=== PATIENT | female | born 1995 | race Caucasian/White ===

== ENCOUNTER 2016-08-21 20:32 | Emergency (ER) | payer MEDICAID ==
[~2016-08-21] VITALS: Ht 165.1 cm; Wt 68.0 kg
[~2016-08-21 20:32] MED LIST: ALBUTEROL-200 PUFFS/ IH; AMOXICILLIN 50500 MG PO; AMOXIL250 MG PO; ANTIBIOTIC; BENADRYL 25MG C25 MG PO; BIAXIN 250MG T250 MG PO; CIPRO 500MG TA500 MG PO; CLINDAMYCIN HC150 MG PO; DEPO PROVER150 MG/ML IM; HYDROCODONE1 TABLET PO; IBUPROFEN800 MG PO; KEFLEX 500MG.500 MG PO; LORTAB 5/500 501 TAB PO; MEDROXYPROG150 MG/M1 IM; MOTRIN400 MG PO; NAPROSYN 500MG500 MG PO; PEN-VK500 MG PO; PREDNISONE 20MG20 MG PO; PREDNISONE5 MG PO; PROVENTIL0.09 MG/A1 IH; RANITIDINE HCL150 MG PO; TESSALON PERLE100 MG PO; VIBRAMYCIN HYC100 MG PO; VOLTAREN75 MG PO; ZANTAC 150150 MG PO; ZOFRAN4 MG PO
[2016-08-21 20:54] LABS: UTC STREP SCREEN NOT DETECTED (NOTDETECTED)
[2016-08-21] MEDS ORDERED: FLONASE 50 MCG16 GM (21:04)
[2016-08-21] MEDS ORDERED: AMOXICILLIN 50500 MG PO (21:04)
--- NOTE | 2016-08-21 21:05 | Urgent Treatment Center Report ---
History of Present Issue Date/Time Seen by Provider 08/21/162054 Visit Reason Pt arrived:Walked Presenting Problem:PT STATES SHE BEGAN TO FEEL BAD MONDAY. STATES FEVER, SORE THROAT, CHILLS, DORITA EAR ACHE, BODY ACHES, CONGESTION, AND N/V. Location if Accident: Onset of symptoms date/time:/ or onset unknown for:MEDICAL HX UNKNOWN Have you (or family members/close friends) recently traveled outside the [place]? N If Yes, where/when: Have you had exposure to infectious disease within the past month? TB? Other? Specify: Patient state that she has been having pain in her left ear, fever, chills, body aches, congestion and nausea and vomiting. States that she has been sick now for 3-4 days and thought she would feel better by now so she got afraid she may have the flu and she came in to be seen ALLERGIES Coded Allergies: Sulfa (Sulfonamide Antibiotics) (Mild, 06/21/15) azithromycin (Mild, 06/21/15) History Medical History General CAD? No Angina: No CT: No Hypertension? No Hyperlipidemia? No CHF? No DVT? No PE? No COPD? No Asthma? Yes Anemia? No GERD? No Gastric ulcers? No GI Bleed? No Hernia? No Thyroid Problems? No Hypothyroidism? No CVA? No Seizures? Yes Diabetes? No Insulin Dependent: No Insulin Pump: No Home FSBS? No Renal Insuffiency? No UTI? Yes Stones? No BPH? No GB Disease: Yes Nephritic Syndrome? No Asplenia? No Hepatitis? No Sickle Cell Disease? No Arthritis? No Migraines? Yes Cataracts? No Glaucoma? No MRSA? No HIV? No TB? No Anxiety? No Depression? No Cancer? No More? 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 Respiratory cough Gastrointestinal nausea, vomiting Physical Exam Vital Signs Vital Signs Date Time Temp Pulse Resp B/P Pulse O2 O2 Flow FiO2 Ox Delivery Rate 08/22 2039 99.8 85 18 128/77 97 General Appearance Patient appears ill, laying on exam table Ear, Nose, Throat sinus pain/drainage, tonsillar swelling, Throat red, irritated , left ear red, TM buldging Respiratory Status Yes: trachea midline, chest symmetrical, non tender chest. No: respiratory distress. 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 No Results/Orders Laboratory Tests 08/21/162042: Influenza Type A Ag NOT DETECTED, Influenza Type B Ag NOT DETECTED, Group A Strep Screen NOT DETECTED Orders Procedure Date/time Status UTC STREP SCREEN 08/21 2042 Complete UTC FLU A,B 08/21 2042 Complete Departure Departure Time of Disposition 2058 Disposition DC Home or Self Care(routine) Clinical Impression Primary Impression: Otitis media Qualifiers: Otitis media type: unspecified Laterality: left Chronicity: unspecified Qualified Code: H66.92 - Otitis media, unspecified, left ear Condition STABLE Referrals Shayy KABA,Guille De La Cruz (Family) Patient Instructions DI for Otitis Media (Middle Ear Infection)-Child, Ear Infections (Middle Ear) (Alternative Therapy), Sore Throat Additional Instructions better *humidifier or vaporizer *Flonase 2 sprays each nostril daily but may take 2-3 days to notice improvement with it * Warm salt water gargles for throat irritation *Warm fluids *Sore throat lozenges Increase fluids, water, Gatorade, powerade Follow up with family doctor if no improvement in symptoms for 3-4 days Report immedicately to the ER if any respiratory difficulty or emergent situation. Discharge Counseling Counseled pt/family regarding diagnosis, test results, home care, follow up needs Prescriptions Current Visit Scripts Amoxicillin Trihydrate (Amoxicillin 500MG) 500 MG PO TID #30 CAP Fluticasone Propionate (Flonase 50 Mcg Nasal [place]) 2 SPRAY NA DAILY #1 BOT at 2104
[2016-08-21 21:06] VITALS: BP 128/77
== END 2016-08-21 21:06 | disposition home or self-care (01) ==
LOC: UTC 20:32
PROVIDERS: Nurse Practitioner
DX: H66.92 Otitis media, unspecified, left ear (principal)

== ENCOUNTER 2016-12-02 17:19 | Emergency (ER) | payer MEDICAID ==
[~2016-12-02] VITALS: Ht 165.1 cm; Wt 63.5 kg
[~2016-12-02 17:19] MED LIST changes: +FLONASE 50 MCG16 GM
--- OUTSIDE RECORDS SUMMARY | 2016-12-02 17:50 | External Medical Summary Rpt ---
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 Name Role Phone NELSON RAMONE, NELSON Unavailable Unavailable RAMONE [employer] Unavailable Unavailable INC, [employer] Unavailable Unavailable INC, [employer] HUNTER CANO CHA, ALLRAN Unavailable Unavailable JR FRANCISCO CANCHOLA JR, Unavailable Unavailable FRANCISCO HARRISON JR [employer], Unavailable Unavailable [employer] ARNOLD CORIE, ARNOLD Unavailable Unavailable CORIE ARNOLD CORIE, ARNOLD Unavailable Unavailable CORIE RODERICK SALAZAR, Unavailable Unavailable RODERICK SALAZAR BEINEKE Unavailable Unavailable LAILA BEZOLD III MEDARDO, Unavailable Unavailable BEZOLD III MEDARDO PRADEEP PASTORA, Unavailable Unavailable PRADEEP PASTORA IQBAL ALL, IQBAL ALL Unavailable Unavailable [facility] Unavailable Unavailable [facility] Oscar MARTI JR, V, Unavailable Unavailable Oscar MARTI JR, CHANDEL Unavailable Unavailable ARMANDO PERES Unavailable Unavailable ARMANDO PALUMBO Unavailable Unavailable ISABEL SANDHU, Unavailable Unavailable ISABEL [facility], Un[facility]available [facility], Unavailable [facility]available [facility] Unavailable Unavailable [place], [facility] & Unavailable Unavailable ASTHMA P, [facility] & Unavailable Unavailable AST[facility] P, [facility] JULIET AGUS, Unavailable Unavailable JULIET AGUS JULIET AGUS, Unavailable Unavailable JULIET AGUS EMERSON CHUNGLAS, Unavailable Unavailable JULIET, RUBY GRIFFIN MICHELLE, GRIFFIN MICHELLE Unavailable Unavailable FARZAM FAR, FARZAM Unavailable Unavailable FAR ENDY RUIZ P, Unavailable Unavailable ENDY RUIZ P FRYMAN EUG, FRYMAN Unavailable Unavailable EUG LILI RODOLFO, LILI Unavailable Unavailable ORDOLFO LILI RODOLFO, LILI Unavailable Unavailable RODOLFO SARA LUCAS, Unavailable Unavailable SARA LUCAS [facility] Unavailable Unavailable HOSPITA, [facility] Unavailable Unavailable [place], [facility] Unavailable Unavailable INC, [facility] Unavailable Unavailable HOSPITAL P, [facility] BUTLER PRIYANK, BUTLER PRIYANK Unavailable Unavailable BUTLER PRIYANK, BUTLER PRIYANK Unavailable Unavailable [facility], Unavailable Unavailable [facility] MERCADO HEN, MERCADO HEN Unavailable Unavailable NEAL-JACOB KATLIN, Unavailable Unavailable NEAL-JACOB KATLIN NEAL-JACOB KATLIN, Unavailable Unavailable NEAL-JACOB KATLIN SAIDA ELIZABETH, SAIDA Unavailable Unavailable ELIZABETH [facility] Unavailable Unavailable [facility]ING [facility], [facility], OFE M[facility] Unavailable Unavailable MENDEL COLEMAN, Unavailable Unavailable MENDEL COLEMAN [facility] Un[facility] Un[facility] WALL SUDHA, WALL Unavailable Unavailable SUDHA WALL SUDHA, WALL Unavailable Unavailable SUDHA MARI JR DWI, MARI Unavailable Unavailable JR DWI MARI JR DWI, MARI Unavailable Unavailable JR DWI COLIN FAYETTE URBAN Unavailable Unavailable COGOVT, COLIN FAYETTE URBAN COGOVT Danisha Lucas MD, Unavailable Unavailable Danisha Lucas MD [facility], Unavailable Unavailable [facility] TYRELL [facility], Unavailable Unavailable [facility] Unavailable Unavailable SERVICES, [facility] DENEEN RIBEIRO, DENEEN Unavailable Unavailable KIRSTIN CALDWELL, Unavailable Unavailable KIRSTIN COBOS, NELLY MOCTEZUMA Unavailable Unavailable NELLY MOCTEZUMA, NELLY JOSE ELIAS Unavailable Unavailable COLON, GENE A, Unavailable Unavailable COLON GENE A DODD JOSE ELIAS, DODD Unavailable Unavailable JOSE ELIAS [facility], Unavailable [facility]available [facility] Unavailable Unavailable LAB, [facility] DEREK BROWN, Unavailable Unavailable DEREK BROWN PETTEY JAM, PETTEY Unavailable Unavailable JAM [facility] ENGINEER, RECHTIN Unavailable Unavailable DATA CENTER ENGINEER [facility] ENGINEER, RECHTIN Unavailable Unavailable DATA CENTER ENGINEER [id number], Unavailable Unavailable [id number] Unavailable Unavailable [id number] # [id number], [facility] [id number] # [id number] [facility] Unavailable Unavailable AMBULANCE[facility] Unavailable [facility]available AMBULANCE, [facility], Unavailable Unavailable [facility] ANCELMO LA, ANCELMO LA Unavailable Unavailable SADEK MOH, SADEK MOH Unavailable Unavailable BECERRA AGUS, Unavailable Unavailable [facility] AG[facility] KATLIN, Unavailable Unavailable SCHULST[facility] KATLIN [facility] KATLIN, Unavailable Unavailable [facility] KATLIN [facility], PETER, Unavailable Unavailable [facility], PETER PATINO MUR, Unavailable Unavailable PATINO MUR SCIFRES ANG, SCIFRES Unavailable Unavailable ANG SCIFRES ANG, SCIFRES Unavailable Unavailable ANG SCIFRES JESÚS M, Unavailable Unavailable SCIFRES, JESÚS M SMALL LESVIA, SMALL LESVIA Unavailable Unavailable SOKAN BAB, SOKAN BAB Unavailable Unavailable SOTINGEANU LAILA, Unavailable Unavailable SOTINGEANU LAILA [facility] Unavailable Unavailable [facility], [facility] Unavailable Unavailable EMERGENCY PHYS, [facility] STONE, STONE Unavailable Unavailable [facility] Unavailable Unavailable SURGERY C, [facility] Unavailable Unavailable HOSPITALS, [facility], Unavailable [facility]available [facility] Unavailable Unavailable [facility], [facility] WEHRMAN III JOSE ELIAS, Unavailable Unavailable WEHRMAN III JOSE ELIAS WEHRMAN III JOSE ELIAS, Unavailable Unavailable WEHRMAN III JOSE ELIAS WEHRDANIELA IIIDAMIR, Unavailable Unavailable WEHRDANIELA IIIDAMIR, JAKY THAKUR Unavailable Unavailable Damir Duncan Unavailable Unavailable III Damir KABA III CONNOR MOMIN, Unavailable Unavailable CONNOR BAEZ [facility] Unavailable Unavailable OF [place], [facility] [place] Purpose Continuity of Care Document - 09-03-2007 through 2016 Problems Code Diagnosis DOS Provider Status [id number] OTITIS 08-21-2016 [facility] UNSPECIFIED INC LEFT EAR Z3040 ENCOUNTER 08-16-2016 [facility] SURVEILLANC GROUP E CONTRACEPTI VES UNS 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 THY RIGHT UPPER LIMB [id number] INJURY 12-22-2015 [facility] HAND LEVEL RT ARM INIT I01719 PAIN IN 11-18-2015 [facility] [id number] INJURY 11-18-2015 [facility] RADIAL PHYSICIANS NERVE GROUP FOREARM LEVEL RT ARM INIT H5213 MYOPIA 10-30-2015 SCICHASIDY JACOBS BILATERAL Z4802 ENCOUNTER 08-06-2015 [facility] FOR REMOVAL PHYSICIANS OF SUTURES GROUP T148 OTHER 07-27-2015 [facility] INJURY OF PHYSICIANS UNSPECIFIED GROUP BODY REGION M542 CERVICALGIA 07-26-2015 [facility] R51 HEADACHE 07-26-2015 [facility] [id number] LAC W/O FB 07-26-2015 [facility] EYELID & MEDICAL PERIOCULAR IMAGING ASS AREA INIT ENC [id number] LACERATION 07-26-2015 [facility] W/O FB PHYSICIANS, OTHER PART PLLC HEAD INITIAL ENC [id number] CONCUSSION 07-26-2015 [facility] W/LOC 30 PHYSICIANS, MIN/LESS PLLC INITIAL ENCOUNTER [id number] UNSPECIFIED 07-26-2015 [facility] INJURY OF MEDICAL HEAD IMAGING ASS INITIAL ENCOUNTER L470JRA UNSPECIFIED 07-26-2015 [facility] INJURY OF MEDICAL NECK IMAGING ASS INITIAL ENCOUNTER J180 BRONCHOPNEU 06-21-2015 [facility]ICAL UNSPECIFIED IMAGING ASS ORGANISM J209 ACUTE 06-21-2015 [facility] BRONCHITIS [facility] UNSPECIFIED INC J40 BRONCHITIS 06-21-2015 [facility] NOT PHYSICIANS, SPECIFIED PLLC ACUTE OR CHRONIC J98148 UNSPECIFIED 06-21-2015 [facility] ASTHMA [facility] UNCOMPLICAT INC ED R05 COUGH 06-21-2015 [facility] Z3042 ENCOUNTER 05-14-2015 [facility] SURVEILLANC PHYSICIANS E GROUP INJECTABLE CONTRACEPTI VE M7989 OTHER 03-11-2015 [facility] SPECIFIED PHYSICIANS SOFT TISSUE GROUP DISORDERS N926 IRREGULAR 03-11-2015 [facility] MENSTRUATIO PHYSICIANS N GROUP UNSPECIFIED R1110 VOMITING 03-11-2015 [facility] UNSPECIFIED PHYSICIANS GROUP G44739 MIGRAINE 03-03-2015 [facility] W/O AURA PHYSICIANS, NOT INTRACT PLLC W/O STAT MIGRAIN 21014 UNSPECIFIED 11-20-2014 [facility] CON[facility] PHYS TIS V142 PERSONAL 11-20-2014 [place] [facility] ALL[facility] TO HOSPITAL SULFONAMIDE S V143 PERSONAL 11-20-2014 [place] [facility] OTH [facility]OSPITAL ANTI-INFECT JANE AGT 62473 SPRAIN AND 09-22-2014 [facility] OF TECHNOLOGIE UNSPECIFIED S INC SITE OF FOOT 7820 DISTURBANCE 09-21-2014 [facility] OF SKIN MEDICAL SENSATION IMAGING ASS 9170 ABRASION/FR 09-21-2014 [facility] ICTION [facility] FOOT&TOE INC W/O MENTION INF V065 NEED 09-21-2014 [facility] PROPHYLACTI [facility] C INC VACCINATION W/TETANUS-D [facility] 3671 MYOPIA 07-25-2014 SCIFRES ANG V2549 SURVEILLANC 07-22-2014 [facility] E OT PREV PHYSICIANS PRSC GROUP CONTRACEPT METHOD V692 PROBLEMS 07-22-2014 [facility] RELATED TO [facility] HIGH-RISK INC SEXUAL BEHAVIOR V7231 ROUTINE 07-22-2014 [facility] GYNECOLOGIC PHYSICIANS AL GROUP EXAMINATION 55832 DIARRHEA 07-15-2014 [facility] PHYSIC[facility]ANS GROUP 24881 ABDOMINAL 07-15-2014 [facility] PAIN, PHYSICIANS EPIGASTRIC GROUP 39855 ASTHMA, 07-11-2014 [facility] UNSPECIFIED [facility] P UNSPECIFIED STATUS 25995 ACUTE 07-11-2014 [facility] GASTRITIS [facility] P MENTION OF HEMORRHAGE 65870 ABDOMINAL 07-11-2014 [facility] PAIN, MEDICAL UNSPECIFIED IMAGING ASS SITE 98052 ACUTE 07-06-2014 [facility] SEROUS PHYSICIANS OTITIS GROUP MEDIA 4619 ACUTE 07-06-2014 [facility] SINUSITIS, PHYSICIANS UNSPECIFIED GROUP 4660 ACUTE 01-28-2014 MARIE FONTENOT BRONCHITIS 5589 OTH&UNSPEC 01-28-2014 MARIE FONTENOT NONINFECTIO US GASTROENTER ITIS&COLITI S 38642 OTHER 01-12-2014 [facility] CONVULSIONS [facility] INC 98995 OBESITY, 12-17-2013 ARNODALYS CORIE UNSPECIFIED 91656 BLEPHARITIS 12-17-2013 BUTLER PRIYANK , UNSPECIFIED 8020 NASAL 08-30-2013 MARIE FONTENOT BONES, CLOSED FRACTURE 920 CONTUSION 08-30-2013 [facility] OF [facility]ACE [facility] SCALP AND INC NECK EXCEPT EYE 98653 INJURY OF 08-30-2013 JULIET FACE AND AGUS NECK OTHER AND UNSPECIFIED 30123 PAIN IN 06-12-2013 JULIET JOINT, AGUS LOWER LEG 9596 INJURY 06-12-2013 [facility] OTHER AND [facility] UNSPECIFIED INC HIP AND THIGH E0032 ACT INVLV 06-12-2013 JULIET SNOW SKI AGUS BOARD SLED TOBOGGAN & TUBING 82007 GENERALIZED 05-30-2013 J[facility] PAIN AGUS 7840 HEADACHE 05-30-2013 LILI RODOLFO 13029 HEAD 05-30-2013 JULIET INJURY, AGUS UNSPECIFIED 9599 INJURY 05-30-2013 JULIET OTHER AND AGUS UNSPECIFIED UNSPECIFIED SITE E849.0 E849.0 05-30-2013 Julius ACCIDENT IN [facility] E884.4 E884.4 FALL 05-30-2013 Julius FROM [facility] E8889 UNSPECIFIED 05-30-2013 JULIET FALL AGUS E9293 LATE 05-30-2013 LILI RODOLFO EFFECTS OF ACCIDENTAL FALL 4659 ACUTE URIS 04-19-2013 ARNOLD CORIE OF UNSPECIFIED SITE 6929 CONTACT 04-19-2013 ARNODALYS CORIE DERMATITIS& OTHER ECZEMA DUE UNSPEC CAUSE 1330 SCABIES 04-15-2013 ARNODALYS CORIE 7948 NONSPECIFIC 04-01-2013 [facility] ABNORMAL [facility] RESULTS INC LIVR FUNCTION STUDY 564.3 564.3 03-31-2013 Julius VOMITING [facility] POST-GI Hospital SURGERY 5643 VOMITING 03-31-2013 [facility]LLOWING [facility] GASTROINTES INC TINAL SURGERY 48934 NAUSEA WITH 03-31-2013 LILI RODOLFO VOMITING V4589 OTHER 03-31-2013 LILI RODOLFO POSTSURGICA L STATUS OTHER 82635 CHRONIC 03-29-2013 TYRELL CHOLECYSTIT CHUY IS 5758 OTHER 03-29-2013 NELLY MOCTEZUMA SPECIFIED DISORDER OF GALLBLADDER 576.8 576.8 DIS 03-11-2013 Julius OF BILIARY [facility] TRACT [facility] 5768 OTHER 03-11-2013 WEHRMAN III SPECIFIED JOSE ELIAS DISORDERS OF BILIARY TRACT 786.50 786.50 03-11-2013 Julius CHEST PAIN [facility] 27209 CHEST PAIN 03-11-2013 WEHRMAN III UNSPECIFIED JOSE ELIAS 789.07 789.07 03-11-2013 [place] ABDOMINAL [facility] PAIN, Hospital GENERALIZED 43953 ABDOMINAL 03-11-2013 MARI CANO PAIN, DWI GENERALIZED V14.8 V14.8 03-11-2013 Julius HX-DRUG [facility] ALLERGY [facility] V148 PERSONAL 03-11-2013 J[facility]IUS HISTORY [facility] ALLERGY OTH INC SPEC MEDICINAL AGTS V58.69 V58.69 OTH 03-11-2013 Julius MED,LT,[facility] ENT [facility] V5869 LONG-TERM 03-11-2013 MARI CANO (CURRENT) DWI USE OF OTHER MEDICATIONS 7295 PAIN IN 01-29-2013 JULIET SOFT AGUS TISSUES OF LIMB 8260 CLOSED 01-29-2013 [facility] FRACTURE OF [facility] ONE OR INC MORE PHALANGES OF FOOT 5225 PERIAPICAL 09-19-2012 [facility] ABSCESS [facility] WITHOUT INC SINUS 5259 UNSPECIFIED 09-19-2012 LILI RODOLFO DISORDER TEETH&SUPPO RTING STRUCTURES 90862 PAIN IN 08-21-2012 MARIE FONTENOT JOINT, SITE UNSPECIFIED 57883 ABDOMINAL 04-19-2012 [facility] PAIN RIGHT KATLIN UPPER QUADRANT 5780 HEMATEMESIS 04-12-2012 [facility] KATLIN 32293 ESOPHAGEAL 04-04-2012 [facility] 91081 VARIANTS 03-08-2012 MARIE FONTENOT MIGRAINE NEC INTRACT MIGRAINE W/O SM V720 EXAMINATION 02-03-2012 SCIFRES ANG OF EYES AND VISION 5693 HEMORRHAGE 01-16-2012 ARNODALYS CORIE OF RECTUM AND ANUS 5789 UNSPECIFIED 01-05-2012 [facility] ENGINEER HEMORRHAGE OF GASTROINTES TINAL TRACT 462 ACUTE 12-22-2011 MARIE FONTENOT PHARYNGITIS 80969 UNSPECIFIED 09-13-2011 MARIE FONTENOT INFECTIVE OTITIS EXTERNA 28564 CHRONIC 07-25-2011 [place] TONSILLITIS 4779 ALLERGIC 07-25-2011 [place] RHINITIS CAUSE UNSPECIFIED 7231 CERVICALGIA 07-14-2011 [facility] 98557 SPASM OF 07-14-2011 JULIET MUSCLE AGUS 7856 ENLARGEMENT 07-14-2011 [facility] OF LYMPH EMERGENCY NODES SERVICES 02146 UNS 07-05-2011 MARIE FONTENOT GASTRITIS&G ASTRODUODIT IS W/O MENTION HEMORR 4871 INFLUENZA 06-20-2011 MARIE FONTENOT WITH OTHER RESPIRATORY MANIFESTATI ONS 19032 UNSPECIFIED 06-15-2011 ÁNGEL-ZIA CHONG KATLIN CONSTIPATIO N 4770 ALLERGIC 05-26-2011 [facility] RHINITIS ALLERGY & DUE TO ASTHMA P POLLEN 4778 ALLERGIC 05-26-2011 [facility] RHINITIS ALLERGY & DUE TO ASTHMA P OTHER ALLERGEN 47641 EXTRINSIC 05-26-2011 [facility] ASTHMA, ALLERGY & UNSPECIFIED ASTHMA P 7083 DERMATOGRAP 05-26-2011 [facility] HIC ALLERGY & URTICARIA ASTHMA P V727 DIAGNOSTIC 05-26-2011 [facility] SKIN AND ALLERGY & SENSITIZATI ASTHMA P ON TESTS 1110 PITYRIASIS 05-11-2011 MARIE FONTENOT VERSICOLOR 09105 OTHER 04-19-2011 [facility] ASS 5999 UNSPECIFIED 03-08-2011 MARIE CORIE DISORDER OF URETHRA&URI NARY TRACT 6264 IRREGULAR 02-10-2011 [facility] [place] 6268 OTH D/O 02-10-2011 [facility] MENSTRUATIO HEALTH N&OTH ABN CLINIC OF BLEED FE [place] GNT TRACT 03546 PEPTC ULCR 12-23-2010 MARIE FONTENOT UNS ACUT/CHRN W/O HEMOR PERF/OBST 5990 URINARY 10-13-2010 [facility] TRACT [facility] INFECTION SERVICES SITE NOT SPECIFIED 7242 LUMBAGO 09-29-2010 MARIE FONTENOT 9953 ALLERGY 09-29-2010 MARIE FONTENOT UNSPECIFIED NOT ELSEWHERE CLASSIFIED 6259 UNSPEC 08-31-2010 [facility] CLINIC OF W/FEMALE [place] GENITAL ORGANS 56639 ABDOMINAL 08-31-2010 [facility] PAIN, LEFT HEALTH LOWER CLINIC OF QUADRANT [place] 6202 OTHER AND 08-30-2010 MARIE CORIE UNSPECIFIED OVARIAN CYST 5210 DENTAL 06-18-2010 THE IMPLANT CARIES & ORAL SURGERY C 5759 UNSPECIFIED 03-29-2010 MARIE FONTENOT DISORDER OF GALLBLADDER 50295 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 DYSFUNCTION [facility] 7245 UNSPECIFIED 01-13-2010 [facility] BACKACHE [facility] 09556 OTHER 01-13-2010 [place] [facility] INJURY OF SERV OTHER SITES FOUNDATIO OF TRUNK 63424 UNSPEC 01-12-2010 CYNODALYS CORIE EPILEPSY WITHOUT MENTION INTRACT EPILEPSY 7241 PAIN IN 01-09-2010 [facility] 20707 OTHER 01-09-2010 [facility] OF AMBULANCE CONSCIOUSNE SS 7802 SYNCOPE AND 01-09-2010 [facility] 8479 SPRAIN AND 01-09-2010 [facility] STRAIN OF HOSPITAL UNSPECIFIED SITE OF BACK 8488 OTHER 01-09-2010 [facility] SPECIFIED EMERGENCY SITES OF SERVICES SPRAINS AND STRAINS E0009 UNSPECIFIED 01-09-2010 [facility] CAUSE STATUS E0029 OTHER 01-09-2010 [facility] INVOLVING WATER AND WATERCRAFT E8498 OTHER 01-09-2010 [facility] SPECIFIED [facility] PLACE OF OCCURRENCE E9288 OTHER 01-09-2010 [facility] 3829 UNSPECIFIED 10-16-2009 MARIE OTITIS RODERICK W MEDIA 94459 ASTHMA 10-16-2009 LUCAS SALAZARIFIED RODERICK Gould WITH STATUS ASTHMATICUS 07882 ACUTE 09-24-2009 ARNOLD, LARYNGITIS, RODERICK W WITHOUT MENTION OF OBSTRUCTIO 30102 INSOMNIA 08-25-2009 ARNOLD, UNSPECIFIED RODERICK W V2509 OT GENERAL 08-04-2009 [facility] CNSL&ADVICE CLINIC OF CONTRACEPT VIC MANAGEMENT [facility] 00266 CONTUSION 07-07-2009 [facility] E8[address] PLACE OF 07-07-[address] [facility] [address] IMAGING RECREATION ASSOCIATES AND SPORT E8859 FALL FROM 07-07-2009 [facility] OTHER MEDICAL SLIPPING IMAGING TRIPPING OR ASSOCIATES STUMBLING 8450 SPRAIN&STRA 07-06-2009 TYRELL IN OF EMERGENCY UNSPECIFIED SERVICES SITE OF ASSOCIATES KNEE&LEG 97603 NAUSEA 06-12-2009 [facility] ALONE [facility] F[facility] 69115 VOMITING 06-12-2009 [facility] ALONE [facility] 5224 ACUTE 05-19-2009 CYNOLD, APICAL RODERICK W PERIODONTIT IS OF PULPAL ORIGIN 7842 SWELLING 03-22-2009 TYRELL MASS OR EMERGENCY LUMP IN SERVICES HEAD AND ASSOCIATES NECK 41490 DUODENITIS 03-05-2009 [facility], WITHOUT PETER MENTION OF HEMORRHAGE V2502 GENERAL 02-03-2009 [facility] CNSL [facility] IN[facility] VIC CONTRACEPT [facility] MEASURES 2662 OTHER 01-27-2009 DHS/CO B-COMPLEX HEALTH DEFICIENCIE [facility] ACCT 61447 PAIN IN 10-09-2008 ARNOLD, JOINT RODERICK W PELVIC REGION AND THIGH 2892 NONSPECIFIC 08-19-2008 [facility] MESENTERIC HEALTH CLINIC OF LYMPHADENIT VIC IS [facility] 99988 ABDOMINAL 08-14-2008 [facility], PAIN RIGHT PETER LOWER QUADRANT 0088 INTESTINAL 07-23-2008 MARTI INFECTION JR, J V DUE TO OTHER ORGANISM NEC 6262 EXCESSIVE 07-16-2008 [facility] OR [facility] OF MENSTRUATIO VIC N [facility] 7246 DISORDERS 07-09-2008 [facility] 7862 COUGH 05-28-2008 [facility] 6253 DYSMENORRHE 04-10-2008 [facility] A [facility] CLIN[facility] OF VIC [facility] K29.70 GASTRITIS, UNSPECIFIED , WITHOUT BLEEDING Allergies, Adverse Reactions, Alerts Type Drug Allergy Adverse Reaction to Substance Substance Reaction Severity SULFA (sulfonamide) ITCHING Unknown Azithromycin HIVES/ITCHING Unknown Medications Na ND Rx Da Fi Fi Am Da Di Ph RX Ph St me C No te ll ll ou ys ag ar # ys at rm s nt no ma ic us Or Da si cy ia de te s n re d AM 57 04 05 30 10 00 CL Ac OX 23 -1 -1 .0 00 IN ti IC 70 7- 9- 00 00 IC ve IL 03 20 20 42 LI 10 17 17 81 PH N 5 96 AR 50 MA 0 CY MG CA PS UL E FL 50 04 05 16 30 00 CL Ac UT 38 -1 -1 .0 00 IN ti IC 30 7- 9- 00 00 IC ve 70 20 20 42 ON 01 17 17 81 PH E 6 97 AR VT MA OP CY 50 MC G SP RA Y ME 59 04 05 1. [address] 76 -1 -1 00 00 IN ti OX 24 1- 2- 0 00 IC ve YP 53 20 20 41 RO 80 17 17 83 PH GE [address] MA ER CY ON E 15 0 MG /M L HY 43 03 04 60 30 00 CL Ac OS 19 -1 -1 .0 00 IN ti CY 90 5- 4- 00 00 IC ve AM 01 20 20 42 IN 40 17 17 52 PH E 1 13 AR ER MA CY 0. 37 5 MG TA B ME 59 01 02 1. [address] 76 -0 -1 00 00 IN ti OX 24 6- 0- 0 00 IC ve YP 53 20 20 41 RO 80 17 17 83 PH GE [address] MA ER CY ON E 15 0 MG /M L AC 51 11 0 No ET 07 -2 AM 90 4- Lo IN 16 20 ng OP 19 13 er HE 9H N Ac W/ ti CO ve DE IN E #3 TA K SO 00 11 0 No DI 40 -2 UM 97 4- Lo 98 20 ng CH 30 13 er LO 9 RI Ac DE ti ve 0. 9% SO ALICIA TI ON ON 00 11 0 No DA 64 -2 NS 16 4- Lo ET 08 20 ng RO 02 13 er N 5 HC Ac L ti 4 ve MG /2 ML AL AC 51 11 0 No ET 07 -2 AM 90 4- Lo IN 16 20 ng OP 19 13 er HE 9H N Ac W/ ti CO ve DE IN E #3 TA K KE 00 11 0 No TO 40 -2 RO 93 4- Lo LA 79 20 ng C 50 13 er 30 1 Ac MG ti /M ve L AL ON 00 11 0 No DA 64 -0 NS 16 4- Lo ET 08 20 ng RO 02 13 er N 5 HC Ac L ti 4 ve MG /2 ML AL FA 51 11 0 No MO 07 -0 TI 90 4- Lo DI 96 20 ng NE 62 13 er 0 20 Ac ti MG ve TA BL ET LI 00 05 0 No DO 05 -1 CA 48 5- Lo IN 50 20 ng E 01 13 er 2% 6 Ac ti SC ve OU S 15 ML UD C KE 00 05 0 No TO 40 -1 RO 93 5- Lo LA 79 20 ng C 60 13 er 60 1 Ac MG ti /2 ve ML AL AC 51 05 0 No ET 07 -1 AM 90 5- Lo IN 16 20 ng OP 19 13 er HE 9H N Ac W/ ti CO ve DE IN E #3 TA K CE 00 10 10 1 20 10 RI 90 AR Ac FD 78 -1 -1 .0 TE 38 NO ti IN 12 8- 8- 00 82 LD ve IR 17 20 20 AI 66 11 11 D RI 30 0 PH CH 0 AR AR MG MA D CY W CA PS 03 UL 93 E 8 # 03 93 ME 59 07 10 3 1. 90 CL [address] 76 -1 -1 00 IN 23 AR ti OX 24 9- 0- 0 IC 59 KE ve YP 53 20 20 RO 70 11 11 PH DE GE [address] MA K ER CY J ON E LL 15 C 0 MG /M L ES 00 10 10 2 30 30 RI 90 CL Ac TR 55 -0 -0 .0 TE 21 AR ti AD 50 6- 6- 00 32 KE ve IO 88 20 20 AI L 70 11 11 D DE 2 2 PH RE MG AR K MA J TA CY BL ET 03 93 8 # 03 93 ME 00 10 10 1 21 6 RI 90 AR Ac TH 60 -0 -0 .0 TE 21 NO ti YL 34 6- 6- 00 45 LD ve VT 59 20 20 AI ED 31 11 11 D RI NI 5 PH CH SO AR AR LO MA D NE CY W 4 03 MG 93 8 DO # SE 03 PK 93 BU 00 10 10 1 40 10 RI 90 AR Ac TA 14 -0 -0 .0 TE 21 NO ti LB 31 6- 6- 00 46 LD ve -A 78 20 20 AI CE 70 11 11 D RI TA 1 PH CH OH AR AR N- MA D CA CY W FF 03 50 93 -3 8 25 # -4 03 0 93 CE 16 05 09 7 30 30 RI 88 AR Ac TI 57 -1 -1 .0 TE 34 NO ti RI 10 6- 3- 00 80 LD ve ZI 40 20 20 AI NE 21 11 11 D RI 0 PH CH HC AR AR L MA D 10 CY W MG 03 93 TA 8 BL # ET 03 93 AM 00 09 09 1 30 10 RI 89 AR Ac OX 78 -0 -0 .0 TE 78 NO ti IC 12 6- 6- 00 51 LD ve IL 61 20 20 AI LI 30 11 11 D RI N 5 PH CH 50 AR AR 0 MA D MG CY W CA 03 PS 93 UL 8 E # 03 93 LO 00 09 09 11 30 30 RI 89 AR Ac RA 78 -0 -0 .0 TE 78 NO ti TA 15 6- 6- 00 52 LD ve DI 07 20 20 AI NE 70 11 11 D RI 1 PH CH 10 AR AR MA D MG CY W TA 03 BL 93 ET 8 # 03 93 59 09 09 11 8. 16 RI 89 AR Ac 31 -0 -0 50 TE 78 NO ti 00 6- 6- 0 53 LD ve 57 20 20 AI 92 11 11 D RI 0 PH CH AR AR MA D CY W 03 93 8 # 03 93 VT 37 09 09 11 28 28 RI 89 AR Ac IL 00 -0 -0 .0 TE 78 NO ti OS 00 6- 6- 00 55 LD ve EC 45 20 20 AI 50 11 11 D RI OT 3 PH CH C AR AR 20 MA D .6 CY W MG 03 93 TA 8 BL # ET 03 93 VT 00 08 08 1 18 6 RI 89 AR Ac OM 60 -2 -2 0. TE 66 NO ti ET 31 6- 6- 00 25 LD ve CASTORENA 58 20 20 0 AI ZI 65 11 11 D RI NE 4 PH CH -D AR AR M MA D SY CY W RU P 03 93 8 # 03 93 VT 00 08 08 1 40 10 RI 89 AR Ac OM 60 -1 -1 .0 TE 55 NO ti ET 35 8- 8- 00 99 LD ve CASTORENA 43 20 20 AI ZI 82 11 11 D RI NE 1 PH CH AR AR 25 MA D CY W MG 03 TA 93 BL 8 ET # 03 93 TR 45 08 08 1 80 10 RI 89 AR Ac IA 80 -1 -1 .0 TE 56 NO ti MC 20 8- 8- 00 00 LD ve IN 06 20 20 AI OL 43 11 11 D RI ON 6 PH CH E AR AR 0. MA D 1% CY W CR 03 EA 93 M 8 # 03 93 PE 00 08 08 1 59 1 RI 89 AR Ac RM 47 -1 -1 .0 TE 56 NO ti ET 25 8- 8- 00 01 LD ve HR 24 20 20 AI IN 26 11 11 D RI 7 PH CH 1% AR AR MA D LO CY W TI ON 03 93 8 # 03 93 CE 16 05 08 7 30 30 RI 88 AR Ac TI 57 -1 -1 .0 TE 34 NO ti RI 10 6- 5- 00 80 LD ve ZI 40 20 20 AI NE 21 11 11 D RI 0 PH CH HC AR AR L MA D 10 CY W MG 03 93 TA 8 BL # ET 03 93 ME 00 08 08 1 21 6 RI 89 AR Ac TH 60 -1 -1 .0 TE 45 NO ti YL 34 1- 1- 00 55 LD ve VT 59 20 20 AI ED 31 11 11 D RI NI 5 PH CH SO AR AR LO MA D NE CY W 4 03 MG 93 8 DO # SE 03 PK 93 ME 59 07 07 3 1. 90 CL [address] 76 -1 -1 00 IN 23 AR ti OX 24 9- 9- 0 IC 59 KE ve YP 53 20 20 RO 70 11 11 PH DE GE [address] MA K ER CY J ON E LL 15 C 0 MG /M L CE 16 05 07 7 30 30 RI 88 AR Ac TI 57 -1 -1 .0 TE 34 NO ti RI 10 6- 2- 00 80 LD ve ZI 40 20 20 AI NE 21 11 11 D RI 0 PH CH HC AR AR L MA D 10 CY W MG 03 93 TA 8 BL # ET 03 93 CE 00 06 06 1 20 10 RI 88 AR Ac FD 78 -0 -0 .0 TE 55 NO ti IN 12 1- 1- 00 06 LD ve IR 17 20 20 AI 66 11 11 D RI 30 0 PH CH 0 AR AR MG MA D CY W CA PS 03 UL 93 E 8 # 03 93 CY 00 06 06 1 40 13 RI 88 AR Ac CL 37 -0 -0 .0 TE 55 NO ti OB 80 1- 1- 00 07 LD ve EN 77 20 20 AI ZA 10 11 11 D RI VT 1 PH CH IN AR AR E MA D 5 CY W MG 03 TA 93 BL 8 ET # 03 93 ME 00 05 05 1 60 15 RI 88 AR Ac TH 60 -2 -2 .0 TE 47 NO ti OC 34 5- 5- 00 21 LD ve AR 48 20 20 AI BA 62 11 11 D RI MO 1 PH CH L AR AR 75 MA D 0 CY W MG 03 TA 93 BL 8 ET # 03 93 DO 00 05 05 1 20 10 RI 88 AR Ac XY 14 -2 -2 .0 TE 47 NO ti CY 33 5- 5- 00 18 LD ve CL 14 20 20 AI IN 20 11 11 D RI E 5 PH CH HY AR AR CL MA D AT CY W E 10 03 0 93 MG 8 # CA 03 P 93 TR 45 05 05 1 80 20 RI 88 AR Ac IA 80 -2 -2 .0 TE 47 NO ti MC 20 5- 5- 00 19 LD ve IN 06 20 20 AI OL 43 11 11 D RI ON 6 PH CH E AR AR 0. MA D 1% CY W CR 03 EA 93 M 8 # 03 93 ME 00 05 05 1 21 6 RI 88 AR Ac TH 78 -2 -2 .0 TE 47 NO ti YL 15 5- 5- 00 20 LD ve VT 02 20 20 AI ED 20 11 11 D RI NI 1 PH CH SO AR AR LO MA D NE CY W 4 03 MG 93 8 TA # BL 03 ET 93 VT 00 05 05 1 30 7 RI 88 AR Ac OM 60 -1 -1 .0 TE 39 NO ti ET 35 9- 9- 00 41 LD ve CASTORENA 43 20 20 AI ZI 82 11 11 D RI NE 1 PH CH AR AR 25 MA D CY W MG 03 TA 93 BL 8 ET # 03 93 CE 16 05 05 7 30 30 RI 88 AR Ac TI 57 -1 -1 .0 TE 34 NO ti RI 10 6- 6- 00 80 LD ve ZI 40 20 20 AI NE 21 11 11 D RI 0 PH CH HC AR AR L MA D 10 CY W MG 03 93 TA 8 BL # ET 03 93 PO 00 04 04 1 52 30 RI 88 CL Ac LY 57 -2 -2 7. TE 08 AR ti ET 40 6- 6- 00 96 KE ve HY 41 20 20 0 AI LE 20 11 11 D DE NE 5 PH RE AR K GL MA J YC CY OL 03 33 93 50 8 # PO 03 WD 93 ME 59 01 04 1 1. 90 CL [address] 76 -1 -1 00 IN 07 AR ti OX 24 4- 9- 0 IC 00 KE ve YP 53 20 20 RO 70 11 11 PH DE GE [address] MA K ER CY J ON E LL 15 C 0 MG /M L VT 00 04 04 1 18 6 RI 87 AR Ac OM 60 -1 -1 0. TE 90 NO ti ET 31 2- 2- 00 19 LD ve CASTORENA 58 20 20 0 AI ZI 65 11 11 D RI NE 4 PH CH -D AR AR M MA D SY CY W RU P 03 93 8 # 03 93 LI 00 04 04 1 10 5 RI 87 AR Ac DO 60 -1 -1 0. TE 90 NO ti CA 31 2- 2- 00 20 LD ve IN 39 20 20 0 AI E 36 11 11 D RI 2% 4 PH CH AR AR MA D SC CY W OU S 03 SO 93 LN 8 # 03 93 CE 00 03 04 10 30 30 RI 87 AR Ac TI 78 -1 -1 .0 TE 44 NO ti RI 11 0- 1- 00 98 LD ve ZI 68 20 20 AI NE 40 11 11 D RI 1 PH CH HC AR AR L MA D 10 CY W MG 03 93 TA 8 BL # ET 03 93 CE 65 04 04 1 20 10 RI 87 AR Ac FU 86 -0 -0 .0 TE 75 NO ti RO 20 1- 1- 00 55 LD ve XI 03 20 20 AI ME 42 11 11 D RI 0 PH CH AX AR AR ET MA D IL CY W 25 03 0 93 MG 8 # TA 03 B 93 CE 65 03 03 1 20 10 RI 87 AR Ac FU 86 -1 -1 .0 TE 54 NO ti RO 20 7- 7- 00 95 LD ve XI 03 20 20 AI ME 42 11 11 D RI 0 PH CH AX AR AR ET MA D IL CY W 25 03 0 93 MG 8 # TA 03 B 93 AN 43 03 03 1 15 10 RI 87 AR Ac TI 19 -1 -1 .0 TE 44 NO ti PY 90 0- 0- 00 57 LD ve RI 01 20 20 AI NE 61 11 11 D RI -B 5 PH CH EN AR AR ZO MA D CA CY W IN E 03 EA [address] # OP 03 93 TA 00 03 03 10 5 RI 87 AR Ac OH 00 -1 -1 .0 TE 44 NO ti FL 40 0- 0- 00 58 LD ve U 80 20 20 AI 75 08 11 11 D RI 5 PH CH MG AR AR MA D CA CY W PS UL 03 E 93 8 # 03 93 VT 00 03 03 1 30 7 RI 87 AR Ac OM 60 -1 -1 .0 TE 44 NO ti ET 35 0- 0- 00 59 LD ve CASTORENA 43 20 20 AI ZI 82 11 11 D RI NE 1 PH CH AR AR 25 MA D CY W MG 03 TA 93 BL 8 ET # 03 93 LO 00 03 03 1 14 2 RI 87 AR Ac PE 09 -1 -1 .0 TE 44 NO ti RA 30 0- 0- 00 61 LD ve OH 31 20 20 AI DE 10 11 11 D RI 2 1 PH CH AR AR MG MA D CY W CA PS 03 UL 93 E 8 # 03 93 CE 00 03 03 10 30 30 RI 87 AR Ac TI 78 -1 -1 .0 TE 44 NO ti RI 11 0- 0- 00 98 LD ve ZI 68 20 20 AI NE 40 11 11 D RI 1 PH CH HC AR AR L MA D 10 CY W MG 03 93 TA 8 BL # ET 03 93 PE 00 02 02 1 59 1 RI 87 AR Ac RM 47 -2 -2 .0 TE 24 NO ti ET 25 6- 6- 00 94 LD ve HR 24 20 20 AI IN 26 11 11 D RI 7 PH CH 1% AR AR MA D LO CY W TI ON 03 93 8 # 03 93 OX 00 02 02 30 4 RI 87 PE Ac YC 60 -1 -1 .0 TE 03 TE ti OD 34 1- 1- 00 03 RS ve ON 99 20 20 AI ON E- 82 11 11 D , AC 1 PH II ET AR I AM MA GI IN CY LM OP AN HE 03 P N 93 5- 8 32 # 5 03 93 IB 53 02 02 30 8 RI 87 PE Ac UP 74 -1 -1 .0 TE 03 TE ti RO 60 1- 1- 00 04 RS ve FE 46 20 20 AI ON N 50 11 11 D , 60 5 PH II 0 AR I MG MA GI CY LM TA AN BL 03 P ET 93 8 # 03 93 AM 00 02 02 12 4 RI 87 PE Ac OX 78 -1 -1 .0 TE 03 TE ti IC 12 1- 1- 00 05 RS ve IL 61 20 20 AI ON LI 30 11 11 D , N 5 PH II 50 AR I 0 MA GI MG CY LM AN CA 03 P PS 93 UL 8 E # 03 93 CE 16 04 02 11 30 30 RI 83 AR Ac TI 71 -2 -1 .0 TE 06 NO ti RI 40 0- 0- 00 46 LD ve ZI 27 20 20 AI NE 10 10 11 D RI 2 PH CH HC AR AR L MA D 10 CY W MG 03 93 TA 8 BL # ET 03 93 ME 59 01 01 1 1. 90 CL [address] 76 -1 -1 00 IN 07 AR ti OX 24 4- 4- 0 IC 00 KE ve YP 53 20 20 RO 70 11 11 PH DE GE [address] MA K ER CY J ON E LL 15 C 0 MG /M L 00 12 12 50 30 RI 86 AR Ac 06 -0 -0 .0 TE 14 NO ti 60 7- 7- 00 18 LD ve 49 20 20 AI 45 10 10 D RI 5 PH CH AR AR MA D CY W 03 93 8 # 03 93 DO 00 12 12 1 20 10 RI 86 AR Ac XY 14 -0 -0 .0 TE 14 NO ti CY 33 7- 7- 00 11 LD ve CL 14 20 20 AI IN 20 10 10 D RI E 5 PH CH HY AR AR CL MA D AT CY W E 10 03 0 93 MG 8 # CA 03 P 93 60 12 12 1 24 6 RI 86 AR Ac 25 -0 -0 0. TE 14 NO ti 80 7- 7- 00 12 LD ve 23 20 20 0 AI 91 10 10 D RI 6 PH CH AR AR MA D CY W 03 93 8 # 03 93 59 12 12 8. 16 RI 86 AR Ac 31 -0 -0 50 TE 14 NO ti 00 7- 7- 0 16 LD ve 57 20 20 AI 92 10 10 D RI 0 PH CH AR AR MA D CY W 03 93 8 # 03 93 PA 00 11 12 1 5. 7 RI 86 HI Ac TA 06 -1 -0 00 TE 14 NE ti NO 50 2- 7- 0 43 S ve L 27 20 20 AI BR 0. 10 10 10 D ET 1% 5 PH T AR A EY MA E CY DR OP 03 S 93 8 # 03 93 AM 00 06 11 1 30 10 RI 83 AR Ac OX 78 -1 -3 .0 TE 76 NO ti IC 12 1- 0- 00 60 LD ve IL 61 20 20 AI LI 30 10 10 D RI N 5 PH CH 50 AR AR 0 MA D MG CY W CA 03 PS 93 UL 8 E # 03 93 ON 63 10 10 1 12 30 RI 85 AR Ac DA 30 -2 -2 .0 TE 56 NO ti NS 40 7- 7- 00 24 LD ve ET 45 20 20 AI RO 83 10 10 D RI N 0 PH CH HC AR AR L MA D 4 CY W MG 03 TA 93 BL 8 ET # 03 93 LO 00 10 10 1 8. 1 RI 85 AR Ac PE 09 -2 -2 00 TE 68 NO ti RA 30 7- 7- 0 20 LD ve OH 31 20 20 AI DE 10 10 10 D RI 2 1 PH CH AR AR MG MA D CY W CA PS 03 UL 93 E 8 # 03 93 ME 59 07 10 3 1. 90 CL [address] 76 -0 -1 00 IN 93 AR ti OX 24 7- 5- 0 IC 47 KE ve YP 53 20 20 RO 70 10 10 PH DE GE [address] MA K ER CY J ON E LL 15 C 0 MG /M L VT 00 09 09 5 15 5 RI 84 LI Ac OM 60 -0 -1 .0 TE 92 GH ti ET 35 9- 0- 00 37 TN ve CASTORENA 43 20 20 AI ER ZI 82 10 10 D NE 1 PH DO AR NI 25 MA TA CY D MG 03 TA 93 BL 8 ET # 03 93 IN 00 09 09 3 30 10 RI 84 LI Ac DO 37 -1 -1 .0 TE 92 GH ti ME 80 0- 0- 00 38 TN ve TH 14 20 20 AI ER AC 30 10 10 D IN 1 PH DO AR NI 25 MA TA CY D MG 03 CA 93 PS 8 UL # E 03 93 TO 00 09 09 11 12 31 RI 84 LI Ac PI 09 -0 -1 4. TE 92 GH ti RA 30 9- 0- 00 42 TN ve MA 15 20 20 0 AI ER TE 50 10 10 D 6 PH DO 25 AR NI MA TA MG CY D TA 03 BL 93 ET 8 # 03 93 LO 00 09 09 11 30 30 RI 84 AR Ac RA 78 -0 -0 .0 TE 85 NO ti TA 15 3- 3- 00 22 LD ve DI 07 20 20 AI NE 70 10 10 D RI 1 PH CH 10 AR AR MA D MG CY W TA 03 BL 93 ET 8 # 03 93 VT 00 09 09 1 30 7 RI 84 AR Ac OM 60 -0 -0 .0 TE 85 NO ti ET 35 3- 3- 00 23 LD ve CASTORENA 43 20 20 AI ZI 82 10 10 D RI NE 1 PH CH AR AR 25 MA D CY W MG 03 TA 93 BL 8 ET # 03 93 TR 45 09 09 1 80 30 RI 84 AR Ac IA 80 -0 -0 .0 TE 85 NO ti MC 20 3- 3- 00 24 LD ve IN 06 20 20 AI OL 43 10 10 D RI ON 6 PH CH E AR AR 0. MA D 1% CY W CR 03 EA 93 M 8 # 03 93 00 08 08 1 60 15 RI 84 AR Ac 59 -3 -3 .0 TE 77 NO ti 13 0- 0- 00 45 LD ve 96 20 20 AI 80 10 10 D RI 1 PH CH AR AR MA D CY W 03 93 8 # 03 93 ER 00 08 08 11 23 20 RI 84 AR Ac YT 78 -3 -3 .3 TE 77 NO ti HR 17 0- 0- 00 46 LD ve OM 05 20 20 AI YC 44 10 10 D RI IN 9 PH CH -B AR AR EN MA D ZO CY W YL 03 GE 93 L 8 # 03 93 ME 59 07 07 3 1. 90 CL [address] 76 -0 -0 00 IN 93 AR ti OX 24 7- 7- 0 IC 47 KE ve YP 53 20 20 RO 70 10 10 PH DE GE [address] MA K ER CY J ON E LL 15 C 0 MG /M L AM 65 06 06 1 30 10 RI 83 AR Ac OX 86 -1 -1 .0 TE 76 NO ti IC 20 1- 1- 00 60 LD ve IL 01 20 20 AI LI 70 10 10 D RI N 5 PH CH 50 AR AR 0 MA D MG CY W CA 03 PS 93 UL 8 E # 03 93 ME 00 06 06 1 21 6 RI 83 AR Ac TH 60 -1 -1 .0 TE 76 NO ti YL 34 1- 1- 00 61 LD ve VT 59 20 20 AI ED 31 10 10 D RI NI 5 PH CH SO AR AR LO MA D NE CY W 4 03 MG 93 8 DO # SE 03 PK 93 59 06 06 11 8. 30 RI 83 AR Ac 31 -1 -1 50 TE 76 NO ti 00 1- 1- 0 62 LD ve 57 20 20 AI 92 10 10 D RI 0 PH CH AR AR MA D CY W 03 93 8 # 03 93 AM 00 05 05 1 15 10 RI 83 AR Ac OX 09 -2 -2 0. TE 47 NO ti IC 34 0- 0- 00 04 LD ve IL 15 20 20 0 AI LI 58 10 10 D RI N 0 PH CH 25 AR AR 0 MA D MG CY W /5 03 ML 93 8 CORRALES # SP 03 93 VT 60 11 05 1 18 6 RI 83 AR Ac OM 43 -0 -2 0. TE 48 NO ti ET 20 5- 0- 00 29 LD ve CASTORENA 60 20 20 0 AI ZI 40 09 10 D RI NE 4 PH CH -D AR AR M MA D SY CY W RU P 03 93 8 # 03 93 ME 00 04 04 1 21 6 RI 83 AR Ac TH 60 -3 -3 .0 TE 20 NO ti YL 34 0- 0- 00 94 LD ve VT 59 20 20 AI ED 31 10 10 D RI NI 5 PH CH SO AR AR LO MA D NE CY W 4 03 MG 93 8 DO # SE 03 PK 93 DO 00 04 04 1 20 10 RI 83 AR Ac XY 14 -3 -3 .0 TE 20 NO ti CY 33 0- 0- 00 95 LD ve CL 14 20 20 AI IN 20 10 10 D RI E 5 PH CH HY AR AR CL MA D AT CY W E 10 03 0 93 MG 8 # CA 03 P 93 CE 65 04 04 1 20 10 RI 83 AR Ac FU 86 -2 -2 .0 TE 06 NO ti RO 20 0- 0- 00 45 LD ve XI 03 20 20 AI ME 42 10 10 D RI 0 PH CH AX AR AR ET MA D IL CY W 25 03 0 93 MG 8 # TA 03 B 93 CE 16 04 04 11 30 30 RI 83 AR Ac TI 71 -2 -2 .0 TE 06 NO ti RI 40 0- 0- 00 46 LD ve ZI 27 20 20 AI NE 10 10 10 D RI 2 PH CH HC AR AR L MA D 10 CY W MG 03 93 TA 8 BL # ET 03 93 TR 50 04 04 2 30 30 RI 83 AR Ac AZ 11 -2 -2 .0 TE 06 NO ti OD 10 0- 0- 00 48 LD ve ON 43 20 20 AI E 30 10 10 D RI 50 1 PH CH AR AR MG MA D CY W TA BL 03 ET 93 8 # 03 93 AN 24 04 04 1 10 10 RI 83 AR Ac TI 20 -2 -2 .0 TE 06 NO ti PY 80 0- 0- 00 68 LD ve RI 56 20 20 AI NE 16 10 10 D RI -B 2 PH CH EN AR AR ZO MA D CA CY W IN E 03 EA [address] # OP 03 93 ME 59 12 03 3 1. 90 CL [address] 76 -2 -3 00 IN 77 AR ti OX 24 9- 0- 0 IC 23 KE ve YP 53 20 20 RO 70 09 10 PH DE GE [address] MA K ER CY J ON E LL 15 C 0 MG /M L DI 00 03 03 1 40 20 RI 82 AR Ac CL 78 -0 -0 .0 TE 39 NO ti OF 11 4- 4- 00 45 LD ve EN 78 20 20 AI AC 90 10 10 D RI 1 PH CH SO AR AR D MA D EC CY W 75 03 93 MG 8 # TA 03 B 93 AM 00 01 02 01 15 10 RI 81 AR Ac OX 09 -1 -1 0. TE 68 NO ti IC 34 2- 1- 00 85 LD ve IL 15 20 20 0 AI LI 58 10 10 D RI N 0 PH CH 25 AR AR 0 M D MG #3 W /5 93 8 ML CORRALES SP 66 02 02 00 12 12 RI 81 AR Ac 99 -0 -1 0. TE 98 NO ti 20 2- 1- 00 61 LD ve 22 20 20 0 AI 00 10 10 D RI 4 PH CH AR AR M D #3 W 93 8 AN 24 02 02 00 10 10 RI 81 AR Ac TI 20 -0 -1 .0 TE 98 NO ti PY 80 2- 1- 00 55 LD ve RI 56 20 20 AI NE 16 10 10 D RI -B 2 PH CH EN AR AR ZO M D CA #3 W IN 93 [address] OP LO 00 01 01 00 30 30 RI 81 AR Ac RA 78 -2 -2 .0 TE 81 NO ti TA 15 1- 8- 00 90 LD ve DI 07 20 20 AI NE 70 10 10 D RI 1 PH CH 10 AR AR M D MG #3 W 93 TA 8 BL ET AM 00 01 01 00 15 10 RI 81 AR Ac OX 09 -1 -2 0. TE 68 NO ti IC 34 2- 8- 00 85 LD ve IL 15 20 20 0 AI LI 58 10 10 D RI N 0 PH CH 25 AR AR 0 M D MG #3 W /5 93 8 ML CORRALES SP LI 00 01 01 00 10 10 RI 81 AR Ac DO 60 -1 -2 0. TE 68 NO ti CA 31 2- 8- 00 86 LD ve IN 39 20 20 0 AI E 36 10 10 D RI 2% 4 PH CH AR AR M D SC #3 W OU [address] ME 59 12 01 00 1. 90 CL [address] 76 -2 -1 00 IN 77 AR ti OX 24 9- 4- 0 IC 23 KE ve YP 53 20 20 RO 70 09 10 PH DE GE [address] MA K ER CY J ON E 15 0 MG /M L CE 00 11 12 00 20 10 RI 80 AR Ac PH 09 -1 -0 0. TE 91 NO ti AL 34 7- 3- 00 36 LD ve EX 17 20 20 0 AI IN 77 09 09 D RI 3 PH CH 25 AR AR 0 M D MG #3 W /5 93 8 ML CORRALES SP VT 60 11 12 00 18 3 RI 80 AR Ac OM 43 -1 -0 0. TE 91 NO ti ET 20 7- 3- 00 38 LD ve CASTORENA 60 20 20 0 AI ZI 80 09 09 D RI NE 4 PH CH AR AR 6. M D 25 #3 W 93 MG 8 /5 ML SY RP 00 11 12 00 14 3 RI 80 WE Ac 40 -1 -0 .0 TE 87 HR ti 60 5- 3- 00 33 MA ve 35 20 20 AI N 70 09 09 D II 5 PH I AR WI M LL #3 IA 93 M 8 E PE 00 11 12 00 40 10 RI 80 WE Ac NI 09 -1 -0 .0 TE 87 HR ti CI 31 5- 3- 00 34 MA ve LL 17 20 20 AI N IN 40 09 09 D II 1 PH I VK AR WI M LL 50 #3 IA 0 93 M MG 8 E TA BL ET CE 00 11 11 00 20 10 RI 80 AR Ac FD 78 -0 -1 .0 TE 68 NO ti IN 12 2- 9- 00 31 LD ve IR 17 20 20 AI 66 09 09 D RI 30 0 PH CH 0 AR AR MG M D #3 W CA 93 PS 8 UL E DO 00 11 11 00 20 10 RI 80 AR Ac XY 14 -0 -1 .0 TE 73 NO ti CY 33 5- 9- 00 98 LD ve CL 14 20 20 AI IN 20 09 09 D RI E 5 PH CH HY AR AR CL M D AT #3 W E 93 10 8 0 MG CA P FL 00 11 11 00 16 30 RI 80 AR Ac UT 05 -0 -1 .0 TE 68 NO ti IC 43 2- 9- 00 33 LD ve 27 20 20 AI ON 09 09 09 D RI E 9 PH CH VT AR AR OP M D #3 W 50 93 8 MC G SP RA Y VT 60 11 11 00 18 6 RI 80 AR Ac OM 43 -0 -1 0. TE 73 NO ti ET 20 5- 9- 00 99 LD ve CASTORENA 60 20 20 0 AI ZI 40 09 09 D RI NE 4 PH CH -D AR AR M M D SY #3 W RU 93 P 8 60 11 11 00 24 8 RI 80 AR Ac 25 -0 -1 0. TE 68 NO ti 80 2- 9- 00 34 LD ve 23 20 20 0 AI 91 09 09 D RI 6 PH CH AR AR M D #3 W 93 8 VT 00 11 11 00 6. 16 RI 80 AR Ac OV 08 -0 -1 70 TE 68 NO ti EN 51 2- 9- 0 32 LD ve TI 13 20 20 AI L 20 09 09 D RI HF 1 PH CH A AR AR 90 M D #3 W MC 93 G 8 IN CASTORENA LE R DI 00 10 10 00 10 25 RI 80 AR Ac CY 37 -0 -2 0. TE 31 NO ti CL 81 7- 2- 00 39 LD ve OM 61 20 20 0 AI IN 00 09 09 D RI E 1 PH CH 10 AR AR M D MG #3 W 93 CA 8 PS UL E ME 59 09 10 00 1. 90 CL [address] 76 -2 -0 00 IN 16 AR ti OX 24 9- 8- 0 IC 70 KE ve YP 53 20 20 RO 70 09 09 PH DE GE [address] MA K ER CY J ON E 15 0 MG /M L VT 00 09 09 00 30 7 RI 80 AR Ac OM 78 -1 -2 .0 TE 03 NO ti ET 11 7- 4- 00 04 LD ve CASTORENA 83 20 20 AI ZI 00 09 09 D RI NE 1 PH CH AR AR 25 M D #3 W MG 93 8 TA BL ET LO 00 09 09 00 40 5 RI 80 AR Ac PE 09 -1 -2 .0 TE 03 NO ti RA 30 7- 4- 00 05 LD ve OH 31 20 20 AI DE 10 09 09 D RI 2 1 PH CH AR AR MG M D #3 W CA 93 PS 8 UL E AC 00 09 09 00 20 3 RI 79 No Ac ET 09 -0 -1 .0 TE 83 t ti AM 30 2- 0- 00 10 Av ve IN 15 20 20 AI ai OP 01 09 09 D la HE 0 PH bl N- AR e CO M D #3 #3 93 8 TA BL ET AM 65 09 09 00 21 7 RI 79 No Ac OX 86 -0 -1 .0 TE 83 t ti IC 20 2- 0- 00 11 Av ve IL 01 20 20 AI ai LI 70 09 09 D la N 5 PH bl 50 AR e 0 M MG #3 93 CA 8 PS UL E 00 09 09 00 20 3 RI 79 No Ac 40 -0 -1 .0 TE 83 t ti 60 3- 0- 00 67 Av ve 35 20 20 AI ai 80 09 09 D la 1 PH bl AR e M #3 93 8 CE 00 05 09 01 20 10 RI 78 AR Ac FD 78 -1 -1 .0 TE 48 NO ti IN 12 9- 0- 00 58 LD ve IR 17 20 20 AI 66 09 09 D RI 30 0 PH CH 0 AR AR MG M D #3 W CA 93 PS 8 UL E ME 00 06 06 00 40 10 RI 78 AR Ac TH 60 -0 -1 .0 TE 70 NO ti OC 34 4- 8- 00 21 LD ve AR 48 20 20 AI BA 62 09 09 D RI MO 1 PH CH L AR AR 75 M D 0 #3 W MG 93 8 TA BL ET 10 06 06 00 30 30 RI 78 AR Ac 91 -0 -1 .0 TE 70 NO ti 40 4- 8- 00 20 LD ve 95 20 20 AI 00 09 09 D RI 1 PH CH AR AR M D #3 W 93 8 64 05 06 00 15 10 RI 78 AR Ac 37 -1 -0 .0 TE 48 NO ti 60 9- 4- 00 60 LD ve 43 20 20 AI 81 09 09 D RI 5 PH CH AR AR M D #3 W 93 8 PE 00 05 06 00 40 10 RI 78 AR Ac NI 09 -2 -0 .0 TE 60 NO ti CI 31 8- 4- 00 18 LD ve LL 17 20 20 AI IN 20 09 09 D RI 1 PH CH VK AR AR M D 25 #3 W 0 93 MG 8 TA BL ET IB 53 05 06 00 20 6 RI 78 AR Ac UP 74 -2 -0 .0 TE 60 NO ti RO 60 8- 4- 00 17 LD ve FE 46 20 20 AI N 40 09 09 D RI 40 5 PH CH 0 AR AR MG M D #3 W TA 93 BL 8 ET VT 00 05 06 01 30 7 RI 78 AR Ac OM 78 -1 -0 .0 TE 48 NO ti ET 11 9- 4- 00 55 LD ve CASTORENA 83 20 20 AI ZI 00 09 09 D RI NE 1 PH CH AR AR 25 M D #3 W MG 93 8 TA BL ET LO 00 05 06 00 30 30 RI 78 AR Ac RA 78 -1 -0 .0 TE 48 NO ti TA 15 9- 4- 00 59 LD ve DI 07 20 20 AI NE 70 09 09 D RI 1 PH CH 10 AR AR M D MG #3 W 93 TA 8 BL ET CE 00 05 06 00 20 10 RI 78 AR Ac FD 09 -1 -0 .0 TE 48 NO ti IN 33 9- 4- 00 58 LD ve IR 16 20 20 AI 00 09 09 D RI 30 6 PH CH 0 AR AR MG M D #3 W CA 93 PS 8 UL E AZ 59 05 05 00 6. 5 RI 78 AR Ac IT 76 -0 -2 00 TE 27 NO ti HR 23 5- 1- 0 56 LD ve OM 06 20 20 AI YC 00 09 09 D RI IN 1 PH CH AR AR 25 M D 0 #3 W MG 93 8 TA BL ET 60 05 05 00 18 6 RI 78 AR Ac 25 -0 -2 0. TE 27 NO ti 80 5- 1- 00 57 LD ve 23 20 20 0 AI 91 09 09 D RI 6 PH CH AR AR M D #3 W 93 8 VT 00 04 05 00 30 7 RI 78 AR Ac OM 78 -3 -0 .0 TE 21 NO ti ET 11 0- 7- 00 10 LD ve CASTORENA 83 20 20 AI ZI 00 09 09 D RI NE 1 PH CH AR AR 25 M D #3 W MG 93 8 TA BL ET AM 65 04 05 00 [address] Ac OX 86 -2 -0 .0 TE 09 EP ti IC 20 2- 7- 00 38 HE ve IL 01 20 20 AI NS LI 70 09 09 D N 5 PH KE 50 AR 0 M N MG #3 C 93 CA 8 PS UL E AC 00 04 05 00 [address] Ac ET 09 -2 -0 .0 TE 09 EP ti AM 30 2- 7- 00 37 HE ve IN 15 20 20 AI NS OP 01 09 09 D HE 0 PH KE N- AR CO M N D #3 C #3 93 8 TA BL ET VT 00 04 05 00 6. 30 RI 78 AR Ac OV 08 -3 -0 70 TE 21 NO ti EN 51 0- 7- 0 11 LD ve TI 13 20 20 AI L 20 09 09 D RI HF 1 PH CH A AR AR 90 M D #3 W MC 93 G 8 IN CASTORENA LE R IB 53 04 04 00 20 5 RI 77 FL Ac UP 74 -0 -0 .0 TE 81 AN ti RO 60 1- 9- 00 42 AG ve FE 46 20 20 AI AN N 40 09 09 D 40 5 PH JA 0 AR ME MG M S #3 P TA 93 BL 8 ET CL 63 04 04 00 28 7 RI 77 FL Ac IN 30 -0 -0 .0 TE 81 AN ti DA 40 1- 9- 00 40 AG ve MY 69 20 20 AI AN CI 20 09 09 D N 1 PH JA HC AR ME L M S 15 #3 P 0 93 MG 8 CA PS UL E 60 02 02 00 12 6 RI 77 NI Ac 25 -0 -2 0. TE 00 CH ti 80 9- 6- 00 85 OL ve 23 20 20 0 AI S 91 09 09 D ARAVIND 6 PH E AR A M #3 93 8 AM 00 01 01 00 28 7 RI 76 GA Ac OX 09 -2 -3 .0 TE 78 IN ti IC 33 1- 0- 00 52 EY ve IL 10 20 20 AI LI 70 09 09 D OH N 5 PH CH 25 AR AE 0 M L MG #3 S 93 CA 8 PS UL E SF 60 01 01 00 56 30 RI 76 DU Ac 25 -1 -3 .0 TE 69 RB ti 1. 80 5- 0- 00 49 IN ve 1% 15 20 20 AI 10 09 09 D DO GE 1 PH UG L AR LA M S #3 D 93 8 49 12 12 00 20 5 RI 76 CL Ac 88 -0 -1 .0 TE 11 AR ti 40 4- 8- 00 82 KE ve 77 20 20 AI 70 08 08 D DE 1 PH RE AR K M J #3 93 8 00 10 11 00 28 28 RI 75 CL Ac 06 -2 -0 .0 TE 57 AR ti 21 8- 7- 00 78 KE ve 25 20 20 AI 11 08 08 D DE 5 PH RE AR K M J #3 93 8 CE 00 10 11 00 20 8 RI 75 NI Ac PH 09 -2 -0 0. TE 57 CH ti AL 34 8- 7- 00 74 OL ve EX 17 20 20 0 AI S IN 77 08 08 D ARAVIND 4 PH E 25 AR A 0 M MG #3 /5 93 8 ML CORRALES SP 60 10 11 00 12 6 RI 75 NI Ac 25 -2 -0 0. TE 57 CH ti 80 8- 7- 00 75 OL ve 23 20 20 0 AI S 91 08 08 D ARAVIND 6 PH E AR A M #3 93 8 00 09 09 00 60 10 RI 74 CL Ac 90 -0 -2 .0 TE 89 AR ti 41 9- 6- 00 72 KE ve 74 20 20 AI 84 08 08 D DE 0 PH RE AR K M J #3 93 8 CORRALES 61 08 09 00 15 10 RI 74 NI Ac LF 31 -2 -1 .0 TE 71 CH ti AC 40 7- 1- 00 96 OL ve ET 70 20 20 AI S AM 10 08 08 D ARAVIND ID 1 PH E E AR A 10 M % #3 EY [address] OP S OV 51 08 09 00 59 5 RI 74 NI Ac ID 67 -2 -1 .0 TE 70 CH ti E 25 6- 1- 00 21 OL ve 0. 27 20 20 AI S 5% 60 08 08 D ARAVIND 4 PH E LO AR A TI M ON #3 93 8 CL 60 09 09 00 14 7 RI 74 GA Ac AR 50 -0 -1 .0 TE 80 IN ti IT 52 1- 1- 00 59 EY ve HR 61 20 20 AI OM 60 08 08 D OH YC 6 PH CH IN AR AE M L 25 #3 S 0 93 MG 8 TA BL ET OV 51 07 08 00 59 1 RI 74 NI Ac ID 67 -3 -1 .0 TE 34 CH ti E 25 0- 4- 00 08 OL ve 0. 27 20 20 AI S 5% 60 08 08 D ARAVIND 4 PH E LO AR A TI M ON #3 93 8 OV 51 07 08 00 59 1 RI 74 NI Ac ID 67 -2 -0 .0 TE 21 CH ti E 25 1- 1- 00 94 OL ve 0. 27 20 20 AI S 5% 60 08 08 D ARAVIND 4 PH E LO AR A TI M ON #3 93 8 LI 60 07 07 00 60 3 RI 74 NI Ac ND 43 -0 -1 .0 TE 06 CH ti AN 20 9- 7- 00 93 OL ve E 83 20 20 AI S 1% 46 08 08 D ARAVIND 0 PH E SH AR A AM M PO #3 O 93 8 Immunization Name Date Rout CVX Reac Dose Comm Prov Is Faci e tion ent ider Refu lity Give sed n TDAP 05-1 115 MARIFER No MARIFER 7-20 JUANITO JUANITO VACC 15 MEM MEM INE 7 HOSP HOSP YRS/ INC INC > IM Vital Signs 05-30-2013 22:37 Name Value Interpretat Reference Comment ion Range Body 99.7 [degF] Temperature BP 70 mm[Hg] Diastolic BP Systolic 124 mm[Hg] Heart 71 /min Rate/Pulse O2% 98 % Respiratory 18 /min Rate 05-30-2013 21:19 Name Value Interpretat Reference Comment ion Range BP 88 mm[Hg] Diastolic BP Systolic 132 mm[Hg] Heart 76 /min Rate/Pulse O2% 99 % Respiratory 20 /min Rate 03-31-2013 22:23 Name Value Interpretat Reference Comment ion Range Body 98.1 [degF] Temperature BP 72 mm[Hg] Diastolic BP Systolic 128 mm[Hg] Heart 76 /min Rate/Pulse O2% 97 % Respiratory 20 /min Rate 03-31-2013 20:44 Name Value Interpretat Reference Comment ion Range Body 98.5 [degF] Temperature BP 79 mm[Hg] Diastolic BP Systolic 127 mm[Hg] Heart 60 /min Rate/Pulse O2% 100 % Respiratory 20 /min Rate 03-11-2013 16:15 Name Value Interpretat Reference Comment ion Range Body 97.6 [degF] Temperature BP 75 mm[Hg] Diastolic BP Systolic 128 mm[Hg] Heart 87 /min Rate/Pulse O2% 100 % Respiratory 18 /min Rate 03-11-2013 14:27 Name Value Interpretat Reference Comment ion Range BP 71 mm[Hg] Diastolic BP Systolic 158 mm[Hg] Heart 86 /min Rate/Pulse O2% 98 % Respiratory 18 /min Rate Results Labs Lab Lab Date Result Refere Interp Status Commen Order Detail nces retati t Range on B-HCG Ur Ql (05-30-2013 21:11) B-HCG NEGATIV NEG complet Ur Ql 014 E ed 21:11 URINALYSIS/COMPLETE (03-31-2013 21:15) URINE 24-2 YELLOW YELLOW complet COLOR 013 ed 21:15 URINE 24-2 CLOUDY CLEAR complet APPEARA 013 ed NCE 21:15 URINE 24-2 NEGATIV NEG complet GLUCOSE 013 E ed - 21:15 DIPSTIC K URINE 24-2 NEGATIV NEG complet BILIRUB 013 E ed IN - 21:15 DIPSTIC K URINE -24-2 NEGATIV NEG complet KETONE 013 E mg/dL ed 21:15 URINE 24-2 1.025 1.005-1 complet SPECIFI 013 UNK .030 ed C 21:15 GRAVITY URINE 24-2 NEGATIV NEG complet BLOOD 013 E ed 21:15 URINE 24-2 6.0 UNK 5.0-8.5 complet PH 013 ed 21:15 URINE 24-2 NEGATIV NEG complet PROTEIN 013 E mg/dL ed - 21:15 DIPSTIC K URINE 24-2 0.2 NEG complet UROBILI 013 E.U./dL ed NOGEN - 21:15 DIPSTIC K URINE 24-2 NEGATIV NEG complet NITRATE 013 E ed - 21:15 DIPSTIC K URINE 24-2 NEGATIV NEG complet LEUK 013 E ed ESTERAS 21:15 E URINE 24-2 TNTC 0-5 complet SQUAMOU 013 #/hpf ed S CELLS 21:15 URINE 24-2 3+ NONE complet AMORPH 013 ed SEDIMEN 21:15 T COMPREHENSIVE METABOLIC PANEL (03-31-2013 20:30) Glucose 24-2 80 74-106 complet 013 mg/dL ed Bld-mCn 20:30 c BUN 24-2 10 7-18 complet Bld-mCn 013 mg/dL ed c 20:30 Creat 24-2 0.9 0.6-1.0 complet SerPl-m 013 mg/dL ed Cnc 20:30 Creat 24-2 102 50-200 complet Cl 013 ML/MIN ed predict 20:30 ed SerPl C-G-vRa te Sodium 24-2 141 136-145 complet SerPl-s 013 mmoL/L ed Cnc 20:30 Potassi 24-2 3.7 3.5-5.1 complet um 013 mmoL/L ed SerPl-s 20:30 Cnc Chlorid 24-2 106 98-107 complet e 013 mmoL/L ed SerPl-s 20:30 Cnc CO2 24-2 27 21.0-32 complet SerPl-s 013 mmoL/L .0 ed Cnc 20:30 Calcium -24-2 8.6 8.5-10. complet 013 mg/dL 1 ed SerPl-m 20:30 Cnc Prot -24-2 6.6 6.4-8.2 complet SerPl-m 013 gm/dL ed Cnc 20:30 Albumin -24-2 3.5 3.4-5.0 complet 013 gm/dL ed SerPl-m 20:30 Cnc Globuli 11-24-2 3.1 1.3-3.2 complet n 013 gm/dL ed Ser-mCn 20:30 c Albumin 11-24-2 1.1 UNK 1.1-1.8 complet /Glob 013 ed SerPl-m 20:30 Rto Bilirub 11-24-2 1.0 0.2-1.0 complet 013 mg/dL ed SerPl-m 20:30 Cnc AST 11-24-2 667 U/L 15-37 High complet SerPl-c 013 alert ed Cnc 20:30 ALT 11-24-2 412 U/L 30-65 High complet SerPl-c 013 alert ed Cnc 20:30 ALP 11-24-2 149 U/L 50-136 complet SerPl-c 013 ed Cnc 20:30 CBC with AUTO DIFF (03-31-2013 20:30) WBC # 11-24-2 5.1 4.5-13. complet Bld 013 K/MM3 0 ed Auto 20:30 RBC # 11-24-2 4.33 4.2-5.4 complet Bld 013 M/mm3 ed Auto 20:30 Hgb 11-24-2 12.7 12.2-16 complet Bld-mCn 013 g/dL .2 ed c 20:30 Hct Fr 11-24-2 38.5 % 37.0-47 complet Bld 013 .0 ed 20:30 MCV RBC 11-24-2 88.8 fl 82.2-97 complet 013 .8 ed 20:30 MCH RBC 11-24-2 29.2 pg 27-31.2 complet Qn 013 ed Auto 20:30 MEAN 11-24-2 32.9 31.8-35 complet CORPUSC 013 g/dl .4 ed ULAR 20:30 HGB CONC RDW RBC 11-24-2 14.1 % 11.5-17 complet Auto 013 .5 ed 20:30 Platele 11-24-2 180 142-424 complet t Bld 013 K/mm3 ed Ql 20:30 Manual MEAN 11-24-2 7.9 fl 7.4-10. complet PLATELE 013 4 ed T 20:30 VOLUME Granulo 11-24-2 61.1 % 37.0-80 complet cytes 013 .0 ed Fr Bld 20:30 Auto LYMPH % 11-24-2 29.3 % 10-50.0 complet 013 ed 20:30 Monocyt 11-24-2 6.0 % 1.7-9.3 complet es Fr 013 ed Bld 20:30 Auto Eosinop 11-24-2 3.4 % 0.1-12. complet hil Fr 013 0 ed Bld 20:30 Auto Basophi 11-24-2 0.2 % 0.1-2.0 complet ls Fr 013 ed Bld 20:30 Auto Granulo 11-24-2 3.1 1.8-7.8 complet cytes # 013 K/mm3 ed Bld 20:30 Auto Lymphoc 11-24-2 1.5 0.7-4.5 complet ytes Fr 013 K/mm3 ed Bld 20:30 Auto Monocyt 11-24-2 0.3 0.1-1.0 complet es # 013 K/mm3 ed Bld 20:30 Auto Eosinop 11-24-2 0.2 0.0-0.4 complet hil # 013 K/mm3 ed Bld 20:30 Auto Basophi 11-24-2 0.0 0-0.2 complet ls # 013 K/MM3 ed Bld 20:30 Auto Amylase SerPl-cCnc (03-31-2013 20:20) Amylase 24-2 72 U/L 25-115 complet 013 ed SerPl-c 20:20 Cnc LIPASE (03-31-2013 20:20) LIPASE 24-2 469 U/L 73-393 complet 013 ed 20:20 B-HCG Ur Ql (03-11-2013 14:40) B-HCG 03-11-2 NEGATIV NEG complet Ur Ql 013 E ed 14:40 URINALYSIS/COMPLETE (03-11-2013 14:40) URINE 03-11-2 YELLOW YELLOW complet COLOR 013 ed 14:40 URINE 03-11-2 CLEAR CLEAR complet APPEARA 013 ed NCE 14:40 URINE 03-11-2 NEGATIV NEG complet GLUCOSE 013 E ed - 14:40 DIPSTIC K URINE 03-11-2 NEGATIV NEG complet BILIRUB 013 E ed IN - 14:40 DIPSTIC K URINE 03-11-2 NEGATIV NEG complet KETONE 013 E mg/dL ed 14:40 URINE 11-04-2 Less 1.005-1 complet SPECIFI 013 than or .030 ed C 14:40 equal GRAVITY to 1.005 URINE NEGATIV NEG complet BLOOD 013 E ed 14:40 URINE 6.0 UNK 5.0-8.5 complet PH 013 ed 14:40 URINE NEGATIV NEG complet PROTEIN 013 E mg/dL ed - 14:40 DIPSTIC K URINE 0.2 NEG complet UROBILI 013 E.U./dL ed NOGEN - 14:40 DIPSTIC K URINE NEGATIV NEG complet NITRATE 013 E ed - 14:40 DIPSTIC K URINE NEGATIV NEG complet LEUK 013 E ed ESTERAS 14:40 E URINE OCC 0 complet RBC 013 rbc/hpf ed 14:40 URINE OCC O complet WBC 013 wbc/hpf ed 14:40 URINE 20-50 0-5 complet SQUAMOU 013 #/hpf ed S CELLS 14:40 URINE 1+ O complet BACTERI 013 ed A 14:40 COMPREHENSIVE METABOLIC PANEL (03-11-2013 13:45) Glucose 89 74-106 complet 013 mg/dL ed Bld-mCn 13:45 c BUN 6 mg/dL 7-18 complet Bld-mCn 013 ed c 13:45 Creat 1.0 0.6-1.0 complet SerPl-m 013 mg/dL ed Cnc 13:45 ESTIMAT 88 50-200 complet ED 013 ML/MIN ed CREATIN 13:45 INE CLEARAN CE Sodium 141 136-145 complet SerPl-s 013 mmoL/L ed Cnc 13:45 Potassi 3.5 3.5-5.1 complet um 013 mmoL/L ed SerPl-s 13:45 Cnc Chlorid 105 98-107 complet e 013 mmoL/L ed SerPl-s 13:45 Cnc CO2 24 21.0-32 complet SerPl-s 013 mmoL/L .0 ed Cnc 13:45 Calcium 9.1 8.5-10. complet 013 mg/dL 1 ed SerPl-m 13:45 Cnc Prot 11-04-2 7.7 6.4-8.2 complet SerPl-m 013 gm/dL ed Cnc 13:45 Albumin 11-04-2 4.3 3.4-5.0 complet 013 gm/dL ed SerPl-m 13:45 Cnc Globuli -04-2 3.4 1.3-3.2 complet n 013 gm/dL ed Ser-mCn 13:45 c Albumin -04-2 1.3 UNK 1.1-1.8 complet /Glob 013 ed SerPl-m 13:45 Rto Bilirub 04-2 0.5 0.2-1.0 complet 013 mg/dL ed SerPl-m 13:45 Cnc AST 11-04-2 22 U/L 15-37 complet SerPl-c 013 ed Cnc 13:45 ALT -04-2 32 U/L 30-65 complet SerPl-c 013 ed Cnc 13:45 ALP 11-04-2 102 U/L 50-136 complet SerPl-c 013 ed Cnc 13:45 LIPASE (03-11-2013 13:45) LIPASE 11-04-2 72 U/L 73-393 complet 013 ed 13:45 CBC with AUTO DIFF (03-11-2013 13:45) WBC # 11-04-2 6.7 4.5-13. complet Bld 013 K/mm3 0 ed Auto 13:45 RBC # 11-04-2 4.58 4.2-5.4 complet Bld 013 M/mm3 ed Auto 13:45 Hgb 11-04-2 12.8 12.2-16 complet Bld-mCn 013 g/dL .2 ed c 13:45 Hct Fr 03-11-2 40.1 % 37.0-47 complet Bld 013 .0 ed 13:45 MCV RBC 11-04-2 87.6 fL 82.2-97 complet 013 .8 ed 13:45 MCH RBC 11-04-2 27.9 pg 27-31.2 complet Qn 013 ed Auto 13:45 MEAN 11-04-2 31.9 31.8-35 complet CORPUSC 013 g/dl .4 ed ULAR 13:45 HGB CONC RDW RBC -04-2 13.9 % 11.5-17 complet Auto 013 .5 ed 13:45 Platele 11-04-2 227 142-424 complet t Bld 013 K/mm3 ed Ql 13:45 Manual Granulo 11-04-2 72.4 % 37.0-80 complet cytes 013 .0 ed Fr Bld 13:45 Auto LYMPH % 11-04-2 23.8 % 10-50.0 complet 013 ed 13:45 Monocyt 11-04-2 3.8 % 1.7-9.3 complet es Fr 013 ed Bld 13:45 Auto Eosinop 11-04-2 0.0 % 0.1-12. complet hil Fr 013 0 ed Bld 13:45 Auto Basophi 11-04-2 0.0 % 0.1-2.0 complet ls Fr 013 ed Bld 13:45 Auto Granulo 11-04-2 4.9 1.8-7.8 complet cytes # 013 K/mm3 ed Bld 13:45 Auto Lymphoc 11-04-2 1.6 0.7-4.5 complet ytes Fr 013 K/mm3 ed Bld 13:45 Auto Monocyt 11-04-2 0.3 0.1-1.0 complet es # 013 K/mm3 ed Bld 13:45 Auto Eosinop 11-04-2 0.0 0.0-0.4 complet hil # 013 K/mm3 ed Bld 13:45 Auto Basophi 11-04-2 0.0 0-0.2 complet ls # 013 K/mm3 ed Bld 13:45 Auto Procedures Procedure DOS Code Location Performer Comment IAADIADOO 66331 [facility] INFLUENZA INC INC IAADIADOO 75348 [facility] STREPTOCO INC INC CCUS GROUP A URINE 75219 [facility] ROBERTS 7 PHYSICIAN TEST S GROUP VISUAL COLOR CMPRSN METHS IAADIADOO 41047 [facility] STONE 7 PHYSICIAN INFLUENZA S GROUP URINE 64231 [facility] ROBERTS 7 PHYSICIAN TEST S GROUP VISUAL COLOR CMPRSN METHS THERAPEUT 93768 [facility] IC 7 PHYSICIAN PROPHYLAC S GROUP TIC/DX INJECTION SUBQ/IM THERAPEUT 25920 [facility] ROBERT[facility] IC 6 PHYSICIAN YOSI PROPHYLAC S GROUP TIC/DX INJECTION SUBQ/IM RINGERS J7120 [facility] LACTATE 6 [facility] INFUSION E E UP TO [facility] 1000 CC INJECTION J2370 [facility] 6 [facility]ALTHCAR HEALTHCAR PHENYLEPH E E RINE HCL [facility] UP TO 1 ML ANES 21814 [place] HEN NERVE 6 MEDICAL MUSCLE SERV TDN FOUNDATIO FASCIA&BU N RSA FOREARM WRIST URINE 45364 [facility] 6 HEALTHCAR HEALTHCAR TEST E E VISUAL [facility] COLOR CMPRSN METHS INJECTION J2704 [facility] PROPOFOL 6 HEALTHCAR HEALTHCAR 10 MG E E [facility] INJECTION J3010 [facility] FENTANYL 6 [facility]ALTHCAR HEALTHCAR CITRATE E E 0.1 MG [facility] INFUSION J7030 [facility] NORMAL 6 [facility]ALTHCAR HEALTHCAR SALINE E E SOLUTION [facility] 1000 CC NERVE 10176 [facility] REPAIR 6 HEALTHCAR HEALTHCAR W/CONDUIT E E EACH [facility] NERVE LEVEL III 66759 [facility] SURG 6 Y OF JOSE ELIAS PATHOLOGY [facility] GROSS&[place] [address] [facility] SURG 6 HEALTHCAR HEALTHCAR PATHOLOGY E E [facility] GROSS&RODOLFO ROSCOPIC EXAM INJECTION J0690 [facility] 6 HEALTHCAR HEALTHCAR CEFAZOLIN E E SODIUM [facility] 500 MG RADEX 46319 [facility] ALL HAND 6 MEDICAL MINIMUM 3 IMAGING VIEWS ASS THERAPEUT 50766 [facility] ARMANDO IC 6 PHYSICIAN YOSI PROPHYLAC S GROUP TIC/DX INJECTION SUBQ/IM OPHTH 86957 SCIFRES SCIFRES MEDICAL 6 ANG ANG XM&EVAL COMPRHNSV ESTAB PT 1/> FITTING 91555 SCIFRES SCIFRES SPECTACLE 6 ANG ANG S XCPT APHAKIA MONOFOCAL FRAMES V2020 SCIFRES SCIFRES PURCHASES 6 ANG ANG 1 VISN V2103 SCIFRES SCIFRES PLANO 6 ANG ANG TO+/-4.00 D SPHER 0.12-2.00 D CYL EA SCRATCH V2760 SCIFRES SCIFRES RESISTANT 6 ANG ANG COATING PER LENS LENS V2784 SCIFRES SCIFRES POLYCARBO 6 ANG ANG FREDRICK OR EQUAL ANY INDEX PER LENS URINE 89100 [facility] ROBERTS 6 PHYSICIAN YOSI TEST S [place] [address] [facility] HEAD/BRAI 6 MEDICAL N W/[place] [address] [facility] CERVICAL 6 MEDICAL SPINE W/[place] [address] [facility] MAXILLOFA 6 MEDICAL CIAL W/O IMAGING CONTRAST ASS MATERIAL SIMPLE 80697 [facility] REPAIR 6 PHYSICIAN RODOLFO F/E/E/N/L S, PLLC /M 2.5CM/< URNLS DIP 78974 [facility] STICK/TAB INC INC LET REAGENT AUTO MICROSCOP Y IAADI 92736 JUL[facility]US MADRID INFLUENZA 6 [facility] B VIRUS INC INC RADIOLOGI 98831 [facility] C EXAM 6 [facility] CHEST 2 INC INC VIEWS FRONTAL&L ATERAL IAADI 72071 [facility] INFFLUENZ 6 [facility] A A VIRUS INC INC PRESSURIZ 38591 [facility]AD[facility] ED/NONPRE 6 [facility] SSURIZED INC INC INHALATIO N TREATMENT URINE 41359 [facility] TEST INC INC VISUAL COLOR CMPRSN METHS UNCLASSIF J3490 [facility] MADRID IED DRUGS 6 [facility] INC INC URINE 17527 [facility] LILI 5 PHYSICIAN RODOLFO TEST S GROUP VISUAL COLOR CMPRSN METHS THERAPEUT 92742 [facility] IC 5 [facility] PROPHYLAC INC INC TIC/DX INJECTION SUBQ/IM CRTCHS E0114 [facility] ADVANCED UNDARM 5 TECHNOLOG TECHNOLOG OTH THAN IES INC IES INC WOOD PAIR PAD TIP&HNDGR IP RADEX 89389 [facility] FOOT 5 MEDICAL LAILA COMPLETE IMAGING MINIMUM 3 ASS VIEWS IM ADM 29364 JUL[facility]ADRID PRQ ID 5 [facility] SUBQ/IM INC INC NJXS 1 VACCINE TDAP 44384 J[facility] MADRID VACCINE 7 5 [facility] YRS/> IM INC INC OPHTH 41698 SCIFRES SCIFRES MEDICAL 5 ANG ANG XM&EVAL COMPRHNSV ESTAB PT 1/> LENS V2784 SCIFRES SCIFRES POLYCARBO 5 ANG ANG FREDRICK OR EQUAL ANY INDEX PER LENS SCRATCH V2760 SCIFRES SCIFRES RESISTANT 5 ANG ANG COATING PER LENS SPHERE V2100 SCIFRES SCIFRES SINGLE 5 ANG ANG VISION PLANO +/- 4.00 PER LENS IADNA 46946 [facility] CHLAMYDIA 5 [facility] INC INC TRACHOMAT IS AMPLIFIED PROBE TQ IADNA 55952 [facility] MAD[facility]ID NEISSERIA 5 [facility] INC INC GONORRHOE AE AMPLIFIED PROBE TQ THERAPEUT 55917 [facility] IC 5 PHYSICIAN YOSI PROPHYLAC S GROUP TIC/DX INJECTION SUBQ/[place] [address] JULIUS MADRID LIPASE 5 [place] [address] JULIUS MADRID ABDOMEN & 5 [facility] PELVIS INC INC W/[place] [address] J[facility] AMYLASE 5 [facility] INC INC COMPREHEN 21116 [facility] SIVE 5 [facility] [place] [address] JULIUS MADRID INFUSION 5 [facility] THER INC INC PROPH ADDL SEQUENTIA L TO 1 HR URINE 36369 [facility] TEST INC [place] [address] JULI[facility] MAD[facility]ID INFUSION 5 [facility] THERAPY/P INC INC ROPHYLAXI S /DX 1ST TO 1 HR THERAPEUT 55495 [facility] IC 5 [facility] INJECTION INC INC IV PUSH EACH NEW DRUG URNLS DIP 60901 [facility] STICK/TAB INC INC LET REAGENT AUTO MICROSCOP Y BLOOD 36416 [facility]AD[facility] COUNT 5 [facility] COMPLETE INC INC AUTO&AUTO DIFRNTL WBC THERAPEUT 12015 [facility] ARMANDO IC 4 PHYSICIAN YOSI PROPHYLAC S GROUP TIC/DX INJECTION SUBQ/IM THERAPEUT 33023 [facility] IC 4 [facility] PROPHYLAC INC INC TIC/DX INJECTION SUBQ/IM URINE 60250 [facility] TEST INC INC VISUAL COLOR CMPRSN METHS IAADI 14351 J[facility] MADRID INFLUENZA 4 [facility] B VIRUS INC INC IAADI 74109 J[facility] INFFLUENZ 4 [facility] A A VIRUS INC INC RADEX 26901 J[facility]AD[facility]ID NASAL 4 [facility] BONES INC INC COMPLETE MINIMUM 3 VIEWS RADIOLOGI 50274 J[facility] C 4 [facility] EXAMINATI INC INC ON KNEE 3 VIEWS 3D 54707 [facility] RENDERING 4 [facility] INC INC W/INTERP& POSTPROC DIFF WORK STATION URINE 33332 [facility] TEST INC [place] [address] JULIUS MADRID CERVICAL 4 [facility] SPINE W/[place] [address] JULIUS MADRID HEAD/BRAI 4 [facility] N W/O INC INC CONTRAST MATERIAL 3D 32432 JULIUS MADRID RENDERING 4 [facility] W/INTERP INC INC & POSTPROCE SS SUPERVISI ON OPHTH 80200 SCIFRES SCIFRES MEDICAL 4 ANG ANG XM&EVAL COMPRHNSV ESTAB PT 1/> DETERMINA 89537 SCIFRES SCIFRES TION 4 ANG ANG REFRACTIV E STATE HEPATIC 81311 J[facility] MADRID FUNCTION 3 [facility] PANEL INC INC URNLS DIP 93949 [facility] 3 [facility] STICK/TAB INC INC LET REAGENT AUTO MICROSCOP Y THERAPEUT 14343 J[facility] IC 3 [facility] INJECTION [place] [address] JULIUS BARROSOON INFUSION 3 [facility] THERAPY/P INC INC ROPHYLAXI S /DX 1ST TO 1 HR BLOOD 76222 [facility]AD[facility]ID COUNT 3 [facility] COMPLETE INC INC AUTO&[place] [address] JULIUS MADRID AMYLASE 3 [facility] INC INC COMPREHEN 25428 [facility]AD[facility]ID SIVE 3 [facility] [place] [address] JULIUS MADRID LIPASE 3 [facility] INC INC RADEX ABD 44901 [facility] COMPL 3 [facility] AQT ABD INC INC W/S/E/D VIEWS 1 VIEW CH ANES 70146 VILLEGAS JOSE ELIAS VILLEGAS JOSE ELIAS INTRAPERI 3 TONEAL UPPER ABDOMEN W/LAPS NOS LAPAROSCO 82666 [facility]AD[facility] PY SURG 3 [facility] CHOLECYST INC INC ECTOMY INJECTION J2405 [facility]US JULIUS 3 [facility] ONDANSETR INC INC ON HCL PER 1 MG LEVEL III 67246 TYRELL TYRELL SURG 3 CHU[facility] CHUY PATHOLOGY GROSS&RODOLFO ROSCOPIC EXAM URNLS DIP 52214 J[facility] BARROSOON 3 [facility] STICK/TAB INC INC LET REAGENT AUTO MICROSCOP Y RADIOLOGI 48866 [facility]ID C EXAM 3 [facility] CHEST 2 INC INC VIEWS FRONTAL&L ATERAL ECG 23632 MARI GUERRA JR ROUTINE 3 DWI DWI ECG W/LEAST 12 LDS I&R ONLY BLOOD 45354 [facility]ADRID COUNT 3 [facility] COMPLETE INC INC AUTO&[place] [address] JUL[facility]US MADRID TROPONIN 3 [facility] QUANTITAT INC INC JANE COMPREHEN 43684 J[facility]ID SIVE 3 [facility] METABOLIC INC INC PANEL CREATINE 06906 JULIUS MADRID KINASE MB 3 [facility] [place] [address] JULIUS MADRID LIPASE 3 [facility] INC INC CREATINE 66313 JULIUS MADRID KINASE 3 [facility] TOTAL INC INC THER 14912 J[facility] MADRID PROPH/DX 3 [facility] NJX IV INC INC PUSH SINGLE/1S T SBST/DRUG ECG 56209 JULIUS MADRID ROUTINE 3 [facility] ECG INC INC W/LEAST 12 LDS TRCG ONLY W/O [place] [address] JULIUS MADRID ABDOMINAL 3 [facility] REAL INC INC TIME W/IMAGE LIMITED URINE 49908 [facility] 3 [facility] TEST INC INC VISUAL COLOR CMPRSN METHS RADEX 67224 JULIUS BARROSOON FOOT 3 [facility] COMPLETE INC INC MINIMUM 3 VIEWS INJECTION J0696 MARIE SALAZAR 3 CORIE CORIE CEFTRIAXO NE SODIUM PER 250 MG THERAPEUT 91328 [facility]AD[facility]ID IC 3 [facility] PROPHYLAC INC INC TIC/DX INJECTION SUBQ/IM INJECTION J0696 MARIE SALAZAR 3 CORIE CORIE CEFTRIAXO NE SODIUM PER 250 MG INJECTION J2805 [facility]US JULIUS 2 [facility] SINCALIDE INC INC 5 MICROGRAM S TECHNETIU A9537 JULIUS MADRID M TC-99M 2 [facility] MEBROFENI INC INC N DX UP TO 15 MCI HEPATOBIL 08588 [place] [facility] SYST 2 MEDICAL AGUS IMAG INC IMAGING [place] [address] [place] [facility] ABDOMINAL 2 MEDICAL AGUS REAL IMAGING TIME [place] W/[place] [address] JULIUS MADRID INFUSION 2 [facility] THERAPY INC INC PROPHYLAX IS/DX EA HOUR ESOPHAGOG 30320 J[facility] MAD[facility]ID ASTRODUOD 2 [facility] ENOSCOPY [place] [address] JULIUS MADRID INFUSION 2 [facility] THERAPY/P INC INC ROPHYLAXI S /DX 1ST TO 1 HR ECHO 10600 TYRELL THAKUR TRANSTHOR 2 EMERGENCY C R-T 2D SERVICES W/WO M-MODE REC F-UP/LMTD URNLS DIP 06689 [facility] 2 [facility] STICK/TAB INC INC LET REAGENT AUTO MICROSCOP Y US CHEST 71661 TYRELL THAKUR REAL TIME 2 EMERGENCY W/IMAGE SERVICES DOCUMENTA TION URINE 18859 [facility] 2 [facility] TEST INC [place] [address] TYRELL THAKUR ABDOMINAL 2 EMERGENCY REAL SERVICES TIME W/IMAGE LIMITED INJECTION J0696 MARIE SALAZAR 2 CORIE CORIE CEFTRIAXO NE SODIUM PER 250 MG SPHERE V2100 SCIFRES SCIFRES SINGLE 2 ANG ANG VISION PLANO +/- 4.00 PER LENS VISION V2799 SCIFRES SCIFRES ITEM OR 2 ANG ANG SERVICE MISCELLAN EOUS BLOOD 23459 [facility] COUNT 2 N N COMPLETE [facility] AUTO&AUTO HOSPITA HOSPITA DIFRNTL WBC PROTHROMB 69759 [facility] IN TIME 2 N N [facility] HOSPITA HOSPITA BLOOD 77744 [facility] OCCULT 2 N N PEROXIDAS [facility] E ACTV HOSPITA HOSPITA QUAL FECES 1-3 SPEC THROMBOPL 26264 [facility] ASTIN 2 N N TIME [facility] PARTIAL HOSPITA HOSPITA PLASMA/WH OLE BLOOD URNLS DIP 40076 [facility] 2 N N STICK/TAB [facility] LET HOSPITA HOSPITA REAGENT AUTO MICROSCOP Y URINE 81662 [facility] 2 N N TEST [facility] VISUAL HOSPITA HOSPITA COLOR CMPRSN METHS COMPREHEN 65130 [facility] SIVE 2 N N METABOLIC [facility] [place] [address] [facility] LIPASE 2 N N [facility] HOSPITA HOSPITA THER 36001 [facility] PROPH/DX 2 N N NJX IV [facility] PUSH HOSPITA HOSPITA SINGLE/1S T SBST/[place] [address] [facility] INFUSION 2 N N HYDRATION [facility] EACH HOSPITA HOSPITA ADDITIONA L HOUR COLLECTIO 88005 [facility] N VENOUS 2 N N BLOOD [facility] VENIPUNCT HOSPITA HOSPITA URE OPHTH 35210 SCIFRES SCIFRES MEDICAL 2 ANG ANG XM&EVAL COMPRHNSV ESTAB PT 1/> DETERMINA 53186 SCIFRES SCIFRES TION 2 ANG ANG REFRACTIV E STATE CT SOFT 70822 JULIET JULIET TISSUE 2 AGUS AGUS NECK W/[place] [address] JUL[facility]US MADRID STREPTOCO 2 [facility] CCUS INC INC GROUP A IAADI 52742 J[facility] MADRID INFFLUENZ 2 [facility] A A VIRUS INC INC IAADI 88113 J[facility] MADRID INFLUENZA 2 [facility] B VIRUS INC INC URINE 78384 J[facility]ID 2 [facility] TEST INC INC VISUAL COLOR CMPRSN METHS 3D 10514 JULIUS MADRID RENDERING 2 [facility] INC INC W/INTERP& POSTPROC DIFF WORK STATION BRNCDILAT 04918 [facility] RSPSE 2 ALLERGY ALLERGY SPMTRY & ASTHMA & ASTHMA PRE&POST- P P BRNCDILAT ADMN PERCUTANE 07788 [facility] OUS TESTS 2 ALLERGY ALLERGY & ASTHMA & ASTHMA W/ALLERGE P P CHYNA EXTRACTS DEMO&/SENG 77397 [facility] L OF PT 2 ALLERGY ALLERGY UTILIZ & ASTHMA & ASTHMA AERSL P P GEN/NEB/I NHLR/IP INTRACUTA 15384 [facility] NEOUS 2 ALLERGY ALLERGY TESTS & ASTHMA & ASTHMA W/ALLERGE P P CHYNA EXTRACTS GROUND A0425 [facility] MILEAGE 1 FAYETTE FAYETTE PER URBAN URBAN STATUTE COGOVT COGOVT MILE SEDIMENTA 70078 [facility] UNIVERS TION RATE 1 Y Y RBC [facility] AUTOMATED RADIOLOGI [address]87 [facility] EX[facility] Y Y CHEST 2 [facility] VIEWS FRONTAL&L ATERAL ECG 68351 ADRIÁN SAMPSON ROUTINE 1 III MEDARDO III MEDARDO ECG W/LEAST 12 LDS I&R ONLY GONADOTRO 20542 [facility] PIN 1 Y Y CHORIONIC [facility] [place] [address] [facility] TROPONIN 1 Y Y QUANTITAT [facility] JANE GONADOTRO 44069 [facility] PIN 1 Y Y CHORIONIC [facility] QUALITATI VE BLOOD 86530 [facility] COUNT 1 Y Y COMPLETE [facility] [place] [address] [facility] LIPASE 1 Y Y HOSPITAL HOSPITAL ECG 49287 [facility] ROUTINE 1 Y Y ECG [facility] W/LEAST 12 LDS TRCG ONLY W/O I&R COMPREHEN 88647 [facility] SIVE 1 Y Y METABOLIC [facility] PANEL COLLECTIO 73889 [facility] N VENOUS 1 Y Y BLOOD [facility] VENIPUNCT URE C-REACTIV 30797 [facility] E PROTEIN [place] [address] [facility] ABDOMINAL 1 Y Y REAL HOSPITAL HOSPITAL TIME W/IMAGE LIMITED AMB A0427 COLIN COLIN SERVICE 1 RADHA GARCIA ALS [facility] U[facility]AN EMERGENCY COGOVT COGOVT TRANSPORT LEVEL 1 3D 97499 [facility] MADRID RENDERING 1 [facility] INC INC W/INTERP& POSTPROC DIFF WORK STATION INJECTION J2405 [facility] 1 [facility] ONDANSETR INC INC [place] [address] [place] [address] JULIUS MADRID ABDOMEN & 1 [facility] PELVIS INC INC W/[place] [address] [facility] MAD[facility]ID LIPASE 1 [facility] INC INC COMPREHEN 61357 [facility] SIVE 1 [facility] [place] [address] JULIUS MADRID AMYLASE 1 [facility] URINE 91239 [facility] TEST [facility] INC VISUAL COLOR CMPRSN METHS BLOOD 87303 [facility] COUNT 1 [facility] COMPLETE INC INC AUTO&AUTO DIFRNTL WBC URNLS DIP 20678 [facility]US [facility] STICK/TAB INC INC LET REAGENT AUTO MICROSCOP Y DETERMINA [address] [facility] TION 1 REFRACTIV E STATE OPHTH [address] [address] [facility] MEDICAL 1 XM&EVAL COMPRHNSV ESTAB PT 1/> INJECTION J0696 MARIE SALAZAR 1 COREI CORIE CEFTRIAXO NE SODIUM PER 250 MG INJECTION J0696 MARIE SALAZAR 1 CORIE CORIE CEFTRIAXO NE SODIUM PER 250 MG THERAPEUT 35623 [facility] IC [facility] TIC/DX SHERRY INJECTION SUBQ/[place] [address] [facility] MADR[facility] TRACT UPR 1 [facility] W/SM INT INC [place] [address] [place] [facility] UPR W/WO 1 MEDICAL AGUS GLUCOSE IMAGING W/SM ASS INTEST FOLLW-THR U THERAPEUT 89108 [facility] IC 1 [facility] CLINIC OF TIC/DX SHERRY SHERRY INJECTION SUBQ/[place] [address] [facility] MADR[facility] LIPASE 1 [place] [address] [facility] AMYLASE 1 [facility] INC INC COMPREHEN 59289 J[facility] SIVE 1 [facility] METABOLIC INC INC PANEL URINE 03701 [facility] 1 [facility] TEST INC INC VISUAL COLOR CMPRSN METHS URNLS DIP 25333 [facility] DENEEN 1 [facility] EGMA STICK/TAB INC LET REAGENT AUTO MICROSCOP Y CULTURE 23966 [facility] BACTERIAL 1 [facility] INC [place] [address] [facility] INFUSION 1 [facility] THERAPY/P INC INC ROPHYLAXI S /DX 1ST TO 1 HR BLOOD 50608 [facility] COUNT 1 [facility] COMPLETE INC INC AUTO&AUTO DIFRNTL WBC ANTIBODY 74472 COMBINED COMBINED CHLAMYDIA 1 PHYSICIAN PHYSICIAN S LA S LA CUL BACT 13767 COMBINED COMBINED XCPT 1 PHYSICIAN PHYSICIAN URINE S LA S LA BLOOD/STO OL AEROBIC ISOL INJECTION J0696 MARIE SALAZAR 1 CORIE CORIE CEFTRIAXO NE SODIUM PER 250 MG THERAPEUT 66604 [facility] IC 1 [facility] TIC/DX SHERRY INJECTION SUBQ/IM DEEP D9220 [facility], SEDATION/ 1 IMPLANT & III LAKESHIA GENERAL ORAL ANESTHESI SURGERY C A-1ST 30 MINUTES RADEX 52228 [facility]ULI[facility] MADRID UPPER GI 0 [facility] W/WO INC INC GLUCAGON/ DELAY IMAGES W/[place] [address] [facility] ABDOMINAL 0 MEDICAL AGUS REAL IMAGING TIME ASS W/IMAGE LIMITED FITTING 61080 [facility] SPECTACLE 0 VISION S XCPT APHAKIA MONOFOCAL OPHTH 96663 [facility] MEDICAL 0 VISION XM&EVAL COMPRHNSV ESTAB PT 1/> FRAMES V2020 [facility] PURCHASES 0 VISION SPHERE V2100 [facility] SINGLE 0 VISION VISION PLANO +/- 4.00 PER LENS THERAPEUT 17518 [facility] IC 0 [facility] TIC/DX SHERRY INJECTION SUBQ/IM ELECTROEN 96055 [place] ANECLMO LA CEPHALOGR 0 MEDICAL AM W/REC SERV AWAKE&ASL FOUNDATIO EEP OBSERVATI 10766 [place] NEVAREZQUENTIN ON/INPATI 0 MEDICAL [facility] F[facility] CARE 55 MINUTES MRI BRAIN 34421 [place] OFE MCGREGOR BRAIN 0 MEDICAL STEM W/O SERV W/[place] [address] LEONELA PATINO HEAD/BRAI 0 Y OF MUR N W/O [facility] MATERIAL ECG 28973 [place] BECERRA ROUTINE 0 MEDICAL AGUS ECG SERV W/LEAST FOUNDATIO 12 LDS I&R ONLY RADEX 79714 [place] PRADEEP SPINE 0 MEDICAL [facility] SERV 2 VIEWS FOUNDATIO RADEX 64419 Ning by [employer] SPINE 0 E [facility] 2 VIEWS AMB A0422 Ning by [employer] Ning by [employer] OXYGEN&O2 0 E CO E CO SUPPLIES AMBULANCE AMBULANCE LIFE SUSTAININ G SITUATION FIBRIN 86076 Ning by [employer] Ning by [employer] DGRADJ 0 E E PRODUCTS HOSPITAL HOSPITAL D-DIMER QUAL/SEMI REINA BLOOD 97240 Ning by [employer] Ning by [employer] COUNT 0 E E COMPLETE [facility]OSPITAL HOSPITAL AUTO&AUTO DIFRNTL WBC GONADOTRO 28504 Ning by [employer] PIN [facility] QUALITAT[facility] ECG 50848 TYRELL FRANCOALL ROUTINE 0 EMERGENCY EMERGENCY ECG SERVICES SERVICES W/LEAST 12 LDS I&R ONLY LACTATE 01010 Ning by [employer] Ning by [employer] DEHYDROGE 0 E E NASE [facility]DH [facility]OSPITAL URNLS DIP 64417 Ning by [employer] ROCKCAST[facility] 0 E E STICK/TAB HOSPITAL HOSPITAL LET REAGENT AUTO MICROSCOP Y GROUND A0425 Ning by [employer] MILEAGE 0 E CO E CO PER AMBULANCE AMBULANCE STATUTE MILE AMBULANCE A0429 Ning by [employer] SERVICE 0 E CO E CO [facility] AM[facility]ULANCE AMBULANCE EMERGENCY TRANSPORT CRITICAL 54869 [facility] 0 EMERGENCY ILL/INJUR SERVICES ED PATIENT INIT 30-74 MIN RADEX 38227 Ning by Glam MediaCASTL [place] SPINE 0 E E LUMBOSACR [facility] HOSPITAL AL 2/3 VIEWS BLS A0382 Ning by Gl[employer] [place] ROUTINE 0 E CO E CO DISPOSABL AMBULANCE AMBULANCE E SUPPLIES ECG 24886 Ning by Glam MediaCASTLotsa Helping Hands [facility]OCKCAST[place] ROUTINE 0 E E ECG HOSPITAL HOSPITAL W/LEAST 12 LDS TRCG ONLY W/O I&R COMPREHEN 34682 Ning by Glam [employer]CAST[employer] Ning by Glam MediaCASTL SIVE 0 E E [facility] PANEL CREATINE 16147 Ning by Glam MediaCASTL Ning by Glam Media[employer]L KINASE 0 E E [facility] THERAPEUT 06246 [facility] [place] [facility] J PROPHYLAC CLINIC OF TIC/DX INJECTION [place] SUBQ/IM PLLC RADIOLOGI 32826 JULIUS MADRID C 0 [facility] EXAMINATI INC INC ON KNEE 3 VIEWS COLLECTIO 03365 [facility] N VENOUS 0 Y Y BLOOD [facility] [place] [address] [facility] [place] [address] [facility] AMYLASE 0 Y Y [facility] HOSPITAL THERAPEUT 02839 [facility], IC 9 [facility] J PROPHYLAC CLINIC OF TIC/DX INJECTION [place] SUBQ/IM PLLC HEPATBL 01873 JULIUS MADRID DUX SYS 9 [facility] [place] [address] JULIUS MADRID ABDOMINAL 9 [facility] REAL INC INC TIME W/IMAGE LIMITED FITTING 88360 [facility], SPECTACLE 9 VISION JESÚS Dominguez S XCPT APHAKIA MONOFOCAL OPHTH 79549 [facility] MEDICAL 9 VISION JESÚS M XM&EVAL COMPRHNSV ESTAB PT 1/> SPHERE V2100 [facility] SINGLE 9 VISION JESÚS M VISION PLANO +/- 4.00 PER LENS FRAMES V2020 [facility] PURCHASES 9 VISION JESÚS M ESOPHAGOG 4516 JULIUS MADRID ASTRODUOD 9 [facility] [place] [address] JULIUS MADRID INFUSION 9 [facility] THERAPY/P INC INC ROPHYLAXI S /DX 1ST TO 1 [place] [address] PATHOLOGY PATHOLOGY SURG 9 & & PATHOLOGY CYTOLOGY CYTOLOGY LAB LAB GROSS&RODOLFO ROSCOPIC EXAM URINE 86339 JULIUS MADRID 9 [facility] TEST INC [place] [address] JULIUS MADRID INFUSION 9 [facility] THERAPY INC INC PROPHYLAX IS/DX EA HOUR EGD 88847 JULIUS MADRID TRANSORAL 9 [facility] BIOPSY INC INC SINGLE/MU LTIPLE URINE 98971 [facility], 9 [facility] J TEST CLINIC OF VISUAL COLOR VIC RAMIREZRSN [facility] METHS OBSERVATI 93241 CORY CORY ON CARE 9 , PETER , PETER DISCHARGE MANAGEMEN T 3D 17202 JULIUS MADRID RENDERING 9 [facility] INC INC W/INTERP& [place] [address] JULIUS MADRID ABDOMEN 9 [facility] W/O INC INC CONTRAST MATERIAL CT PELVIS 55414 JULIUS MADRID W/O 9 [facility] CONTRAST INC INC MATERIAL HOSPITAL G0378 JULIUS MADRID OBSERVATI 9 [facility] ON INC INC SERVICE PER HOUR BLOOD 31275 JULIUS MADRID COUNT 9 [facility] COMPLETE INC INC AUTO&AUTO DIFRNTL WBC BLOOD 25687 JULIUS MADRID COUNT 9 [facility] COMPLETE INC INC AUTO&AUTO DIFRNTL WBC SUSCEPTIB 40094 JULIUS MADRID LTY STDY 9 [facility] ANTIMICRB INC INC IAL MICRO/AGA R [facility] G0378 JULIUS MADRID OBSERVATI 9 [facility] ON INC INC SERVICE PER HOUR CT PELVIS 37044 REY CHUNG, W/O 9 MEDICAL RUBY CONTRAST IMAGING MATERIAL ASSOCIATE S CULTURE 20116 JULIUS MADRID BACTERIAL 9 [facility] INC INC QUANTTATI VE COLONY COUNT URINE CULTURE 47170 JULIUS MADRID BCT 9 [facility] ISOL&PRSM INC INC PTV ID ISOLATE EA URINE INITIAL 99275 CORY CORY OBSERVATI 9 , PETER , PETER ON CARE/DAY 50 [place] [address] JULIUS MADRID INFUSION 9 [facility] THERAPY/P INC INC ROPHYLAXI S /DX [address] [place] [address] REY CHUNG, ABDOMEN 9 MEDICAL RUBY W/O IMAGING CONTRAST ASSOCIATE MATERIAL S 3D 69712 JULIUS MADRID RENDERING 9 [facility] INC INC W/INTERP& [place] [address] JULIUS MADRID INFUSION 9 [facility] THER INC INC PROPH ADDL SEQUENTIA L TO 1 HR BASIC 44685 JULIUS MADRID METABOLIC 9 [facility] PANEL INC INC CALCIUM TOTAL URINE 78199 JULIUS MADRID 9 [facility] TEST INC INC VISUAL COLOR CMPRSN METHS URNLS DIP 54110 JULIUS MADRID 9 [facility] STICK/TAB INC INC LET REAGENT AUTO MICROSCOP Y BLOOD 63306 JULIUS MADRID COUNT 9 [facility] COMPLETE INC INC AUTO&AUTO DIFRNTL WBC RADEX HIP 44248 [place] CH[place]RI[place], 9 MEDICAL KIRSTIN P UNILATERA IMAGING L ASSOCIATE COMPLETE S MINIMUM 2 VIEWS RADEX 49308 [place] CH[place]RIKA, SACRUM & 9 MEDICAL KIRSTIN P COCCYX IMAGING MINIMUM 2 [place] [address] JULIUS MADRID STREPTOCO 9 [facility] CCUS INC INC GROUP A RADIOLOGI 70520 [place] Merna CHUNG EXAM 9 MEDICAL RUBY CHEST 2 IMAGING VIEWS ASSOCIATE FRONTAL&[place] [address] JULIUS MADRID STREPTOCO 8 [facility] CCUS INC INC GROUP A Encounters Encounter Start End Date Code Location Performer Type Date OFFICE 17647 J[facility] OUTPATIEN 7 7 [facility] T VISIT 5 INC MINUTES HOSPITAL JULIUS - 7 7 [facility] OUTPATIEN INC T OFFICE 62562 [facility] ROBERTS OUTPATIEN 7 7 PHYSICIAN T VISIT 5 S GROUP MINUTES OFFICE 19161 [facility] STONE OUTPATIEN 7 7 PHYSICIAN T VISIT S GROUP 25 MINUTES HOSPITAL [facility] - 6 6 [facility]ALTHCAR OUTPATIEN E T HOSPITALS OFFICE 96538 [facility] PETTEY OUTPATIEN 6 6 PHYSICIAN JAM T NEW 20 S GROUP MINUTES OFFICE 07225 [facility] LILI OUTPATIEN 6 6 PHYSICIAN RODOLFO T VISIT S GROUP 15 MINUTES OFFICE 60463 [facility] ROEBRTS OUTPATIEN 6 6 PHYSICIAN YOSI T VISIT 5 S GROUP MINUTES OFFICE 20863 [facility] WALL OUTPATIEN 6 6 PHYSICIAN SUDHA T VISIT 5 S GROUP MINUTES OFFICE 60825 [facility] WALL OUTPATIEN 6 6 PHYSICIAN SUDHA T NEW 20 S GROUP MINUTES EMERGENCY 10059 LORIN LUCAS DEPT 6 6 PHYSICIAN RODOLFO VISIT S, [facility] HIGH SEVERITY& THREAT FUNCJ EMERGENCY 99583 LORIN ELLIS [facility] 6 6 PHYSICIAN DEPARTMEN S, [facility] T VISIT HIGH/URGE NT SEVERITY EMERGENCY 06436 JULIUS 6 6 [facility] DEPARTMEN INC T VISIT LOW/MODER SEVERITY HOSPITAL [facility]US - 6 6 [facility] T OFFICE 51181 [facility] ROBERTS OUTPATIEN 6 6 PHYSICIAN YOSI T VISIT 5 S GROUP MINUTES OFFICE 80160 [facility] LILI OUTPATIEN 5 5 PHYSICIAN RODOLFO T NEW 30 S GROUP MINUTES HOSPITAL JULIUS - 5 5 [facility] OUTPATIEN [facility] T EMERGENCY 13953 LORIN NICKERSON 5 5 PHYSICIAN U LAILA DEPARTMEN S, [facility] T VISIT HIGH/URGE NT SEVERITY OFFICE 51919 [facility] ARMANDO OUTPATIEN 5 5 PHYSICIAN YOSI T VISIT 5 S GROUP MINUTES HOSPITAL MAHADON - 5 5 [facility] T EMERGENCY 78565 [facility] 5 5 [facility] T VISIT PHYS MODERATE SEVERITY EMERGENCY 39872 ИВАН 5 5 [facility] T VISIT HIGH/URGE NT SEVERITY EMERGENCY 17759 JULIUS 5 5 [facility] DEPARTMEN INC T VISIT LOW/MODER SEVERITY HOSPITAL JULIUS - 5 5 [facility] OUTPATIEN [facility] T EMERGENCY 74533 LORIN LUCAS 5 5 PHYSICIAN [facility] T VISIT HIGH/URGE NT SEVERITY HOSPITAL JULIUS - 5 5 [facility] OUTPATIEN INC T PERIODIC 56500 [facility] PREVENTIV 5 5 PHYSICIAN E MED EST S GROUP PATIENT 18-39 YRS OFFICE 61496 [facility] HUNTER CANO OUTPATIEN 5 5 PHYSICIAN YI T VISIT S GROUP 15 MINUTES HOSPITAL JULIUS - 5 5 [facility] OUTPATIEN INC T EMERGENCY 09033 JULIUS LUCAS 5 5 [facility] T VISIT P MODERATE SEVERITY EMERGENCY 38951 [facility]US 5 5 [facility] HIGH/URGE NT SEVERITY OFFICE 03551 [facility] FRYMDILIP OUTPATIEN 5 5 PHYSICIAN EUG T VISIT S GROUP 15 MINUTES OFFICE 53627 [facility] SAIDA OUTPATIEN 4 4 PHYSICIAN ELIZABETH T VISIT S GROUP 15 MINUTES OFFICE 37341 MARIE MARRERO 4 4 CORIE CORIE T VISIT 15 MINUTES OFFICE 94564 ARMANDO ROBERTS OUTPATIEN 4 4 YOSI YOSI T VISIT 5 MINUTES EMERGENCY 44527 DIANNE LUCAS 4 4 [facility] EMERGENCY T VISIT PHYS MODERATE SEVERITY EMERGENCY 71657 JULIUS 4 4 [facility] DEPARTMEN INC T VISIT LOW/MODER SEVERITY HOSPITAL JULIUS - 4 4 [facility] OUTPATIEN INC T OFFICE 36989 LUKE YOST OUTPATIEN 4 4 T VISIT 10 MINUTES OFFICE 65808 MARIE STONEPATIMAMIE 4 4 CORIE CORIE T VISIT 15 MINUTES OFFICE 29338 ARMANDO ROBERTS OUTPATIEN 4 4 YOSI YOSI T VISIT 5 MINUTES HOSPITAL JULIUS - 4 4 [facility] OUTPATIEN INC T OFFICE 48030 MARIE MARIE MARRERO 4 4 CORIE CORIE T VISIT 15 MINUTES OFFICE 39144 MARIE MARIE MARRERO 4 4 CORIE CORIE T VISIT 15 MINUTES OFFICE 42623 [facility] ARMANDO MARRERO 4 4 YOSI YOSI T VISIT 5 MINUTES OFFICE 10686 [place] MARIE MARRERO 4 4 CORIE CORIE T VISIT 15 MINUTES HOSPITAL JULIUS - 4 4 [facility] OUTPATIEN INC T OFFICE 60848 CYNODALYS MARIE MARRERO 4 4 CORIE CORIE T VISIT 15 MINUTES Emergency DEVAN Lucas MD (ER) 4 20:58 4 22:37 [facility] JULIUS - 4 4 [facility] OUTPATIEN INC T EMERGENCY 50753 LILI LUCAS DEPT 4 4 RODOLFO RODOLFO VISIT HIGH SEVERITY& THREAT FUNCJ EMERGENCY 05767 JULIUS 4 4 [facility] DEPARTMEN INC T VISIT LOW/MODER SEVERITY OFFICE 60837 MARIE MARRERO 3 3 CORIE CORIE T VISIT 15 MINUTES OFFICE 39424 ARMANDO MARRERO 3 3 YOSI YOSI T VISIT 5 MINUTES OFFICE 02291 MARIE MARRERO 3 3 CORIE CORIE T VISIT 15 MINUTES HOSPITAL JULIUS - 3 3 [facility] OUTPATIEN INC T Emergency DEVAN Lucas MD (ER) 3 20:21 3 22:23 [facility] JULIUS - 3 3 [facility] OUTPATIEN INC T EMERGENCY 41229 LILI LUCAS 3 3 [place] RODOLFO DEPARTMEN T VISIT HIGH/URGE NT SEVERITY EMERGENCY 40879 JULIUS 3 3 [facility] DEPARTMEN INC T VISIT MODERATE SEVERITY HOSPITAL JULIUS - 3 3 [facility] OUTPATIEN INC T Emergency DEVAN Duncan (ER) 3 13:44 3 16:24 [facility] JULIUS - 3 3 [facility] OUTPATIEN INC T EMERGENCY 24058 JULIUS 3 3 [facility] DEPARTMEN INC T VISIT HIGH/URGE NT SEVERITY EMERGENCY 64229 DAKOTA DUNCAN DEPT 3 3 [facility] VISIT HIGH SEVERITY& THREAT [facility] JULIUS - 3 3 [facility] OUTPATIEN INC T OFFICE 48074 MARIE MARRERO 3 3 CORIE CORIE T VISIT 15 MINUTES OFFICE 43580 ARMANDO MARRERO 3 3 YOSI YOSI T VISIT 5 MINUTES OFFICE 43082 MARIE MARRERO 3 3 CORIE CORIE T VISIT 15 MINUTES OFFICE 00428 ARMANDO MARRERO 3 3 YOSI YOSI T VISIT 5 MINUTES Emergency DEVAN Lucas MD (ER) 3 05:07 3 05:24 [facility] EMERGENCY 72271 LILI LUCAS 3 3 [facility] RODOLFO DEPARTMEN T VISIT HIGH/URGE NT SEVERITY HOSPITAL JULIUS - 3 3 [facility] OUTPATIEN INC T OFFICE 96320 MARIE MARRERO 3 3 CORIE CORIE T VISIT 15 MINUTES OFFICE 82279 ARMANDO MARRERO 3 3 YOSI YOSI T VISIT 5 MINUTES OFFICE 24616 MARIE MARRERO 3 3 CORIE CORIE T VISIT 15 MINUTES OFFICE 10163 ARMANDO MARRERO 2 2 YOSI YOSI T VISIT 5 MINUTES OFFICE 71478 CORY VALENCIASTWILBETRO OUTPATIEN 2 2 KATLIN KATLIN T VISIT 10 MINUTES HOSPITAL J[facility]IUS - 2 2 [facility] J[facility]US - 2 2 [facility] OFF[facility] 65530 ERIKSTWILBERTO VALENCIASTAD CONSULTAT 2 2 KATLIN KATLIN ION NEW/ESTAB PATIENT 40 MIN OFFICE 21465 MARIE MARRERO 2 2 CORIE CORIE T VISIT 15 MINUTES EMERGENCY 88851 TYRELL THAKUR DEPT 2 2 EMERGENCY VISIT SERVICES HIGH SEVERITY& THREAT FUN EMERGENCY 54957 JULIUS 2 2 [facility] T VISIT LOW/MODER SEVERITY HOSPITAL JULIUS - 2 2 [facility] OFFICE 15104 MARIE MARRERO 2 2 CORIE CORIE T VISIT 15 MINUTES OFFICE 16872 ARMANDO MARRERO 2 2 YOSI YOSI T VISIT 10 MINUTES OFFICE 73839 MARIE MARRERO 2 2 CORIE CORIE T VISIT 15 MINUTES EMERGENCY 77794 RECHTIN VENKATESH DEPT 2 2 [facility] ENGINE[facility] DATA C[facility] ENGINEER VISIT HIGH SEVERITY& THREAT [facility] - 2 2 N OUTPATIEN COMMUNITY T HOSPITA EMERGENCY 40396 [facility] H[facility]ITA HIGH/URGE NT SEVERITY OFFICE 64268 MARIE MARRERO 2 2 CORIE CORIE T VISIT 15 MINUTES OFFICE 11553 MARIE MARRERO 2 2 CORIE CORIE T VISIT 15 MINUTES OFFICE 31886 ARMANDO MARRERO 2 2 YOSI YOSI T VISIT 5 MINUTES OFFICE 68187 MARIE SALAZAR OUTRAMONEEN 2 2 CORIE CORIE T VISIT 15 MINUTES OFFICE 66515 ARMANDO ROBERTS OUTRAMONEEN 2 2 YOSI YOSI T VISIT 5 MINUTES OFFICE 41393 MAE WALL OUTPATIEN 2 2 SUDHA SUDHA T NEW 30 MINUTES HOSPITAL JULIUS - 2 2 [facility] OUTPATIEN INC T EMERGENCY 87945 JULIUS 2 2 [facility] DEPARTMEN INC T VISIT LOW/MODER SEVERITY EMERGENCY 19192 TYRELL ZAMAN [facility] DEPT 2 2 EMERGENCY VISIT SERVICES HIGH SEVERITY& THREAT [facility] OFFICE 69932 MARIE RAOEN 2 2 CORIE CORIE T VISIT 15 MINUTES OFFICE 15274 MARIE MARRERO 2 2 CORIE CORIE T VISIT 15 MINUTES OFFICE 58623 MARIE SALAZAR OUTRAMONEEN 2 2 CORIE CORIE T VISIT 15 MINUTES OFFICE 58336 ELPIDIO MAGALLANES OUTPATIEN 2 2 JACOB JACOB T VISIT KATLIN KATLIN 15 MINUTES OFFICE 12109 MARIE SALAZAR OUTPATIEN 2 2 CORIE CORIE T VISIT 15 MINUTES OFFICE 99236 [facility] COMMUNITY CONSULTAT 2 2 ALLERGY ALLERGY ION & ASTHMA & ASTHMA NEW/ESTAB P P PATIENT 60 MIN OFFICE 39323 MARIE SALAZAR OUTRAMONEEN 2 2 CORIE CORIE T VISIT 15 MINUTES OFFICE 41833 MARIE SALAZAR OUTRAMONEEN 2 2 CORIE CORIE T VISIT 15 MINUTES OFFICE 74852 MARIE SALAZAR OUTAIDEE 2 2 CORIE CORIE T VISIT 15 MINUTES OFFICE 87384 ARMANDO ROBERTS OUTPATIEN 2 2 YOSI YOSI T VISIT 5 MINUTES EMERGENCY 28727 UNIVERSIT DEPT 1 1 Y VISIT HOSPITAL HIGH SEVERITY& TH[facility]AT [facility] 11047 KIANA MARTINEZ 1 1 MEDICAL DEPARTMEN SERV T VISIT FOUNDATIO HIGH/URGE NT SEVERITY OFFICE 30467 MARIE MARRERO 1 1 CORIE CORIE T VISIT 15 MINUTES HOSPITAL JULIUS - 1 1 [facility] OUTPATIEN INC T EMERGENCY 97783 [facility] DEPT 1 1 RODOLFO RODOLFO VISIT HIGH SEVERITY& THREAT FUN EMERGENCY 49629 JULIUS 1 1 [facility] DEPARTMEN INC T VISIT HIGH/URGE NT SEVERITY OFFICE 02546 MARIE MARRERO 1 1 CORIE CORIE T VISIT 15 MINUTES OFFICE 56409 MARIE MARRERO 1 1 CORIE CORIE T VISIT 15 MINUTES OFFICE 93699 MARIE MARRERO 1 1 CORIE CORIE T VISIT 15 MINUTES OFFICE 68724 MARIE MARRERO 1 1 CORIE CORIE T VISIT 15 MINUTES OFFICE 42896 [facility] 1 1 HEALTH YOSI T VISIT 5 CLINIC OF MINUTES SHERRY OFFICE 10198 MARIE MARRERO 1 1 CORIE CORIE T VISIT 15 MINUTES OFFICE 11660 MARIE MARRERO 1 1 CORIE CORIE T VISIT 15 MINUTES OFFICE 68440 MARIE MARRERO 1 1 CORIE CORIE T VISIT 15 MINUTES HOSPITAL JULIUS - 1 1 [facility] OUTPATIEN INC T OFFICE 56817 MARIE MARRERO 1 1 CORIE CORIE T VISIT 15 MINUTES OFFICE 30317 MARIE MARRERO 1 1 CORIE CORIE T VISIT 15 MINUTES HOSPITAL JULIUS - 1 1 [facility] OUTPATIEN INC T EMERGENCY 07143 JULIUS 1 1 [facility] DEPARTMEN INC T VISIT MODERATE SEVERITY EMERGENCY 72879 TYRELL LILI 1 1 EMERGENCY [facility] DEPARTMEN SERVICES T VISIT HIGH/URGE NT SEVERITY OFFICE 74152 MARIE MARRERO 1 1 CORIE CORIE T VISIT 15 MINUTES OFFICE 96691 MRAIE MARRERO 1 1 CORIE CORIE T VISIT 15 MINUTES OFFICE 01859 MARIE STONEPATIEN 1 1 CORIE CORIE T VISIT 15 MINUTES OFFICE 41733 [facility] OUTPATIEN 1 1 HEALTH YOSI T VISIT CLINIC OF 25 SHERRY MINUTES OFFICE 47058 MARIE MARRERO 1 1 CORIE CORIE T VISIT 15 MINUTES OFFICE 86614 MARIE MARRERO 1 1 CORIE CORIE T VISIT 15 MINUTES OFFICE 52710 [facility] ARMANDO OUTPATIEN 1 1 HEALTH YOSI T VISIT 5 CLINIC OF MINUTES SHERRY OFFICE 25701 MARIE MARRERO 1 1 CORIE CORIE T VISIT 15 MINUTES OFFICE 07264 MARIE MARRERO 1 1 CORIE CORIE T VISIT 15 MINUTES OFFICE 86299 MARIE MARRERO 1 1 CORIE CORIE T VISIT 15 MINUTES OFFICE 11143 MARIE MARRERO 1 1 CORIE CORIE T VISIT 15 MINUTES OFFICE 92452 [facility]OWN 1 1 IMPLANT & III LAKESHIA T NEW 20 ORAL MINUTES SURGERY C OFFICE 85161 [facility] OUTPATIEN 1 1 HEALTH YOSI T VISIT 5 CLINIC OF MINUTES SHERRY OFFICE 86969 HUNTER HARRISON JR OUTPATIEN 0 0 YI YI T VISIT 25 MINUTES OFFICE 29324 MARIE SALAZAR OUTPATIEN 0 0 CORIE CORIE T VISIT 15 MINUTES OFFICE 23647 MARIE SALAZAR OUTPATIEN 0 0 CORIE CORIE T VISIT 15 MINUTES HOSPITAL JULIUS - 0 0 [facility]EN [facility] JULIUS - 0 0 [facility] OUTPATIEN [facility] T OFFICE 02645 MARIE SALAZAR OUTPATIEN 0 0 CORIE CORIE T VISIT 15 MINUTES OFFICE 81517 MARIE SALAZAR OUTPATIEN 0 0 CORIE CORIE T VISIT 15 MINUTES OFFICE 09731 [facility] OUTPATIEN 0 0 HEALTH YOSI T VISIT 5 CLINIC OF MINUTES SHERRY EMERGENCY 48598 KIANA LADDNELSON DEPT 0 0 MEDICAL RAMONE VISIT SERV HIGH FOUNDATIO SEVERITY& THREAT FUN OFFICE 89235 MARIE SALAZAR OUTPATIEN 0 0 CORIE CORIE T VISIT 15 MINUTES EMERGENCY 21489 [facility] LOW[facility]MODER [facility]ITY [facility] 83074 MARIE SALAZAR OUTPATIEN 0 0 CORIE CORIE T VISIT 15 MINUTES OFFICE 91088 MARIE SALAZAR OUTPATIEN 0 0 CORIE CORIE T VISIT 15 MINUTES OFFICE 35784 [facility], OUTPATIEN 0 0 HEALTH ISABEL J T VISIT 5 [facility] 31147 MARIE SALAZAR OUTPATIEN 0 0 RODERICK Gould T VISIT 15 MINUTES OFFICE 57870 MARIE SALAZAR OUTPATIMAMIE 0 0 RODERICK Gould T VISIT 15 MINUTES OFFICE 10198 MARIE SALAZAR OUTPATIEN 0 0 RODERICK W RODERICK W T VISIT 15 MINUTES OFFICE 01898 MARIE SALAZAR OUTPATIEN 0 0 RODERICK W RODERICK W T VISIT 15 MINUTES OFFICE 70154 MARIE SALAZAR OUTPATIEN 0 0 RODERICK W RODERICK W T VISIT 15 MINUTES OFFICE 85630 MARIE SALAZAR OUTPATIEN 0 0 RODERICK W RODERICK W T VISIT 15 MINUTES OFFICE 10076 [place] CAMILO 0 0 [place] [facility] T VISIT ORTHOPAED 15 [facility] MINUTES OFFICE 52937 MARIE SALAZAR OUTPATIEN 0 0 RODERICK W RODERICK W T VISIT 15 MINUTES OFFICE 74472 DAVID ABEZ, CONSULTAT 0 0 [place] CONNOR C ION ORTHOPAED NEW/ESTAB ICS PLC PATIENT 60 MIN OFFICE 49775 MARIE SALAZAR OUTPATIEN 0 0 RODERICK W RODERICK W T VISIT 15 MINUTES EMERGENCY 90126 JULIUS 0 0 [facility] DEPARTMEN INC T VISIT LOW/MODER SEVERITY HOSPITAL JULIUS - 0 0 [facility] 15731 TYRELL LUCAS, 0 0 EMERGENCY [facility] SERVICES T VISIT HIGH/URGE ASSOCIATE NT S SEVERITY OFFICE 17634 MARIE SALAZAR OUTPATIEN 0 0 RODERICK W RODERICK W T VISIT 15 MINUTES HOSPITAL UNIVERSIT - 0 0 Y [facility] T OFFICE 10605 KIANA COLEMAN, CONSULTAT 0 0 MEDICAL MENDEL Kunz ION SERV NEW/ESTAB FOUNDATIO PATIENT 40 MIN OFFICE 49492 ALLRAN ALLRAN CONSULTAT 0 0 JR RACHAEL, NIRMALA SINGH F NEW/ESTAB PATIENT 60 MIN OFFICE 53239 MARIE SALAZAR OUTPATIEN 0 0 RODERICK W RODERICK W T VISIT 15 MINUTES OFFICE 51976 MARIE SALAZAR OUTPATIEN 0 0 ROD[place]ICK Luis Fernando Gould T VISIT 15 MINUTES OFFICE 29422 ALYSSAS ELIDA ROBERTS 9 9 MADHURI Moore T VISIT 5 CLINIC OF MINUTES [facility]CARM[facility] OFFICE 07171 MARIE SALAZAR OUTPATIEN 9 9 RODERICK Gould T VISIT 15 MINUTES OFFICE 77051 MARIE SALAZAR OUTPATIEN 9 9 RODERICK Gould T VISIT 15 MINUTES HOSPITAL JULIUS - 9 9 [facility] OUTPATIEN INC T EMERGENCY 12714 JULIUS 9 9 [facility] DEPARTMEN INC T VISIT LOW/MODER SEVERITY EMERGENCY 57478 TYRELL DUNCAN 9 9 EMERGENCY III, [facility] SERVICES DAMIR T VISIT MODERATE ASSOCIATE SEVERITY S OFFICE 78502 CORY VALENCIASTWILBERTO OUTPATIEN 9 9 , PETER GREEN T VISIT 10 MINUTES HOSPITAL JULIUS - 9 9 [facility] OUTPATIEN INC T OFFICE 41481 MARIE SALAZAR OUTPATIEN 9 9 RODERICK Gould T VISIT 15 MINUTES OFFICE 42584 MARIE SALAZAR OUTPATIEN 9 9 RODERICK Gould T VISIT 15 MINUTES HOSPITAL JULIUS - 9 9 [facility] OUTPATIEN INC T OFFICE 89038 SCHULSTAD SCHULSTAD OUTPATIEN 9 9 , PETER GREEN T VISIT 10 MINUTES HOSPITAL JULIUS - 9 9 [facility] OUTPATIEN INC T OFFICE 79471 SCHULSTWILBERTO SCHULSTAD CONSULTAT 9 9 , PETER GREEN ION NEW/ESTAB PATIENT 60 MIN OFFICE 95609 MARIE SALAZAR OUTPATIEN 9 9 RODERICK Gould RODERICK W T VISIT 15 MINUTES OFFICE 61017 [facility], OUTPATIEN 9 9 HEALTH ISABEL J T VISIT CLINIC OF 15 MINUTES [facility] [facility] OFFICE 32029 [facility] JULIUS OUTPATIEN 9 9 [facility]ALTH [facility] 10 [facility] MINUTES BANK ACCT OFFICE 12301 MARIE SALAZAR OUTPATIEN 9 9 RODERICK VAUGHN W T VISIT 15 MINUTES OFFICE 82498 MARIE SALAZAR OUTPATIEN 9 9 RODERICK W RODERICK W T VISIT 15 MINUTES OFFICE 42808 MARIE SALAZAR OUTPATIMAMIE 9 9 RODERICK W RODERICK W T VISIT 15 MINUTES OFFICE 11108 MARIE SALAZAR OUTPATIEN 9 9 RODERICK W RODERICK W T VISIT 15 MINUTES OFFICE 29241 MARIE SALAZAR OUTPATIEN 9 9 RODERICK W RODERICK W T VISIT 15 MINUTES OFFICE 57431 MARIE SALAZAR OUTPATIEN 9 9 RODERICK W RODERICK W T VISIT 15 MINUTES OFFICE 80624 MARIE SALAZAR OUTPATIEN 9 9 RODERICK W RODERICK W T NEW 30 MINUTES OFFICE 04107 [facility], CONSULTAT 9 9 HEALTH ISABEL J [facility] CLIN[facility] OF NEW/ESTAB PATIENT [place] 40 MIN [facility] EMERGENCY 60162 JULIUS 9 9 [facility] DEPARTMEN INC T VISIT HIGH/URGE NT SEVERITY EMERGENCY 64305 TYRELL RUIZ, DEPT 9 9 EMERGENCY ENDY P VISIT SERVICES HIGH SEVERITY& ASSOCIATE THREAT S [facility] JULIUS - 9 9 [facility] T [facility]OSPITAL JULIUS - 9 9 [facility] OUTPATIEN INC T EMERGENCY 21495 TYRELL RUIZ 9 9 EMERGENCY ENDY P DEPARTMEN SERVICES T VISIT MODERATE ASSOCIATE SEVERITY S EMERGENCY 97451 JULIUS 9 9 [facility] DEPARTMEN INC T VISIT LIMITED/M INOR PROB OFFICE 99007 ISAIAH COLON OUTPATIEN 9 9 GENE A GENE A T VISIT 15 MINUTES OFFICE 23954 [facility] JR, J V JR, J V T VISIT 15 MINUTES OFFICE 40091 [facility] 9 9 HEALTH ISABEL J T VISIT CLINIC OF 15 MINUTES [facility] JULIUS - 9 9 [facility] 87027 ISAIAH COLON OUTPATIEN 9 9 GENE A GENE A T VISIT 15 MINUTES OFFICE 64598 ISAIAH COLON OUTPATIEN 9 9 GENE A GENE A T VISIT 15 MINUTES HOSPITAL JULIUS - 9 9 [facility] 53949 [facility] 9 [facility] VISIT MODERATE SEVERITY EMERGENCY 97613 ANGI LUCAS, 9 9 [email or web address] T VISIT ON HIGH/URGE NT SEVERITY OFFICE 71270 [facility] 8 8 [facility]ALTH [facility]ABEL J T VISIT CLINIC OF 25 MINUTES [facility] OFFICE 23840 ISAIAH COLON OUTPATIEN 8 8 GENE A GENE A T VISIT 15 MINUTES OFFICE 31838 ISAIAH COLON OUTPATIEN 8 8 GENE A GENE A T VISIT 15 MINUTES OFFICE 80015 [facility] 8 8 [facility] J T VISIT CLINIC OF 15 MINUTES [facility] EMERGENCY 18731 [facility] 8 [facility] T VISIT MODERATE [facility]VERITY HOSPITAL JULIUS - 8 8 [facility] OFFICE 91406 [facility] 8 8 [facility] VISIT CLINIC OF 15 MINUT[facility] OFFICE 88761 [facility] 8 8 [facility] NEW 30 CLINIC OF MINUTES [facility] OFFICE 84198 ISAIAH COLON OUTPATIEN 7 7 GENE Jorgensen T VISIT 15 MINUTES
--- OUTSIDE RECORDS SUMMARY | 2016-12-02 17:50 | External Medical Summary Rpt ---
Author Author , VAMSHI BONDS Address Unknown Phone [email or web address] Care Team Providers Care Decorating Supervisor Name Role Phone NELSON RAMONE, NELSON Unavailable [...] PASTORA IQBAL ALL, IQBAL ALL Unavailable Unavailable [facility] Unavailable Unavailable [facility] Oscar MARTI JR, V, Unavailable Unavailable Oscar [...] Unavailable EUG LILI RODOLFO, LILI Unavailable Unavailable RODOLFO LILI RODOLFO, LILI Unavailable Unavailable RODOLFO SARA LUCAS, Unavailable Unavailable SARA LUCAS [facility] Unavailable Unavailable HOSPITA, [facility] Unavailable Unavailable [place], [facility] Unavailable Unavailable INC, [facility] Unavailable Unavailable HOSPITAL P, [facility] BUTLER PRIYANK, BUTLER PRIYANK Unavailable Unavailable BUTLER PRIYANK, BUTLER PRIYANK Unavailable Unavailable [facility], Unavailable Unavailable [facility] MERCADO HEN, MERCADO HEN Unavailable Unavailable NEAL-JACOB KATLIN, Unavailable Unavailable NEAL-JACOB KATLIN NEAL-JACOB KATLIN, Unavailable Unavailable NEAL-JACOB KATLIN SAIDA ELIZABETH, SAIDA Unavailable Unavailable ELIZABETH [facility] Unavailable Unavailable IMAGING [facility], [facility] FOE MECHE, OFE MECHE Unavailable Unavailable MENDEL COLEMAN, [...] Lucas MD, Unavailable Unavailable Danisha Lucas MD [facility], Unavailable Unavailable [facility] T[facility], Unavailable Unavailable [facility] Unavailable Unavailable SERVICES, [facility] DENEEN RIBEIRO, DENEEN Unavailable Unavailable [...] PETTEY JAM, PETTEY Unavailable Unavailable JAM RECHTIN SAFETY GLASS INSTALLER, RECHTIN Unavailable Unavailable SAFETY GLASS INSTALLER RECHTIN SAFETY GLASS INSTALLER, RECHTIN Unavailable Unavailable SAFETY GLASS INSTALLER [id number], Unavailable Unavailable [id number] Unavailable Unavailable [id number] [address] [id number], [facility] [id number] [address] [id number] [facility] Unavailable Unavailable AMBULANCE, [facility] Unavailable Unavailable AMBULANCE, [facility], Unavailable Unavailable [facility] [...] Unavailable SOTINGEANU LAILA, Unavailable Unavailable SOTINGEANU LAILA [facility] Unavailable Unavailable [facility], [facility] Unavailable Unavailable EMERGENCY PHYS, [facility] STONE, STONE Unavailable Unavailable [facility] Unavailable Unavailable SURG[facility], [facility] Unavailable Unavailable HOSPITALS, [facility], Unavailable Unavailable [facility] Unavailable Un[place] [facility], [facility] WEHRMAN III JOSE ELIAS, Unavailable Unavailable WEHRMAN III JOSE ELIAS WEHRMAN III JOSE ELIAS, Unavailable Unavailable WEHRMAN III JOSE ELIAS WEHRDANIELA IIIDAMIR, Unavailable Unavailable WEHRDANIELA IIIDAMIR, JAKY THAKUR Unavailable Unavailable Damir Duncan Unavailable Unavailable III Damir KABA III CONNOR MOMIN, Unavailable Unavailable CONNOR BAEZ [facility] Unavailable Unavailable [facility] [place], [facility] [place] Purpose Continuity of Care Document - 09-03-2007 through 2016 Problems Code Diagnosis DOS Provider Status [id number] OTITIS 08-21-2016 [facility] UNSPECIFIED INC LEFT EAR Z3040 ENCOUNTER 08-16-2016 [facility] SURVEILLANC GROUP E CONTRACEPTI VES UNS 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 GROUP WITH DIARRHEA [id number] CONTACT W/ 07-20-2016 [facility] & EXPOSURE PHYSICIANS OTH VIRAL GROUP COMMUNICABL E DZ 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 G5691 UNSPECIFIED 12-22-2015 [facility] THY RIGHT UPPER LIMB E9219HD INJURY 12-22-2015 [facility] HAND LEVEL RT ARM INIT K08536 PAIN IN 11-18-2015 [place] [facility] J8531ZH INJURY 11-18-2015 [facility] RADIAL PHYSICIANS NERVE GROUP FOREARM LEVEL RT ARM INIT H5213 MYOPIA 10-30-2015 SCICHASIDY JACOBS BILATERAL Z4802 ENCOUNTER 08-06-2015 [facility] FOR REMOVAL PHYSICIANS OF SUTURES GROUP T148 OTHER 07-27-2015 [facility] INJURY OF PHYSICIANS UNSPECIFIED GROUP BODY REGION M542 CERVICALGIA 07-26-2015 [facility] R51 HEADACHE 07-26-2015 [facility] [id number] LAC W/O FB 07-26-2015 [facility] EYELID & MEDICAL PERIOCULAR IMAGING ASS AREA INIT ENC A6623US LACERATION 07-26-2015 [facility] W/O FB PHYSICIANS, OTHER PART PLLC HEAD INITIAL ENC [id number] CONCUSSION 07-26-2015 [facility] W/LOC 30 PHYSICIANS, MIN/LESS PLLC INITIAL ENCOUNTER J7823DB UNSPECIFIED 07-26-2015 [place] INJURY OF MEDICAL HEAD IMAGING ASS INITIAL ENCOUNTER A222ZKY UNSPECIFIED 07-26-2015 [place] INJURY OF MEDICAL NECK IMAGING ASS INITIAL ENCOUNTER J180 BRONCHOPNEU 06-21-2015 [place] [facility]IA [facility]ICAL UNSPECIFIED IMAGING ASS ORGANISM J209 ACUTE 06-21-2015 [facility] BRONCHITIS [facility] UNSPECIFIED INC J40 BRONCHITIS 06-21-2015 [facility] NOT PHYSICIANS, SPECIFIED PLLC ACUTE OR CHRONIC T69342 UNSPECIFIED 06-21-2015 [facility] ASTHMA [facility] UNCOMPLICAT INC ED R05 COUGH 06-21-2015 [place] [facility] Z3042 ENCOUNTER 05-14-2015 [facility] SURVEILLANC PHYSICIANS E GROUP INJECTABLE CONTRACEPTI VE M7989 OTHER 03-11-2015 [facility] SPECIFIED PHYSICIANS SOFT TISSUE GROUP DISORDERS N926 IRREGULAR 03-11-2015 [facility] MENSTRUATIO PHYSICIANS N GROUP UNSPECIFIED R1110 VOMITING 03-11-2015 [facility] UNSPECIFIED PHYSICIANS GROUP N27168 MIGRAINE 03-03-2015 [facility] W/O AURA PHYSICIANS, NOT INTRACT PLLC W/O STAT MIGRAIN 55533 UNSPECIFIED 11-20-2014 [facility] PHYS TIS V142 PERSONAL 11-20-2014 [facility] TO [facility]PITAL SULFONAMIDE S V143 PERSONAL 11-20-2014 [facility] ANTI-INFECT JANE AGT 59391 SPRAIN AND 09-22-2014 [facility] STRAIN OF TECHNOLOGIE UNSPECIFIED S INC SITE OF FOOT 7820 DISTURBANCE 09-21-2014 [place] OF SKIN MEDICAL SENSATION IMAGING ASS 9170 ABRASION/FR 09-21-2014 [facility] ICTION [facility]URN [facility] FOOT&TOE INC W/O MENTION INF V065 NEED 09-21-2014 [facility] PROPHYLACTI [facility] C INC VACCINATION W/TETANUS-D [facility] 3671 MYOPIA 07-25-2014 SCIFRES ANG V2549 SURVEILLANC 07-22-2014 [facility] E OT PREV PHYSICIANS PRSC GROUP CONTRACEPT METHOD V692 PROBLEMS 07-22-2014 [facility] RELATED TO [facility] HIGH-RISK INC SEXUAL BEHAVIOR V7231 ROUTINE 07-22-2014 [facility] GYNECOLOGIC PHYSICIANS AL GROUP EXAMINATION 39620 DIARRHEA 07-15-2014 [facility] 05730 ABDOMINAL 07-15-2014 [facility] PAIN, PHYSICIANS EPIGASTRIC GROUP 15530 ASTHMA, 07-11-2014 JUL[facility]US UNSPECIFIED [facility] P UNSPECIFIED STATUS 98403 ACUTE 07-11-2014 [facility] GASTRITIS [facility] P MENTION OF HEMORRHAGE 53343 ABDOMINAL 07-11-2014 [place] PAIN, MEDICAL UNSPECIFIED IMAGING ASS SITE 50450 ACUTE 07-06-2014 [facility] SEROUS PHYSICIANS OTITIS GROUP MEDIA 4619 ACUTE 07-06-2014 [facility] SINUSITIS, PHYSICIANS UNSPECIFIED GROUP 4660 ACUTE 01-28-2014 MARIE FONTENOT BRONCHITIS 5589 OTH&UNSPEC 01-28-2014 MARIE FONTENOT NONINFECTIO US GASTROENTER ITIS&COLITI S 56693 OTHER 01-12-2014 [facility] CONVULSIONS [facility] INC 11224 OBESITY, 12-17-2013 ARNODALYS CORIE UNSPECIFIED 49279 BLEPHARITIS 12-17-2013 BUTLER PRIYANK , UNSPECIFIED 8020 NASAL 08-30-2013 MARIE FONTENOT BONES, CLOSED FRACTURE 920 CONTUSION 08-30-2013 [facility] OF FACE [facility] SCALP AND INC NECK EXCEPT EYE 99388 INJURY OF 08-30-2013 JULIET FACE AND AGUS NECK OTHER AND UNSPECIFIED 10333 PAIN IN 06-12-2013 JULIET JOINT, AGUS LOWER LEG 9596 INJURY 06-12-2013 [facility] OTHER AND MEM HOS[facility] UNSPECIFIED INC HIP AND THIGH E0032 ACT INVLV 06-12-2013 JULIET SNOW SKI AGUS BOARD SLED TOBOGGAN & TUBING 03205 GENERALIZED 05-30-2013 J[facility] PAIN AGUS 7840 HEADACHE 05-30-2013 LILI RODOLFO 26751 HEAD 05-30-2013 JULIET INJURY, AGUS UNSPECIFIED 9599 INJURY 05-30-2013 JULIET OTHER AND AGUS UNSPECIFIED UNSPECIFIED SITE E849.0 E849.0 05-30-2013 Julius ACCIDENT IN [facility] E884.4 E884.4 FALL 05-30-2013 Julius FROM [facility] E8889 UNSPECIFIED 05-30-2013 JULIET FALL AGUS E9293 LATE 05-30-2013 LILI RODOLFO EFFECTS OF ACCIDENTAL FALL 4659 ACUTE URIS 04-19-2013 ARNOLD CORIE OF UNSPECIFIED SITE 6929 CONTACT 04-19-2013 ARNODALYS CORIE DERMATITIS& OTHER ECZEMA DUE UNSPEC CAUSE 1330 SCABIES 04-15-2013 ARNODALYS CORIE 7948 NONSPECIFIC 04-01-2013 [facility] ABNORMAL [facility] RESULTS INC LIVR FUNCTION STUDY 564.3 564.3 03-31-2013 Julius VOMITING [facility] POST-GI Hospital SURGERY 5643 VOMITING 03-31-2013 JULIUS FOLLOWING [facility] GASTROINTES INC TINAL SURGERY 03616 NAUSEA WITH 03-31-2013 LILI RODOLFO VOMITING V4589 OTHER 03-31-2013 LILI RODOLFO POSTSURGICA L STATUS OTHER 66224 CHRONIC 03-29-2013 TYRELL CHOLECYSTIT CHUY IS 5758 OTHER 03-29-2013 NELLY MOCTEZUMA SPECIFIED DISORDER OF GALLBLADDER 576.8 576.8 DIS 03-11-2013 Julius OF BILIARY [facility] TRACT [facility] 5768 OTHER 03-11-2013 WEHRMAN III SPECIFIED JOSE ELIAS DISORDERS OF BILIARY TRACT 786.50 786.50 03-11-2013 Julius CHEST PAIN [facility] 62400 CHEST PAIN 03-11-2013 WEHRMAN III UNSPECIFIED JOSE ELIAS 789.07 789.07 03-11-2013 [place] ABDOMINAL [facility] PAIN, Hospital GENERALIZED 91740 ABDOMINAL 03-11-2013 MARI CANO PAIN, DWI GENERALIZED V14.8 V14.8 03-11-2013 Julius HX-DRUG [facility] ALLERGY [facility] V148 PERSONAL 03-11-2013 JULIUS HISTORY [facility] ALLERGY OTH INC SPEC MEDICINAL AGTS V58.69 V58.69 OTH 03-11-2013 Julius MED,LT,[facility] ENT [facility] V5869 LONG-TERM 03-11-2013 MARI CANO (CURRENT) DWI USE OF OTHER MEDICATIONS 7295 PAIN IN 01-29-2013 JULIET SOFT AGUS TISSUES OF LIMB 8260 CLOSED 01-29-2013 [facility] FRACTURE OF [facility] ONE OR INC MORE PHALANGES OF FOOT 5225 PERIAPICAL 09-19-2012 [facility] ABSCESS [facility] WITHOUT INC SINUS 5259 UNSPECIFIED 09-19-2012 LILI RODOLFO DISORDER TEETH&SUPPO RTING STRUCTURES 81776 PAIN IN 08-21-2012 MARIE FONTENOT JOINT, SITE UNSPECIFIED 53249 ABDOMINAL 04-19-2012 [place] PAIN RIGHT KATLIN UPPER QUADRANT 5780 HEMATEMESIS 04-12-2012 [place] KATLIN 45711 ESOPHAGEAL 04-04-2012 [place] [facility] 15503 VARIANTS 03-08-2012 MARIE FONTENOT MIGRAINE NEC INTRACT MIGRAINE W/O SM V720 EXAMINATION 02-03-2012 SCIFRES ANG OF EYES AND VISION 5693 HEMORRHAGE 01-16-2012 ARNODALYS CORIE OF RECTUM AND ANUS 5789 UNSPECIFIED 01-05-2012 RECHTIN SAFETY GLASS INSTALLER HEMORRHAGE OF GASTROINTES TINAL TRACT 462 ACUTE 12-22-2011 MARIE FONTENOT PHARYNGITIS 74247 UNSPECIFIED 09-13-2011 MARIE FONTENOT INFECTIVE OTITIS EXTERNA 21375 CHRONIC 07-25-2011 [place] TONSILLITIS 4779 ALLERGIC 07-25-2011 [place] RHINITIS CAUSE UNSPECIFIED 7231 CERVICALGIA 07-14-2011 [facility] 50134 SPASM OF 07-14-2011 JULIET MUSCLE AGUS 7856 ENLARGEMENT 07-14-2011 [place] OF LYMPH EMERGENCY NODES SERVICES 91655 UNS 07-05-2011 MARIE FONTENOT GASTRITIS&G ASTRODUODIT IS W/O MENTION HEMORR 4871 INFLUENZA 06-20-2011 MARIE FONTENOT WITH OTHER RESPIRATORY MANIFESTATI ONS 77107 UNSPECIFIED 06-15-2011 ÁNGEL-ZIA HCONG KATLIN CONSTIPATIO N 4770 ALLERGIC 05-26-2011 [facility] RHINITIS ALLERGY & DUE TO ASTHMA P POLLEN 4778 ALLERGIC 05-26-2011 [facility] RHINITIS ALLERGY & DUE TO ASTHMA P OTHER ALLERGEN 85733 EXTRINSIC 05-26-2011 [facility] ASTHMA, ALLERGY & UNSPECIFIED ASTHMA P 7083 DERMATOGRAP 05-26-2011 [facility] HIC ALLERGY & URTICARIA ASTHMA P V727 DIAGNOSTIC 05-26-2011 [facility] SKIN AND ALLERGY & SENSITIZATI ASTHMA P ON TESTS 1110 PITYRIASIS 05-11-2011 MARIE FONTENOT VERSICOLOR 25329 OTHER 04-19-2011 [facility] MEDICAL IM[facility] ASS 5999 UNSPECIFIED 03-08-2011 MARIE CORIE DISORDER OF URETHRA&URI NARY TRACT 6264 IRREGULAR 02-10-2011 [facility] [place] 6268 OTH D/O 02-10-2011 [facility] MENSTRUATIO HEALTH N&OTH ABN CLINIC OF BLEED FE [place] GNT TRACT 84284 PEPTC ULCR 12-23-2010 MARIE FONTENOT UNS ACUT/CHRN W/O HEMOR PERF/OBST 5990 URINARY 10-13-2010 [place] [facility] INFECTION [facility] SITE NOT SPECIFIED 7242 LUMBAGO 09-29-2010 MARIE FONTENOT 9953 ALLERGY 09-29-2010 MARIE FONTENOT UNSPECIFIED NOT ELSEWHERE CLASSIFIED 6259 UNSPEC 08-31-2010 [facility] CL[facility] OF W/FEMALE [place] GENITAL ORGANS 61376 ABDOMINAL 08-31-2010 [facility] PAIN, LEFT HEALTH LOWER CLINIC OF QUADRANT [place] 6202 OTHER AND 08-30-2010 MARIE CORIE UNSPECIFIED OVARIAN CYST 5210 DENTAL 06-18-2010 THE IMPLANT CARIES & ORAL SURGERY C 5759 UNSPECIFIED 03-29-2010 MARIE FONTENOT DISORDER OF GALLBLADDER 77384 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 [facility] DYSFUNCTION FOUNDATIO 7245 UNSPECIFIED 01-13-2010 [place] [facility] BACKACHE SERV FOUNDAT[place] 43703 OTHER 01-13-2010 [place] [facility] INJURY OF SERV OTHER SITES FOUNDATIO OF TRUNK 44629 UNSPEC 01-12-2010 CYNODALYS CORIE EPILEPSY WITHOUT MENTION INTRACT EPILEPSY 7241 PAIN IN 01-09-2010 [facility] 43654 OTHER 01-09-2010 [facility] ALTERATION CO OF AMBULANCE CONSCIOUSNE SS 7802 SYNCOPE AND 01-09-2010 [place] [facility] 8479 SPRAIN AND 01-09-2010 [facility] STRAIN OF HOSPITAL UNSPECIFIED SITE OF BACK 8488 OTHER 01-09-2010 [place] SPECIFIED EMERGENCY SITES OF SERVICES SPRAINS AND STRAINS E0009 UNSPECIFIED 01-09-2010 [facility] EXTERNAL HOSPITAL CAUSE STATUS E0029 OTHER 01-09-2010 [facility] ACTIVITY HOSPITAL INVOLVING WATER AND WATERCRAFT E8498 OTHER 01-09-2010 [facility] SPECIFIED HOSPITAL PLACE OF OCCURRENCE E9288 OTHER 01-09-2010 [facility] ACCIDENT HOSPITAL 3829 UNSPECIFIED 10-16-2009 MARIE OTITIS RODERICK W MEDIA 13264 ASTHMA 10-16-2009 LUCAS SALAZARIFIED RODERICK Gould WITH STATUS ASTHMATICUS 09129 ACUTE 09-24-2009 ARNOLD, LARYNGITIS, RODERICK W WITHOUT MENTION OF OBSTRUCTIO 10271 INSOMNIA 08-25-2009 ARNOLD, UNSPECIFIED RODERICK W V2509 OT GENERAL 08-04-2009 [facility] CNSL&ADVICE CLINIC OF CONTRACEPT VIC MANAGEMENT [facility] 32716 CONTUSION 07-07-2009 [place] OF [facility] E[address] PLACE OF 07-07-[address] [place] [address] IMAGING RECREATION ASSOCIATES AND SPORT E8859 FALL FROM 07-07-2009 [place] OTHER MEDICAL SLIPPING IMAGING TRIPPING OR ASSOCIATES STUMBLING 8492 SPRAIN&STRA 07-06-2009 TYRELL IN OF EMERGENCY UNSPECIFIED SERVICES SITE OF ASSOCIATES KNEE&LEG 30671 NAUSEA 06-12-2009 [place] [facility] ALONE SERV FOUNDATIO 36737 VOMITING 06-12-2009 [place] [facility] ALONE [facility] FOUNDATIO 5224 ACUTE 05-19-2009 CYNOLD, APICAL RODERICK W PERIODONTIT IS OF PULPAL ORIGIN 7842 SWELLING 03-22-2009 TYRELL MASS OR EMERGENCY LUMP IN SERVICES HEAD AND ASSOCIATES NECK 94095 DUODENITIS 03-05-2009 [place], WITHOUT PETER MENTION OF HEMORRHAGE V2502 GENERAL 02-03-2009 [facility] CNS[facility] VIC CONTRACEPT [facility] MEASURES 2662 OTHER 01-27-2009 DHS/CO B-COMPLEX HEALTH DEFICIENCIE [facility] ACCT 89137 PAIN IN 10-09-2008 ARNOLD, JOINT RODERICK W PELVIC REGION AND THIGH 2892 NONSPECIFIC 08-19-2008 [facility] MESENTERIC HEALTH CLINIC OF LYMPHADENIT VIC IS [facility] 64140 ABDOMINAL 08-14-2008 [place], PAIN RIGHT PETER LOWER QUADRANT 0088 INTESTINAL 07-23-2008 MARTI INFECTION JR, J V DUE TO OTHER ORGANISM NEC 6262 EXCESSIVE 07-16-2008 [facility] OR FREQUENT [facility] CLINIC OF MENSTRUATIO VIC N [facility] 7246 DISORDERS 07-09-2008 [place] OF [facility] 7862 COUGH 05-28-2008 [facility] 6253 DYSMENORRHE 04-10-2008 [facility] A [facility] CLIN[facility] OF VIC [facility] K29.70 GASTRITIS, UNSPECIFIED , WITHOUT BLEEDING [...] 17 81 PH E 6 97 AR AL MA OP CY 50 MC G SP [...] 34 6- 6- 00 45 LD ve AL 59 20 20 AI ED 31 11 [...] 11 D RI TA 1 PH CH OK AR AR N- MA D CA CY [...] W 03 93 8 # 03 93 AL 37 09 09 11 28 28 RI 89 AR Ac IL 00 -0 -0 .0 TE 78 NO ti OS 00 6- 6- 00 55 LD ve EC 45 20 20 AI 50 11 11 D RI OT 3 PH CH C AR AR 20 MA D .6 CY W MG 03 93 TA 8 BL # ET 03 93 AL 00 08 08 1 18 6 RI 89 AR Ac OM 60 -2 -2 0. TE 66 NO ti ET 31 6- 6- 00 25 LD ve CASTORENA 58 20 20 0 AI ZI 65 11 11 D RI NE 4 PH CH -D AR AR M MA D SY CY W RU P 03 93 8 # 03 93 AL 00 08 08 1 40 10 RI [...] 34 1- 1- 00 55 LD ve AL 59 20 20 AI ED 31 11 [...] AI ZA 10 11 11 D RI AL 1 PH CH IN AR AR E [...] 15 5- 5- 00 20 LD ve AL 02 20 20 AI ED 20 11 11 D RI NI 1 PH CH SO AR AR LO MA D NE CY W 4 03 MG 93 8 TA # BL 03 ET 93 AL 00 05 05 1 30 7 RI [...] LL 15 C 0 MG /M L AL 00 04 04 1 18 6 RI [...] 03 10 5 RI 87 AR Ac OK 00 -1 -1 .0 TE 44 NO ti FL 40 0- 0- 00 58 LD ve U 80 20 20 AI 75 08 11 11 D RI 5 PH CH MG AR AR MA D CA CY W PS UL 03 E 93 8 # 03 93 AL 00 03 03 1 30 7 RI [...] 30 0- 0- 00 61 LD ve OK 31 20 20 AI DE 10 11 [...] 30 7- 7- 0 20 LD ve OK 31 20 20 AI DE 10 10 [...] LL 15 C 0 MG /M L AL 00 09 09 5 15 5 RI [...] BL 93 ET 8 # 03 93 AL 00 09 09 1 30 7 RI [...] 34 1- 1- 00 61 LD ve AL 59 20 20 AI ED 31 10 [...] 93 8 CORRALES # SP 03 93 AL 60 11 05 1 18 6 RI [...] 34 0- 0- 00 94 LD ve AL 59 20 20 AI ED 31 10 [...] W /5 93 8 ML CORRALES SP AL 60 11 12 00 18 3 RI [...] 09 D RI E 9 PH CH AL AR AR OP M D #3 W 50 93 8 MC G SP RA Y AL 60 11 11 00 18 6 RI [...] AR M D #3 W 93 8 AL 00 11 11 00 6. 16 RI [...] ON E 15 0 MG /M L AL 00 09 09 00 30 7 RI [...] 30 7- 4- 00 05 LD ve OK 31 20 20 AI DE 10 09 [...] #3 W TA 93 BL 8 ET AL 00 05 06 01 30 7 RI [...] AR M D #3 W 93 8 AL 00 04 05 00 30 7 RI [...] C #3 93 8 TA BL ET AL 00 04 05 00 6. 30 RI [...] 20 AI LI 70 09 09 D OK N 5 PH CH 25 AR AE [...] 20 AI OM 60 08 08 D OK YC 6 PH CH IN AR AE [...] Procedure DOS Code Location Performer Comment IAADIADOO 01776 JULIUS MADRID 7 [facility] INFLUENZA INC INC IAADIADOO 23046 JULIUS MADRID 7 [facility] STREPTOCO INC INC CCUS GROUP A URINE 92772 [facility] ROBERTS 7 PHYSICIAN TEST S GROUP VISUAL COLOR CMPRSN METHS IAADIADOO 22065 [facility] STONE 7 PHYSICIAN INFLUENZA S GROUP URINE 63094 [facility] ROBERTS 7 PHYSICIAN TEST S GROUP VISUAL COLOR CMPRSN METHS THERAPEUT 99650 [facility] ROBERTS IC 7 PHYSICIAN PROPHYLAC S GROUP TIC/DX INJECTION SUBQ/IM THERAPEUT 56491 [facility] ROBERTS IC 6 PHYSICIAN YOSI PROPHYLAC S GROUP TIC/DX INJECTION SUBQ/IM RINGERS J7120 [facility] LACTATE 6 [facility]ALTH[facility] INFUSION E E UP TO [facility] 1000 CC INJECTION J2370 [facility] 6 HEALTHCAR HEALTHCAR PHENYLEPH E E RINE HCL [facility] UP TO 1 ML ANES 00584 [place] [facility] HEN NERVE 6 MEDICAL MUSCLE SERV TDN FOUNDATIO FASCIA&BU N RSA FOREARM WRIST URINE 21137 [facility] 6 HEALTHCAR HEALTHCAR TEST E E VISUAL [facility] COLOR CMPRSN METHS INJECTION J2704 [facility] PROPOFOL 6 HEALTHCAR HEALTHCAR 10 MG E E [facility] INJECTION J3010 [facility] FENTANYL 6 HEALTHCAR HEALTHCAR CITRATE E E 0.1 MG [facility] INFUSION J7030 [facility] NORMAL 6 [facility] HEALTHCAR SALINE E E SOLUTION [facility] 1000 CC NERVE 16547 [facility] REPAIR 6 HEALTHCAR HEALTHCAR W/CONDUIT E E EACH [facility] NERVE LEVEL III 48867 [facility] SURG 6 Y OF JOSE ELIAS PATHOLOGY [place] [facility] GROSS&[place] [address] [facility] SURG 6 HEALTHCAR HEALTHCAR PATHOLOGY E E [facility] GROSS&RODOLFO ROSCOPIC EXAM INJECTION J0690 [facility] 6 HEALTHCAR HEALTHCAR CEFAZOLIN E E SODIUM [facility] 500 MG RADEX 29551 [place] IQBAL ALL HAND 6 MEDICAL MINIMUM 3 IMAGING VIEWS ASS THERAPEUT 68964 [facility] ARMANDO IC 6 PHYSICIAN YOSI PROPHYLAC S GROUP TIC/DX INJECTION SUBQ/IM OPHTH 36997 SCIFRES SCIFRES MEDICAL 6 ANG ANG XM&EVAL COMPRHNSV ESTAB PT 1/> FITTING 61660 SCIFRES SCIFRES SPECTACLE 6 ANG ANG S XCPT APHAKIA MONOFOCAL FRAMES V2020 SCIFRES SCIFRES PURCHASES 6 ANG ANG 1 VISN V2103 SCIFRES SCIFRES PLANO 6 ANG ANG TO+/-4.00 D SPHER 0.12-2.00 D CYL EA SCRATCH V2760 SCIFRES SCIFRES RESISTANT 6 ANG ANG COATING PER LENS LENS V2784 SCIFRES SCIFRES POLYCARBO 6 ANG ANG FREDRICK OR EQUAL ANY INDEX PER LENS URINE 29812 [facility] ROBERTS 6 PHYSICIAN YOSI TEST S GROUP [place] [address] [place] [facility] ALL HEAD/BRAI 6 MEDICAL N W/[place] [address] [place] [facility] ALL CERVICAL 6 MEDICAL SPINE W/[place] [address] [place] [facility] ALL MAXILLOFA 6 MEDICAL CIAL W/O IMAGING CONTRAST ASS MATERIAL SIMPLE 98016 LORIN LILI REPAIR 6 PHYSICIAN RODOLFO F/E/E/N/L S, PLLC /M 2.5CM/< URNLS DIP 39152 [facility] STICK/TAB INC INC LET REAGENT AUTO MICROSCOP Y IAADI 58784 JULIUS MADRID INFLUENZA 6 [facility] B VIRUS INC INC RADIOLOGI 87911 JULIUS MADRID C EXAM 6 [facility] CHEST 2 INC INC VIEWS FRONTAL&L ATERAL IAADI 88279 JULIUS MADRID INFFLUENZ 6 [facility] A A VIRUS INC INC PRESSURIZ 55145 JULIUS MADRID ED/NONPRE 6 [facility] SSURIZED INC INC INHALATIO N TREATMENT URINE 75319 J[facility] 6 [facility] TEST INC INC VISUAL COLOR CMPRSN METHS UNCLASSIF J3490 JULIUS MADRID IED DRUGS 6 [facility] INC INC URINE 54724 [facility] LILI 5 PHYSICIAN RODOLFO TEST S GROUP VISUAL COLOR CMPRSN METHS THERAPEUT 98987 JULIUS MADRID IC 5 [facility] PROPHYLAC INC INC TIC/DX INJECTION SUBQ/IM CRTCHS E0114 ADVANCED ADVANCED UNDARM 5 TECHNOLOG TECHNOLOG OTH THAN IES INC IES INC WOOD PAIR PAD TIP&HNDGR IP RADEX 52500 [place] BEINE[place] FOOT 5 MEDICAL LAILA COMPLETE IMAGING MINIMUM 3 ASS VIEWS IM ADM 08217 JULIUS MADRID PRQ ID 5 [facility] SUBQ/IM INC INC NJXS 1 VACCINE TDAP 09059 JULIUS MADRID VACCINE 7 5 [facility] YRS/> IM INC INC OPHTH 46277 SCIFRES SCIFRES MEDICAL 5 ANG ANG XM&EVAL COMPRHNSV ESTAB PT 1/> LENS V2784 SCIFRES SCIFRES POLYCARBO 5 ANG ANG FREDRICK OR EQUAL ANY INDEX PER LENS SCRATCH V2760 SCIFRES SCIFRES RESISTANT 5 ANG ANG COATING PER LENS SPHERE V2100 SCIFRES SCIFRES SINGLE 5 ANG ANG VISION PLANO +/- 4.00 PER LENS IADNA 82183 JULIUS MADRID CHLAMYDIA 5 [facility] INC INC TRACHOMAT IS AMPLIFIED PROBE TQ IADNA 45188 JULIUS MADRID NEISSERIA 5 [facility] INC GONORRHOE AE AMPLIFIED PROBE TQ THERAPEUT 82536 [facility] IC 5 PHYSICIAN YOSI PROPHYLAC S GROUP TIC/DX INJECTION SUBQ/[place] [address] JULIUS MADRID LIPASE 5 [place] [address] JULIUS MADRID ABDOMEN & 5 [facility] PELVIS INC INC [place] [address] JULIUS MAD[facility]ID AMYLASE 5 [facility] INC INC COMPREHEN 28915 J[facility] MAD[facility] SIVE 5 [facility] [place] [address] JULIUS MADRID INFUSION 5 [facility] THER INC INC PROPH ADDL SEQUENTIA L TO 1 HR URINE 97474 J[facility] MADRID 5 [facility] TEST INC [place] [address] JULIUS MADRID INFUSION 5 [facility] THERAPY/P INC INC ROPHYLAXI S /DX 1ST TO 1 HR THERAPEUT 69988 JUL[facility]AD[facility] IC 5 [facility] INJECTION INC INC IV PUSH EACH NEW DRUG URNLS DIP 54615 [facility] 5 [facility] STICK/TAB INC INC LET REAGENT AUTO MICROSCOP Y BLOOD 91162 JULIUS MADR[facility] COUNT 5 [facility] COMPLETE INC INC AUTO&AUTO DIFRNTL WBC THERAPEUT 90726 [facility] ARMANDO IC 4 PHYSICIAN YOSI PROPHYLAC S GROUP TIC/DX INJECTION SUBQ/IM THERAPEUT 59637 JUL[facility] MADRID IC 4 [facility] PROPHYLAC INC INC TIC/DX INJECTION SUBQ/IM URINE 07905 [facility] MAD[facility]ID 4 [facility] TEST INC INC VISUAL COLOR CMPRSN METHS IAADI 95981 JULIUS MADRID INFLUENZA 4 [facility] B VIRUS INC INC IAADI 63724 JULIUS MADRID INFFLUENZ 4 [facility] A A VIRUS INC INC RADEX 17370 JULIUS MADRID NASAL 4 [facility] BONES INC INC COMPLETE MINIMUM 3 VIEWS RADIOLOGI 12934 J[facility] C 4 [facility] EXAMINATI INC INC ON KNEE 3 VIEWS 3D 55326 JULIUS MADRID RENDERING 4 [facility] INC INC W/INTERP& POSTPROC DIFF WORK STATION URINE 02985 [facility]ID 4 [facility] TEST INC [place] [address] JULIUS MADRID CERVICAL 4 [facility] SPINE W/[place] [address] JULIUS MADRID HEAD/BRAI 4 [facility] N W/O INC INC CONTRAST MATERIAL 3D 59624 JULIUS MADRID RENDERING 4 [facility] W/INTERP INC INC & POSTPROCE SS SUPERVISI ON OPHTH 04442 SCIFRES SCIFRES MEDICAL 4 ANG ANG XM&EVAL COMPRHNSV ESTAB PT 1/> DETERMINA 72647 SCIFRES SCIFRES TION 4 ANG ANG REFRACTIV E STATE HEPATIC 63587 JULIUS MADRID FUNCTION 3 [facility] PANEL INC INC URNLS DIP 37858 JULIUS MADRID 3 [facility] STICK/TAB INC INC LET REAGENT AUTO MICROSCOP Y THERAPEUT 45520 JULIUS MADRID IC 3 [facility] INJECTION [place] [address] JULIUS BARROSOON INFUSION 3 [facility] THERAPY/P INC INC ROPHYLAXI S /DX 1ST TO 1 HR BLOOD 13164 JULIUS MADRID COUNT 3 [facility] COMPLETE INC INC AUTO&[place] [address] JULIUS MADRID AMYLASE 3 [facility] INC INC COMPREHEN 81061 JULIUS MADRID SIVE 3 [facility] [address] JULIUS MADRID LIPASE 3 [facility] INC INC RADEX ABD 99477 JULIUS MADRID COMPL 3 [facility] AQT ABD INC INC W/S/E/D VIEWS 1 VIEW CH ANES 65759 VILLEGAS JOSE ELIAS VILLEGAS JOSE ELIAS INTRAPERI 3 TONEAL UPPER ABDOMEN W/LAPS NOS LAPAROSCO 87374 JULIUS MADRID PY SURG 3 [facility] CHOLECYST INC INC ECTOMY INJECTION J2405 JULIUS JULIUS 3 [facility] ONDANSETR INC INC ON HCL PER 1 MG LEVEL III 23171 TYRELL TYRELL SURG 3 CHUY CHUY PATHOLOGY GROSS&RODOLFO ROSCOPIC EXAM URNLS DIP 93115 JULIUS BARROSOON 3 [facility] STICK/TAB INC INC LET REAGENT AUTO MICROSCOP Y RADIOLOGI 14669 JULIUS MADRID C EXAM 3 [facility] CHEST 2 INC INC VIEWS FRONTAL&L ATERAL ECG 99059 MRAI GUERRA JR ROUTINE 3 DWI DWI ECG W/LEAST 12 LDS I&R ONLY BLOOD 31136 JULIUS MADRID COUNT 3 [facility] COMPLETE INC INC AUTO&[place] [address] JULIUS MADRID TROPONIN 3 [facility] QUANTITAT INC INC JANE COMPREHEN 60671 JULIUS MADRID SIVE 3 [facility] METABOLIC INC INC PANEL CREATINE 32676 JULIUS MADRID KINASE MB 3 [facility] [place] [address] JULIUS MADRID LIPASE 3 [facility] INC INC CREATINE 48293 JULIUS MADRID KINASE 3 [facility] TOTAL INC INC THER 02779 JULIUS MADRID PROPH/DX 3 [facility] NJX IV INC INC PUSH SINGLE/1S T SBST/DRUG ECG 31473 JULIUS MADRID ROUTINE 3 [facility] ECG INC INC W/LEAST 12 LDS TRCG ONLY W/[place] [address] JULIUS MADRID ABDOMINAL 3 [facility] REAL INC INC TIME W/IMAGE LIMITED URINE 02981 JULIUS MADRID 3 [facility] TEST INC INC VISUAL COLOR CMPRSN METHS RADEX 78329 JULIUS BARROSOON FOOT 3 [facility] COMPLETE INC INC MINIMUM 3 VIEWS INJECTION J0696 MARIE SALAZAR 3 CORIE CORIE CEFTRIAXO NE SODIUM PER 250 MG THERAPEUT 73589 JULIUS MADRID IC 3 [facility] PROPHYLAC INC INC TIC/DX INJECTION SUBQ/IM INJECTION J0696 MARIE SALAZAR 3 CORIE CORIE CEFTRIAXO NE SODIUM PER 250 MG INJECTION J2805 JULIUS JULIUS 2 [facility] SINCALIDE INC INC 5 MICROGRAM S TECHNETIU A9537 JULIUS MADRID M TC-99M 2 [facility] MEBROFENI INC INC N DX UP TO 15 MCI HEPATOBIL 78821 [place] SYST 2 MEDICAL AGUS IMAG INC IMAGING GB ASS W/[place] [address] [place] ABDOMINAL 2 MEDICAL AGUS REAL IMAGING TIME ASS W/[place] [address] JULIUS MADRID INFUSION 2 [facility] THERAPY INC INC PROPHYLAX IS/DX EA HOUR ESOPHAGOG 58371 JULIUS MADRID ASTRODUOD 2 [facility] ENOSCOPY [place] [address] JULIUS MADRID INFUSION 2 [facility] THERAPY/P INC INC ROPHYLAXI S /DX 1ST TO 1 HR ECHO 21534 TYRELL THAKUR TRANSTHOR 2 EMERGENCY C R-T 2D SERVICES W/WO M-MODE REC F-UP/LMTD URNLS DIP 84897 JUL[facility]US [facility]ADRID 2 [facility] STICK/TAB INC INC LET REAGENT AUTO MICROSCOP Y US CHEST 17354 TYRELL THAKUR REAL TIME 2 EMERGENCY W/IMAGE SERVICES DOCUMENTA TION URINE 11561 JULIUS MADRID 2 [facility] TEST INC [place] [address] TYRELL THAKUR ABDOMINAL 2 EMERGENCY REAL SERVICES TIME W/IMAGE LIMITED INJECTION J0696 MARIE SALAZAR 2 CORIE CORIE CEFTRIAXO NE SODIUM PER 250 MG SPHERE V2100 SCIFRES SCIFRES SINGLE 2 ANG ANG VISION PLANO +/- 4.00 PER LENS VISION V2799 SCIFRES SCIFRES ITEM OR 2 ANG ANG SERVICE MISCELLAN EOUS BLOOD 81897 [facility] COUNT 2 N N COMPLETE [facility] AUTO&AUTO HOSPITA HOSPITA DIFRNTL WBC PROTHROMB 33330 [facility] IN TIME 2 N N [facility] HOSPITA HOSPITA BLOOD 00489 [facility] OCCULT 2 N N PEROXIDAS [facility] E ACTV HOSPITA HOSPITA QUAL FECES 1-3 SPEC THROMBOPL 89879 [facility] ASTIN 2 N N TIME [facility] PARTIAL HOSPITA HOSPITA PLASMA/WH OLE BLOOD URNLS DIP 53939 [facility] 2 N N STICK/TAB [facility] LET HOSPITA HOSPITA REAGENT AUTO MICROSCOP Y URINE 66068 [facility] 2 N N TEST [facility] VISUAL HOSPITA HOSPITA COLOR CMPRSN METHS COMPREHEN 18250 [facility] SIVE 2 N N METABOLIC [facility] [place] [address] [facility] LIPASE 2 N N [facility] HOSPITA HOSPITA THER 37301 [facility] PROPH/DX 2 N N NJX IV [facility] PUSH HOSPITA HOSPITA SINGLE/1S T SBST/[place] [address] [facility] INFUSION 2 N N HYDRATION [facility] EACH HOSPITA HOSPITA ADDITIONA L HOUR COLLECTIO 58295 [facility] N VENOUS 2 N N BLOOD [facility] VENIPUNCT HOSPITA HOSPITA URE OPHTH 37247 SCIFRES SCIFRES MEDICAL 2 ANG ANG XM&EVAL COMPRHNSV ESTAB PT 1/> DETERMINA 19228 SCIFRES SCIFRES TION 2 ANG ANG REFRACTIV E STATE CT SOFT 30301 JULIET JULIET TISSUE 2 AGUS AGUS NECK W/[place] [address] JULIUS MADRID STREPTOCO 2 [facility] CCUS INC INC GROUP A IAADI 17177 JULIUS MADRID INFFLUENZ 2 [facility] A A VIRUS INC INC IAADI 76910 JULIUS MADRID INFLUENZA 2 [facility] B VIRUS INC INC URINE 54613 JULIUS MADRID 2 [facility] TEST INC INC VISUAL COLOR CMPRSN METHS 3D 44014 JULIUS MADRID RENDERING 2 [facility] INC INC W/INTERP& POSTPROC DIFF WORK STATION BRNCDILAT 73792 [facility] RSPSE 2 ALLERGY ALLERGY SPMTRY & ASTHMA & ASTHMA PRE&POST- P P BRNCDILAT ADMN PERCUTANE 74607 [facility] OUS TESTS 2 ALLERGY ALLERGY & ASTHMA & ASTHMA W/ALLERGE P P CHYNA EXTRACTS DEMO&/SENG 24094 [facility] L OF PT 2 ALLERGY ALLERGY UTILIZ & ASTHMA & ASTHMA AERSL P P GEN/NEB/I NHLR/IP INTRACUTA 98866 [facility] NEOUS 2 ALLERGY ALLERGY TESTS & ASTHMA & ASTHMA W/ALLERGE P P CHYNA EXTRACTS GROUND A0425 [facility] MILEAGE 1 FAYETTE FAYETTE PER URBAN URBAN STATUTE COGOVT COGOVT MILE SEDIMENTA 86413 [facility] UNIVERS TION RATE 1 Y Y RBC [facility] AUTOMATED RADIOLOGI 46659 [facility] C EXAM 1 Y Y CHEST 2 [facility] VIEWS FRONTAL&L ATERAL ECG 63465 ADRIÁN SAMPSON ROUTINE 1 III MEDARDO III MEDARDO ECG W/LEAST 12 LDS I&R ONLY GONADOTRO 40632 [facility] PIN 1 Y Y CHORIONIC [facility] [place] [address] [facility] TROPONIN 1 Y Y QUANTITAT [facility] JANE GONADOTRO 50648 [facility] PIN 1 Y Y CHORIONIC [facility] QUALITATI VE BLOOD 33258 [facility] COUNT 1 Y Y COMPLETE [facility] [place] [address] [facility] LIPASE 1 Y Y HOSPITAL HOSPITAL ECG 74145 [facility] ROUTINE 1 Y Y ECG [facility] W/LEAST 12 LDS TRCG ONLY W/O I&R COMPREHEN 14024 [facility] SIVE 1 Y Y METABOLIC [facility] PANEL COLLECTIO 60811 [facility] N VENOUS 1 Y Y BLOOD [facility] VENIPUNCT URE C-REACTIV 95542 [facility] E PROTEIN [place] [address] [facility] ABDOMINAL 1 Y Y REAL HOSPITAL HOSPITAL TIME W/IMAGE LIMITED AMB A0427 [facility] SERVICE 1 RADHA GARCIA ALS URBAN URBAN EMERGENCY COGOVT COGOVT TRANSPORT LEVEL 1 3D 05190 JULIUS MADRID RENDERING 1 [facility] INC INC W/INTERP& POSTPROC DIFF WORK STATION INJECTION J2405 JULIUS MADRID 1 [facility] ONDANSETR INC INC ON HCL [place] [address] [place] [address] JULIUS MADRID ABDOMEN & 1 [facility] PELVIS INC INC W/[place] [address] JULIUS MADRID LIPASE 1 [facility] INC INC COMPREHEN 00398 JULIUS MADRID SIVE 1 [facility] [place] [address] JULIUS MADRID AMYLASE 1 [facility] INC INC URINE 56103 JULIUS MADRID 1 [facility] TEST INC INC VISUAL COLOR CMPRSN METHS BLOOD 51878 JULIUS MADRID COUNT 1 [facility] COMPLETE INC INC AUTO&AUTO DIFRNTL WBC URNLS DIP 56300 JULIUS JULIUS 1 [facility] STICK/TAB INC INC LET REAGENT AUTO MICROSCOP Y DETERMINA 18475 [facility] TION 1 REFRACTIV E STATE OPHTH 11262 [facility] MEDICAL 1 XM&EVAL COMPRHNSV ESTAB PT 1/> INJECTION J0696 MARIE SALAZAR 1 CORIE CORIE CEFTRIAXO NE SODIUM PER 250 MG INJECTION J0696 MARIE SALAZAR 1 CORIE CORIE CEFTRIAXO NE SODIUM PER 250 MG THERAPEUT 04417 [facility] IC 1 [facility] PROPHYLAC CLINIC OF TIC/DX SHERRY INJECTION SUBQ/[place] [address] JULIUS MADRID TRACT UPR 1 [facility] W/SM INT INC [place] [address] [place] J[place] UPR W/WO 1 MEDICAL AGUS GLUCOSE IMAGING W/SM ASS INTEST FOLLW-THR U THERAPEUT 93344 [facility] IC 1 HEALTH HEALTH PROPHYLAC CLINIC OF CLINIC OF TIC/DX SHERRY SHERRY INJECTION SUBQ/[place] [address] JULIUS MADRID LIPASE 1 [facility] [place] [address] JULIUS MADRID AMYLASE 1 [facility] INC INC COMPREHEN 11204 JULIUS MADRID SIVE 1 [facility] METABOLIC INC INC PANEL URINE 75172 JULIUS MADRID 1 [facility] TEST INC INC VISUAL COLOR CMPRSN METHS URNLS DIP 16835 JUL[facility]US DENEEN 1 [facility] GEMA STICK/TAB INC LET REAGENT AUTO MICROSCOP Y CULTURE 43297 JULIUS MADRID BACTERIAL 1 [facility] INC [place] [address] JULIUS MADRID INFUSION 1 [facility] THERAPY/P INC INC ROPHYLAXI S /DX 1ST TO 1 HR BLOOD 72503 JULIUS MADRID COUNT 1 [facility] COMPLETE INC INC AUTO&AUTO DIFRNTL WBC ANTIBODY 31444 COMBINED COMBINED CHLAMYDIA 1 PHYSICIAN PHYSICIAN S LA S LA CUL BACT 25459 COMBINED COMBINED XCPT 1 PHYSICIAN PHYSICIAN URINE S LA S LA BLOOD/STO OL AEROBIC ISOL INJECTION J0696 MARIE SALAZAR 1 CORIE CORIE CEFTRIAXO NE SODIUM PER 250 MG THERAPEUT 96097 [facility] IC 1 [facility] PROPHYLAC CLINIC OF TIC/DX SHERRY INJECTION SUBQ/IM DEEP D9220 [facility], SEDATION/ 1 IMPLANT & III LAKESHIA GENERAL ORAL ANESTHESI SURGERY C A-1ST 30 MINUTES RADEX 49106 JULIUS MADRID UPPER GI 0 [facility] W/WO INC INC GLUCAGON/ DELAY IMAGES W/[place] [address] [facility] ABDOMINAL 0 MEDICAL AGUS REAL IMAGING TIME ASS W/IMAGE LIMITED FITTING 41197 [facility] SPECTACLE 0 VISION S XCPT APHAKIA MONOFOCAL OPHTH 78903 [facility] MEDICAL 0 VISION XM&EVAL COMPRHNSV ESTAB PT 1/> FRAMES V2020 [facility] PURCHASES 0 VISION SPHERE V2100 [facility] SINGLE 0 VISION VISION PLANO +/- 4.00 PER LENS THERAPEUT 34060 [facility] IC 0 [facility] PROPHYLAC CLINIC OF TIC/DX SHERRY INJECTION SUBQ/IM ELECTROEN 66374 [facility] ANCELMO LA CEPHALOGR 0 MEDICAL AM W/REC SERV AWAKE&ASL FOUNDATIO EEP OBSERVATI 69249 [facility] NEVAREZQUENTIN ON/INPATI 0 MEDICAL [facility] ENT [facility] FOUNDATIO CARE 55 MINUTES MRI BRAIN 26674 [place] OFE MCGREGOR BRAIN 0 MEDICAL STEM W/O SERV W/[place] [address] LEONELA PATINO HEAD/BRAI 0 Y OF MUR N W/O [place] CONTRAST HOSPI MATERIAL ECG 40754 [place] B[place] ROUTINE 0 MEDICAL AGUS ECG SERV W/LEAST FOUNDATIO 12 LDS I&R ONLY RADEX 86931 [place] PRADEEP SPINE 0 MEDICAL [facility] THORACIC SERV 2 VIEWS FOUNDATIO RADEX 06545 [facility] USACASTTastemakerCASTL SPINE 0 E E [facility] HOSPITAL 2 VIEWS AMB A0422 [facility] OXYGEN&O2 0 E CO E CO SUPPLIES AMBULANCE AMBULANCE LIFE SUSTAININ G SITUATION FIBRIN 57763 [facility] DGRADJ 0 E E PRODUCTS HOSPITAL HOSPITAL D-DIMER QUAL/SEMI REINA BLOOD 74388 [facility] COUNT 0 E E COMPLETE HOSPITAL HOSPITAL AUTO&AUTO DIFRNTL WBC GONADOTRO 14632 [facility] USACASTTastemakerCASTL PIN 0 E [facility] QUALITATI VE ECG 56800 TYRELL FRANCOALL ROUTINE 0 EMERGENCY EMERGENCY ECG SERVICES SERVICES W/LEAST 12 LDS I&R ONLY LACTATE 85235 [facility] DEHYDROGE 0 E E NASE LDH [facility] URNLS DIP 94447 [facility] US[facility]AST[facility] ROCKCASTL 0 E E STICK/TAB HOSPITAL HOSPITAL LET REAGENT AUTO MICROSCOP Y GROUND A0425 [facility] MILEAGE 0 E CO E CO PER AMBULANCE AMBULANCE STATUTE MILE AMBULANCE A0429 [facility] USACASTangelcam ROCKCASTL SERVICE 0 E CO E CO [facility] AMBULANCE AMBULANCE EMERGENCY TRANSPORT CRITICAL 93084 [facility] 0 EMERGENCY ILL/INJUR SERVICES ED PATIENT INIT 30-74 MIN RADEX 72990 [facility] USACASTL ROCKCAST[facility] SPINE 0 E E LUMBOSACR [facility] AL 2/3 VIEWS BLS A0382 [facility] ROUTINE 0 E CO E CO DISPOSABL AMBULANCE AMBULANCE E SUPPLIES ECG 06533 [facility] USACASTangelcam ROCKCASTL ROUTINE 0 E E ECG HOSPITAL HOSPITAL W/LEAST 12 LDS TRCG ONLY W/O I&R COMPREHEN 74492 [facility] SIVE 0 E E [facility]ABOLIC [facility] HOSPITAL PANEL CREATINE 96136 [facility] KINASE 0 [facility] THERAPEUT 11741 [facility], IC 0 [facility] J PROPHYLAC CLINIC OF TIC/DX INJECTION [place] SUBQ/IM PLLC RADIOLOGI 79806 JULIUS MADRID C 0 [facility] EXAMINATI INC INC ON KNEE 3 VIEWS COLLECTIO 36032 [facility] N VENOUS 0 Y Y BLOOD [facility] [place] [address] [facility] LIPASE 0 [place] [address] [facility] AMYLASE 0 Y Y [facility] THERAPEUT 89144 [facility], IC 9 [facility] J PROPHYLAC CLINIC OF TIC/DX INJECTION [place] SUBQ/IM PLLC HEPATBL 97724 JULIUS MADRID DUX SYS 9 [facility] [place] [address] JULIUS MADRID ABDOMINAL 9 [facility] REAL INC INC TIME W/IMAGE LIMITED FITTING 95331 [facility], SPECTACLE 9 VISION JESÚS Dominguez S XCPT APHAKIA MONOFOCAL OPHTH 15082 [facility] MEDICAL 9 VISION JESÚS M XM&EVAL COMPRHNSV ESTAB PT 1/> SPHERE V2100 [facility] SINGLE 9 VISION JESÚS M VISION PLANO +/- 4.00 PER LENS FRAMES V2020 [facility] PURCHASES 9 VISION JESÚS M ESOPHAGOG 4516 JULIUS MADRID ASTRODUOD 9 [facility] [place]OSCOPY [place] [address] JULIUS MADRID INFUSION 9 [facility] THERAPY/P INC INC ROPHYLAXI S /DX 1ST TO 1 [place] [address] PATHOLOGY PATHOLOGY SURG 9 & & PATHOLOGY CYTOLOGY CYTOLOGY LAB LAB GROSS&RODOLFO ROSCOPIC EXAM URINE 41814 JUL[facility] MADRID 9 [facility] TEST INC [place] [address] JULIUS MADRID INFUSION 9 [facility] THERAPY INC INC PROPHYLAX IS/DX [place] H[place] EGD 94810 JULIUS MADRID TRANSORAL 9 [facility] BIOPSY INC INC SINGLE/MU LTIPLE URINE 78176 [facility], 9 [facility] J TEST CLINIC OF VISUAL COLOR VIC RAMIREZRSN [facility] METHS OBSERVATI 50911 CORY CORY ON CARE 9 , PETER , PETER DISCHARGE MANAGEMEN T 3D 50336 JULIUS MADRID RENDERING 9 [facility] INC INC W/INTERP& [place] [address] JULIUS MADRID ABDOMEN 9 [facility] W/O INC INC CONTRAST MATERIAL CT PELVIS 67018 JULIUS MADRID W/O 9 [facility] CONTRAST INC INC MATERIAL HOSPITAL G0378 JULIUS MADRID OBSERVATI 9 [facility] ON INC INC SERVICE PER HOUR BLOOD 81664 JULIUS MADRID COUNT 9 [facility] COMPLETE INC INC AUTO&AUTO DIFRNTL WBC BLOOD 77420 JULIUS MADRID COUNT 9 [facility] COMPLETE INC INC AUTO&AUTO DIFRNTL WBC SUSCEPTIB 09497 JULIUS MADRID LTY STDY 9 [facility] ANTIMICRB INC INC IAL MICRO/AGA R [facility] G0378 JULIUS MADRID OBSERVATI 9 [facility] ON INC INC SERVICE PER HOUR CT PELVIS 34409 REY CHUNG, W/O 9 MEDICAL RUBY CONTRAST IMAGING MATERIAL ASSOCIATE S CULTURE 38756 JULIUS MADRID BACTERIAL 9 [facility] INC INC QUANTTATI VE COLONY COUNT URINE CULTURE 13435 JULIUS MADRID BCT 9 [facility] ISOL&PRSM INC INC PTV ID ISOLATE EA URINE INITIAL 16101 CORY CORY OBSERVATI 9 , PETER , PETER ON CARE/DAY 50 [place] [address] JULIUS MADRID INFUSION 9 [facility] THERAPY/P INC INC ROPHYLAXI S /DX [address] [place] [address] [place] [address] REY CHUNG, ABDOMEN 9 MEDICAL RUBY W/O IMAGING CONTRAST ASSOCIATE MATERIAL S 3D 65633 JULIUS MADRID RENDERING 9 [facility] W/INTERP& [place] [address] JULIUS MADRID INFUSION 9 [facility] THER INC INC PROPH ADDL SEQUENTIA L TO 1 HR BASIC 50037 JULIUS MADRID METABOLIC 9 [facility] PANEL INC INC CALCIUM TOTAL URINE 55478 JUL[facility]US MADRID 9 [facility] TEST INC INC VISUAL COLOR CMPRSN METHS URNLS DIP 41735 JUL[facility]US MADRID 9 [facility] STICK/TAB INC INC LET REAGENT AUTO MICROSCOP Y BLOOD 42201 JULIUS MADRID COUNT 9 [facility] COMPLETE INC INC AUTO&AUTO DIFRNTL WBC RADEX HIP 28777 [place], 9 MEDICAL KIRSTIN P UNILATERA IMAGING L ASSOCIATE COMPLETE S MINIMUM 2 VIEWS RADEX 88185 [place], SACRUM & 9 MEDICAL KIRSTIN P COCCYX IMAGING MINIMUM 2 [place] [address] JULIUS MADRID STREPTOCO 9 [facility] CCUS INC INC GROUP A RADIOLOGI 84720 [place] CHUNG EXAM 9 MEDICAL RUBY CHEST 2 IMAGING VIEWS ASSOCIATE FRONTAL&[place] [address] JULIUS MADRID STREPTOCO 8 [facility] CCUS INC INC GROUP A Encounters Encounter Start End Date Code Location Performer Type Date OFFICE 96987 [facility]PATIEN 7 7 [facility] T VISIT 5 INC MINUTES [facility] - 7 7 [facility] OUTPATI[facility] INC T OFFICE 85007 [facility] OUTPATIEN 7 7 PHYSICIAN T VISIT 5 S GROUP MINUTES OFFICE 77235 [facility] STONE OUTPATIEN 7 7 PHYSICIAN T VISIT S GROUP 25 MINUTES [facility]OSP[facility] - 6 6 [facility]PITALS OFFICE 06315 [facility] PETTEY OUTPATIEN 6 6 PHYSICIAN JAM T NEW 20 S GROUP MINUTES OFFICE 43110 [facility] LILI OUTPATIEN 6 6 PHYSICIAN RODOLFO T VISIT S GROUP 15 MINUTES OFFICE 45973 [facility] OUTPATIEN 6 6 PHYSICIAN YOSI T VISIT 5 S GROUP MINUTES OFFICE 13424 [facility] WALL OUTPATIEN 6 6 PHYSICIAN USDHA T VISIT 5 S GROUP MINUTES OFFICE 84414 [facility] WALL OUTPATIEN 6 6 PHYSICIAN SUDHA T NEW 20 S GROUP MINUTES EMERGENCY 27466 LORIN LUCAS DEPT 6 6 PHYSICIAN RODOLFO VISIT S, [facility] HIGH SEVERITY& THREAT FUNCJ EMERGENCY 19948 LORIN ELLIS [facility] 6 6 PHYSICIAN DEPARTMEN S, [facility] T VISIT HIGH/URGE NT SEVERITY EMERGENCY 30511 J[facility]US 6 6 [facility] DEPARTMEN INC T VISIT LOW/MODER SEVERITY [facility]OSP[facility] - 6 6 [facility] T OFF[facility] 28445 [facility] OUTPATIEN 6 6 PHYSICIAN YOSI T VISIT 5 S GROUP MINUTES OFFICE 17245 [facility] LILI OUTPATIEN 5 5 PHYSICIAN RODOLFO T NEW 30 S GROUP MINUTES HOSPITAL JULIUS - 5 5 [facility] OUTPATIEN [facility] T EMERGENCY 85659 LORIN NICKERSON 5 5 PHYSICIAN U LAILA DEPARTMEN S, [facility] T VISIT HIGH/URGE NT SEVERITY OFFICE 42982 [facility] ARMANDO OUTPATIEN 5 5 PHYSICIAN YOSI T VISIT 5 S GROUP MINUTES HOSPITAL [facility] - 5 5 [facility] T EMERGENCY 62305 [facility] 5 5 [facility] EMERGENCY T VISIT PHYS MODERATE SEVERITY EMERGENCY 82056 ИВАН 5 5 [facility] T VISIT HIGH/URGE NT SEVERITY EMERGENCY 28223 JULIUS 5 5 [facility] DEPARTMEN INC T VISIT LOW/MODER SEVERITY [facility]OSPITAL J[facility]US - 5 5 [facility] OUTPATIEN [facility] T EMERGENCY 32214 LORIN LUCAS 5 5 PHYSICIAN [facility] T VISIT HIGH/URGE NT SEVERITY HOSPITAL JULIUS - 5 5 [facility] OUTPATIEN INC T PERIODIC 92843 [facility] PREVENTIV 5 5 PHYSICIAN E MED EST S GROUP PATIENT 18-39 YRS OFFICE 82674 [facility] HUNTER CANO OUTPATIEN 5 5 PHYSICIAN YI T VISIT S GROUP 15 MINUTES HOSPITAL JULIUS - 5 5 [facility] OUTPATIEN INC T EMERGENCY 13073 JULIUS LUCAS 5 5 [facility] T VISIT P MODERATE SEVERITY EMERGENCY 33778 [facility] 5 5 [facility] HIGH/URGE NT SEVERITY OFFICE 55036 [facility] FRYMDILIP OUTPATIEN 5 5 PHYSICIAN EUG T VISIT S GROUP 15 MINUTES OFFICE 42725 [facility] SAIDA OUTPATIEN 4 4 PHYSICIAN ELIZABETH T VISIT S GROUP 15 MINUTES OFFICE 62859 MARIE MARRERO 4 4 CORIE CORIE T VISIT 15 MINUTES OFFICE 90567 ARMANDO ROBERTS OUTPATIEN 4 4 YOSI YOSI T VISIT 5 MINUTES EMERGENCY 90289 DIANNE LUCAS 4 4 [facility] EMERGENC[facility] T VISIT PHYS MODERATE SEVERITY EMERGENCY 23414 JULIUS 4 4 [facility] DEPARTMEN INC T VISIT LOW/MODER SEVERITY HOSPITAL JULIUS - 4 4 [facility] OUTPATIEN INC T OFFICE 96768 LUKE YOST OUTPATIEN 4 4 T VISIT 10 MINUTES OFFICE 52881 MARIE STONEPATIMAMIE 4 4 CORIE CORIE T VISIT 15 MINUTES OFFICE 22306 ARMANDO ROBERTS OUTPATIEN 4 4 YOSI YOSI T VISIT 5 MINUTES HOSPITAL JULIUS - 4 4 [facility] OUTPATIEN INC T OFFICE 60317 MARIE MARIE MARRERO 4 4 CORIE CORIE T VISIT 15 MINUTES OFFICE 04094 MARIE MAREI MARRERO 4 4 CORIE CORIE T VISIT 15 MINUTES OFFICE 26432 ROBERTS ARMANDO MARRERO 4 4 YOSI YOSI T VISIT 5 MINUTES OFFICE 37561 CYNODALYS MARIE MARRERO 4 4 CORIE CORIE T VISIT 15 MINUTES HOSPITAL JULIUS - 4 4 [facility] OUTPATIEN INC T OFFICE 51781 CYNODALYS MARIE MARRERO 4 4 CORIE CORIE T VISIT 15 MINUTES Emergency DEVAN Lucas MD (ER) 4 20:58 4 22:37 [facility] JULIUS - 4 4 [facility] OUTPATIEN INC T EMERGENCY 88796 LILI LUCAS DEPT 4 4 RODOLFO RODOLFO VISIT HIGH SEVERITY& THREAT FUNCJ EMERGENCY 24204 JULIUS 4 4 [facility] DEPARTMEN INC T VISIT LOW/MODER SEVERITY OFFICE 83005 MARIE MARRERO 3 3 CORIE CORIE T VISIT 15 MINUTES OFFICE 30038 ARMANDO MARRERO 3 3 YOSI YOSI T VISIT 5 MINUTES OFFICE 57744 MARIE MARRERO 3 3 CORIE CORIE T VISIT 15 MINUTES HOSPITAL JULIUS - 3 3 [facility] OUTPATIEN INC T Emergency DEVAN Lucas MD (ER) 3 20:21 3 22:23 [facility] JULIUS - 3 3 [facility] OUTPATIEN INC T EMERGENCY 78049 LILI LUCAS 3 3 [place] RODOLFO DEPARTMEN T VISIT HIGH/URGE NT SEVERITY EMERGENCY 89932 JULIUS 3 3 [facility] DEPARTMEN INC T VISIT MODERATE SEVERITY HOSPITAL JULIUS - 3 3 [facility] OUTPATIEN INC T Emergency DEVAN Duncan (ER) 3 13:44 3 16:24 [facility] JULIUS - 3 3 [facility] OUTPATIEN INC T EMERGENCY 93547 JULIUS 3 3 [facility] DEPARTMEN INC T VISIT HIGH/URGE NT SEVERITY EMERGENCY 45517 DAKOTA DUNCAN DEPT 3 3 [facility] VISIT HIGH SEVERITY& THREAT [facility] JULIUS - 3 3 [facility] OUTPATIEN INC T OFFICE 23251 MARIE MARRERO 3 3 CORIE CORIE T VISIT 15 MINUTES OFFICE 68803 ARMANDO MARRERO 3 3 YOSI YOSI T VISIT 5 MINUTES OFFICE 35864 MARIE MARRERO 3 3 CORIE CORIE T VISIT 15 MINUTES OFFICE 90834 ARMANDO MARRERO 3 3 YOSI YOSI T VISIT 5 MINUTES Emergency DEVAN Lucas MD (ER) 3 05:07 3 05:24 [facility] EMERGENCY 86888 LILI LUCAS 3 3 [facility] DEPARTMEN T VISIT HIGH/URGE NT SEVERITY HOSPITAL JULIUS - 3 3 [facility] OUTPATIEN INC T OFFICE 93274 MARIE MARRERO 3 3 CORIE CORIE T VISIT 15 MINUTES OFFICE 23760 ARMANDO MARRERO 3 3 YOSI YOSI T VISIT 5 MINUTES OFFICE 39758 MARIE MARRERO 3 3 CORIE CORIE T VISIT 15 MINUTES OFFICE 20776 ARMANDO MARRERO 2 2 YOSI YOSI T VISIT 5 MINUTES OFFICE 33123 CORY VALENCIASTWILBERTO OUTPATIEN 2 2 KATLIN KATLIN T VISIT 10 MINUTES HOSPITAL JULIUS - 2 2 [facility] 2 2 [facility] 47660 ERIKSTWILBERTO VALENCIASTAD CONSULTAT 2 2 KATLIN KATLIN ION NEW/ESTAB PATIENT 40 MIN OFFICE 81784 MARIE MARRERO 2 2 CORIE CORIE T VISIT 15 MINUTES EMERGENCY 59757 TYRELL THAKUR DEPT 2 2 EMERGENCY VISIT SERVICES HIGH SEVERITY& THREAT FUN EMERGENCY 31683 JULIUS 2 2 [facility] T VISIT LOW/MODER SEVERITY HOSPITAL JULIUS - 2 2 [facility] OFF[facility] 27097 MARIE MARRERO 2 2 CORIE CORIE T VISIT 15 MINUTES OFFICE 98579 ARMANDO MARRERO 2 2 YOSI YOSI T VISIT 10 MINUTES OFFICE 22345 MARIE MARRERO 2 2 CORIE CORIE T VISIT 15 MINUTES EMERGENCY 80989 RECHTIN VENKATESH DEPT 2 2 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 VISIT HIGH SEVERITY& THREAT [facility] N OUTPATIEN COMMUNITY T HOSPITA EMERGENCY 55217 [facility] 2 [facility]ITA HIGH/URGE NT SEVERITY OFFICE 97601 MARIE MARRERO 2 2 CORIE CORIE T VISIT 15 MINUTES OFFICE 46804 MARIE MARRERO 2 2 CORIE CORIE T VISIT 15 MINUTES OFFICE 53308 ARMANDO MARRERO 2 2 YOSI YOSI T VISIT 5 MINUTES OFFICE 46848 MARIE SALAZAR OUTRAMONEEN 2 2 CORIE CORIE T VISIT 15 MINUTES OFFICE 24599 ARMANDO ROBERTS OUTRAMONEEN 2 2 YOSI YOSI T VISIT 5 MINUTES OFFICE 69444 MAE WALL OUTPATIEN 2 2 SUDHA SUDHA T NEW 30 MINUTES HOSPITAL JULIUS - 2 2 [facility] OUTPATIEN INC T EMERGENCY 28125 JULIUS 2 2 [facility] DEPARTMEN INC T VISIT LOW/MODER SEVERITY EMERGENCY 87192 TYRELL ZAMAN [facility] DEPT 2 2 EMERGENCY VISIT SERVICES HIGH SEVERITY& THREAT [facility] OFFICE 43001 MARIE RAOEN 2 2 CORIE CORIE T VISIT 15 MINUTES OFFICE 06155 MARIE MARRERO 2 2 CORIE CORIE T VISIT 15 MINUTES OFFICE 55402 MARIE SALAZAR OUTRAMONEEN 2 2 CORIE CORIE T VISIT 15 MINUTES OFFICE 79806 ELPIDIO MAGALLANES OUTPATIEN 2 2 JACOB JACOB T VISIT KATLIN KATLIN 15 MINUTES OFFICE 16557 MARIE SALAZAR OUTPATIEN 2 2 CORIE CORIE T VISIT 15 MINUTES OFFICE 79893 [facility] CONSULTAT 2 2 ALLERGY ALLERGY ION & ASTHMA & ASTHMA NEW/ESTAB P P PATIENT 60 MIN OFFICE 15676 MARIE SALAZAR OUTRAMONEEN 2 2 CORIE CORIE T VISIT 15 MINUTES OFFICE 15771 MARIE SALAZAR OUTRAMONEEN 2 2 CORIE CORIE T VISIT 15 MINUTES OFFICE 08218 MARIE SALAZAR OUTAIDEE 2 2 CORIE CORIE T VISIT 15 MINUTES OFFICE 60411 ARMANDO ROBERTS OUTPATIEN 2 2 YOSI YOSI T VISIT 5 MINUTES EMERGENCY 80892 UNIVERSIT DEPT 1 1 Y VISIT HOSPITAL [facility]IGH SEVER[facility]& [facility] 81162 KIANA MARTINEZ 1 1 MEDICAL DEPARTMEN SERV T VISIT FOUNDATIO HIGH/URGE NT SEVERITY OFFICE 39383 MARIE MARRERO 1 1 CORIE CORIE T VISIT 15 MINUTES HOSPITAL JULIUS - 1 1 [facility] OUTPATIEN INC T EMERGENCY 68242 [facility] DEPT 1 1 RODOLFO RODOLFO VISIT HIGH SEVERITY& THREAT FUN EMERGENCY 93367 JULIUS 1 1 [facility] DEPARTMEN INC T VISIT HIGH/URGE NT SEVERITY OFFICE 48716 MARIE MARRERO 1 1 CORIE CORIE T VISIT 15 MINUTES OFFICE 52320 MARIE MARRERO 1 1 CROIE CORIE T VISIT 15 MINUTES OFFICE 41235 MARIE MARRERO 1 1 CORIE CORIE T VISIT 15 MINUTES OFFICE 44787 MARIE MARRERO 1 1 CORIE CORIE T VISIT 15 MINUTES OFFICE 20998 [facility] 1 1 HEALTH YOSI T VISIT 5 CLINIC OF MINUTES SHERRY OFFICE 83716 MARIE MARRERO 1 1 CORIE CORIE T VISIT 15 MINUTES OFFICE 99777 MARIE MARRERO 1 1 CORIE CORIE T VISIT 15 MINUTES OFFICE 03938 MARIE MARRERO 1 1 CORIE CORIE T VISIT 15 MINUTES HOSPITAL JULIUS - 1 1 [facility] OUTPATIEN INC T OFFICE 09940 MARIE MARRERO 1 1 CORIE CORIE T VISIT 15 MINUTES OFFICE 56457 MARIE MARRERO 1 1 CORIE CORIE T VISIT 15 MINUTES HOSPITAL JULIUS - 1 1 [facility] OUTPATIEN INC T EMERGENCY 94009 JULIUS 1 1 [facility] DEPARTMEN INC T VISIT MODERATE SEVERITY EMERGENCY 96610 TYRELL LILI 1 1 [facility] DE[facility] SERVICES T VISIT HIGH/URGE NT SEVERITY OFFICE 50528 MARIE MARRERO 1 1 CORIE CORIE T VISIT 15 MINUTES OFFICE 97524 MARIE MARRERO 1 1 CORIE CORIE T VISIT 15 MINUTES OFFICE 69962 MARIE STONEPATIEN 1 1 CORIE CORIE T VISIT 15 MINUTES OFFICE 68173 [facility] OUTPAT[facility] 1 1 HEALTH YOSI T VISIT CLINIC OF 25 SHERRY MINUTES OFFICE 08226 MARIE MARRERO 1 1 CORIE CORIE T VISIT 15 MINUTES OFFICE 95806 MARIE MARRERO 1 1 CORIE CORIE T VISIT 15 MINUTES OFFICE 10935 [facility] ARMANDO OUTPATIEN 1 1 HEALTH YOSI T VISIT 5 CLINIC OF MINUTES SHERRY OFFICE 74501 MARIE MARRERO 1 1 CORIE CORIE T VISIT 15 MINUTES OFFICE 38380 MARIE MARRERO 1 1 CORIE CORIE T VISIT 15 MINUTES OFFICE 25014 MARIE MARRERO 1 1 CORIE CORIE T VISIT 15 MINUTES OFFICE 79699 MARIE MARRERO 1 1 CORIE CORIE T VISIT 15 MINUTES OFFICE 25834 THE ELIDA BROWN 1 1 IMPLANT & III LAKESHIA T NEW 20 ORAL MINUTES SURGERY C OFFICE 40834 [facility] OUTPAT[facility]EN 1 1 HEALTH YOSI T VISIT 5 CLINIC OF MINUTES SHERRY OFFICE 54599 HUNTER HARRISON JR OUTPATIEN 0 0 YI YI T VISIT 25 MINUTES OFFICE 16203 MARIE SALAZAR OUTPATIEN 0 0 CORIE CORIE T VISIT 15 MINUTES OFFICE 13018 MARIE SALAZAR OUTPATIEN 0 0 CORIE CORIE T VISIT 15 MINUTES HOSPITAL JULIUS - 0 0 [facility]PAT[facility]EN [facility] JULIUS - 0 0 [facility] OUTPATIEN [facility] T OFFICE 79707 MARIE SALAZAR OUTPATIEN 0 0 CORIE CORIE T VISIT 15 MINUTES OFFICE 23824 MARIE SALAZAR OUTPATIEN 0 0 CORIE CORIE T VISIT 15 MINUTES OFFICE 87826 [facility] OUTPAT[facility] 0 0 HEALTH YOSI T VISIT 5 CLINIC OF MINUTES SHERRY EMERGENCY 27264 KIANA LADDNELSON DEPT 0 0 MEDICAL RAMONE VISIT SERV HIGH FOUNDATIO SEVERITY& THREAT FUN OFFICE 29113 MARIE SALAZAR OUTPATIEN 0 0 CORIE CORIE T VISIT 15 MINUTES EMERGENCY 68697 JOLIETCAST AMERITOX 0 0 E [facility] T VISIT LOW/MODER SEVERITY HOSPITAL [facility] 50039 MARIE SALAZAR OUTPATIEN 0 0 CORIE CORIE T VISIT 15 MINUTES OFFICE 85091 MARIE SALAZAR OUTPATIEN 0 0 CORIE CORIE T VISIT 15 MINUTES OFFICE 36308 [facility], OUTPATIEN 0 0 HEALTH ISABEL J T VISIT 5 CLINIC OF [facility]ES [facility] 68032 MARIE SALAZAR OUTPATIEN 0 0 RODERICK Gould T VISIT 15 MINUTES OFFICE 87029 MARIE SALAZAR OUTPATIMAMIE 0 0 RODERICK Gould T VISIT 15 MINUTES OFFICE 47080 MARIE SALAZAR OUTPATIEN 0 0 RODERICK W RDOERICK W T VISIT 15 MINUTES OFFICE 28381 MARIE SALAZAR OUTPATIEN 0 0 RODERICK W RODERICK W T VISIT 15 MINUTES OFFICE 20761 MARIE SALAZAR OUTPATIEN 0 0 RODERICK W RODERICK W T VISIT 15 MINUTES OFFICE 87902 MARIE SALAZAR OUTPATIEN 0 0 RODERICK W RODERICK W T VISIT 15 MINUTES OFFICE 65237 [place] CAMILO 0 0 [place] [facility] T VISIT ORTHOPAED 15 [facility] MINUTES OFFICE 81369 MARIE SALAZAR OUTPATIEN 0 0 RODERICK W RODERICK W T VISIT 15 MINUTES OFFICE 13404 DAVID BAEZ, CONSULTAT 0 0 [place] CONNOR C ION ORTHOPAED NEW/ESTAB ICS PLC PATIENT 60 MIN OFFICE 91639 MARIE SALAZAR OUTPATIEN 0 0 RODERICK W RODERICK W T VISIT 15 MINUTES EMERGENCY 85604 JULIUS 0 0 [facility] DEPARTMEN INC T VISIT LOW/MODER SEVERITY HOSPITAL JULIUS - 0 0 [facility] EMER[facility] 09556 TYRELL LUCAS, 0 0 EMERGENCY [facility] SERVICES T VISIT HIGH/URGE ASSOCIATE NT S SEVERITY OFFICE 12597 MARIE SALAZAR OUTPATIEN 0 0 RODERICK W RODERICK W T VISIT 15 MINUTES HOSPITAL UNIVERSIT - 0 0 Y [facility] T OFFICE 69047 KIANA COLEMAN, CONSULTAT 0 0 MEDICAL MENDEL Kunz ION SERV NEW/ESTAB FOUNDATIO PATIENT 40 MIN OFFICE 28638 ALLRAN ALLRAN CONSULTAT 0 0 JR RACHAEL, NIRMALA SINGH F NEW/ESTAB PATIENT 60 MIN OFFICE 50628 MARIE SALAZAR OUTPATIEN 0 0 RODERICK W RODERICK W T VISIT 15 MINUTES OFFICE 35242 MARIE SALAZAR OUTPATIEN 0 0 RODERICK Luis Fernando Gould T VISIT 15 MINUTES OFFICE 35107 ALYSSAS ELIDA ROBERTS 9 9 MADHURI Moore T VISIT 5 CLINIC OF MINUTES [facility] OFFICE 73176 MARIE SALAZAR OUTPATIEN 9 9 RODERICK Gould T VISIT 15 MINUTES OFFICE 64879 MARIE SALAZAR OUTPATIEN 9 9 RODERICK Gould T VISIT 15 MINUTES HOSPITAL JULIUS - 9 9 [facility] OUTPATIEN INC T EMERGENCY 43127 JULIUS 9 9 [facility] DEPARTMEN INC T VISIT LOW/MODER SEVERITY EMERGENCY 55846 TYRELL DUNCAN 9 9 EMERGENCY III, [facility] DAMIR T VISIT MODERATE ASSOCIATE SEVERITY S OFFICE 28669 CORY VALENCIASTWILBERTO OUTPATIEN 9 9 , PETER GREEN T VISIT 10 MINUTES HOSPITAL JULIUS - 9 9 [facility] OUTPATIEN INC T OFFICE 30462 MARIE SALAZAR OUTPATIEN 9 9 RODERICK Gould T VISIT 15 MINUTES OFFICE 77947 MARIE SALAZAR OUTPATIEN 9 9 RODERICK Gould T VISIT 15 MINUTES HOSPITAL JULIUS - 9 9 [facility] OUTPATIEN INC T OFFICE 45595 SCHULSTAD SCHULSTAD OUTPATIEN 9 9 , PETER GREEN T VISIT 10 MINUTES HOSPITAL JULIUS - 9 9 [facility] OUTPATIEN INC T OFFICE 95748 SCHULSTWILBERTO SCHULSTAD CONSULTAT 9 9 , PETER GREEN ION NEW/ESTAB PATIENT 60 MIN OFFICE 33978 MARIE SALAZAR OUTPATIEN 9 9 RODERICK Gould RODERICK W T VISIT 15 MINUTES OFFICE 16854 [facility], OUTPATIEN 9 9 HEALTH ISABEL J T VISIT CLINIC OF 15 MINUTES [facility] OFFICE 03069 [facility] JULIUS OUTPATIEN 9 9 HEALTH CO [facility]ALTH T [facility] MINUTES BANK ACCT OFFICE 26153 MARIE SALAZAR OUTPATIEN 9 9 RODERICK VAUGHN W T VISIT 15 MINUTES OFFICE 00139 MARIE SALAZAR OUTPATIEN 9 9 RODERICK W RODERICK W T VISIT 15 MINUTES OFFICE 51209 MARIE SALAZAR OUTPATIMAMIE 9 9 RODERICK W RODERICK W T VISIT 15 MINUTES OFFICE 84790 MARIE SALAZAR OUTPATIEN 9 9 ROEDRICK W RODERICK W T VISIT 15 MINUTES OFFICE 56825 MARIE SALAZAR OUTPATIEN 9 9 RODERICK W RODERICK W T VISIT 15 MINUTES OFFICE 66701 MARIE SALAZAR OUTPATIEN 9 9 RODERICK W RODERICK W T VISIT 15 MINUTES OFFICE 95793 MARIE SALAZAR OUTPATIEN 9 9 RODERICK W RODERICK W T NEW 30 MINUTES OFFICE 33099 [facility], CONSULTAT 9 9 HEALTH ISABEL J [facility] CLINIC OF NEW/ESTAB PATIENT [place] 40 MIN [facility] 13350 JULIUS 9 9 [facility] DEPARTMEN INC T VISIT HIGH/URGE NT SEVERITY EMERGENCY 35088 TYRELL RUIZ, DEPT 9 9 EMERGENCY ENDY P VISIT SERVICES HIGH SEVERITY& ASSOCIATE THREAT S [facility] JULIUS - 9 9 [facility] OUTPATIEN INC T HOSPITAL JULIUS - 9 9 [facility] OUTPATIEN INC T EMERGENCY 61731 TYRELL RUIZ 9 9 EMERGENCY ENDY P DEPARTMEN SERVICES T VISIT MODERATE ASSOCIATE SEVERITY S EMERGENCY 47814 JULIUS 9 9 [facility] DEPARTMEN INC T VISIT LIMITED/M INOR PROB OFFICE 45911 ISAIAH COLON OUTPATIEN 9 9 GENE A GENE A T VISIT 15 MINUTES OFFICE 27161 [facility] JR, J V JR, J V T VISIT 15 MINUTES OFFICE 29293 [facility] 9 9 HEALTH ISABEL J T VISIT CLINIC OF 15 MINUTES [facility]ERGENC[facility] DEPARTMENT [facility]PITAL JULIUS - 9 9 [facility] OFF[facility] 87612 ISAIAH COLON OUTPATIEN 9 9 GENE A GENE A T VISIT 15 MINUTES OFFICE 66199 ISAIAH COLON OUTPATIEN 9 9 GENE A GENE A T VISIT 15 MINUTES HOSPITAL JULIUS - 9 9 [facility] T EMERGENCY 39169 [facility] 9 [facility] MODERATE SEVERITY EMERGENCY 73016 ANGI LUCAS, 9 9 [facility] T VISIT ON HIGH/URGE NT SEVERITY OFFICE 44723 [facility] 8 8 HEALTH ISABEL J T VISIT CLINIC OF 25 MINUTES [facility] EMERGENCY DEPARTMENT OFFICE 99145 ISAIAH COLON OUTPATIEN 8 8 GENE A GENE A T VISIT 15 MINUTES OFFICE 60870 ISAIAH COLON OUTPATIEN 8 8 GENE A GENE A T VISIT 15 MINUTES OFFICE 78120 [facility] 8 8 HEALTH ISABEL J T VISIT CLINIC OF 15 MINUTES [facility] EMERGENCY DEPARTMENT EMERGENCY 47055 [facility] T VISIT MODERATE SEVERITY HOSPITAL JULIUS - 8 8 [facility]PAT[facility]EN [facility] OFFICE 04250 [facility] 8 8 [facility] VISIT CLINIC OF 15 MINUTES [facility] EMERGENCY DEPARTMENT OFFICE 77846 [facility] 8 8 [facility] NEW 30 CLINIC OF MINUTES [facility] EMERGENCY DEPARTMENT OFFICE 54084 ISAIAH COLON OUTPATIEN 7 7 GENE Jorgensen T VISIT 15 MINUTES
--- NOTE | 2016-12-02 18:01 | [facility]gent [facility] Report ---
History of Present Issue Date/Time Seen by Provider 12/02/16 1752 Visit Reason Pt arrived:Walked Presenting Problem:PT STATES FALLING AT HER FRIEND'S HOUSE AND TWISTING HER LEFT ANKLE AT 1645 Location if Accident:Friend/Acquaintance Home Onset of symptoms date/time:12/02/16 or onset unknown for: Have you (or family members/close friends) recently traveled outside the [place]? N If Yes, where/when: Have you had exposure to infectious disease within the past month? TB? Other? Specify: Patient states that she was at her friends house walking down the hill when she slipped and twisted her left ankle States that she felt a pop then it became painful to bear weight on it States that she did not see any deformity states it then started swelling and she came in to be seen ALLERGIES Coded Allergies: Sulfa (Sulfonamide Antibiotics) (Mild, 06/21/15) azithromycin (Mild, 06/21/15) History Medical History General CAD? No Angina: No ID: No Hypertension? No Hyperlipidemia? No CHF? No DVT? No PE? No COPD? No Asthma? Yes Anemia? No GERD? No Gastric ulcers? No GI Bleed? No Hernia? No Thyroid Problems? No Hypothyroidism? No CVA? No Seizures? Yes Diabetes? No Insulin Dependent: No Insulin Pump: No Home FSBS? No Renal Insuffiency? No UTI? Yes Stones? No BPH? No GB Disease: Yes Nephritic Syndrome? No Asplenia? No Hepatitis? No Sickle Cell Disease? No Arthritis? No Migraines? Yes Cataracts? No Glaucoma? No MRSA? No HIV? No TB? No Anxiety? No Depression? No Cancer? No More? No Immunization HX DT/Tetanus 5-10 Years Ago Flu NEVER Pneumonia NEVER Surgical Hx Previous Surgery?Y ORAL SURGERY T&A [place] R HAND Family History Family HX Diabetes Yes CAD Yes Hypertension Yes Hyperlipidemia No Cancer Yes TB No Social History Smoking Hx Smoker: Never Smoker Tobacco: No Alcohol Alcohol: Yes Review of Systems All Other Systems Reviewed and Negative Comment pain and swelling in left ankle after slipping and falling when she was walking down the hill Physical Exam Vital Signs Vital Signs Date Time Temp Pulse Resp B/P Pulse O2 O2 Flow FiO2 Ox Delivery Rate 12/02 1731 98.8 77 20 114/65 98 General Appearance normal appearance, WD/WN, no apparent distress Respiratory Status Yes: trachea midline, chest symmetrical, non tender chest. No: respiratory distress. Cardiovascular normal exam, regular rate/rhythm, no peripheral edema, no gallop, no JVD Extremities swelling, Swelling, tenderness over left ankle after slipping on uneven ground and twisting the left ankle, no discoloration noted at this time Neurologic alert, provisioning analyst II-XII nml as tested, normal exam, no motor/sensory deficits, oriented x 3 Medical Decision Making LABS/Meds/Orders Pt receiving controlled substance in ED? No Results/Orders Current Medication Orders Sig/Morales Start time Last Medication Dose Route Stop Time Status Admin Ibuprofen 800 MG ONCE ONE 12/02 1829 DC 12/02 PO 12/02 Ibuprofen 0 .STK-MED ONE 12/02 1829 DC PO Orders Procedure Date/time Status [facility] ST[facility] JOINT/AREA 12/03 1851 Active XRAY/CT/US XRAY/CT/US XRAY ankle XR interpretation by reviewed by me, discussed w/radiologist Xray Results nondisplaced obligue fibular fracture Departure Departure Time of Disposition 1851 Disposition DC Home or Self Care(routine) Clinical Impression Primary Impression: Fracture, ankle Qualifiers: Encounter type: initial encounter Fracture type: closed Laterality: left Qualified Code: S82.892A - Other fracture of left lower leg, initial encounter for closed fracture Condition STABLE Referrals Shayy KABA,Guille De La Cruz (Family) GABINO KABA, DIAZ BANGURA: 1 Day-Call Office Patient Instructions Ankle Fracture, DI for Ankle Fracture, How To Perform RICE (Rest, Ice, Compress, Elevate) Additional Instructions *RICE, Rest the extremity, Ice 15-20 minutes 3-4 times daily, Compress- wear the galileo wrap as discussed as much as possible to help reduce swelling and pain, Elevate the extremity when at rest *Galileo wrap is for support and help control swelling, use it except in the shower. Be sure that is not to tight but not to loose either *Elevate when resting *Ibuprofen 800mg every 6-8 hours as needed for pain an inflammation. If need something more can take Tylenol in between doses of Ibuprofen to help Immediately follow up for new or worsening of symptoms, or no noticeable improvement over the next 3-5 days Discharge Counseling Counseled pt/family regarding diagnosis, test results, medications/RX, home care, follow up needs Prescriptions Current Visit Scripts Ibuprofen (Ibuprofen 800MG) 800 MG PO QIDP PRN pain #30 TAB at 4532
--- OUTSIDE RECORDS SUMMARY | 2016-12-02 18:01 | External Medical Summary Rpt ---
Author Author , VAMSHI BONDS Address Unknown Phone [email or web address] Care Team Providers Care Fitter Hand Name Role Phone NELSON RAMONE, NELSON Unavailable Unavailable RAMONE [employer] Unavailable Unavailable INC, [employer] Unavailable Unavailable INC, [employer] ALLRAN JR YI, ALLRAN Unavailable Unavailable JR YI ALLRAN JR, FRANCISCO F, Unavailable Unavailable ALLRAN JR, FRANCISCO F [employer], Unavailable Unavailable [employer] ARNOLD CORIE, ARNOLD Unavailable Unavailable CORIE ARNOLD CORIE, ARNOLD Unavailable Unavailable CORIE MARIE, RODERICK W, Unavailable Unavailable ARNRODERICK MORROW W BEZOLD III MEDARDO, Unavailable Unavailable BEZOLD III MEDARDO PRADEEP PASTORA, Unavailable Unavailable PRADEEP PASTORA IQBAL ALL, IQBAL ALL Unavailable Unavailable [facility] Unavailable Unavailable [facility] Oscar MARTI JR V, Unavailable Unavailable Oscar MARTI JR V RAD ERWIN Unavailable Unavailable ARMANDO PERES Unavailable Unavailable ARMANDO DELUCA, ROBERTS Unavailable Unavailable ISABEL SANDHU, Unavailable Unavailable ISABEL [facility]S [facility], Unavailable [facility]available [facility] Unavailable Unavailable [facility], [facility] & Unavailable Unavailable AST[facility] P, [facility] & Unavailable Unavailable [facility], [facility] ISAIAS THAKUR, Unavailable Unavailable ISAIASJENNIFER MILLSUTCHER AGUS, Unavailable Unavailable JULIET AGUS JULIET AGUS, Unavailable Unavailable JULIET AGUS RUBY CHUNG, Unavailable Unavailable JULIET, RUBY GRIFFIN MICHELLE, GRIFFIN MICHELLE Unavailable Unavailable FARZAM FAR, FARZAM Unavailable Unavailable FAR ENDY RUIZ, Unavailable Unavailable ENDY RUIZ FRYMAN EUG, FRYMAN Unavailable Unavailable EUG LILI RODOLFO, LILI Unavailable Unavailable RODOLFO LILI RODOLFO, LILI Unavailable Unavailable RDOOLFO SARA PEARSON, Unavailable Unavailable SARA PEARSON [facility] Unavailable Unavailable HOSPITA, [facility] Unavailable Unavailable [facility] Unavailable Unavailable CENTER, [facility] Unavailable Unavailable INC, [facility] Unavailable [facility]available HOSPITAL P, [facility] BUTLER PRIYANK, BUTLER PRIYANK Unavailable Unavailable BUTLER PRIYANK, BUTLER PRIYANK Unavailable Unavailable [facility], Unavailable Unavailable [facility] MERCADO HEN, MERCADO HEN Unavailable Unavailable NEAL-JACOB KATLIN, Unavailable Unavailable NEAL-JACOB KATLIN NEAL-JACOB KATLIN, Unavailable Unavailable NEAL-JACOB KATLIN SAIDA ELIZABETH, SAIDA Unavailable Unavailable ELIZABETH [facility] Unavailable Unavailable [facility], [facility], OFE M[facility]HE Unavailable Unavailable MENDEL COLEMAN, Unavailable Unavailable MENDEL COLEMAN [facility] Un[facility] WALL SUDHA, WALL Unavailable Unavailable SUDHA WALL SUDHA, WALL Unavailable Unavailable SUDHA MARI JR DWI, MARI Unavailable Unavailable JR DWI MARI JR DWI, MARI Unavailable Unavailable JR DWI COLIN FAYETTE URBAN Unavailable Unavailable COGOVT, COLIN FAYETTE URBAN COGOVT TYRELL CHUY, Unavailable Unavailable [facility], Unavailable Unavailable [facility] Unavailable Unavailable SERVICES, [facility] DENEEN GEMA, DENEEN Unavailable Unavailable KIRSTIN CALDWELL, Unavailable Unavailable KIRSTIN COBOS, NELLY MOCTEZUMA Unavailable Unavailable NELLY SEWELL Unavailable Unavailable GENE COLON, Unavailable Unavailable GENE COLON DODDFERNANDA MOCTEZUMA, DODD Unavailable Unavailable JOSE ELIAS [facility], Unavailable Unavailable [facility] Unavailable Unavailable LAB, [facility] DEREK BROWN, Unavailable Unavailable DEREK BROWN PETTEY JAM, PETTEY Unavailable Unavailable JAM RECHTIN MRI ASSISTANT, RECHTIN Unavailable Unavailable MRI ASSISTANT RECHTIN MRI ASSISTANT, RECHTIN Unavailable Unavailable MRI ASSISTANT [id number], Unavailable Unavailable [id number] Unavailable Unavailable [id number] [address] [id number], [facility] [id number] # [id number] [facility] Unavailable Unavailable AMBULANCE, [facility] Unavailable Unavailable AM[facility]ULANCE[facility], Unavailable Unavailable [facility] ANCELMO AL, ANCELMO LA Unavailable Unavailable SADEK MOH, SADEK MOH Unavailable Unavailable BECERRA AGUS, Unavailable Unavailable BECERRA AGUS SCHULSTAD KATLIN, Unavailable Unavailable SCHULSTAD KATLIN SCHULSTAD KATLIN, Unavailable Unavailable SCHULSTAD KATLIN SCHULSTWILBERTO, PETER, Unavailable Unavailable CORY, PETER PATINO MUR, Unavailable Unavailable PATINO MUR SCIFRES ANG, SCIFRES Unavailable Unavailable ANG SCIFRES ANG, SCIFRES Unavailable Unavailable JESÚS ALVARENGA, Unavailable Unavailable JESÚS BEARDEN SMALL LESVIA, SMALL LESVIA Unavailable Unavailable SOKAN BAB, SOKAN BAB Unavailable Unavailable SOTINGEANU LAILA, Unavailable Unavailable SOTINGEANU LAILA [facility] Unavailable Unavailable [facility], [facility] Unavailable Unavailable [facility], [facility] STONE, STONE Unavailable Unavailable [facility] Unavailable Unavailable SURGERY C, [facility] Unavailable Unavailable HOSPITALS, [facility], Unavailable Unavailable [facility] Unavailable [facility]available [facility] WEHRMAN III JOSE ELIAS, Unavailable Unavailable WEHRMAN III JOSE ELIAS WEHRMAN III JOSE ELIAS, Unavailable Unavailable WEHRMAN III JOSE ELIAS WEHRBEBA SUAREZ III, Unavailable Unavailable WEHRDANIELA IIIBEBA, JAKY THAKUR Unavailable Unavailable CONNOR BAEZ, Unavailable Unavailable CONNOR BAEZ [facility] Unavailable Unavailable [facility] [place], [facility] [place] Purpose Continuity of Care Document - 09-03-2007 through 2016 Problems Code Diagnosis DOS Provider Status [id number] OTITIS 08-21-2016 [facility] UNSPECIFIED INC LEFT EAR Z3040 ENCOUNTER 08-16-2016 [facility] SURVEILLANC GROUP E CONTRACEPTI VES UNS 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 GROUP WITH DIARRHEA [id number] CONTACT W/ 07-20-2016 [facility] & EXPOSURE PHYSICIANS OTH VIRAL GROUP COMMUNICABL E DZ 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 G5691 UNSPECIFIED 12-22-2015 [facility] THY RIGHT UPPER LIMB [id number] INJURY 12-22-2015 [facility] N[facility]ALS HAND LEVEL RT ARM INIT N35080 PAIN IN 11-18-2015 [facility] [place] [id number] INJURY 11-18-2015 [facility] RADIAL PHYSICIANS NERVE GROUP FOREARM LEVEL RT ARM INIT H5213 MYOPIA 10-30-2015 SCIFRES ANG BILATERAL Z4802 ENCOUNTER 08-06-2015 [facility] FOR REMOVAL PHYSICIANS OF SUTURES GROUP T148 OTHER 07-27-2015 [facility] INJURY OF PHYSICIANS UNSPECIFIED GROUP BODY REGION M542 CERVICALGIA 07-26-2015 [facility] R51 HEADACHE 07-26-2015 [facility] [id number] LAC W/O FB 07-26-2015 [facility] LT EYELID & MEDICAL PERIOCULAR IMAGING ASS AREA INIT ENC [id number] LACERATION 07-26-2015 [facility] W/O FB PHYSICIANS, OTHER PART PLLC HEAD INITIAL ENC [id number] CONCUSSION 07-26-2015 [facility] W/LOC 30 PHYSICIANS, MIN/LESS PLLC INITIAL ENCOUNTER [id number] UNSPECIFIED 07-26-2015 [facility] INJURY OF MEDICAL HEAD IMAGING ASS INITIAL ENCOUNTER [id number] UNSPECIFIED 07-26-2015 [place] INJURY OF MEDICAL NECK IMAGING ASS INITIAL ENCOUNTER J180 BRONCHOPNEU 06-21-2015 [facility] [place] [facility] UNSPECIFIED IMAGING ASS ORGANISM J209 ACUTE 06-21-2015 [facility]ONCHITIS [facility] UNSPECIFIED INC J40 BRONCHITIS 06-21-2015 [facility] NOT PHYSICIANS, SPECIFIED PLLC ACUTE OR CHRONIC T12739 UNSPECIFIED 06-21-2015 [facility] ASTHMA [facility] UNCOMPLICAT INC ED R05 COUGH 06-21-2015 [facility] Z3042 ENCOUNTER 05-14-2015 [facility] SURVEILLANC PHYSICIANS E GROUP INJECTABLE CONTRACEPTI VE M7989 OTHER 03-11-2015 [facility] SPECIFIED PHYSICIANS SOFT TISSUE GROUP DISORDERS N926 IRREGULAR 03-11-2015 [facility] MENSTRUATIO PHYSICIANS N GROUP UNSPECIFIED R1110 VOMITING 03-11-2015 [facility] UNSPECIFIED PHYSICIANS GROUP Q68636 MIGRAINE 03-03-2015 [facility] W/O AURA PHYSICIANS, NOT INTRACT PLLC W/O STAT MIGRAIN 74839 UNSPECIFIED 11-20-2014 [facility] CONJUNCT[facility]I PHYS TIS V142 PERSONAL 11-20-2014 [facility]PITAL SULFONAMIDE S V143 PERSONAL 11-20-2014 [facility] OT HOSPITAL ANTI-INFECT JANE AGT 29986 SPRAIN AND 09-22-2014 [facility] STRAIN OF TECHNOLOGIE UNSPECIFIED S INC SITE OF FOOT 7820 DISTURBANCE 09-21-2014 [place] OF SKIN MEDICAL SENSATION IMAGING ASS 9170 ABRASION/FR 09-21-2014 [facility] ICTION BURN [facility] FOOT&TOE INC W/O MENTION INF V065 NEED 09-21-2014 [facility] PROPHYLACTI [facility] C INC VACCINATION W/TETANUS-D [facility] 3671 MYOPIA 07-25-2014 SCIFRSARAH ANG V2549 SURVEILLANC 07-22-2014 [facility] E OTH PREV PHYSICIANS PRSC GROUP CONTRACEPT METHOD V692 PROBLEMS 07-22-2014 [facility] RELATED TO [facility] HIGH-RISK INC SEXUAL BEHAVIOR V7231 ROUTINE 07-22-2014 [facility] GYNECOLOGIC PHYSICIANS AL GROUP EXAMINATION 58013 DIARRHEA 07-15-2014 [facility] 82589 ABDOMINAL 07-15-2014 [facility] PAIN, PHYSICIANS EPIGASTRIC GROUP 96554 ASTHMA, 07-11-2014 [facility] UNSPECIFIED [facility] P UNSPECIFIED STATUS 19036 ACUTE 07-11-2014 [facility] GASTRITIS [facility] P MENTION OF HEMORRHAGE 28773 ABDOMINAL 07-11-2014 [facility] PAIN, MEDICAL UNSPECIFIED IMAGING ASS SITE 29170 ACUTE 07-06-2014 [facility] SEROUS PHYSICIANS OTITIS GROUP MEDIA 4619 ACUTE 07-06-2014 [facility] SINUSITIS, PHYSICIANS UNSPECIFIED GROUP 4660 ACUTE 01-28-2014 MARIE CORIE BRONCHITIS 5589 OTH&UNSPEC 01-28-2014 ARNODALYS CORIE NONINFECTIO US GASTROENTER ITIS&COLITI S 56385 OTHER 01-12-2014 [facility] CONVULSIONS [facility] INC 46012 OBESITY, 12-17-2013 ARNOLD CORIE UNSPECIFIED 07463 BLEPHARITIS 12-17-2013 BUTLER PRIYANK , UNSPECIFIED 8020 NASAL 08-30-2013 MARIE FONTENOT BONES, CLOSED FRACTURE 920 CONTUSION 08-30-2013 [facility] OF FACE [facility] SCALP AND INC NECK EXCEPT EYE 12950 INJURY OF 08-30-2013 JULIET FACE AND AGUS NECK OTHER AND UNSPECIFIED 75821 PAIN IN 06-12-2013 JULIET JOINT, AGUS LOWER LEG 9596 INJURY 06-12-2013 [facility] OTHER AND [facility] UNSPECIFIED INC HIP AND THIGH E0032 ACT INVLV 06-12-2013 JULIET SNOW SKI AGUS BOARD SLED TOBOGGAN & TUBING 03739 GENERALIZED 05-30-2013 J[facility] PAIN AGUS 7840 HEADACHE 05-30-2013 LILI RODOLFO 66796 HEAD 05-30-2013 JULIET INJURY, AGUS UNSPECIFIED 9599 INJURY 05-30-2013 JULIET OTHER AND AGUS UNSPECIFIED UNSPECIFIED SITE E8889 UNSPECIFIED 05-30-2013 JULIET FALL AGUS E9293 LATE 05-30-2013 LILI RODOLFO EFFECTS OF ACCIDENTAL FALL 4659 ACUTE URIS 04-19-2013 MARIE FONTENOT OF UNSPECIFIED SITE 6929 CONTACT 04-19-2013 MARIE FONTENOT DERMATITIS& OTHER ECZEMA DUE UNSPEC CAUSE 1330 SCABIES 04-15-2013 MAR[facility] FONTENOT 7948 NONSPECIFIC 04-01-2013 [facility] ABNORMAL [facility] RESULTS INC LIVR FUNCTION STUDY 5643 VOMITING 03-31-2013 [facility] FOLLOWING [facility] GASTROINTES INC TINAL SURGERY 39212 NAUSEA WITH 03-31-2013 LILI RODOLFO VOMITING V4589 OTHER 03-31-2013 LILI RODOLFO POSTSURGICA L STATUS OTHER 58239 CHRONIC 03-29-2013 TYRELL CHOLECYSTIT CHUY IS 5758 OTHER 03-29-2013 NELLY MOCTEZUMA SPECIFIED DISORDER OF GALLBLADDER 5768 OTHER 03-11-2013 WEHRMAN III SPECIFIED JOSE ELIAS DISORDERS OF BILIARY TRACT 09280 CHEST PAIN 03-11-2013 WEHRMAN III UNSPECIFIED JOSE ELIAS 95395 ABDOMINAL 03-11-2013 MARI CANO PAIN, DWI GENERALIZED V148 PERSONAL 03-11-2013 [facility] HISTORY [facility] ALLERGY OTH INC SPEC MEDICINAL AGTS V5869 LONG-TERM 03-11-2013 MARI CANO (CURRENT) DWI USE OF OTHER MEDICATIONS 7295 PAIN IN 01-29-2013 JULIET SOFT AGUS TISSUES OF LIMB 8260 CLOSED 01-29-2013 [facility] FRACTURE OF [facility] ONE OR INC MORE PHALANGES OF FOOT 5225 PERIAPICAL 09-19-2012 [facility] ABSCESS [facility] WITHOUT INC SINUS 5259 UNSPECIFIED 09-19-2012 LILI RODOLFO DISORDER TEETH&SUPPO RTING STRUCTURES 21944 PAIN IN 08-21-2012 MARIE FONTENOT JOINT, SITE UNSPECIFIED 84478 ABDOMINAL 04-19-2012 SCHUL[facility]AD PAIN RIGHT KATLIN UPPER QUADRANT 5780 HEMATEMESIS 04-12-2012 SCHULSTAD KATLIN 41904 ESOPHAGEAL 04-04-2012 [place] [facility] 62136 VARIANTS 03-08-2012 MARIE FONTENOT MIGRAINE NEC INTRACT MIGRAINE W/O SM V720 EXAMINATION 02-03-2012 SCIFRES ANG OF EYES AND VISION 5693 HEMORRHAGE 01-16-2012 MARIE CORIE OF RECTUM AND ANUS 5789 UNSPECIFIED 01-05-2012 VENKATESH VANEGAS HEMORRHAGE OF GASTROINTES TINAL TRACT 462 ACUTE 12-22-2011 MARIE CORIE PHARYNGITIS 07735 UNSPECIFIED 09-13-2011 MARIE CORIE INFECTIVE OTITIS EXTERNA 86224 CHRONIC 07-25-2011 WALL SUD[facility] TONSILLITIS 4779 ALLERGIC 07-25-2011 [place] RHINITIS CAUSE UNSPECIFIED 7231 CERVICALGIA 07-14-2011 [facility] 42228 SPASM OF 07-14-2011 J[facility] MUSCLE AGUS 7856 ENLARGEMENT 07-14-2011 [place] OF LYMPH EMERGENCY NODES SERVICES 71063 UNS 07-05-2011 MARIE FONTENOT GASTRITIS&G ASTRODUODIT IS W/O MENTION HEMORR 4871 INFLUENZA 06-20-2011 MARIE FONTENOT WITH OTHER RESPIRATORY MANIFESTATI ONS 96529 UNSPECIFIED 06-15-2011 NEAL-CO CASTILLO KATLIN CONSTIPATIO N 4770 ALLERGIC 05-26-2011 [facility] RHINITIS ALLERGY & DUE TO ASTHMA P POLLEN 4778 ALLERGIC 05-26-2011 [facility] RH[facility] ALLERGY & DUE TO ASTHMA P OTHER ALLERGEN 17760 EXTRINSIC 05-26-2011 [facility] ASTHMA, ALLERGY & UNSPECIFIED ASTHMA P 7083 DERMATOGRAP 05-26-2011 [facility] HIC ALLERGY & URTICARIA ASTHMA P V727 DIAGNOSTIC 05-26-2011 [facility] SKIN AND ALLERGY & SENSITIZATI ASTHMA P ON TESTS 1110 PITYRIASIS 05-11-2011 CYN[facility]AL[facility] FONTENOT VERSICOLOR 71584 OTHER 04-19-2011 [facility] [place] [facility] 5999 UNSPECIFIED 03-08-2011 CYNODALYS FONTENOT DISORDER OF URETHRA&URI NARY TRACT 6264 IRREGULAR 02-10-2011 [facility] [place] 6268 OTH D/O 02-10-2011 [facility] MENSTRUATIO HEALTH N&OTH ABN CLINIC OF BLEED FE [place] GNT TRACT 32639 PEPTC ULCR 12-23-2010 MARIE FONTENOT UNS ACUT/CHRN W/O HEMOR PERF/OBST 5990 URINARY 10-13-2010 [place] TRACT EMERGENCY INFECTION SERVICES SITE NOT SPECIFIED 7242 LUMBAGO 09-29-2010 MARIE FONTENOT 9953 ALLERGY 09-29-2010 MARIE FONTENOT UNSPECIFIED NOT ELSEWHERE CLASSIFIED 6259 UNSPEC 08-31-2010 [facility] CL[facility] OF W/FEMALE [place] GENITAL ORGANS 76291 ABDOMINAL 08-31-2010 [facility] PAIN, LEFT HEALTH LOWER CLINIC OF QUADRANT [place] 6202 OTHER AND 08-30-2010 MARIE FONTENOT UNSPECIFIED OVARIAN CYST 5210 DENTAL 06-18-2010 THE IMPLANT CARIES & ORAL SURGERY C 5759 UNSPECIFIED 03-29-2010 MARIE FONTENOT DISORDER OF GALLBLADDER 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 FOUND[facility] 7245 UNSPECIFIED 01-13-2010 [facility] BACKACHE [facility] 32790 OTHER 01-13-2010 [place] [facility] INJURY OF SERV OTHER SITES FOUNDATIO OF TRUNK 12172 UNSPEC 01-12-2010 MARIE CORIE EPILEPSY WITHOUT MENTION INTRACT EPILEPSY 7241 PAIN IN 01-09-2010 [facility] 20105 OTHER 01-09-2010 [facility] ALTERATION CO OF AMBULANCE CONSCIOUSNE SS 7802 SYNCOPE AND 01-09-2010 [facility] COLLAPSE [facility] 8479 SPRAIN AND 01-09-2010 [facility] STRAIN OF HOSPITAL UNSPECIFIED SITE OF BACK 8488 OTHER 01-09-2010 [place] SPECIFIED EMERGENCY SITES OF SERVICES SPRAINS AND STRAINS E0009 UNSPECIFIED 01-09-2010 [facility] EXTERNAL HOSPITAL CAUSE STATUS E0029 OTHER 01-09-2010 [facility] ACTIVITY HOSPITAL INVOLVING WATER AND WATERCRAFT E8498 OTHER 01-09-2010 [facility] SPECIFIED HOSPITAL PLACE OF OCCURRENCE E9288 OTHER 01-09-2010 [facility] ACCIDENT [facility] 3829 UNSPECIFIED 10-16-2009 MARIE, OTITIS RODERICK W MEDIA 30467 ASTHMA 10-16-2009 MARIE, UNSPECIFIED RODERICK W WITH STATUS ASTHMATICUS 29660 ACUTE 09-24-2009 MARIE, LARYNGITIS, RODERICK W WITHOUT MENTION OF OBSTRUCTIO 72204 INSOMNIA 08-25-2009 MARIE, UNSPECIFIED RODERICK W V2509 OT GENERAL 08-04-2009 [facility] 90763 CONTUSION 07-07-2009 [place] OF [facility] E8494 PLACE OF 07-07-[address] [place] [address] [facility] PL[address] IMAGING RECREATION ASSOCIATES AND SPORT E8859 FALL FROM 07-07-2009 [place] OTHER MEDICAL SLIPPING IMAGING TRIPPING OR ASSOCIATES STUMBLING 8449 SPRAIN&STRA 07-06-2009 TYRELL IN OF EMERGENCY UNSPECIFIED SERVICES SITE OF ASSOCIATES KNEE&LEG 84174 NAUSEA 06-12-2009 [place] [facility] AL[facility] 48544 VOMITING 06-12-2009 [place] [facility] 5224 ACUTE 05-19-2009 MARIE, APICAL RODERICK W PERIODONTIT IS OF PULPAL ORIGIN 7842 SWELLING 03-22-2009 TYRELL MASS OR EMERGENCY LUMP IN SERVICES HEAD AND ASSOCIATES NECK 64181 DUODENITIS 03-05-2009 ERIKSTAD, WITHOUT PETER MENTION OF HEMORRHAGE V2502 GENERAL 02-03-2009 [facility] CNSL HEALTH INITIATION CLINIC OF OT VIC LOERA [facility] MEASURES 2662 OTHER 01-27-2009 DHS/CO B-COMPLEX HEALTH DEFICIENCIE [facility] ACCT 86363 PAIN IN 10-09-2008 ARNOLD, JOINT RODERICK W PELVIC REGION AND THIGH 2892 NONSPECIFIC 08-19-2008 [facility] OF FAMILIA HO IS [facility] 63094 ABDOMINAL 08-14-2008 SCH[facility], PAIN RIGHT PETER LOWER QUADRANT 0088 INTESTINAL 07-23-2008 MARTI INFECTION JR, J V DUE TO OTHER ORGANISM NEC 6262 EXCESSIVE 07-16-2008 [facility] OR [facility] CL[facility] OF MENSTRUATIO VIC N [facility] 7246 DISORDERS 07-09-2008 [facility] 7862 COUGH 05-28-2008 [facility] 6253 DYSMENORRHE 04-10-2008 [facility] A [facility] CLINIC OF VIC [facility] Medications Na ND Rx Da Fi Fi [...] 17 81 PH E 6 97 AR MO MA OP CY 50 MC G SP [...] 15 0 MG /M L CE 00 10 10 1 20 10 [...] 34 6- 6- 00 45 LD ve MO 59 20 20 AI ED 31 11 [...] 11 D RI TA 1 PH CH DC AR AR N- MA D CA CY [...] W 03 93 8 # 03 93 MO 37 09 09 11 28 28 RI 89 AR Ac IL 00 -0 -0 .0 TE 78 NO ti OS 00 6- 6- 00 55 LD ve EC 45 20 20 AI 50 11 11 D RI OT 3 PH CH C AR AR 20 MA D .6 CY W MG 03 93 TA 8 BL # ET 03 93 MO 00 08 08 1 18 6 RI 89 AR Ac OM 60 -2 -2 0. TE 66 NO ti ET 31 6- 6- 00 25 LD ve CASTORENA 58 20 20 0 AI ZI 65 11 11 D RI NE 4 PH CH -D AR AR M MA D SY CY W RU P 03 93 8 # 03 93 MO 00 08 08 1 40 10 RI [...] 34 1- 1- 00 55 LD ve MO 59 20 20 AI ED 31 11 [...] AI ZA 10 11 11 D RI MO 1 PH CH IN AR AR E [...] 15 5- 5- 00 20 LD ve MO 02 20 20 AI ED 20 11 11 D RI NI 1 PH CH SO AR AR LO MA D NE CY W 4 03 MG 93 8 TA # BL 03 ET 93 ME 00 05 05 1 60 15 RI 88 AR Ac TH 60 -2 -2 .0 TE 47 NO ti OC 34 5- 5- 00 21 LD ve AR 48 20 20 AI BA 62 11 11 D RI MO 1 PH CH L AR AR 75 MA D 0 CY W MG 03 TA 93 BL 8 ET # 03 93 MO 00 05 05 1 30 7 RI [...] LL 15 C 0 MG /M L MO 00 04 04 1 18 6 RI [...] 8 # TA 03 B 93 CE 00 03 03 10 30 30 RI 87 AR Ac TI 78 -1 -1 .0 TE 44 NO ti RI 11 0- 0- 00 98 LD ve ZI 68 20 20 AI NE 40 11 11 D RI 1 PH CH HC AR AR L MA D 10 CY W MG 03 93 TA 8 BL # ET 03 93 AN 43 03 03 1 15 [...] 03 10 5 RI 87 AR Ac DC 00 -1 -1 .0 TE 44 NO ti FL 40 0- 0- 00 58 LD ve U 80 20 20 AI 75 08 11 11 D RI 5 PH CH MG AR AR MA D CA CY W PS UL 03 E 93 8 # 03 93 MO 00 03 03 1 30 7 RI [...] 30 0- 0- 00 61 LD ve DC 31 20 20 AI DE 10 11 11 D RI 2 1 PH CH AR AR MG MA D CY W CA PS 03 UL 93 E 8 # 03 93 PE 00 02 02 1 [...] LL 15 C 0 MG /M L DO 00 12 12 1 20 10 [...] W 03 93 8 # 03 93 00 12 12 50 30 RI 86 [...] 30 7- 7- 0 20 LD ve DC 31 20 20 AI DE 10 10 [...] LL 15 C 0 MG /M L MO 00 09 09 5 15 5 RI [...] BL 93 ET 8 # 03 93 MO 00 09 09 1 30 7 RI [...] 34 1- 1- 00 61 LD ve MO 59 20 20 AI ED 31 10 [...] 93 8 CORRALES # SP 03 93 MO 60 11 05 1 18 6 RI 83 AR Ac OM 43 -0 -2 0. TE 48 NO ti ET 20 5- 0- 00 29 LD ve CASTORENA 60 20 20 0 AI ZI 40 09 10 D RI NE 4 PH CH -D AR AR M MA D SY CY W RU P 03 93 8 # 03 93 DO 00 04 04 1 20 [...] MG 8 # CA 03 P 93 ME 00 04 04 1 21 6 RI 83 AR Ac TH 60 -3 -3 .0 TE 20 NO ti YL 34 0- 0- 00 94 LD ve MO 59 20 20 AI ED 31 10 10 D RI NI 5 PH CH SO AR AR LO MA D NE CY W 4 03 MG 93 8 DO # SE 03 PK 93 CE 65 04 04 1 20 [...] 8 # TA 03 B 93 AN 24 02 02 00 10 10 RI 81 AR Ac TI 20 -0 -1 .0 TE 98 NO ti PY 80 2- 1- 00 55 LD ve RI 56 20 20 AI NE 16 10 10 D RI -B 2 PH CH EN AR AR ZO M D CA #3 W IN [address] OP 66 02 02 00 12 12 RI 81 AR Ac 99 -0 -1 0. TE 98 NO ti 20 2- 1- 00 61 LD ve 22 20 20 0 AI 00 10 10 D RI 4 PH CH AR AR M D #3 W 93 8 AM 00 01 02 01 15 10 [...] W OU 93 S 8 SO LN LO 00 01 01 00 30 30 [...] W /5 93 8 ML CORRALES SP ME 59 12 01 00 1. 90 CL [address] 76 -2 -1 00 IN 77 AR ti OX 24 9- 4- 0 IC 23 KE ve YP 53 20 20 RO 70 09 10 PH DE GE [address] MA K ER CY J ON E 15 0 MG /M L MO 60 11 12 00 18 3 RI 80 AR Ac OM 43 -1 -0 0. TE 91 NO ti ET 20 7- 3- 00 38 LD ve CASTORENA 60 20 20 0 AI ZI 80 09 09 D RI NE 4 PH CH AR AR 6. M D 25 #3 W 93 MG 8 /5 ML SY RP CE 00 11 12 00 20 10 RI 80 AR Ac PH 09 -1 -0 0. TE 91 NO ti AL 34 7- 3- 00 36 LD ve EX 17 20 20 0 AI IN 77 09 09 D RI 3 PH CH 25 AR AR 0 M D MG #3 W /5 93 8 ML CORRALES SP 00 11 12 00 14 3 RI [...] M MG 8 E TA BL ET FL 00 11 11 00 16 30 RI 80 AR Ac UT 05 -0 -1 .0 TE 68 NO ti IC 43 2- 9- 00 33 LD ve 27 20 20 AI ON 01 14 09 D RI E 9 PH CH MO AR AR OP M D #3 W 50 93 8 MC G SP RA Y MO 00 11 11 00 6. 16 RI 80 AR Ac OV 08 -0 -1 70 TE 68 NO ti EN 51 2- 9- 0 32 LD ve TI 13 20 20 AI L 20 09 09 D RI HF 1 PH CH A AR AR 90 M D #3 W MC 93 G 8 IN CASTORENA LE R MO 60 11 11 00 18 6 RI 80 AR Ac OM 43 -0 -1 0. TE 73 NO ti ET 20 5- 9- 00 99 LD ve CASTORENA 60 20 20 0 AI ZI 40 09 09 D RI NE 4 PH CH -D AR AR M M D SY #3 W RU 93 P 8 CE 00 11 11 00 20 10 [...] 93 10 8 0 MG CA P 60 11 11 00 24 8 RI 80 AR Ac 25 -0 -1 0. TE 68 NO ti 80 2- 9- 00 34 LD ve 23 20 20 0 AI 91 09 09 D RI 6 PH CH AR AR M D #3 W 93 8 DI 00 10 10 00 10 25 [...] ON E 15 0 MG /M L MO 00 09 09 00 30 7 RI [...] 30 7- 4- 00 05 LD ve DC 31 20 20 AI DE 10 09 09 D RI 2 1 PH CH AR AR MG M D #3 W CA 93 PS 8 UL E CE 00 05 09 01 20 10 [...] bl AR e M #3 93 8 10 06 06 00 30 30 RI 78 AR Ac 91 -0 -1 .0 TE 70 NO ti 40 4- 8- 00 20 LD ve 95 20 20 AI 00 09 09 D RI 1 PH CH AR AR M D #3 W 93 8 ME 00 06 06 00 40 10 RI 78 AR Ac TH 60 -0 -1 .0 TE 70 NO ti OC 34 4- 8- 00 21 LD ve AR 48 20 20 AI BA 62 09 09 D RI MO 1 PH CH L AR AR 75 M D 0 #3 W MG 93 8 TA BL ET IB 53 05 06 00 20 6 RI 78 AR Ac UP 74 -2 -0 .0 TE 60 NO ti RO 60 8- 4- 00 17 LD ve FE 46 20 20 AI N 40 09 09 D RI 40 5 PH CH 0 AR AR MG M D #3 W TA 93 BL 8 ET CE 00 05 06 00 20 10 RI 78 AR Ac FD 09 -1 -0 .0 TE 48 NO ti IN 33 9- 4- 00 58 LD ve IR 16 20 20 AI 00 09 09 D RI 30 6 PH CH 0 AR AR MG M D #3 W CA 93 PS 8 UL E LO 00 05 06 00 30 30 RI 78 AR Ac RA 78 -1 -0 .0 TE 48 NO ti TA 15 9- 4- 00 59 LD ve DI 07 20 20 AI NE 70 09 09 D RI 1 PH CH 10 AR AR M D MG #3 W 93 TA 8 BL ET PE 00 05 06 00 40 10 RI 78 AR Ac NI 09 -2 -0 .0 TE 60 NO ti CI 31 8- 4- 00 18 LD ve LL 17 20 20 AI IN 20 09 09 D RI 1 PH CH VK AR AR M D 25 #3 W 0 93 MG 8 TA BL ET MO 00 05 06 01 30 7 RI 78 AR Ac OM 78 -1 -0 .0 TE 48 NO ti ET 11 9- 4- 00 55 LD ve CAST[place] 83 20 20 AI ZI 00 09 09 D RI NE 1 PH CH AR AR 25 M D #3 W MG 93 8 TA BL ET 64 05 06 00 15 10 RI 78 AR Ac 37 -1 -0 .0 TE 48 NO ti 60 9- 4- 00 60 LD ve 43 20 20 AI 81 09 09 D RI 5 PH CH AR AR M D #3 W 93 8 60 05 05 00 18 6 RI 78 AR Ac 25 -0 -2 0. TE 27 NO ti 80 5- 1- 00 57 LD ve 23 20 20 0 AI 91 09 09 D RI 6 PH CH AR AR M D #3 W 93 8 AZ 59 05 05 00 6. 5 RI 78 AR Ac IT 76 -0 -2 00 TE 27 NO ti HR 23 5- 1- 0 56 LD ve OM 06 20 20 AI YC 00 09 09 D RI IN 1 PH CH AR AR 25 M D 0 #3 W MG 93 8 TA BL ET MO 00 04 05 00 6. 30 RI 78 AR Ac OV 08 -3 -0 70 TE 21 NO ti EN 51 0- 7- 0 11 LD ve TI 13 20 20 AI L 20 09 09 D RI HF 1 PH CH A AR AR 90 M D #3 W MC 93 G 8 IN [place] LE R MO 00 04 05 00 30 7 RI 78 AR Ac OM 78 -3 -0 .0 TE 21 NO ti ET 11 0- 7- 00 10 LD ve [place] 83 20 20 AI ZI 00 09 09 D RI NE 1 PH CH AR AR 25 M D #3 W MG 93 8 TA BL ET AC 00 04 05 00 [address] Ac ET 09 -2 -0 .0 TE 09 EP ti AM 30 2- 7- 00 37 HE ve IN 15 20 20 AI NS OP 01 09 09 D HE 0 PH KE N- AR CO M N D #3 C #3 93 8 TA BL ET AM 65 04 05 00 [address] Ac OX 86 -2 -0 .0 TE 09 EP ti IC 20 2- 7- 00 38 HE ve IL 01 20 20 AI NS LI 70 09 09 D N 5 PH KE 50 AR 0 M N MG #3 C 93 CA 8 PS UL E CL 63 04 04 00 28 7 RI 77 FL Ac IN 30 -0 -0 .0 TE 81 AN ti DA 40 1- 9- 00 40 AG ve MY 69 20 20 AI AN CI 20 09 09 D N 1 PH JA HC AR ME L M S 15 #3 P 0 93 MG 8 CA PS UL E IB 53 04 04 00 20 5 RI 77 FL Ac UP 74 -0 -0 .0 TE 81 AN ti RO 60 1- 9- 00 42 AG ve FE 46 20 20 AI AN N 40 09 09 D 40 5 PH JA 0 AR ME MG M S #3 P TA 93 BL 8 ET 60 02 02 00 12 6 RI [...] 20 AI LI 70 09 09 D DC N 5 PH CH 25 AR AE [...] AR K M J #3 93 8 60 10 11 00 12 6 RI 75 NI Ac 25 -2 -0 0. TE 57 CH ti 80 8- 7- 00 75 OL ve 23 20 20 0 AI S 91 08 08 D ARAVIND 6 PH E AR A M #3 93 8 CE 00 10 11 00 20 8 RI 75 NI Ac PH 09 -2 -0 0. TE 57 CH ti AL 34 8- 7- 00 74 OL ve EX 17 20 20 0 AI S IN 77 08 08 D ARAVIND 4 PH E 25 AR A 0 M MG #3 /5 93 8 ML CORRALES SP 00 09 09 00 60 10 RI 74 CL Ac 90 -0 -2 .0 TE 89 AR ti 41 9- 6- 00 72 KE ve 74 20 20 AI 84 08 08 D DE 0 PH RE AR K M J #3 93 8 OV 51 08 09 00 59 5 RI 74 NI Ac ID 67 -2 -1 .0 TE 70 CH ti E 25 6- 1- 00 21 OL ve 0. 27 20 20 AI S 5% 60 08 08 D ARAVIND 4 PH E LO AR A TI M ON #3 93 8 CORRALES 61 08 09 00 15 10 RI 74 NI Ac LF 31 -2 -1 .0 TE 71 CH ti AC 40 7- 1- 00 96 OL ve ET 70 20 20 AI S AM 10 08 08 D ARAVIND ID 1 PH E E AR A 10 M % #3 EY [address] OP S CL 60 09 09 00 14 7 RI 74 GA Ac AR 50 -0 -1 .0 TE 80 IN ti IT 52 1- 1- 00 59 EY ve HR 61 20 20 AI OM 60 08 08 D DC YC 6 PH CH IN AR AE [...] HOSP HOSP YRS/ INC INC > IM Procedures Procedure DOS Code Location Performer Comment IAADIADOO 71511 [facility] STREPTOCO INC INC CCUS GROUP A IAADIADOO 03911 [facility] INFLUENZA INC INC URINE 34845 [facility] ROBERTS 7 PHYSICIAN TEST S GROUP VISUAL COLOR CMPRSN METHS IAADIADOO 33503 [facility] STONE 7 PHYSICIAN INFLUENZA S GROUP URINE 52525 [facility] ROBERTS 7 PHYSICIAN TEST S GROUP VISUAL COLOR CMPRSN METHS THERAPEUT 82546 [facility] IC 7 PHYSICIAN PROPHYLAC S GROUP TIC/DX INJECTION SUBQ/IM THERAPEUT 86267 [facility] [place] IC 6 PHYSICIAN YOSI PROPHYLAC S GROUP TIC/DX INJECTION SUBQ/IM NERVE 59444 [place] REPAIR 6 [facility] HEALTHCAR W/CONDUIT E E EACH [facility] NERVE URINE 58471 [place] 6 HEALTHCAR HEALTHCAR TEST E E VISUAL [facility] [place] [address] [place] SURG 6 [facility] PATHOLOGY E E [facility] GROSS&RODOLFO ROSCOPIC EXAM INJECTION J2370 [place] 6 [facility]ALTH[facility] HEALTHCAR PHENYLEPH E E RINE HCL [facility] UP TO 1 ML RINGERS J7120 [place] LACTATE 6 HEALTHCAR HEALTHCAR INFUSION E E UP TO [facility] 1000 CC ANES 79787 [place] MERCADO HEN NERVE 6 MEDICAL MUSCLE SERV TDN FOUNDATIO FASCIA&BU N RSA FOREARM WRIST LEVEL III 89784 [facility] DODD SURG 6 Y OF JOSE ELIAS PATHOLOGY [place] [facility] GROSS&RODOLFO ROSCOPIC EXAM INFUSION J7030 [facility] NORMAL 6 [facility]ALTHCAR HEALTHCAR SALINE E E SOLUTION [facility] 1000 CC INJECTION J0690 [place] 6 HEALTHCAR HEALTHCAR CEFAZOLIN E E SODIUM [facility] 500 MG INJECTION J2704 [facility] PROPOFOL 6 HEALTHCAR HEALTHCAR 10 MG E E [facility] HOSPITALS INJECTION J3010 [place] FENTANYL 6 HEALTHCAR HEALTHCAR CITRATE E E 0.1 MG [facility] RADEX 91088 [place] [facility] ALL HAND 6 MEDICAL MINIMUM 3 IMAGING VIEWS ASS THERAPEUT 04647 [facility] ARMANDO IC 6 PHYSICIAN YOSI PROPHYLAC S GROUP TIC/DX INJECTION SUBQ/IM FRAMES V2020 SCIFRES SCIFRES PURCHASES 6 ANG ANG 1 VISN V2103 SCIFRES SCIFRES PLANO 6 ANG ANG TO+/-4.00 D SPHER 0.12-2.00 D CYL EA SCRATCH V2760 SCIFRES SCIFRES RESISTANT 6 ANG ANG COATING PER LENS FITTING 08940 SCIFRES SCIFRES SPECTACLE 6 ANG ANG S XCPT APHAKIA MONOFOCAL LENS V2784 SCIFRES SCIFRES POLYCARBO 6 ANG ANG FREDRICK OR EQUAL ANY INDEX PER LENS OPHTH 07122 SCIFRES SCIFRES MEDICAL 6 ANG ANG XM&EVAL COMPRHNSV ESTAB PT 1/> URINE 08042 [facility] 6 PHYSICIAN YOSI TEST S [place] [address] [place] [facility] HEAD/BRAI 6 MEDICAL N W/[place] [address] [place] [facility] CERVICAL 6 MEDICAL SPINE W/O IMAGING CONTRAST ASS MATERIAL SIMPLE 34368 LORIN LILI REPAIR 6 PHYSICIAN RODOLFO F/E/E/N/L S, PLLC /M 2.5CM/< [place] [address] [place] [facility] ALL MAXILLOFA 6 MEDICAL CIAL W/O IMAGING CONTRAST ASS MATERIAL RADIOLOGI 29451 JULI[facility] MADRID C EXAM 6 [facility] CHEST 2 INC INC VIEWS FRONTAL&L ATERAL URNLS DIP 49154 [facility] 6 [facility] STICK/TAB INC INC LET REAGENT AUTO MICROSCOP Y PRESSURIZ 40969 JULIUS MADRID ED/NONPRE 6 [facility] SSURIZED INC INC INHALATIO N TREATMENT URINE 00607 [facility] 6 [facility] TEST INC INC VISUAL COLOR CMPRSN METHS IAADI 46941 JULIUS MADRID INFLUENZA 6 [facility] B VIRUS INC INC IAADI 13562 JULIUS MADRID INFFLUENZ 6 [facility] A A VIRUS INC INC UNCLASSIF J3490 JULIUS MADRID IED DRUGS 6 [facility] INC INC URINE 16034 [facility] LILI 5 PHYSICIAN RODOLFO TEST S GROUP VISUAL COLOR CMPRSN METHS THERAPEUT 04710 JUL[facility] MADRID IC 5 [facility] PROPHYLAC INC INC TIC/DX INJECTION SUBQ/IM CRTCHS E0114 ADVANCED ADVANCED UNDARM 5 TECHNOLOG TECHNOLOG OTH THAN IES INC IES INC WOOD PAIR PAD TIP&HNDGR IP RADEX 50848 JULIUS MADRID FOOT 5 [facility] COMPLETE INC INC MINIMUM 3 VIEWS IM ADM 91963 JULIUS MADRID PRQ ID 5 [facility] SUBQ/IM INC INC NJXS 1 VACCINE TDAP 00651 JULIUS MADRID VACCINE 7 5 [facility] YRS/> IM INC INC OPHTH 83947 SCIFRES SCIFRES MEDICAL 5 ANG ANG XM&EVAL COMPRHNSV ESTAB PT 1/> LENS V2784 SCIFRES SCIFRES POLYCARBO 5 ANG ANG FREDRICK OR EQUAL ANY INDEX PER LENS SCRATCH V2760 SCIFRES SCIFRES RESISTANT 5 ANG ANG COATING PER LENS SPHERE V2100 SCIFRES SCIFRES SINGLE 5 ANG ANG VISION PLANO +/- 4.00 PER LENS IADNA 90232 JULIUS MADRID NEISSERIA 5 [facility] INC INC GONORRHOE AE AMPLIFIED PROBE TQ IADNA 71457 JULIUS MADRID CHLAMYDIA 5 [facility] INC INC TRACHOMAT IS AMPLIFIED PROBE TQ THERAPEUT 08946 [facility] ARMANDO IC 5 PHYSICIAN YOSI PROPHYLAC S GROUP TIC/DX INJECTION SUBQ/IM URNLS DIP 79284 [facility]ID 5 [facility] STICK/TAB INC [place] [address] JULIUS MADRID INFUSION 5 [facility] THERAPY/P INC INC ROPHYLAXI S /DX 1ST TO 1 HR THERAPEUT 32087 J[facility]ADRID IC 5 [facility] INJECTION INC INC IV PUSH EACH NEW DRUG URINE 53287 JULIUS MADRID [address] [facility] TEST INC INC VISUAL COLOR CMPRSN METHS COMPREHEN 87648 JULIUS MADRID SIVE 5 [facility] [place] [address] JULIUS MADRID AMYLASE 5 [place] [address] JULIUS MADRID INFUSION 5 [facility] THER INC INC PROPH ADDL SEQUENTIA L TO 1 [place] [address] JULIUS MADRID LIPASE 5 [facility] INC INC BLOOD 76095 JULIUS MADRID COUNT 5 [facility] COMPLETE INC INC AUTO&[place] [address] JULIUS MADRID ABDOMEN & 5 [facility] PELVIS INC INC W/O CONTRAST MATERIAL THERAPEUT 11062 [facility] [place] IC 4 PHYSICIAN YOSI PROPHYLAC S GROUP TIC/DX INJECTION SUBQ/IM THERAPEUT 23958 JULIUSCHRISTINA MADRID IC 4 [facility] PROPHYLAC INC INC TIC/DX INJECTION SUBQ/IM URINE 02244 J[facility]ADRID 4 [facility] TEST INC INC VISUAL COLOR CMPRSN METHS IAADI 96292 JULIUS MADRID INFFLUENZ 4 [facility] A A VIRUS INC INC IAADI 17940 JULIUSCHRISTINA MADRID INFLUENZA 4 [facility] B VIRUS INC INC RADEX 45537 JULIET JULIET NASAL 4 AGUS AGUS BONES COMPLETE MINIMUM 3 VIEWS RADIOLOGI 16214 JULIUS MADRID C 4 [facility] EXAMINATI INC INC ON KNEE [address] [place] [address] JULIUS MADRID CERVICAL 4 [facility] SPINE W/O INC INC CONTRAST MATERIAL URINE 85484 J[facility] 4 [facility] TEST INC [place] [address] JULIUS MADRID HEAD/BRAI 4 [facility] N W/O INC INC CONTRAST MATERIAL 3D 72260 JULIUS MADRID RENDERING 4 [facility] W/INTERP INC INC & POSTPROCE SS SUPERVISI ON 3D 61672 JULIUS MADRID RENDERING 4 [facility] INC INC W/INTERP& POSTPROC DIFF WORK STATION DETERMINA 08263 SCIFRES SCIFRES TION 4 ANG ANG REFRACTIV E STATE OPHTH 33262 SCIFRES SCIFRES MEDICAL 4 ANG ANG XM&EVAL COMPRHNSV ESTAB PT 1/> HEPATIC 76028 JULIUS MADRID FUNCTION 3 [facility] PANEL INC INC URNLS DIP 89643 J[facility]US MADRID 3 [facility] STICK/TAB INC INC LET REAGENT AUTO MICROSCOP Y RADEX ABD 76410 JULIUS MADRID COMPL 3 [facility] AQT ABD INC INC W/S/E/D VIEWS 1 VIEW CH THERAPEUT 94091 JULIUS MADRID IC [address] [facility] INJECTION INC [place] [address] JULIUS MDARID LIPASE [address] [facility] [place] [address] JULIUS MADRID AMYLASE 3 [facility] INC INC COMPREHEN 32212 JULIUS MADRID SIVE 3 [facility] METABOLIC INC INC PANEL BLOOD 48039 JULIUS MADRID COUNT [address] [facility] COMPLETE INC INC AUTO&[place] [address] JULIUS MADRID INFUSION 3 [facility] THERAPY/P INC INC ROPHYLAXI S /DX 1ST TO 1 HR LEVEL III 60924 TYRELL TYRELL SURG 3 [facility]OLOGY GROSS&RODOLFO ROSCOPIC EXAM INJECTION J2405 JULIUS MADRID [address] [facility] ONDANSETR INC INC ON HCL PER 1 MG ANES 61276 VILLEGAS JOSE ELIAS VILLEGAS JOSE ELIAS INTRAPERI 3 TONEAL UPPER ABDOMEN W/LAPS NOS LAPAROSCO 70824 JULIUS MADRID PY SURG 3 [facility] [place] [address] JULIUS MADRID TROPONIN 3 [facility] QUANTITAT INC INC JANE RADIOLOGI 66399 JULIUS MADRID C EXAM 3 [facility] CHEST 2 INC INC VIEWS FRONTAL&L ATERAL URNLS DIP 19879 JULIUS MADRID [address] [facility] STICK/TAB INC INC LET REAGENT AUTO MICROSCOP Y THER 85898 JULIUS MADRID PROPH/DX 3 [facility] NJX IV INC INC PUSH SINGLE/1S T SBST/DRUG COMPREHEN 87062 JULIUS MADRID SIVE [address] [facility] METABOLIC INC INC PANEL URINE 83068 [address] [facility] TEST INC INC VISUAL [place] [address] JULIUS MADRID LIPASE [address] [facility] INC INC CREATINE 86400 JULIUS MARDID KINASE 3 [facility] TOTAL INC INC CREATINE 85159 JULIUS MADRID KINASE MB 3 [facility] FRACTION INC INC ONLY ECG 85958 JULIUS MADRID ROUTINE 3 [facility] ECG INC INC W/LEAST 12 LDS TRCG ONLY W/O I&R ECG 54068 MARI GUERRA JR ROUTINE 3 DWI DWI ECG W/LEAST 12 LDS I&R ONLY BLOOD 21298 JULIUS MADRID COUNT 3 [facility] COMPLETE INC INC AUTO&[place] [address] JULIUS JULIUS ABDOMINAL 3 [facility] REAL INC INC TIME W/IMAGE LIMITED RADEX 86180 JULIUS MADRID FOOT 3 [facility] COMPLETE INC INC MINIMUM 3 VIEWS INJECTION J0696 MARIE SALAZAR 3 CORIE CORIE CEFTRIAXO NE SODIUM PER 250 MG THERAPEUT 86538 JULIUS MADRID IC 3 [facility] PROPHYLAC INC INC TIC/DX INJECTION SUBQ/IM INJECTION J0696 MARIE SALAZAR 3 CORIE CORIE CEFTRIAXO NE SODIUM PER 250 MG INJECTION J2805 JULIUS JULIUS 2 [facility] SINCALIDE INC INC 5 [place] [address] [place] JULIET ABDOMINAL 2 MEDICAL AGUS REAL IMAGING TIME ASS W/IMAGE LIMITED HEPATOBIL 63672 [place] JULIET SYST 2 MEDICAL AGUS IMAG INC IMAGING GB ASS W/PHARMA INTERVENJ TECHNETIU A9537 JULIUS MADRID M TC-99M 2 [facility] MEBROFENI INC INC N DX UP TO 15 MCI ESOPHAGOG 83325 JULIUS MADRID ASTRODUOD [address] [facility] ENOSCOPY [place] [address] JULIUS MADRID INFUSION 2 [facility] THERAPY/P INC INC ROPHYLAXI S /DX 1ST TO 1 [place] [address] JULIUS MADRID INFUSION 2 [facility] THERAPY INC INC PROPHYLAX IS/DX EA HOUR URINE 80052 JULIUS JULIUS 2 [facility] TEST INC INC VISUAL COLOR CMPRSN METHS URNLS DIP 63700 JULIUS MADRID 2 [facility] STICK/TAB INC INC LET REAGENT AUTO MICROSCOP Y US CHEST 54495 TYRELL THAKUR REAL TIME 2 EMERGENCY W/[place] [address] TYRELL THAKUR ABDOMINAL 2 EMERGENCY REAL SERVICES TIME W/IMAGE LIMITED ECHO 85883 TYRELL THAKUR TRANSTHOR 2 EMERGENCY C R-T 2D SERVICES W/WO M-MODE REC F-UP/LMTD INJECTION J0696 MARIE SALAZAR 2 CORIE CORIE CEFTRIAXO NE SODIUM PER 250 MG SPHERE V2100 SCIFRES SCIFRES SINGLE 2 ANG ANG VISION PLANO +/- 4.00 PER LENS VISION V2799 SCIFRES SCIFRES ITEM OR 2 ANG ANG SERVICE MISCELLAN EOUS PROTHROMB 61700 [facility] IN TIME 2 N N [facility] HOSPITA HOSPITA BLOOD 18343 [facility] COUNT 2 N N COMPLETE [facility] AUTO&AUTO HOSPITA HOSPITA DIFRNTL WBC URNLS DIP 18995 [facility] 2 N N STICK/TAB [facility] LET HOSPITA HOSPITA REAGENT AUTO MICROSCOP Y BLOOD 16895 [facility] OCCULT 2 N N PEROXIDAS [facility] E ACTV HOSPITA HOSPITA QUAL FECES 1-3 SPEC THROMBOPL 12177 [facility] ASTIN 2 N N TIME [facility] PARTIAL HOSPITA HOSPITA PLASMA/WH OLE BLOOD COMPREHEN 18284 [facility] SIVE 2 N N METABOLIC [facility] PANEL HOSPITA HOSPITA URINE 48287 [facility] 2 N N TEST [facility] VISUAL HOSPITA [place] [address] [facility] LIPASE 2 N N [facility] [place] [place] [address] [facility] INFUSION 2 N N HYDRATION [facility] EACH HOSPITA HOSPITA ADDITIONA L HOUR COLLECTIO 75904 [facility] N VENOUS 2 N N BLOOD [facility] VENIPUNCT HOSPITA HOSPITA URE THER 47732 [facility] PROPH/DX 2 N N NJX IV [facility] PUSH HOSPITA HOSPITA SINGLE/1S T SBST/DRUG DETERMINA 52452 SCIFRES SCIFRES TION 2 ANG ANG REFRACTIV E STATE OPHTH 38624 SCIFRES SCIFRES MEDICAL 2 ANG ANG XM&EVAL COMPRHNSV ESTAB PT 1/> IAADI 07707 JULIUS MADRID INFLUENZA 2 [facility] B VIRUS INC INC IAADI 82561 JULIUS MADRID INFFLUENZ 2 [facility] A A VIRUS INC INC 3D 18338 JULIUS MADRID RENDERING 2 [facility] INC INC W/INTERP& [place] [address] JULIUS MADRID STREPTOCO [address] [facility] CCUS INC INC GROUP A CT SOFT 54635 JULIET JULIET TISSUE 2 AGUS AGUS NECK W/O CONTRAST MATERIAL URINE 35285 JULIUS MADRID 2 [facility] TEST INC INC VISUAL COLOR CMPRSN METHS DEMO&/SENG 33381 [facility] L OF PT 2 ALLERGY ALLERGY UTILIZ & ASTHMA & ASTHMA AERSL P P GEN/NEB/I NHLR/IP BRNCDILAT 57027 [facility] RSPSE 2 ALLERGY ALLERGY SPMTRY & ASTHMA & ASTHMA PRE&POST- P P BRNCDILAT ADMN PERCUTANE 09189 [facility] OUS TESTS 2 ALLERGY ALLERGY & ASTHMA & ASTHMA W/ALLERGE P P CHYNA EXTRACTS INTRACUTA 76514 [facility] NEOUS 2 ALLERGY ALLERGY TESTS & ASTHMA & ASTHMA W/ALLERGE P P CHYNA EXTRACTS COLLECTIO 22018 [facility] UNIVERS N VENOUS 1 Y Y BLOOD [facility] VENIPUNCT URE RADIOLOGI 36005 [facility] C EXAM 1 Y Y CHEST 2 [facility] VIEWS FRONTAL&[place] [address] [facility] TROPONIN 1 Y Y [facility] JANE GROUND A0425 COLIN COLIN MILEAGE 1 FAYETTE FAYETTE PER URBAN URBAN [place] [address] [facility] LIPASE 1 Y Y HOSPITAL HOSPITAL AMB A0427 COLIN COLIN SERVICE 1 FAYETTE FAYETTE ALS URBAN URBAN EMERGENCY COGOVT COGOVT TRANSPORT LEVEL 1 SEDIMENTA 09408 [facility] TION RATE 1 Y Y RBC [facility] AUTOMATED COMPREHEN 97377 [facility] SIVE 1 Y Y METABOLIC [facility] PANEL C-REACTIV 82522 [facility] E PROTEIN 1 Y Y [facility] ECG 40956 BEZODALYS BEZOLD ROUTINE 1 III MEDARDO III MEDARDO ECG W/LEAST 12 LDS I&[place] [address] [facility] ABDOMINAL 1 Y Y REAL [facility] TIME W/IMAGE LIMITED BLOOD 94012 [facility] COUNT 1 Y Y COMPLETE [facility] AUTOMATED GONADOTRO 68780 [facility] PIN 1 Y Y [facility]ORIONIC [facility] QUALITATI VE GONADOTRO 58663 [facility] PIN 1 Y Y [facility]ORIONIC [facility] QUANTITAT JANE ECG 17053 [facility] ROUTINE 1 Y Y ECG [facility] W/LEAST 12 LDS TRCG ONLY W/O I&[place] [address] [facility] ABDOMEN & 1 MEDICAL AGUS PELVIS IMAGING W/O ASS CONTRAST MATERIAL INJECTION J2405 [facility]UL[facility]US [facility]ADRID 1 [facility] ONDANSETR INC INC ON HCL PER 1 MG 3D 99843 JULIUS MADRID RENDERING 1 [facility] INC INC W/INTERP& POSTPROC DIFF WORK STATION URNLS DIP 50471 JULIUS MADRID 1 [facility] STICK/TAB INC INC LET REAGENT AUTO MICROSCOP Y COMPREHEN 43726 JULIUS MADRID SIVE 1 [facility] [place] [address] JULIUS MADRID AMYLASE 1 [facility] INC INC URINE 68838 JULIUS MADRID 1 [facility] TEST INC INC [place] [address] JULIUS MADRID LIPASE 1 [facility] INC INC BLOOD 27485 JULIUS MADRID COUNT [address] [facility] COMPLETE INC INC AUTO&AUTO DIFRNTL WBC DETERMINA 36051 [facility] TION 1 REFRACTIV E STATE OPHTH 83543 [facility] MEDICAL 1 XM&EVAL COMPRHNSV ESTAB PT 1/> INJECTION J0696 MARIE SALAZAR 1 CORIE CORIE CEFTRIAXO NE SODIUM PER 250 MG INJECTION J0696 MARIE ARNOLD 1 CORIE CORIE CEFTRIAXO NE SODIUM PER 250 MG THERAPEUT 08371 [facility] IC [facility] PROPHYLAC CLINIC OF TIC/DX [place] [address] JULIUS MADRID TRACT UPR 1 [facility] W/SM INT INC INC W/[place] [address] [facility] UPR W/WO 1 MEDICAL AGUS GLUCOSE IMAGING W/SM ASS INTEST FOLLW-THR U THERAPEUT 22545 [facility] CLINIC OF TIC/DX SHERRY SHERRY INJECTION SUBQ/[place] [address] JULIUS MADRID LIPASE 1 [facility] INC INC URINE 15527 JULIUS MADRID [address] [facility] TEST INC INC [place] [address] JULIUS MADRID AMYLASE 1 [facility] INC INC COMPREHEN 58307 JULIUS MADRID SIVE 1 [facility] METABOLIC INC INC PANEL URNLS DIP [address] [facility] GEMA STICK/TAB [place] [address] JULIUS MADRID INFUSION 1 [facility] THERAPY/P INC INC ROPHYLAXI S /DX 1ST TO 1 HR CULTURE 91666 JULIUS MADRID BACTERIAL 1 [facility] INC INC QUANTTATI VE COLONY COUNT URINE BLOOD 33430 JULUIS JULIUS COUNT 1 [facility] COMPLETE INC INC AUTO&AUTO DIFRNTL WBC ANTIBODY 80728 COMBINED COMBINED CHLAMYDIA 1 PHYSICIAN PHYSICIAN S LA S LA CUL BACT 39374 COMBINED COMBINED XCPT 1 PHYSICIAN PHYSICIAN URINE S LA S LA BLOOD/STO OL AEROBIC ISOL INJECTION J0696 MARIE SALAZAR 1 CORIE CORIE CEFTRIAXO NE SODIUM PER 250 MG THERAPEUT 77753 [facility] TIC/DX SHERRY INJECTION SUBQ/IM DEEP D9220 [facility], SEDATION/ 1 IMPLANT & III LAKESHIA GENERAL ORAL ANESTHESI SURGERY C A-1ST 30 MINUTES RADEX 22476 [place] JULIET UPPER GI 0 MEDICAL AGUS W/WO IMAGING GLUCAGON/ [place] DEL[place] IM[place] W/[place] [address] [place] JULIET ABDOMINAL 0 MEDICAL AGUS REAL IMAGING TIME ASS W/IMAGE LIMITED FITTING 80090 [facility] BUTLERKOFFI YOST SPECTACLE 0 VISION S XCPT APHAKIA MONOFOCAL SPHERE V2100 [facility] ASHRAFKOFFI YOST SINGLE 0 VISION VISION PLANO +/- 4.00 PER LENS FRAMES V2020 [facility] ASHRAFKOFFI YOST PURCHASES 0 VISION OPHTH 93889 [facility] ASHRAFKOFFI YOST MEDICAL 0 VISION XM&EVAL COMPRHNSV ESTAB PT 1/> THERAPEUT 57281 [facility] CL[facility] OF TIC/DX SHERRY INJECTION SUBQ/IM OBSERVATI 29980 [place] KAUSHAL ON/INPATI 0 MEDICAL FAR ENT SERV HOSPITAL FOUNDATIO CARE 55 MINUTES ELECTROEN 80874 [place] ANCELMO LA CEPHALOGR 0 MEDICAL AM W/REC SERV AWAKE&ASL FOUNDATIO EEP MRI BRAIN 60381 [place] OFE MCGREGOR BRAIN 0 MEDICAL STEM W/O SERV W/[place] [address] [place] PATINO HEAD/BRAI 0 Y [facility] RADEX 47734 [place] PRADEEP SPINE 0 MEDICAL PASTORA THORACIC SERV 2 VIEWS FOUNDATIO ECG 77525 [place] BECERRA ROUTINE 0 MEDICAL AGUS ECG SERV W/LEAST FOUNDATIO 12 LDS I&R ONLY ECG 02418 [place] ISAIAS ROUTINE 0 E OFE ECG HOSPITAL W/LEAST 12 LDS I&R ONLY BLOOD 46966 [place] COUNT 0 E E COMPLETE HOSPITAL HOSPITAL AUTO&AUTO DIFRNTL WBC RADEX 49995 [facility] SPINE 0 [facility] RADIOLOGY 2 VIEWS [facility] AMB A0422 [place] OXYGEN&O2 0 E CO E CO SUPPLIES AMBULANCE AMBULANCE LIFE SUSTAININ G SITUATION FIBRIN 51521 [place] DGRADJ 0 E E PRODUCTS HOSPITAL HOSPITAL D-DIMER QUAL/SEMI REINA ECG 13582 [place] ROUTINE 0 E E ECG HOSPITAL HOSPITAL W/LEAST 12 LDS TRCG ONLY W/O I&R CRITICAL 38748 [facility] 0 EMERGENCY ILL/INJUR SERVICES ED PATIENT INIT 30-74 MIN CREATINE 03661 [place] KINASE 0 E E [facility] COMPREHEN 19550 [place] SIVE 0 E [facility] PANEL GROUND A0425 [place] MILEAGE 0 E CO E CO PER AMBULANCE AMBULANCE STATUTE MILE AMBULANCE A0429 [place] SERVICE 0 E CO E [facility] AMBULANCE AMBULANCE EMERGENCY TRANSPORT GONADOTRO 85981 [place] PIN 0 E E [facility] QUALITATI VE URNLS DIP 43686 [place] 0 E E STICK/TAB HOSPITAL HOSPITAL LET REAGENT AUTO MICROSCOP Y LACTATE 67179 [place] DEHYDROGE 0 E E [facility] RADEX 92786 [facility] SPINE 0 CENTRAL LUMBOSACR RADIOLOGY AL 2/3 [facility] VIEWS BLS A0382 [place] ROUTINE 0 E CO E CO DISPOSABL AMBULANCE AMBULANCE E SUPPLIES THERAPEUT 41874 [facility], IC 0 [facility] PROPHYLAC CLINIC OF TIC/DX INJECTION [place] [facility] RADIOLOGI 64897 REY JULIET, C 0 MEDICAL RUBY EXAMINATI IMAGING ON KNEE 3 ASSOCIATE VIEWS S COLLECTIO 43767 [facility] N VENOUS 0 Y Y BLOOD [facility] [place] [address] [facility] LIPASE 0 [place] [address] [facility] AMYLASE 0 Y Y [facility] THERAPEUT 79962 [facility] ARM[facility], IC 9 [facility] TIC/DX INJECTION [place] [facility] HEPATBL 77171 JULIUS MADRID DUX SYS 9 [facility] [place] [address] REY MILLSUTCHER, ABDOMINAL 9 MEDICAL RUBY REAL IMAGING TIME ASSOCIATE W/IMAGE S LIMITED FITTING 98962 COLIN MONISHA, SPECTACLE 9 VISION JESÚS M S XCPT APHAKIA MONOFOCAL SPHERE V2100 COLIN BEARDEN, SINGLE 9 VISION JESÚS M VISION PLANO +/- 4.00 PER LENS FRAMES V2020 COLIN MONISHA, PURCHASES 9 VISION JESÚS M OPHTH 98717 COLIN BEARDEN, MEDICAL 9 VISION JESÚS M XM&EVAL COMPRHNSV ESTAB PT 1/> ESOPHAGOG 4516 JULIUS MADRID ASTRODUOD 9 [facility] ENOSCOPY [place] [address] PATHOLOGY PATHOLOGY SURG 9 & & PATHOLOGY CYTOLOGY CYTOLOGY LAB LAB GROSS&RODOLFO ROSCOPIC EXAM EGD 60677 SCHULSTAD SCHULSTAD TRANSORAL 9 , PETER , PET[place] BIOP[place]INGLE/[place] [address] JULIUS MADRID INFUSION 9 [facility] THERAPY INC INC PROPHYLAX IS/DX EA HOUR URINE 55648 JULIUS MADRID 9 [facility] TEST INC [place] [address] JULIUS MADRID INFUSION 9 [facility] THERAPY/P INC INC ROPHYLAXI S /DX 1ST TO 1 HR URINE 46600 [facility], 9 [facility] TEST CLINIC OF VISUAL COLOR VIC RAMIREZRSN [facility] METHS OBSERVATI 13871 CORY RAY ON CARE 9 , PETER , PETER DISCHARGE MANAGEMEN T CT PELVIS 01874 [place] JULIET, W/O 9 MEDICAL RUBY CONTRAST IMAGING MATERIAL ASSOCIATE S 3D 25877 JULIUS MADRID RENDERING 9 [facility] INC INC W/INTERP& POSTPROC DIFF WORK STATION BLOOD 69305 JULIUS MADRID COUNT 9 [facility] COMPLETE INC INC AUTO&AUTO DIFRNTL WBC [facility] G0378 JULIUS MADRID OBSERVATI 9 [facility] [place] [address] [place] JULIET, ABDOMEN 9 MEDICAL RUBY W/[place] [address] JULIUS MADRID ABDOMEN 9 [facility] W/O INC INC CONTRAST MATERIAL HOSPITAL G0378 JULIUS MADRID OBSERVATI 9 [facility] ON INC INC SERVICE PER HOUR BLOOD 27229 JULIUS MADRID COUNT 9 [facility] COMPLETE INC INC AUTO&AUTO DIFRNTL WBC SUSCEPTIB 79388 JULIUS MADRID LTY STDY 9 [facility] ANTIMICRB INC INC IAL MICRO/AGA R DILUTJ 3D 78079 [place] JULIET, RENDERING 9 MEDICAL RUBY IMAGING W/INTERP& ASSOCIATE POSTPROC S DIFF WORK STATION CULTURE 65357 JULIUS MADRID BCT 9 [facility] ISOL&PRSM INC INC PTV ID ISOLATE EA URINE CULTURE 72482 JULIUS MADRID BACTERIAL 9 [facility] INC INC QUANTTATI VE COLONY COUNT URINE INITIAL 42483 CORY RAY OBSERVATI 9 , PETER , PETER ON CARE/DAY 50 [place] [address] JULIUS MADRID INFUSION 9 [facility] THERAPY/P INC INC ROPHYLAXI S /DX 1ST TO [address] PELVIS 56975 JULIUS MADRID W/O 9 [facility] [place] [address] JULIUS MADRID INFUSION [address] [facility] THER INC INC PROPH ADDL SEQUENTIA L TO 1 HR BASIC 58475 JULIUS MADRID METABOLIC 9 [facility] PANEL INC INC CALCIUM TOTAL URINE 01178 JULIUS MADRID 9 [facility] TEST INC INC VISUAL COLOR CMPRSN METHS URNLS DIP [address] [facility] STICK/TAB INC INC LET REAGENT AUTO MICROSCOP Y BLOOD 08292 JULIUS MADRID COUNT [address] [facility] COMPLETE INC INC AUTO&AUTO DIFRNTL WBC RADEX HIP 31289 JULIUS MADRID [address] [facility] UNILATERA INC INC L COMPLETE MINIMUM 2 VIEWS RADEX 44531 [place] CHANDRIKA, SACRUM & 9 MEDICAL KIRSTIN P COCCYX IMAGING MINIMUM 2 ASSOCIATE VIEWS S RADIOLOGI 00175 [place] Merna CHUNG EXAM 9 MEDICAL RUBY CHEST 2 IMAGING VIEWS ASSOCIATE FRONTAL&[place] [address] JULIUS MADRID STREPTOCO [address] [facility] [place] [address] JULIUS MADRID STREPTOCO [address] [facility] CCUS INC INC GROUP A Encounters Encounter Start End Date Code Location Performer Type Date OFFICE 22190 JULIUS OUTPATIEN 7 7 [facility] T VISIT 5 INC MINUTES HOSPITAL JULIUS - 7 7 [facility] OUTPATIEN INC T OFFICE 57838 [facility] ROBERTS OUTPATIEN 7 7 PHYSICIAN T VISIT 5 S GROUP MINUTES OFFICE 20907 [facility] STONE OUTPATIEN 7 7 PHYSICIAN T VISIT S GROUP 25 MINUTES HOSPITAL [facility] - 6 6 [facility] OUTPATIEN E T HOSPITALS OFFICE 07697 [facility] PETTEY OUTPATIEN 6 6 PHYSICIAN JAM T NEW 20 S GROUP MINUTES OFFICE 88256 [facility] LLII OUTPATIEN 6 6 PHYSICIAN [place] T VISIT S GROUP 15 MINUTES OFFICE 13160 [facility] ROBERTS OUTPATIEN 6 6 PHYSICIAN YOSI T VISIT 5 S GROUP MINUTES OFFICE 03562 [facility] WALL OUTPATIEN 6 6 PHYSICIAN SUDHA T VISIT 5 S GROUP MINUTES OFFICE 28167 [facility] WALL OUTPATIEN 6 6 PHYSICIAN SUDHA T NEW 20 S GROUP MINUTES EMERGENCY 70809 LORIN PEARSON DEPT 6 6 PHYSICIAN [place] VISIT S, [facility] HIGH SEVERITY& THREAT FUNCJ EMERGENCY 40298 LORIN ELLIS [facility] 6 6 PHYSICIAN DEPARTMEN S, [facility] T VISIT HIGH/URGE NT SEVERITY HOSPITAL JULIUS - 6 6 [facility] OUTPATIEN INC T EMERGENCY 03388 [facility] 6 6 [facility] LOW/MODER SEVERITY OFFICE 19377 [facility] ROBERTS OUTPATIEN 6 6 PHYSICIAN YOSI T VISIT 5 S GROUP MINUTES OFFICE 86498 [facility] LILI OUTPATIEN 5 5 PHYSICIAN [place] T NEW 30 S GROUP MINUTES EMERGENCY 33372 LORIN NICKERSON 5 5 PHYSICIAN U LAILA [facility], [facility] T VISIT HIGH/URGE NT SEVERITY HOSPITAL JULIUS - [address] [facility] OUTPATIEN INC T OFFICE 65596 [facility] ARMANDO OUTPATIEN 5 5 PHYSICIAN YOSI T VISIT 5 S GROUP MINUTES EMERGENCY 00826 ИВАН 5 5 [facility] T VISIT HIGH/URGE NT SEVERITY EMERGENCY 93161 [facility] 5 5 [facility] EMERGENCY T VISIT PHYS MODERATE SEVERITY HOSPITAL ИВАН - [address] [facility] T EMERGENCY 66090 LORIN PEARSON 5 5 PHYSICIAN [place] DEPARTMEN S, [facility] T VISIT HIGH/URGE NT SEVERITY EMERGENCY [address] [facility] DEPARTMEN INC T VISIT LOW/MODER SEVERITY HOSPITAL JULIUS - 5 5 [facility] OUTPATIEN INC T HOSPITAL JULIUS - [address] [facility] OUTPATIEN INC T PERIODIC 57980 [facility] PREVENTIV 5 5 PHYSICIAN E MED EST S GROUP PATIENT 18-39 YRS OFFICE 23007 [facility] HUNTER JR OUTPATIEN 5 5 PHYSICIAN YI T VISIT S GROUP 15 MINUTES EMERGENCY 81993 JULIUS GREY 5 5 [facility] T VISIT P MODERATE SEVERITY HOSPITAL JULIUS - [address] [facility] OUTPATIEN INC T EMERGENCY 97905 JULIUS 5 5 [facility] DEPARTMEN INC T VISIT HIGH/URGE NT SEVERITY OFFICE 51534 [facility] FRYMDILIP OUTPATIEN 5 5 PHYSICIAN EUG T VISIT S GROUP 15 MINUTES OFFICE 81603 [facility] SAIDA OUTPATIEN 4 4 PHYSICIAN ELIZABETH T VISIT S GROUP 15 MINUTES OFFICE 66958 MARIE MARRERO 4 4 CORIE CORIE T VISIT 15 MINUTES OFFICE 23441 ARMANDO STONEPATIEN 4 4 YOSI YOSI T VISIT 5 MINUTES HOSPITAL JULIUS - 4 4 [facility] OUTPATIEN INC T EMERGENCY [address]67 J[address] [facility] DEPARTMEN INC T VISIT LOW/MODER SEVERITY EMERGENCY 52692 DIANNE GREY 4 4 [facility] EMERGENCY T VISIT PHYS MODERATE SEVERITY OFFICE 44530 LUKE YOST OUTPATIEN 4 4 T VISIT 10 MINUTES OFFICE 37493 MARIE STONEPATIMAMIE 4 4 CORIE CORIE T VISIT 15 MINUTES OFFICE 30660 ARMANDO ROBERTS OUTPATIEN 4 4 YOSI YOSI T VISIT 5 MINUTES OFFICE 19544 [place] MARIE MARRERO 4 4 CORIE CORIE T VISIT 15 MINUTES HOSPITAL JULIUS - 4 4 [facility] OUTPATIEN INC T OFFICE 37006 [place] MARIE MARRERO 4 4 CORIE CORIE T VISIT 15 MINUTES OFFICE 04354 ARMANDO MARRERO 4 4 YOSI YOSI T VISIT 5 MINUTES OFFICE 59874 [place] MARIE MARRERO 4 4 CORIE CORIE T VISIT 15 MINUTES OFFICE 47003 [place] MARIE MARRERO 4 4 CORIE CORIE T VISIT 15 MINUTES HOSPITAL JULIUS - 4 4 [facility] OUTPATIEN INC T EMERGENCY 24642 JULIUS 4 4 [facility] DEPARTMEN INC T VISIT LOW/MODER SEVERITY HOSPITAL JULIUS - 4 4 [facility] OUTPATIEN INC T EMERGENCY 23631 LILI PEARSON DEPT 4 4 [place] VISIT HIGH SEVERITY& THREAT FUN OFFICE 17700 MARIE MARRERO 3 3 CORIE CORIE T VISIT 15 MINUTES OFFICE 82079 ARMANDO MARRERO 3 3 YOSI YOSI T VISIT 5 MINUTES OFFICE 57486 MARIE MARRERO 3 3 CORIE CORIE T VISIT 15 MINUTES HOSPITAL JULIUS - 3 3 [facility] OUTPATIEN INC T HOSPITAL JULIUS - 3 3 [facility] OUTPATIEN INC T EMERGENCY 29924 LILI PEARSON 3 3 [place] R[place] DEPARTMEN T VISIT HIGH/URGE NT SEVERITY EMERGENCY 43847 JULIUS 3 3 [facility] DEPARTMEN INC T VISIT MODERATE SEVERITY HOSPITAL JULIUS - 3 3 [facility] OUTPATIEN INC T EMERGENCY 60931 DAKOTA DUNCAN DEPT 3 3 III JOSE ELIAS III JOSE ELIAS VISIT HIGH SEVERITY& THREAT FUNCJ EMERGENCY 79374 JULIUS 3 3 [facility] DEPARTMEN INC T VISIT HIGH/URGE NT SEVERITY HOSPITAL JULIUS - [address] [facility] OUTPATIEN [facility] JULIUS - [address] [facility] OUTPATIEN [facility] T OFFICE 96143 MARIE MARRERO 3 3 CORIE CORIE T VISIT 15 MINUTES OFFICE 90880 ARMANDO ROBERTS OUTPATIEN 3 3 YOSI YOSI T VISIT 5 MINUTES OFFICE 21049 MARIE MARRERO 3 3 CORIE CORIE T VISIT 15 MINUTES OFFICE 14991 ARMANDO ROBERTS OUTPATIEN 3 3 YOSI YOSI T VISIT 5 MINUTES EMERGENCY 41702 LILI PEARSON 3 3 [facility] HIGH/URGE NT SEVERITY HOSPITAL JULIUS - [address] [facility] OUTPATIEN [facility] T OFFICE 13248 MARIE MARRERO 3 3 CORIE CORIE T VISIT 15 MINUTES OFFICE 59896 ARMANDO ROBERTS OUTPATIEN 3 3 YOSI YOSI T VISIT 5 MINUTES OFFICE 76891 MARIE SALAZAR OUTPATIMAMIE 3 3 CORIE CORIE T VISIT 15 MINUTES OFFICE 06886 ARMANDO ROBERTS OUTPATIEN 2 2 YOSI YOSI T VISIT 5 MINUTES OFFICE 77887 ERIKSTWILBERTO VALENCIASTWILBERTO OUTPATIEN 2 2 KATLIN KATLIN T VISIT 10 MINUTES HOSPITAL JULIUS - [address] [facility]PATIEN [facility] JULIUS - [address] [facility] OUTPATIEN [facility] T OFFICE 33382 SCHULSTAD SCHULSTAD CONSULTAT 2 2 KATLIN KATLIN ION NEW/ESTAB PATIENT 40 MIN OFFICE 09436 [place] MARIE OUTRAMONEEN 2 2 CORIE CORIE T VISIT 15 MINUTES EMERGENCY 04673 JULIUS 2 2 [facility] DEPARTMEN INC T VISIT LOW/MODER SEVERITY EMERGENCY 42874 TYRELL HTAKUR DEPT 2 2 EMERGENCY VISIT SERVICES HIGH SEVERITY& THREAT [facility] JULIUS - 2 2 [facility] 21837 MARIE SALAZAR OUTRAMONEEN 2 2 CORIE CORIE T VISIT 15 MINUTES OFFICE 96206 ARMANDO RAOEN 2 2 YOSI YOSI T VISIT 10 MINUTES OFFICE 00493 MARIE MARRERO 2 2 CORIE CORIE T VISIT 15 MINUTES EMERGENCY 11755 [facility] N DEPARTMEN COMMUNITY T VISIT HOSPITA HIGH/URGE NT SEVERITY EMERGENCY 63460 RECHTIN RECHTIN DEPT 2 2 MRI ASSISTANT MRI ASSISTANT VISIT HIGH SEVERITY& THREAT [facility] N OUTPATIEN COMMUNITY T HOSPITA OFFICE 82150 MARIE MARRERO 2 2 CORIE CORIE T VISIT 15 MINUTES OFFICE 95448 MARIE MARRERO 2 2 CORIE CORIE T VISIT 15 MINUTES OFFICE 04528 ARMANDO RAOEN 2 2 YOSI YOSI T VISIT 5 MINUTES OFFICE 20165 MARIE MARRERO 2 2 CORIE CORIE T VISIT 15 MINUTES OFFICE 88604 ARMANDO ROBERTS OUTPATIEN 2 2 YOSI YOSI T VISIT 5 MINUTES OFFICE 01985 MAE MARRERO 2 2 SUDHA SUDHA T NEW 30 MINUTES EMERGENCY 56130 TYRELL RUVALCABA DEPT 2 2 EMERGENCY VISIT SERVICES HIGH SEVERITY& THREAT FUNCJ EMERGENCY 35082 JULIUS 2 2 [facility] DEPARTMEN INC T VISIT LOW/MODER SEVERITY HOSPITAL JULIUS - 2 2 [facility] OUTPATIEN INC T OFFICE 10454 [place] MARIE MARRERO 2 2 CORIE CORIE T VISIT 15 MINUTES OFFICE 71366 MARIE MARRERO 2 2 CORIE CORIE T VISIT 15 MINUTES OFFICE 60890 MARIE MARRERO 2 2 CORIE CORIE T VISIT 15 MINUTES OFFICE 15692 NEALEfraín NEALEfraín OUTAIDEE 2 2 JACOB JACOB T VISIT KATLIN KATLIN 15 MINUTES OFFICE 46173 MARIE MARRERO 2 2 CORIE CORIE T VISIT 15 MINUTES OFFICE 34050 MARIE MARRERO 2 2 CORIE CORIE T VISIT 15 MINUTES OFFICE 47099 [facility] CON[facility]ULT[facility] 2 2 ALLERGY ALLERGY ION & ASTHMA & ASTHMA NEW/ESTAB P P PATIENT 60 MIN OFFICE 79527 MARIE MARRERO 2 2 CORIE CORIE T VISIT 15 MINUTES OFFICE 84586 ARMANDO MARRERO 2 2 YOSI YOSI T VISIT 5 MINUTES OFFICE 40264 MARIE MARRERO 2 2 CORIE CORIE T VISIT 15 MINUTES HOSPITAL UNIVERSIT - 1 1 Y OUTPATI HOSPITAL T EMERGENCY 23919 KIANA GRIFFIN MICHELLE 1 1 MEDICAL DEPARTMEN SERV T VISIT FOUNDATIO HIGH/URGE NT SEVERITY EMERGENCY 78410 UNIVERSIT DEPT 1 1 Y VISIT HOSPITAL HIGH SEVERITY& THREAT FUNCJ OFFICE 78751 MARIE MARRERO 1 1 CORIE CORIE T VISIT 15 MINUTES EMERGENCY 90616 JULIUS 1 1 [facility] DEPARTMEN INC T VISIT HIGH/URGE NT SEVERITY EMERGENCY 47167 LILI PEARSON DEPT 1 1 [place] VISIT HIGH SEVERITY& [facility] OUTPATIEN INC T OFFICE 12969 CYNODALYS MARIE MARRERO 1 1 CORIE CORIE T VISIT 15 MINUTES OFFICE 04213 MARIE MARRERO 1 1 CORIE CORIE T VISIT 15 MINUTES OFFICE 90306 CYNODAL[place] MARIE MARRERO 1 1 CORIE CORIE T VISIT 15 MINUTES OFFICE 65852 MARIE MARREOR 1 1 CORIE CORIE T VISIT 15 MINUTES OFFICE 25262 [facility] OUT[facility] 1 1 HEALTH YOSI T VISIT 5 CLINIC OF MINUTES SHERRY OFFICE 46224 [facility] OUT[facility] 1 1 HEALTH YOSI T VISIT CLINIC OF 15 SHERRY MINUTES OFFICE 37144 MARIE MARRERO 1 1 CORIE CORIE T VISIT 15 MINUTES OFFICE 34791 MARIE MARRERO 1 1 CORIE CORIE T VISIT 15 MINUTES [facility] JULIUS - 1 1 [facility] OUTPATIEN INC T OFFICE 37244 MARIE MARRERO 1 1 CORIE CORIE T VISIT 15 MINUTES OFFICE 94716 MARIE MARRERO 1 1 CORIE CORIE T VISIT 15 MINUTES EMERGENCY 52885 JULIUS 1 1 [facility] DEPARTMEN INC T VISIT MODERATE SEVERITY EMERGENCY 10680 TYRELL PEARSON 1 1 EMERGENCY [place] DEPARTMEN SERVICES T VISIT HIGH/URGE NT SEVERITY [facility] JULIUS - 1 1 [facility] OUTPATIEN INC T OFFICE 39148 MARIE MARRERO 1 1 CORIE CORIE T VISIT 15 MINUTES OFFICE 46672 ARNOLD MARIE MARRERO 1 1 CORIE CORIE T VISIT 15 MINUTES OFFICE 11268 [place] MARIE MARRERO 1 1 CORIE CORIE T VISIT 15 MINUTES OFFICE 72343 [facility] OUTPAT[facility] 1 1 HEALTH YOSI T VISIT CLINIC OF 25 SHERRY MINUTES OFFICE 53442 CYNODALYS MARIE MARRERO 1 1 CORIE CORIE T VISIT 15 MINUTES OFFICE 52372 MARIE CYNODALYS ELIDA 1 1 CORIE CORIE T VISIT 15 MINUTES OFFICE 69041 [facility] OUTPAT[facility]EN 1 1 HEALTH YOSI T VISIT 5 CLINIC OF MINUTES SHERRY OFFICE 36774 CYNODALYS MARIE MARRERO 1 1 CORIE CORIE T VISIT 15 MINUTES OFFICE 36268 MARIE MARRERO 1 1 CORIE CORIE T VISIT 15 MINUTES OFFICE 58989 MARIE MARRERO 1 1 CORIE CORIE T VISIT 15 MINUTES OFFICE 58147 MARIE MARRERO 1 1 CORIE CORIE T VISIT 15 MINUTES OFFICE 81923 [facility] BROWN 1 1 IMPLANT & III LAKESHIA T NEW 20 ORAL MINUTES SURGERY C OFFICE 47124 [facility] OUTPATIEN 1 1 HEALTH YOSI T VISIT 5 CLINIC OF MINUTES SHERRY OFFICE 20543 HUNTER HARRISON JR OUTPATIEN 0 0 YI YI T VISIT 25 MINUTES OFFICE 05720 MARIE STONEPATIEN 0 0 CORIE CORIE T VISIT 15 MINUTES OFFICE 56277 MARIE STONEPATIMAMIE 0 0 CORIE CORIE T VISIT 15 MINUTES HOSPITAL JULIUS - 0 0 [facility] OUTPATIEN INC [facility]PITAL JULIUS - 0 0 [facility] OUTPATIEN INC T OFFICE 89789 MARIE SALAZAR OUTPATIEN 0 0 CORIE CORIE T VISIT 15 MINUTES OFFICE 36856 MARIE ADDISONODALYS OUTPATIEN 0 0 CORIE CORIE T VISIT 15 MINUTES OFFICE 94615 [facility] OUT[facility]EN 0 0 HEALTH YOSI T VISIT 5 CLINIC OF MINUTES SHERRY EMERGENCY 71732 KIANA NELSON DEPT 0 0 MEDICAL RAMONE VISIT SERV HIGH FOUNDATIO SEVERITY& [facility]AT [facility] 69848 MARIE ADDISONODALYS OUTPATIEN 0 0 CORIE CORIE T VISIT 15 MINUTES EMERGENCY 14188 [facility] AMERITOX 0 0 E [facility] T VISIT LOW/MODER SEVERITY HOSPITAL [facility] - 0 0 [facility] T OFF[facility] 39581 MARIE SALAZAR OUTPATIEN 0 0 CORIE CORIE T VISIT 15 MINUTES OFFICE 44946 CYNODALYS SALAZAR OUTPATIEN 0 0 CORIE CORIE T VISIT 15 MINUTES OFFICE 92981 [facility], OUTPATIEN 0 0 HEALTH ISABEL J T VISIT 5 CLINIC OF MINUTES [facility] OFFICE 83635 MARIE SALAZAR OUTPATIEN 0 0 RODERICK W RODERICK W T VISIT 15 MINUTES OFFICE 61667 MARIE SALAZAR OUTPATIEN 0 0 RODERICK W RODERICK W T VISIT 15 MINUTES OFFICE 74591 MARIE SALAZAR OUTPATIEN 0 0 RODERICK W RODERICK W T VISIT 15 MINUTES OFFICE 01683 MARIE SALAZAR OUTPATIEN 0 0 RODERICK W RODERICK W T VISIT 15 MINUTES OFFICE 54842 MARIE SALAZAR OUTPATIEN 0 0 RODERICK W RODERICK W T VISIT 15 MINUTES OFFICE 27885 MARIE SALAZAR OUTPATIEN 0 0 RODERICK W RODERICK W T VISIT 15 MINUTES OFFICE 58192 [facility] MAIRA BAEZEN 0 0 [place] [facility] T VISIT ORTHOPAED 15 [facility] MINUTES OFFICE 44261 MARIE SALAZAR OUTPATIEN 0 0 RODERICK VAUGHN W T VISIT 15 MINUTES OFFICE 03984 CENTRAL SASHA, CONSULTAT 0 0 [place] CONNOR C ION ORTHOPAED NEW/ESTAB [facility] PLC PATIENT 60 MIN OFFICE 64354 MARIE SALAZAR OUTPATIEN 0 0 RODERICK VAUGHN W T VISIT 15 MINUTES HOSPITAL JULIUS - 0 0 [facility] OUTPATIEN INC T EMERGENCY 93018 JULIUS 0 0 [facility] DEPARTMEN INC T VISIT LOW/MODER SEVERITY EMERGENCY 10860 TYRELL PEARSON, 0 0 EMERGENCY [facility] SERVICES T VISIT HIGH/URGE ASSOCIATE NT S SEVERITY OFFICE 55565 MARIE SALAZAR OUTPATIEN 0 0 RODERICK VAUGHN W T VISIT 15 MINUTES HOSPITAL UNIVERSIT - 0 0 Y [facility] T OFFICE 58150 KIANA COLEMAN, CONSULTAT 0 0 MEDICAL MENDEL L ION SERV NEW/ESTAB FOUNDATIO PATIENT 40 MIN OFFICE 48556 ALLRAN ALLRAN CONSULTAT 0 0 JR RACHAEL, NIRMALA SINGH F NEW/ESTAB PATIENT 60 MIN OFFICE 54534 MAIRE SALAZAR OUTPATIEN 0 0 RODERICK VAUGHN W T VISIT 15 MINUTES OFFICE 45509 MARIE SALAZAR OUTPATIEN 0 0 [place] VAUGHN W T VISIT 15 MINUTES OFFICE 45360 [facility] 9 9 HEALTH ISABEL Moore T VISIT 5 CLINIC OF MINUTES VIC [facility] OFFICE 95097 MARIE SALAZAR OUTPATIEN 9 9 RODERICK VAUGHN W T VISIT 15 MINUTES OFFICE 77560 MARIE SALAZAR OUTPATIEN 9 9 RODERICK Gould T VISIT 15 MINUTES EMERGENCY 91745 JULIUS 9 9 [facility] DEPARTMEN INC T VISIT LOW/MODER SEVERITY HOSPITAL JULIUS - 9 9 [facility] OUTPATIEN INC T EMERGENCY 70403 TYRELL DUNCAN 9 9 EMERGENCY III, DEPARTMEN SERVICES BEBA T VISIT MODERATE ASSOCIATE SEVERITY S OFFICE 99478 CORY VALENCIASTWILBERTO OUTPATIEN 9 9 , PETERPETER Kunz T VISIT 10 MINUTES HOSPITAL JULIUS - 9 9 [facility] OUTPATIEN INC T OFFICE 09623 MARIE SALAZAR OUTPATIEN 9 9 RODERICK Gould T VISIT 15 MINUTES HOSPITAL JULIUS - 9 9 [facility] OUTPATIEN INC T OFFICE 84328 MARIE SALAZAR OUTPATIEN 9 9 RODERICK Gould T VISIT 15 MINUTES OFFICE 85874 SCHULSTWILBERTO VALENCIASTAD OUTPATIEN 9 9 , PETER GREEN T VISIT 10 MINUTES HOSPITAL JULIUS - 9 9 [facility] OUTPATIEN INC T OFFICE 34004 SCHULSTWILBERTO SCHULSTAD CONSULTAT 9 9 , PETER PETER ION NEW/ESTAB PATIENT 60 MIN OFFICE 17132 MARIE SALAZAR OUTPATIEN 9 9 RODERICK Gould T VISIT 15 MINUTES OFFICE 45621 [facility] 9 9 [facility] J T VISIT CLINIC OF 15 MINUTES [facility] OFFICE 57620 [facility] JULIUS OUTAIDEE 9 9 HEALTH CO HEALTH T [facility] MINUT[facility] BANK ACCT OFFICE 27921 MARIE SALAZAR OUTPATIEN 9 9 RODERICK Gould T VISIT 15 MINUTES OFFICE 14369 MARIE SALAZAR OUTPATIEN 9 9 RODERICK VAUGHN W T VISIT 15 MINUTES OFFICE 81956 MARIE SALAZARBERTHAPATIEN 9 9 RODERICK VAUGHN W T VISIT 15 MINUTES OFFICE 74407 MARIE SALAZAR OUTPATIEN 9 9 RODERICK VAUGHN W T VISIT 15 MINUTES OFFICE 52480 MARIE SALAZARBERTHAPATIMAMIE 9 9 RODERICK VAUGHN W T VISIT 15 MINUTES OFFICE 94033 MARIE SALAZARBERTHAPATIMAMIE 9 9 RODERICK VAUGHN W T VISIT 15 MINUTES OFFICE 54160 MARIE SALAZARELIDA 9 9 RODERICK VAUGHN W T NEW 30 MINUTES OFFICE 53158 [facility] 9 9 [facility] J ION CLINIC OF NEW/ESTAB PATIENT [place] 40 MIN [facility] EMERGENCY 07106 TYRELL RUIZ, DEPT 9 9 EMERGENCY ENDY P VISIT SERVICES HIGH SEVERITY& ASSOCIATE THREAT S FUNJ EMERGENCY 58279 [facility] 9 9 [facility]PART[facility] T VISIT HIGH/URGE NT [facility] JULIUS - 9 9 [facility] OUTPATIEN INC T EMERGENCY 96951 [facility]US 9 9 [facility] DEPARTMEN INC T VISIT LIMITED/M INOR PROB EMERGENCY 34840 TYRELL RUIZ 9 9 EMERGENCY ENDY P DEPARTMEN SERVICES T VISIT MODERATE ASSOCIATE SEVERITY S [facility] JULIUS - 9 9 [facility] OUTPATIEN INC T OFFICE 45864 ISAIAH COOLN OUTPATIEN 9 9 GENE Jorgensen T VISIT 15 MINUTES OFFICE 16590 FIGUEROA STONEPATIEN 9 9 Oscar CANO JR, J V T VISIT 15 MINUTES OFFICE 58401 [facility] 9 9 [facility] J T VISIT CLINIC OF 15 MINUTES [facility] OFF[facility] 25687 ISAIAH COLON OUTPATIEN 9 9 GENE A GENE A T VISIT 15 MINUTES HOSPITAL JULIUS - [address] [facility] OUTPATIEN INC T OFFICE 88934 ISAIAH COLON OUTPATIEN 9 9 GENE A GENE A T VISIT 15 MINUTES EMERGENCY [address]12 JULIUS [address] [facility] DEPARTMEN INC T VISIT MODERATE SEVERITY HOSPITAL JULIUS - [address] [facility] OUTPATIEN INC T EMERGENCY 39789 ANGI PEARSON, 9 9 [facility] T VISIT ON HIGH/URGE NT SEVERITY OFFICE 19593 [facility], OUTPATIEN 8 8 [facility] J T VISIT CLINIC OF 25 MINUTES [facility] OFFICE 30734 ISAIAH COLON OUTPATIEN 8 8 GENE A GENE A T VISIT 15 MINUTES OFFICE 91214 ISAIAH COLON OUTPATIEN 8 8 GENE A GENE A T VISIT 15 MINUTES OFFICE 81071 [facility], [facility] 8 8 [facility] J T VISIT CLINIC OF 15 MINUTES [facility] EMERGENCY [address] [facility] DEPARTMEN INC T VISIT MODERATE SEVERITY HOSPITAL JULIUS - [address] [facility] OUTPATIEN INC T OFFICE 76622 [facility] 8 8 [facility] J T VISIT CLINIC OF 15 MINUTES [facility] OFFICE 18039 [facility], OUTPATIEN 8 8 [facility] J T NEW 30 CLINIC OF MINUTES [facility] OFFICE 06827 ISAIAH COLON OUTPATIEN 7 7 GENE A GENE A T VISIT 15 MINUTES
--- OUTSIDE RECORDS SUMMARY | 2016-12-02 18:01 | External Medical Summary Rpt ---
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 Role Phone NELSON RAMONE, NELSON Unavailable [...] PASTORA IQBAL ALL, IQBAL ALL Unavailable Unavailable [facility] Unavailable Unavailable [facility] Oscar MARTI JR V, Unavailable Unavailable Oscar [...] LILI RODOLFO, LILI Unavailable Unavailable RODOLFO SARA PEARSON, Unavailable Unavailable SARA PEARSON [facility] Unavailable Unavailable HOSPITA, [facility], [facility] Unavailable Unavailable [facility]available Unavailable [facility]ENTER, [facility] Unavailable Unavailable INC, [facility] Unavailable Unavailable HOSPITAL P, [facility] BUTLER PRIYANK, BUTLER PRIYANK Unavailable Unavailable BUTLER PRIYANK, BUTLER PRIYANK Unavailable Unavailable [facility], Unavailable Unavailable [facility] MERCADO HEN, MERCADO HEN Unavailable Unavailable NEAL-JACOB KATLIN, Unavailable Unavailable NEAL-JACOB KATLIN NEAL-JACOB KATLIN, Unavailable Unavailable NEAL-JACOB KATLIN SAIDA ELIZABETH, SAIDA Unavailable Unavailable ELIZABETH [facility] Unavailable [facility], [facility], OFE MECHE [...] [facility] TYRELL CHUY, Unavailable Unavailable [facility] VERNON CHUY, Unavailable Unavailable [facility] Unavailable Unavailable SERVICES, [facility] DENEEN GEMA, DENEEN Unavailable Unavailable KIRSTIN CALDWELL, Unavailable Unavailable KIRSTIN COBOS, NELLY MOCTEZUMA Unavailable Unavailable NELLY SEWELL Unavailable Unavailable GENE COLON, Unavailable Unavailable GENE COLON DODDFERNANDA MOCTEZUMA, DODD Unavailable Unavailable JOSE ELIAS [facility], Unavailable Unavailable [facility] Unavailable Unavailable LAB, [facility] DEREK BROWN, Unavailable Unavailable DEREK BROWN PETTEY JAM, PETTEY Unavailable Unavailable JAM RECHTIN PCA, RECHTIN Unavailable Unavailable PCA RECHTIN PCA, RECHTIN Unavailable Unavailable PCA [id number], Unavailable Unavailable [id number] Unavailable Unavailable [id number] [address] [id number], [facility] [address] [address] [id number] [facility] Unavailable Unavailable AMBULANCE, [facility] Unavailable Unavailable AMBULANCE, [facility], Unavailable Unavailable [facility] ANCELMO LA, ANCELMO LA Unavailable Unavailable [...] Unavailable SOTINGEANU LAILA, Unavailable Unavailable SOTINGEANU LAILA [facility] Unavailable Unavailable RAD[facility]OLOGY PLLC, [facility] Unavailable Unavailable EMERGENCY PHYS, [facility] STONE, STONE Unavailable Unavailable [facility] Unavailable Unavailable [facility], [facility] Unavailable Unavailable HOSPITALS, [facility], Unavailable Unavailable [facility] Un[facility] [place] [facility] WEHRMAN III JOSE ELIAS, Unavailable Unavailable WEHRMAN III JOSE ELIAS WEHRMAN III JOSE ELIAS, Unavailable Unavailable WEHRMAN III JOSE ELIAS WEHRBEBA SUAREZ III, Unavailable Unavailable WEHRDANIELA IIIBEBA, JAKY THAKUR Unavailable Unavailable CONNOR BAEZ, Unavailable Unavailable CONNOR BAEZ [facility] Unavailable Unavailable [facility] [place], [facility] [place] Purpose Continuity of Care Document - 09-03-2007 through 2016 Problems Code Diagnosis DOS Provider Status [id number] OTITIS 08-21-2016 [facility] UNSPECIFIED INC LEFT EAR Z3040 ENCOUNTER 08-16-2016 [facility] SURVEILLANC GROUP E CONTRACEPTI VES UNS 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 GROUP WITH DIARRHEA H35982 CONTACT W/ 07-20-2016 [facility] EXPOSURE PHYSICIANS OTH VIRAL GROUP COMMUNICABL E DZ 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 G5691 UNSPECIFIED 12-22-2015 [facility] THY RIGHT UPPER LIMB [id number] INJURY 12-22-2015 [facility] HAND LEVEL RT ARM INIT R53966 PAIN IN 11-18-2015 [place] [facility] [id number] INJURY 11-18-2015 [facility] RADIAL PHYSICIANS NERVE GROUP FOREARM LEVEL RT ARM INIT H5213 MYOPIA 10-30-2015 [facility] ANG BILATERAL Z4802 ENCOUNTER 08-06-2015 [facility] FOR REMOVAL PHYSICIANS OF SUTURES GROUP T148 OTHER 07-27-2015 [facility] INJURY OF PHYSICIANS UNSPECIFIED GROUP BODY REGION M542 CERVICALGIA 07-26-2015 [facility] R51 HEADACHE 07-26-2015 [facility] [id number] LAC W/O FB 07-26-2015 [place] LT EYELID & MEDICAL PERIOCULAR IMAGING ASS AREA INIT ENC P9607CP LACERATION 07-26-2015 [facility] W/O FB PHYSICIANS, OTHER PART PLLC HEAD INITIAL ENC V252O0M CONCUSSION 07-26-2015 [facility] W/LOC 30 PHYSICIANS, MIN/LESS PLLC INITIAL ENCOUNTER [id number] UNSPECIFIED 07-26-2015 [place] INJURY OF MEDICAL HEAD IMAGING ASS INITIAL ENCOUNTER M212TCP UNSPECIFIED 07-26-2015 [place] IN[facility] OF MEDICAL NECK IMAGING ASS INITIAL ENCOUNTER J180 BRONCHOPNEU 06-21-2015 [place] [facility] UNSPECIFIED IMAGING ASS ORGANISM J209 ACUTE 06-21-2015 [facility] BRONCHITIS [facility] UNSPECIFIED INC J40 BRONCHITIS 06-21-2015 [facility] NOT PHYSICIANS, SPECIFIED PLLC ACUTE OR CHRONIC K91050 UNSPECIFIED 06-21-2015 [facility] ASTHMA [facility] UNCOMPLICAT INC ED R05 COUGH 06-21-2015 [facility] Z3042 ENCOUNTER 05-14-2015 [facility] SURVEILLANC PHYSICIANS E GROUP INJECTABLE CONTRACEPTI VE M7989 OTHER 03-11-2015 [facility] SPECIFIED PHYSICIANS SOFT TISSUE GROUP DISORDERS N926 IRREGULAR 03-11-2015 [facility] MENSTRUATIO PHYSICIANS N GROUP UNSPECIFIED R1110 VOMITING 03-11-2015 [facility] UNSPECIFIED PHYSICIANS GROUP X47015 MIGRAINE 03-03-2015 [facility] W/O AURA PHYSICIANS, NOT INTRACT PLLC W/O STAT MIGRAIN 81089 UNSPECIFIED 11-20-2014 [facility] CON[facility]CT[facility] PHYS TIS V142 PERSONAL 11-20-2014 [facility] SULFONAMIDE S V143 PERSONAL 11-20-2014 [facility] ANTI-INFECT JANE AGT 16694 SPRAIN AND 09-22-2014 [facility] STRAIN OF TECHNOLOGIE UNSPECIFIED S INC SITE OF FOOT 7820 DISTURBANCE 09-21-2014 [place] OF SKIN MEDICAL SENSATION [facility] ASS 9170 ABRASION/FR 09-21-2014 [facility] ICTION BURN [facility] FOOT&TOE INC W/O MENTION INF V065 NEED 09-21-2014 [facility] PROPHYLACTI [facility] C INC VACCINATION W/TETANUS-D [facility] 3671 MYOPIA 07-25-2014 SCIFRSARAH ANG V2549 SURVEILLANC 07-22-2014 [facility] E OTH PREV PHYSICIANS PRSC GROUP CONTRACEPT METHOD V692 PROBLEMS 07-22-2014 [facility] RELATED TO [facility] HIGH-RISK INC SEXUAL BEHAVIOR V7231 ROUTINE 07-22-2014 [facility] GYNECOLOGIC PHYSICIANS AL GROUP EXAMINATION 48659 DIARRHEA 07-15-2014 [facility] 66532 ABDOMINAL 07-15-2014 [facility] PAIN, PHYSICIANS EPIGASTRIC GROUP 10279 ASTHMA, 07-11-2014 [facility] UNSPECIFIED [facility] P UNSPECIFIED STATUS 49903 ACUTE 07-11-2014 [facility] GASTRITIS [facility] P MENTION OF HEMORRHAGE 31512 ABDOMINAL 07-11-2014 [facility] PAIN, MEDICAL UNSPECIFIED IMAGING ASS SITE 08264 ACUTE 07-06-2014 [facility] SEROUS PHYSICIANS OTITIS GROUP MEDIA 4619 ACUTE 07-06-2014 [facility] SINUSITIS, PHYSICIANS UNSPECIFIED GROUP 4660 ACUTE 01-28-2014 MARIE CORIE BRONCHITIS 5589 OTH&UNSPEC 01-28-2014 ARNODALYS OCRIE NONINFECTIO US GASTROENTER ITIS&COLITI S 26431 OTHER 01-12-2014 [facility] CONVULSIONS [facility] INC 54429 OBESITY, 12-17-2013 ARNOLD CORIE UNSPECIFIED 32638 BLEPHARITIS 12-17-2013 BUTLER PRIYANK , UNSPECIFIED 8020 NASAL 08-30-2013 MARIE FONTENOT BONES, CLOSED FRACTURE 920 CONTUSION 08-30-2013 [facility] OF FACE [facility] SCALP AND INC NECK EXCEPT EYE 27212 INJURY OF 08-30-2013 JULIET FACE AND AGUS NECK OTHER AND UNSPECIFIED 31825 PAIN IN 06-12-2013 JUL[facility]ET JOINT, AGUS LOWER LEG 9596 INJURY 06-12-2013 [facility] OTHER AND [facility] UNSPECIFIED INC HIP AND THIGH E0032 ACT INVLV 06-12-2013 J[facility] SNOW SKI AGUS BOARD SLED TOBOGGAN & TUBING 72595 GENERALIZED 05-30-2013 UJLIET PAIN AGUS 7840 HEADACHE 05-30-2013 LILI RODOLFO 75815 HEAD 05-30-2013 JUL[facility]ET INJURY, AGUS UNSPECIFIED 9599 [...] FOLLOWING [facility] GASTROINTES INC TINAL SURGERY 86627 NAUSEA WITH 03-31-2013 LILI RODOLFO VOMITING V4589 OTHER 03-31-2013 LILI RODOLFO POSTSURGICA L STATUS OTHER 41236 CHRONIC 03-29-2013 TYRELL CHOLECYSTIT CHUY IS 5758 OTHER 03-29-2013 NELLY MOCTEZUMA SPECIFIED DISORDER OF GALLBLADDER 5768 OTHER 03-11-2013 WEHRMAN III SPECIFIED JOSE ELIAS DISORDERS OF BILIARY TRACT 09556 CHEST PAIN 03-11-2013 WEHRMAN III UNSPECIFIED JOSE ELIAS 08221 ABDOMINAL 03-11-2013 MARI CANO PAIN, DWI GENERALIZED [...] 09-19-2012 LILI RODOLFO DISORDER TEETH&SUPPO RTING STRUCTURES 98005 PAIN IN 08-21-2012 MARIE FONTENOT JOINT, SITE UNSPECIFIED 66878 ABDOMINAL 04-19-2012 [facility] PAIN RIGHT KATLIN UPPER QUADRANT 5780 HEMATEMESIS 04-12-2012 [facility] KATLIN 56334 ESOPHAGEAL 04-04-2012 [facility] 61830 VARIANTS 03-08-2012 MARIE FONTENOT MIGRAINE NEC INTRACT MIGRAINE W/O SM V720 EXAMINATION 02-03-2012 SCIFRES ANG OF EYES AND VISION 5693 HEMORRHAGE 01-16-2012 MARIE CORIE OF RECTUM AND ANUS 5789 UNSPECIFIED 01-05-2012 VENKATESH VANEGAS HEMORRHAGE OF GASTROINTES TINAL TRACT 462 ACUTE 12-22-2011 MARIE CORIE PHARYNGITIS 37903 UNSPECIFIED 09-13-2011 MARIE CORIE INFECTIVE OTITIS EXTERNA 56232 CHRONIC 07-25-2011 [place] TONSILLITIS 4779 ALLERGIC 07-25-2011 [place] RHINITIS CAUSE UNSPECIFIED 7231 CERVICALGIA 07-14-2011 [facility] 85773 SPASM OF 07-14-2011 J[facility] MUSCLE AGUS 7856 ENLARGEMENT 07-14-2011 [facility] OF LYMPH EMERGENCY NODES SERVICES 09018 UNS 07-05-2011 MARIE FONTENOT GASTRITIS&G ASTRODUODIT IS W/O MENTION HEMORR 4871 INFLUENZA 06-20-2011 MARIE FONTENOT WITH OTHER RESPIRATORY MANIFESTATI ONS 38185 UNSPECIFIED 06-15-2011 [facility]AL-CO CASTILLO KATLIN CONSTIPATIO N 4770 ALLERGIC 05-26-2011 [facility] RHINITIS ALLERGY & DUE TO ASTHMA P POLLEN 4778 ALLERGIC 05-26-2011 [facility] RHINITIS ALLERGY & DUE TO ASTHMA P OTHER ALLERGEN 48570 EXTRINSIC 05-26-2011 [facility] ASTHMA, ALLERGY & UNSPECIFIED ASTHMA P 7083 DERMATOGRAP 05-26-2011 [facility] HIC ALLERGY & URTICARIA ASTHMA P V727 DIAGNOSTIC 05-26-2011 [facility] SKIN AND ALLERGY & SENSITIZATI ASTHMA P ON TESTS 1110 PITYRIASIS 05-11-2011 CYNODALYS FONTENOT VERSICOLOR 54310 OTHER 04-19-2011 [place] [facility] 5999 UNSPECIFIED 03-08-2011 CYNODALYS FONTENOT DISORDER OF URETHRA&URI NARY TRACT 6264 IRREGULAR 02-10-2011 [facility] [place] 6268 OTH D/O 02-10-2011 [facility] MENSTRUAT[facility] N&OTH ABN CLINIC OF BLEED FE [place] GNT TRACT 11689 PEPTC ULCR 12-23-2010 MARIE FONTENOT UNS ACUT/CHRN W/O HEMOR PERF/OBST 5990 URINARY 10-13-2010 [facility] TRACT [facility]ERG[facility] INFECTION SERVICES SITE NOT SPECIFIED 7242 LUMBAGO 09-29-2010 MARIE FONTENOT 9953 ALLERGY 09-29-2010 MARIE FONTENOT UNSPECIFIED NOT ELSEWHERE CLASSIFIED 6259 UNSPEC 08-31-2010 [facility] OF W/FEMALE [place] GENITAL ORGANS 66084 ABDOMINAL 08-31-2010 [facility] PAIN, LEFT HEALTH LOWER CLINIC OF QUADRANT [place] 6202 OTHER AND 08-30-2010 MARIE FONTENOT UNSPECIFIED OVARIAN CYST 5210 DENTAL 06-18-2010 THE [facility] CARIES & ORAL SURGERY C 5759 UNSPECIFIED 03-29-2010 MARIE FONTENOT DISORDER OF GALLBLADDER 32085 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 [facility] DYSFUNCTION FOUNDATIO 7245 UNSPECIFIED 01-13-2010 [place] [facility] BACKACHE SERV FOUND[facility] 28179 OTHER 01-13-2010 [place] [facility] INJURY OF SERV OTHER SITES FOUNDATIO OF TRUNK 06205 UNSPEC 01-12-2010 MAR[facility] CORIE EPILEPSY WITHOUT MENTION INTRACT EPILEPSY 7241 PAIN IN 01-09-2010 [facility] 76763 OTHER 01-09-2010 [facility] ALTERATION CO OF AMBULANCE CONSCIOUSNE SS 7802 SYNCOPE AND 01-09-2010 [facility] 8479 SPRAIN AND 01-09-2010 [facility] STRAIN OF HOSPITAL UNSPECIFIED SITE OF BACK 8488 OTHER 01-09-2010 [facility] SPECIFIED EMERGENCY SITES OF SERVICES SPRAINS AND STRAINS E0009 UNSPECIFIED 01-09-2010 [facility] EXTERNAL HOSPITAL CAUSE STATUS E0029 OTHER 01-09-2010 [facility] ACTIVITY HOSPITAL INVOLVING WATER AND WATERCRAFT E8498 OTHER 01-09-2010 [facility] SPECIFIED HOSPITAL PLACE OF OCCURRENCE E9288 OTHER 01-09-2010 [facility] ACCIDENT [facility]OSPITAL 3829 UNSPECIFIED 10-16-2009 MARIE, OTITIS RODERICK W MEDIA 65478 ASTHMA 10-16-2009 MARIE, UNSPECIFIED RODERICK W WITH STATUS ASTHMATICUS 26069 ACUTE 09-24-2009 MARIE, LARYNGITIS, RODERICK W WITHOUT MENTION OF OBSTRUCTIO 00266 INSOMNIA 08-25-2009 MARIE, UNSPECIFIED RODERICK W V2509 OT GENERAL 08-04-2009 [facility] 33521 CONTUSION 07-07-2009 [place] OF [facility] E[address] PLACE OF 07-07-[address] [place] [address] IMAGING RECREATION ASSOCIATES AND SPORT E8859 FALL FROM 07-07-2009 [place] OTHER MEDICAL SLIPPING IMAGING TRIPPING OR ASSOCIATES STUMBLING 8449 SPRAIN&STRA 07-06-2009 T[facility] IN OF EMERGENCY UNSPECIFIED SERVICES SITE OF ASSOCIATES KNEE&LEG 40683 NAUSEA 06-12-2009 [place] [facility] ALONE [facility] FOUNDATIO 40482 VOMITING 06-12-2009 [place] [facility] F[facility]AT[facility] 5224 ACUTE 05-19-2009 MARIE, APICAL RODERICK W PERIODONTIT IS OF PULPAL ORIGIN 7842 SWELLING 03-22-2009 T[facility] MASS OR EMERGENCY LUMP IN SERVICES HEAD AND ASSOCIATES NECK 44224 DUODENITIS 03-05-2009 [facility], WITHOUT PETER MENTION OF HEMORRHAGE V2502 GENERAL 02-03-2009 [facility] CNSL HEALTH INITIATION CLINIC OF OT VIC [facility] MEASURES 2662 OTHER 01-27-2009 DHS/CO B-COMPLEX HEALTH DEFICIENCIE [facility] ACCT 30041 PAIN IN 10-09-2008 ARNOLD, JOINT RODERICK W PELVIC REGION AND THIGH 2892 NONSPECIFIC 08-19-2008 [facility] HO IS [facility] 11312 ABDOMINAL 08-14-2008 [facility], PAIN RIGHT PETER LOWER QUADRANT 0088 INTESTINAL 07-23-2008 MARTI INFECTION JR, J V DUE TO OTHER ORGANISM NEC 6262 EXCESSIVE 07-16-2008 [facility] OF MENSTRUATIO VIC N [facility] 7246 DISORDERS 07-09-2008 [facility] 7862 COUGH 05-28-2008 [facility] 6253 DYSMENORRHE 04-10-2008 [facility] OF VIC [facility] Medications Na ND Rx Da Fi [...] 17 81 PH E 6 97 AR KS MA OP CY 50 MC G SP [...] 34 6- 6- 00 45 LD ve KS 59 20 20 AI ED 31 11 [...] 11 D RI TA 1 PH CH AR AR AR N- MA D CA CY [...] W 03 93 8 # 03 93 KS 37 09 09 11 28 28 RI 89 AR Ac IL 00 -0 -0 .0 TE 78 NO ti OS 00 6- 6- 00 55 LD ve EC 45 20 20 AI 50 11 11 D RI OT 3 PH CH C AR AR 20 MA D .6 CY W MG 03 93 TA 8 BL # ET 03 93 KS 00 08 08 1 18 6 RI 89 AR Ac OM 60 -2 -2 0. TE 66 NO ti ET 31 6- 6- 00 25 LD ve CASTORENA 58 20 20 0 AI ZI 65 11 11 D RI NE 4 PH CH -D AR AR M MA D SY CY W RU P 03 93 8 # 03 93 KS 00 08 08 1 40 10 RI [...] 34 1- 1- 00 55 LD ve KS 59 20 20 AI ED 31 11 [...] AI ZA 10 11 11 D RI KS 1 PH CH IN AR AR E [...] 15 5- 5- 00 20 LD ve KS 02 20 20 AI ED 20 11 [...] 93 BL 8 ET # 03 93 KS 00 05 05 1 30 7 RI [...] LL 15 C 0 MG /M L KS 00 04 04 1 18 6 RI [...] 03 10 5 RI 87 AR Ac AR 00 -1 -1 .0 TE 44 NO ti FL 40 0- 0- 00 58 LD ve U 80 20 20 AI 75 08 11 11 D RI 5 PH CH MG AR AR MA D CA CY W PS UL 03 E 93 8 # 03 93 KS 00 03 03 1 30 7 RI [...] 30 0- 0- 00 61 LD ve AR 31 20 20 AI DE 10 11 [...] 30 7- 7- 0 20 LD ve AR 31 20 20 AI DE 10 10 [...] LL 15 C 0 MG /M L KS 00 09 09 5 15 5 RI [...] BL 93 ET 8 # 03 93 KS 00 09 09 1 30 7 RI [...] 34 1- 1- 00 61 LD ve KS 59 20 20 AI ED 31 10 [...] 93 8 CORRALES # SP 03 93 KS 60 11 05 1 18 6 RI [...] 34 0- 0- 00 94 LD ve KS 59 20 20 AI ED 31 10 [...] ON E 15 0 MG /M L KS 60 11 12 00 18 3 RI [...] 09 D RI E 9 PH CH KS AR AR OP M D #3 W 50 93 8 MC G SP RA Y KS 00 11 11 00 6. 16 RI 80 AR Ac OV 08 -0 -1 70 TE 68 NO ti EN 51 2- 9- 0 32 LD ve TI 13 20 20 AI L 20 09 09 D RI HF 1 PH CH A AR AR 90 M D #3 W MC 93 G 8 IN CASTORENA LE R KS 60 11 11 00 18 6 RI [...] ON E 15 0 MG /M L KS 00 09 09 00 30 7 RI [...] 30 7- 4- 00 05 LD ve AR 31 20 20 AI DE 10 09 [...] 0 93 MG 8 TA BL ET KS 00 05 06 01 30 7 RI [...] W MG 93 8 TA BL ET KS 00 04 05 00 6. 30 RI 78 AR Ac OV 08 -3 -0 70 TE 21 NO ti EN 51 0- 7- 0 11 LD ve TI 13 20 20 AI L 20 09 09 D RI HF 1 PH CH A AR AR 90 M D #3 W MC 93 G 8 IN CASTORENA LE R KS 00 04 05 00 30 7 RI [...] 20 AI LI 70 09 09 D AR N 5 PH CH 25 AR AE [...] 20 AI OM 60 08 08 D AR YC 6 PH CH IN AR AE [...] Procedure DOS Code Location Performer Comment IAADIADOO 38485 [facility] STREPTOCO INC INC CCUS GROUP A IAADIADOO 74736 [facility] INFLUENZA INC INC URINE 33762 [facility] 7 PHYSICIAN TEST S GROUP VISUAL COLOR CMPRSN METHS IAADIADOO 78909 [facility] STONE 7 PHYSICIAN INFLUENZA S GROUP URINE 07528 [facility] 7 PHYSICIAN TEST S GROUP VISUAL COLOR CMPRSN METHS THERAPEUT 21696 [facility] IC 7 PHYSICIAN PROPHYLAC S GROUP TIC/DX INJECTION SUBQ/IM THERAPEUT 85471 [facility] IC 6 PHYSICIAN YOSI PROPHYLAC S GROUP TIC/DX INJECTION SUBQ/IM NERVE 89525 [facility] REPAIR 6 [facility] W/CONDUIT E E EACH MEDICAL CENTER ENTERPRISE NERVE URINE 59856 [facility] 6 [facility] HEALTHCAR TEST E E VISUAL MEDICAL CENTER [place]TERPR[place] [address] [facility] SURG 6 [facility]ALTH[facility]ALTH[facility] PATHOLOGY E E [facility]OSPITALS HOSPITALS GROSS&RODOLFO ROSCOPIC EXAM INJECTION J2370 [facility] 6 HEALTHCAR HEALTHCAR PHENYLEPH E E RINE HCL MEDICAL CENTER ENTERPRISE UP TO 1 ML RINGERS J7120 [facility] LACTATE 6 [facility]ALTHCAR HEALTHCAR INFUSION E E UP TO MEDICAL CENTER ENTERPRISE 1000 CC ANES 81581 [place] MERCAD[facility] HEN NERVE 6 MEDICAL MUSCLE SERV TDN FOUNDATIO FASCIA&BU N RSA FOREARM WRIST LEVEL III 11777 [facility] DODD SURG 6 Y OF JOSE ELIAS PATHOLOGY [place] [facility] GROSS&RODOLFO ROSCOPIC EXAM INFUSION J7030 [facility] NORMAL 6 HEALTHCAR HEALTHCAR SALINE E E SOLUTION MEDICAL CENTER ENTERPRISE 1000 CC INJECTION J0690 [facility] 6 HEALTHCAR HEALTHCAR CEFAZOLIN E E [facility] ENTERPRISE 500 MG INJECTION J2704 [facility] PROPOFOL 6 HEALTHCAR HEALTHCAR 10 MG E E [facility]ALS INJECTION J3010 [facility] FENTANYL 6 HEALTHCAR HEALTHCAR CITRATE E E 0.1 MG MEDICAL CENTER ENTERPRISE RADEX 66225 [place] IQ[facility] ALL HAND 6 MEDICAL MINIMUM 3 IMAGING VIEWS ASS THERAPEUT 24076 [facility] ARM[facility] IC 6 PHYSICIAN YOSI PROPHYLAC S GROUP TIC/DX INJECTION SUBQ/IM FRAMES V2020 [facility] SCIFRES PURCHASES 6 ANG ANG 1 VISN V2103 SCIFRES SCIFRES PLANO 6 ANG ANG TO+/-4.00 D SPHER 0.12-2.00 D CYL EA SCRATCH V2760 SCIFRES SCIFRES RESISTANT 6 ANG ANG COATING PER LENS FITTING 66667 SCIF[facility] SCIFRES SPECTACLE 6 ANG ANG S XCPT APHAKIA MONOFOCAL LENS V2784 SCIFRES SCIFRES POLYCARBO 6 ANG ANG FREDRICK OR EQUAL ANY INDEX PER LENS OPHTH 93416 SCIFRES SCIFRES MEDICAL 6 ANG ANG XM&EVAL COMPRHNSV ESTAB PT 1/> URINE 76198 [facility] 6 PHYSICIAN YOSI TEST S [place] V[place] [address] [place] [facility] HEAD/BRAI 6 MEDICAL N W/[place] [address] [place] [facility] CERVICAL 6 MEDICAL SPINE W/O IMAGING CONTRAST ASS MATERIAL SIMPLE 65105 LOR[facility] LILI REPAIR 6 PHYSICIAN RODOLFO F/E/E/N/L S, PLLC /M 2.5CM/< [place] [address] [place] [facility] MAXILLOFA 6 MEDICAL CIAL W/O IMAGING CONTRAST ASS MATERIAL RADIOLOGI 17651 [facility]AD[facility] C EXAM 6 [facility] CHEST 2 INC INC VIEWS FRONTAL&L ATERAL URNLS DIP 91497 [facility] 6 [facility] STICK/TAB INC INC LET REAGENT AUTO MICROSCOP Y PRESSURIZ 35785 [facility] ED/NONPRE 6 [facility] SSURIZED INC INC INHALATIO N TREATMENT URINE 24119 [facility] 6 [facility] TEST INC INC VISUAL COLOR CMPRSN METHS IAADI 69116 [facility] INFLUENZA 6 [facility] B VIRUS INC INC IAADI 38106 [facility] INFFLUENZ 6 [facility]OS[facility] A A VIRUS INC INC UNCLASSIF J3490 [facility] IED DRUGS 6 [facility] INC INC URINE 84036 [facility] LILI 5 PHYSICIAN RODOLFO TEST S GROUP VISUAL COLOR CMPRSN METHS THERAPEUT 83713 [facility] IC 5 [facility] PROPHYLAC INC INC TIC/DX INJECTION SUBQ/IM CRTCHS E0114 ADV[facility]ED ADVANCED UNDARM 5 TECHNOLOG TECHNOLOG OTH THAN IES INC IES INC WOOD PAIR PAD TIP&HNDGR IP RADEX 35815 [facility] FOOT 5 [facility] COMPLETE INC INC MINIMUM 3 VIEWS IM ADM 10875 [facility] PRQ ID 5 [facility] SUBQ/IM INC INC NJXS 1 VACCINE TDAP 50414 [facility] VACCINE 7 5 [facility] YRS/> IM INC INC OPHTH 94870 SCIFRES SCIFRES MEDICAL 5 ANG ANG XM&EVAL COMPRHNSV ESTAB PT 1/> LENS V2784 SCIFRES SCIFRES POLYCARBO 5 ANG ANG FREDRICK OR EQUAL ANY INDEX PER LENS SCRATCH V2760 SCIFRES SCIFRES RESISTANT 5 ANG ANG COATING PER LENS SPHERE V2100 SCIFRES SCIFRES SINGLE 5 ANG ANG VISION PLANO +/- 4.00 PER LENS IADNA 96187 [facility] NEISSERIA 5 [facility] INC INC GONORRHOE AE AMPLIFIED PROBE TQ IADNA 20607 [facility] CHLAMYDIA 5 [facility] INC INC TRACHOMAT IS AMPLIFIED PROBE TQ THERAPEUT 31578 [facility] IC 5 PHYSICIAN YOSI PROPHYLAC S GROUP TIC/DX INJECTION SUBQ/IM URNLS DIP 16285 [facility] STICK/TAB INC [place] [address] [facility] INFUSION 5 [facility] THERAPY/P INC INC ROPHYLAXI S /DX 1ST TO 1 HR THERAPEUT 87911 [facility] IC 5 [facility] INJECTION INC INC IV PUSH EACH NEW DRUG URINE 44601 [facility] INC INC VISUAL COLOR CMPRSN METHS COMPREHEN 98606 J[facility] SIVE [facility] [place] [address] [facility] AMYLASE 5 [place] [address] [facility] INFUSION 5 [facility] THER INC INC PROPH ADDL SEQUENT[place] [address] [place] [address] [facility] LIPASE [facility] INC INC BLOOD 44216 [facility] COUNT 5 [facility] COMPLETE INC INC AUTO&[place] [address] [facility] ABDOMEN & 5 [facility] PELVIS INC INC W/O CONTRAST MATERIAL THERAPEUT 06834 [facility] IC 4 PHYSICIAN YOSI PROPHYLAC S GROUP TIC/DX INJECTION SUBQ/IM THERAPEUT 15317 [facility]IUSCHRISTINA [facility] IC 4 [facility] PROPHYLAC INC INC TIC/DX INJECTION SUBQ/IM URINE 05573 [facility] TEST INC INC VISUAL COLOR CMPRSN METHS IAADI 55598 J[facility] INFFLUENZ 4 [facility] A A VIRUS INC INC IAADI 46016 JULIUSCHRISTINA MADR[facility] INFLUENZA 4 [facility] B VIRUS INC INC RADEX 06759 JULIET JULIET NASAL 4 AGUS AGUS BONES COMPLETE MINIMUM 3 VIEWS RADIOLOGI 56387 J[facility] C 4 [facility] EXAMINATI INC INC ON KNEE [address] [place] [address] [facility] CERVICAL 4 [facility] SPINE W/O INC INC CONTRAST MATERIAL URINE 23036 [facility] TEST INC [place] [address] J[facility] HEAD/BRAI 4 [facility] N W/O INC INC CONTRAST MATERIAL 3D 61252 [facility] RENDERING 4 [facility] W/INTERP INC INC & [place] 3D [address] [facility] RENDERING 4 [facility] INC INC W/INTERP& POSTPROC DIFF WORK STATION DETERMINA 23212 SCIFRES SCIFRES TION 4 ANG ANG REFRACTIV E STATE OPHTH 46809 SCIFRES SCIFRES MEDICAL 4 ANG ANG XM&EVAL COMPRHNSV ESTAB PT 1/> HEPATIC 86719 [facility] FUNCTION 3 [facility] PANEL INC INC URNLS DIP 01190 [facility] 3 [facility] STICK/TAB INC INC LET REAGENT AUTO MICROSCOP Y RADEX ABD 61811 JULIUS MAD[facility]ID COMPL 3 [facility] AQT ABD INC INC W/S/E/D VIEWS 1 VIEW CH THERAPEUT 97383 JULIUS MADRID IC 3 [facility] INJECTION INC [place] [address] JULIUS MADRID LIPASE 3 [facility] [place] [address] JULIUS MADRID AMYLASE 3 [facility] INC INC COMPREHEN 45180 JULIUS MADRID SIVE 3 [facility] METABOLIC INC INC PANEL BLOOD 81827 JULIUS MADRID COUNT 3 [facility] COMPLETE INC INC AUTO&[place] [address] JULIUS MADRID INFUSION 3 [facility] THERAPY/P INC INC ROPHYLAXI S /DX 1ST TO 1 HR LEVEL III 52390 TYRELL TYRELL SURG 3 CHUY CHUY PATHOLOGY GROSS&RODOLFO ROSCOPIC EXAM INJECTION J2405 JULIUS MADRID 3 [facility] ONDANSETR INC INC ON HCL PER 1 MG ANES 14545 VILLEGAS JOSE ELIAS VILLEGAS JOSE ELIAS INTRAPERI 3 TONEAL UPPER ABDOMEN W/LAPS NOS LAPAROSCO 50194 JULIUS MADRID PY SURG 3 [facility] [place] [address] JULIUS MADRID TROPONIN 3 [facility] QUANTITAT INC INC JANE RADIOLOGI 83834 JULIUS MADRID C EXAM 3 [facility] CHEST 2 INC INC VIEWS FRONTAL&L ATERAL URNLS DIP 73391 JULIUS MADRID 3 [facility] STICK/TAB INC INC LET REAGENT AUTO MICROSCOP Y THER 67364 JULIUS MADRID PROPH/DX 3 [facility] NJX IV INC INC PUSH SINGLE/1S T SBST/DRUG COMPREHEN 70467 JULIUS MADRID SIVE 3 [facility] METABOLIC INC INC PANEL URINE 41969 JULIUS MADRID 3 [facility] TEST INC INC [place] [address] JULIUS MADRID LIPASE 3 [facility] INC INC CREATINE 57646 JULIUS MADRID KINASE 3 [facility] TOTAL INC INC CREATINE 80497 JULIUS MADRID KINASE MB 3 [facility] FRACTION INC INC ONLY ECG 41059 JULIUS MADRID ROUTINE 3 [facility] ECG INC INC W/LEAST 12 LDS TRCG ONLY W/O I&R ECG 23969 MARI GUERRA JR ROUTINE 3 DWI DWI ECG W/LEAST 12 LDS I&R ONLY BLOOD 66078 JULIUS MADRID COUNT 3 [facility] COMPLETE INC INC AUTO&[place] [address] JULIUS JULIUS ABDOMINAL 3 [facility] REAL INC INC TIME W/IMAGE LIMITED RADEX 42505 JULIUS MADRID FOOT 3 [facility] COMPLETE INC INC MINIMUM 3 VIEWS INJECTION J0696 MARIE SALAZAR 3 CORIE CORIE CEFTRIAXO NE SODIUM PER 250 MG THERAPEUT 93204 JULIUS MADRID IC 3 [facility] PROPHYLAC INC INC TIC/DX INJECTION SUBQ/IM INJECTION J0696 MARIE SALAZAR 3 CORIE CORIE CEFTRIAXO NE SODIUM PER 250 MG INJECTION J2805 JULIUS JULIUS 2 [facility] SINCALIDE INC INC [address] [place] [address] [place] ABDOMINAL 2 MEDICAL AGUS REAL IMAGING TIME ASS W/IMAGE LIMITED HEPATOBIL 35096 [place] SYST 2 MEDICAL AGUS IMAG INC IMAGING GB ASS W/PHARMA INTERVENJ TECHNETIU A9537 JULIUS MADRID M TC-99M 2 [facility] MEBROFENI INC INC N DX UP TO 15 MCI ESOPHAGOG 44179 JULIUS MADRID ASTRODUOD 2 [facility] ENOSCOPY [place] [address] JULIUS MADRID INFUSION 2 [facility] THERAPY/P INC INC ROPHYLAXI S /DX 1ST TO 1 [place] [address] JULIUS MADRID INFUSION 2 [facility] THERAPY INC INC PROPHYLAX IS/DX EA HOUR URINE 23856 JULIUS JULIUS 2 [facility] TEST INC INC VISUAL COLOR CMPRSN METHS URNLS DIP 40452 JULIUS MADRID 2 [facility] STICK/TAB INC INC LET REAGENT AUTO MICROSCOP Y US CHEST 17094 TYRELL THAKUR REAL TIME 2 EMERGENCY W/[place] [address] TYRELL THAKUR ABDOMINAL 2 EMERGENCY REAL SERVICES TIME W/IMAGE LIMITED ECHO 67546 TYRELL THAKUR TRANSTHOR 2 EMERGENCY C R-T 2D SERVICES W/WO M-MODE REC F-UP/LMTD INJECTION J0696 MARIE SALAZAR 2 CORIE CORIE CEFTRIAXO NE SODIUM PER 250 MG SPHERE V2100 SCIFRES SCIFRES SINGLE 2 ANG ANG VISION PLANO +/- 4.00 PER LENS VISION V2799 SCIFRES SCIFRES ITEM OR 2 ANG ANG SERVICE MISCELLAN EOUS PROTHROMB 22141 [facility] IN TIME 2 N N [facility] HOSPITA HOSPITA BLOOD 93189 [facility] COUNT 2 N N COMPLETE [facility] AUTO&AUTO HOSPITA HOSPITA DIFRNTL WBC URNLS DIP 04645 [facility] 2 N N STICK/TAB [facility] LET HOSPITA HOSPITA REAGENT AUTO MICROSCOP Y BLOOD 02670 [facility] OCCULT 2 N N PEROXIDAS [facility] E ACTV HOSPITA HOSPITA QUAL FECES 1-3 SPEC THROMBOPL 99308 [facility] ASTIN 2 N N TIME [facility] PARTIAL HOSPITA HOSPITA PLASMA/WH OLE BLOOD COMPREHEN 69707 [facility] SIVE 2 N N METABOLIC [facility] PANEL HOSPITA HOSPITA URINE 99878 [facility] 2 N N TEST [facility] VISUAL HOSPITA [place] [address] [facility] LIPASE 2 N N [facility] [place] [address] [facility] INFUSION 2 N N HYDRATION [facility] EACH HOSPITA HOSPITA ADDITIONA L HOUR COLLECTIO 97698 [facility] N VENOUS 2 N N BLOOD [facility] VENIPUNCT HOSPITA HOSPITA URE THER 34199 [facility] PROPH/DX 2 N N NJX IV [facility] PUSH HOSPITA HOSPITA SINGLE/1S T SBST/DRUG DETERMINA 05946 SCIFRES SCIFRES TION 2 ANG ANG REFRACTIV E STATE OPHTH 68840 SCIFRES SCIFRES MEDICAL 2 ANG ANG XM&EVAL COMPRHNSV ESTAB PT 1/> IAADI 83013 JULIUS MADRID INFLUENZA 2 [facility] B VIRUS INC INC IAADI 25434 JULIUS MADRID INFFLUENZ 2 [facility] A A VIRUS INC INC 3D 73099 JULIUS MADRID RENDERING 2 [facility] INC INC W/INTERP& [place] DI[place] [address] JULIUS MADRID STREPTOCO 2 [facility] CCUS INC INC GROUP A CT SOFT 52679 JULIET JULIET TISSUE 2 AGUS AGUS NECK W/O CONTRAST MATERIAL URINE 39301 JULIUS MADRID 2 [facility] TEST INC INC VISUAL COLOR CMPRSN METHS DEMO&/SENG 64421 [facility] L OF PT 2 ALLERGY ALLERGY UTILIZ & ASTHMA & ASTHMA AERSL P P GEN/NEB/I NHLR/IP BRNCDILAT 11163 [facility] RSPSE 2 ALLERGY ALLERGY SPMTRY & ASTHMA & ASTHMA PRE&POST- P P BRNCDILAT ADMN PERCUTANE 41569 [facility] OUS TESTS 2 ALLERGY ALLERGY & ASTHMA & ASTHMA W/ALLERGE P P CHYNA EXTRACTS INTRACUTA 27502 [facility] NEOUS 2 ALLERGY ALLERGY TESTS & ASTHMA & ASTHMA W/ALLERGE P P CHYNA EXTRACTS COLLECTIO 73780 [facility] N VENOUS 1 Y Y BLOOD [facility] VENIPUNCT URE RADIOLOGI 39317 [facility] C EXAM 1 Y Y CHEST 2 [facility] VIEWS FRONTAL&[place] [address] [facility] TROPONIN 1 [facility] J[facility] GROUND A0425 COLIN COLIN MILEAGE 1 FAYETTE FAYETTE PER URBAN URBAN [place] [address] [facility] LIPASE 1 Y Y HOSPITAL HOSPITAL AMB A0427 COLIN COLIN SERVICE 1 FAYETTE FAYETTE ALS URBAN URBAN EMERGENCY COGOVT COGOVT TRANSPORT LEVEL 1 SEDIMENTA 75989 [facility] TION RATE 1 Y Y RBC [facility]OSPITAL AUTOMATED COMPREHEN 87159 [facility] SIVE 1 Y Y METABOLIC [facility] PANEL C-REACTIV 88328 [facility] E PROTEIN 1 Y Y [facility] HOSPITAL ECG 44940 BEZODALYS BEZOLD ROUTINE 1 III MEDARDO III MEDARDO ECG W/LEAST 12 LDS [place] [address] [facility] ABDOMINAL 1 Y Y REAL [facility] HOSPITAL TIME W/IMAGE LIMITED BLOOD 53454 [facility] COUNT 1 Y Y COMPLETE [facility] HOSPITAL AUTOMATED GONADOTRO 42113 [facility] PIN 1 Y Y [facility] QUALITATI VE GONADOTRO 44645 [facility] PIN 1 Y Y [facility] QUANTITAT JANE ECG 62265 [facility] ROUTINE 1 Y Y ECG [facility] W/LEAST 12 LDS TRCG ONLY W/O I&[place] [address] [facility] ABDOMEN & 1 MEDICAL AGUS PELVIS IMAGING W/O ASS CONTRAST MATERIAL INJECTION J2405 JULIUS MADRID 1 [facility] ONDANSETR INC INC ON HCL PER 1 MG 3D 04151 JULIUS MADRID RENDERING 1 [facility] INC INC W/INTERP& POSTPROC DIFF WORK STATION URNLS DIP 96764 JULIUS MADRID 1 [facility] STICK/TAB INC INC LET REAGENT AUTO MICROSCOP Y COMPREHEN 35193 JULIUS MADRID SIVE 1 [facility] [place] [address] JULIUS MADRID AMYLASE 1 [facility] INC INC URINE 41787 JULIUS MADRID 1 [facility] TEST INC INC [place] [address] JULIUS MADRID LIPASE 1 [facility] INC INC BLOOD 21891 JULIUS MADRID COUNT 1 [facility] COMPLETE INC INC AUTO&AUTO DIFRNTL WBC DETERMINA 97585 [facility] TION 1 REFRACTIV E STATE OPHTH 84648 [facility] MEDICAL 1 XM&EVAL COMPRHNSV ESTAB PT 1/> INJECTION J0696 MARIE SALAZAR 1 CORIE CORIE CEFTRIAXO NE SODIUM PER 250 MG INJECTION J0696 MARIE ARNOLD 1 CORIE CORIE CEFTRIAXO NE SODIUM PER 250 MG THERAPEUT 21328 [facility] IC 1 [facility] PROPHYLAC CLINIC OF TIC/DX SHERRY INJECTION SUBQ/[place] [address] JULIUS MADRID TRACT UPR 1 [facility] W/SM INT [place] [address] [facility] UPR W/WO 1 MEDICAL AGUS GLUCOSE IMAGING W/SM ASS INTEST FOLLW-THR U THERAPEUT 11987 [facility] 1 [facility]ALTH PROPHYLAC CLINIC OF CLINIC OF TIC/DX SHERRY SHERRY INJECTION SUBQ/[place] [address] JULIUS MADRID LIPASE 1 [facility] INC INC URINE 36649 JULIUS MADRID 1 [facility] TEST INC [place] [address] JULIUS MADRID AMYLASE 1 [facility] INC INC COMPREHEN 88888 JULIUS MADRID SIVE 1 [facility] METABOLIC INC INC PANEL URNLS DIP 75889 JULIUS DENEEN 1 [facility] GEMA STICK/TAB [place] [address] JULIUS MADRID INFUSION 1 [facility] THERAPY/P INC INC ROPHYLAXI S /DX 1ST TO 1 HR CULTURE 20154 JULIUS MADRID BACTERIAL 1 [facility] INC INC QUANTTATI VE COLONY COUNT URINE BLOOD 37953 JULIUS JULIUS COUNT 1 [facility] COMPLETE INC INC AUTO&AUTO DIFRNTL WBC ANTIBODY 52486 COMBINED COMBINED CHLAMYDIA 1 PHYSICIAN PHYSICIAN S LA S LA CUL BACT 34955 COMBINED COMBINED XCPT 1 PHYSICIAN PHYSICIAN URINE S LA S LA BLOOD/STO OL AEROBIC ISOL INJECTION J0696 MARIE SALAZAR 1 CORIE CORIE CEFTRIAXO NE SODIUM PER 250 MG THERAPEUT 85813 [facility] IC 1 [facility]ALTH [facility] PROPHYLAC CLINIC OF TIC/DX SHERRY INJECTION SUBQ/IM DEEP D9220 [facility], SEDATION/ 1 IMPLANT & III LAKESHIA GENERAL ORAL ANESTHESI SURGERY C A-1ST 30 MINUTES RADEX 49812 [place] JUL[place] UPPER GI 0 MEDICAL AGUS W/WO IMAGING GLUCAGON/ [place] IMAGES W/[place] [address] [place] ABDOMINAL 0 MEDICAL AGUS REAL IMAGING TIME ASS W/IMAGE LIMITED FITTING 17415 [facility] BUTLERKOFFI YOST SPECTACLE 0 VISION S XCPT APHAKIA MONOFOCAL SPHERE V2100 COLIN ASHRAFKOFFI YOST SINGLE 0 VISION VISION PLANO +/- 4.00 PER LENS FRAMES V2020 [facility] ASHRAFKOFFI YOST PURCHASES 0 VISION OPHTH 02102 [facility] ASHRAFKOFFI YOST MEDICAL 0 VISION XM&EVAL COMPRHNSV ESTAB PT 1/> THERAPEUT 07918 [facility] IC 0 HEALTH YOSI PROPHYLAC CLINIC OF TIC/DX SHERRY INJECTION SUBQ/IM OBSERVATI 05128 [place] KAUSHAL ON/INPATI 0 MEDICAL FAR ENT SERV HOSPITAL FOUNDATIO CARE 55 MINUTES ELECTROEN 58201 [place] ANCELMO LA CEPHALOGR 0 MEDICAL AM W/REC SERV AWAKE&ASL FOUNDATIO EEP MRI BRAIN 74373 [place] OFE MCGREGOR BRAIN 0 MEDICAL STEM W/O SERV W/[place] [address] UNIVERSDAVIN PATINO HEAD/BRAI 0 Y OF MUR N W/[facility] CONTRAST [facility]OS[facility] MATERIAL RADEX 98000 [place] PRADEEP SPINE 0 MEDICAL PASTORA THORACIC SERV 2 VIEWS FOUNDATIO ECG 10035 [place] BECERRA ROUTINE 0 MEDICAL AGUS ECG SERV W/LEAST FOUNDATIO 12 LDS I&R ONLY ECG 44554 [facility] ISAIAS ROUTINE 0 E OFE ECG HOSPITAL W/LEAST 12 LDS I&R ONLY BLOOD 15804 [facility] COUNT 0 E E COMPLETE HOSPITAL HOSPITAL AUTO&AUTO DIFRNTL WBC RADEX 86792 [facility] SPINE 0 CENTRAL THORACIC RADIOLOGY 2 VIEWS [facility] AMB A0422 [facility] [facility] OXYGEN&O2 0 E CO E CO SUPPLIES AMBULANCE AMBULANCE LIFE SUSTAININ G SITUATION FIBRIN 30213 [facility] [facility] DGRADJ 0 E E PRODUCTS HOSPITAL HOSPITAL D-DIMER QUAL/SEMI REINA ECG 02120 [facility] ROUTINE 0 E E ECG HOSPITAL HOSPITAL W/LEAST 12 LDS TRCG ONLY W/O I&R CRITICAL 66574 [facility] 0 EMERGENCY ILL/INJUR SERVICES ED PATIENT INIT 30-74 MIN CREATINE 73527 [facility] KINASE 0 [facility] COMPREHEN 59158 [facility] [facility] SIVE 0 E E [facility] HOSPITAL PANEL GROUND A0425 [facility] MILEAGE 0 E CO E CO PER AMBULANCE AMBULANCE STATUTE MILE AMBULANCE A0429 [facility] [facility] SERVICE 0 E CO E [facility] AMBULANCE AMBULANCE EMERGENCY TRANSPORT GONADOTRO 73496 [facility] PIN 0 E E [facility] HOSPITAL QUALITATI VE URNLS DIP 86406 [facility] 0 E E STICK/TAB HOSPITAL HOSPITAL LET REAGENT AUTO MICROSCOP Y LACTATE 78795 [facility] DEHYDROGE 0 E E NASE [facility] RADEX 73715 [facility] SPINE 0 CENTRAL LUMBOSACR RADIOLOGY AL 2/3 [facility] VIEWS BLS A0382 [facility] ROUTINE 0 E CO E CO DISPOSABL AMBULANCE AMBULANCE E SUPPLIES THERAPEUT 77919 [facility], IC 0 HEALTH ISABEL J PROPHYLAC CLINIC OF TIC/DX INJECTION [place] SUBQ/IM PLLC RADIOLOGI 14991 REY JULIET, C 0 MEDICAL RUBY EXAMINATI IMAGING ON KNEE 3 ASSOCIATE VIEWS S COLLECTIO 01746 [facility] N VENOUS 0 Y Y BLOOD [facility] [place] [address] [facility] LIPASE 0 [place] [address] [facility] AMYLASE 0 Y Y [facility] HOSPITAL THERAPEUT 16899 [facility], IC [facility] OF TIC/DX INJECTION [place] SUBQ/IM PLLC HEPATBL 85050 JULIUS MADRID DUX SYS 9 [facility] [place] [address] REY MILLSUTCHER, ABDOMINAL 9 MEDICAL RUBY REAL IMAGING TIME ASSOCIATE W/IMAGE S LIMITED FITTING 62783 [facility] MONISHA, SPECTACLE 9 VISION JESÚS M S XCPT APHAKIA MONOFOCAL SPHERE V2100 COLIN BEARDEN, SINGLE 9 VISION JESÚS M VISION PLANO +/- 4.00 PER LENS FRAMES V2020 [facility] MONISHA, PURCHASES 9 VISION JESÚS M OPHTH 35498 COL[facility] BEARDEN, MEDICAL 9 VISION JESÚS M XM&EVAL COMPRHNSV ESTAB PT 1/> ESOPHAGOG 4516 JULIUS MADRID ASTRODUOD 9 [facility] ENOSCOPY [place] [address] PATHOLOGY PATHOLOGY SURG 9 & & PATHOLOGY CYTOLOGY CYTOLOGY LAB LAB GROSS&RODOLFO ROSCOPIC EXAM EGD 57639 [facility]UL[facility] SCHULSTAD TRANSORAL 9 , PETER , PETER BIOPSY SINGLE/[place] [address] JULIUS MADRID INFUSION 9 [facility] THERAPY INC INC PROPHYLAX IS/DX EA HOUR URINE 92642 JULIUS MADRID 9 [facility] TEST INC [place] [address] JULIUS MADRID INFUSION 9 [facility] THERAPY/P INC INC ROPHYLAXI S /DX 1ST TO 1 HR URINE 20740 [facility], 9 HEALTH [facility] TEST CLINIC OF VISUAL COLOR VIC RAMIREZRSN [facility] METHS OBSERVATI [address] ON CARE 9 , PETER , PETER DISCHARGE MANAGEMEN T CT PELVIS 26445 [place], W/O 9 MEDICAL RUBY CONTRAST IMAGING MATERIAL ASSOCIATE S 3D 12834 JULIUS MADRID RENDERING 9 [facility] INC INC W/INTERP& POSTPROC DIFF WORK STATION BLOOD 97644 JULIUS MADRID COUNT 9 [facility] COMPLETE INC INC AUTO&AUTO DIFRNTL WBC HOSPITAL G0378 JULIUS MADRID OBSERVATI 9 [facility] [place] [place] [address] [place], ABDOMEN 9 MEDICAL RUBY W/[place] [address] JULIUS MADRID ABDOMEN 9 [facility] W/O INC INC CONTRAST MATERIAL HOSPITAL G0378 JULIUS MADRID OBSERVATI 9 [facility] ON INC INC SERVICE PER HOUR BLOOD 39869 JULIUS MADRID COUNT 9 [facility] COMPLETE INC INC AUTO&AUTO DIFRNTL WBC SUSCEPTIB 22560 JULIUS MADRID LTY STDY 9 [facility] ANTIMICRB INC INC IAL MICRO/AGA R DILUTJ 3D 40979 [place], RENDERING 9 MEDICAL RUBY IMAGING W/INTERP& ASSOCIATE POSTPROC S DIFF WORK STATION CULTURE 35864 JULIUS MADRID BCT 9 [facility] ISOL&PRSM INC INC PTV ID ISOLATE EA URINE CULTURE 05470 JULIUS MADRID BACTERIAL 9 [facility] INC INC QUANTTATI VE COLONY COUNT URINE INITIAL [address]89[address] OBSERVATI 9 , PETER , PETER ON CARE/DAY 50 [place] [address] JULIUS MADRID INFUSION 9 [facility] THERAPY/P INC INC ROPHYLAXI S /DX 1ST TO [address] PELVIS 71164 JULIUS MADRID W/O 9 [facility] [place] [address] JULIUS MADRID INFUSION 9 [facility] THER INC INC PROPH ADDL SEQUENTIA L TO 1 HR BASIC 76483 JULIUS MADRID METABOLIC 9 [facility] HOSP PANEL INC INC CALCIUM TOTAL URINE 03042 JULIUS MADRID 9 [facility] HOSP TEST INC INC VISUAL COLOR CMPRSN METHS URNLS DIP 91880 JULIUS MADRID 9 [facility] STICK/TAB INC INC LET REAGENT AUTO MICROSCOP Y BLOOD 64726 JULIUS MADRID COUNT 9 [facility] COMPLETE INC INC AUTO&AUTO DIFRNTL WBC RADEX HIP 84170 JULIUS MADRID 9 [facility] UNILATERA INC INC L COMPLETE MINIMUM 2 VIEWS RADEX 70611 [place] CHANDRIKA, SACRUM & 9 MEDICAL KIRSTIN P COCCYX IMAGING MINIMUM 2 ASSOCIATE VIEWS S RADIOLOGI 62489 [place] Merna CHUNG EXAM 9 MEDICAL RUBY CHEST 2 IMAGING VIEWS ASSOCIATE FRONTAL&[place] [address] JULIUS MADRID STREPTOCO 9 [facility] [address] JULIUS MADRID STREPTOCO 8 [facility] CCUS INC INC GROUP A Encounters Encounter Start End Date Code Location Performer Type Date OFFICE 42457 [facility] OUTPATIEN 7 7 [facility] T VISIT 5 INC MINUTES [facility] - 7 7 [facility] OUTPATIEN INC T OFFICE 71690 [facility] OUTPATIEN 7 7 PHYSICIAN T VISIT 5 S GROUP MINUTES OFFICE 01115 [facility] OUTPATIEN 7 7 PHYSICIAN T VISIT S GROUP 25 MINUTES [facility] OFFICE 26448 [facility] OUTPATIEN 6 6 PHYSICIAN JAM T NEW 20 S GROUP MINUTES OFFICE 47924 [facility] OUTPATIEN 6 6 PHYSICIAN RODOLFO T VISIT S GROUP 15 MINUTES OFFICE 37200 [facility] OUTPATIEN 6 6 PHYSICIAN YOSI T VISIT 5 S GROUP MINUTES OFFICE 64907 [facility] OUTPATIEN 6 6 PHYSICIAN SUDHA T VISIT 5 S GROUP MINUTES OFFICE 16778 [facility] 6 6 PHYSICIAN SUDHA T NEW 20 S GROUP MINUTES EMERGENCY 05787 LORIN PEARSON DEPT 6 6 PHYSICIAN [place] VISIT S, [facility] HIGH SEVERITY& THREAT FUNCJ EMERGENCY 27648 LORIN ELLIS [facility] 6 6 PHYSICIAN DEPARTMEN S, [facility] T VISIT HIGH/URGE NT SEVERITY [facility]OSPITAL [facility]US - 6 6 [facility] T EMERGENCY [address]121 [facility] [address] [facility]MODER SEVERITY OFFICE 10908 [facility] OUTPAT[facility] 6 6 PHYSICIAN YOSI T VISIT 5 S GROUP MINUTES OFFICE 37895 [facility] OUTPATIEN 5 5 PHYSICIAN [place] T NEW 30 S GROUP MINUTES EMERGENCY 75333 LORIN NICKERSON 5 5 PHYSICIAN [facility], [facility] T VISIT HIGH/URGE NT SEVERITY [facility]OSPITAL JULIUS - 5 5 [facility] T OFFICE 22414 [facility] OUTPATIEN 5 5 PHYSICIAN YOSI T VISIT 5 S GROUP MINUTES EMERGENCY 21258 ИВАН 5 5 [facility] T VISIT HIGH/URGE NT SEVERITY EMERGENCY 42142 [facility] 5 5 [facility] EMERGENCY T VISIT PHYS MODERATE SEVERITY HOSPITAL ИВАН - 5 5 [facility] T EMERGENCY 32345 LORIN PEARSON 5 5 PHYSICIAN [place] DEPARTMEN S, [facility] T VISIT HIGH/URGE NT SEVERITY EMERGENCY 20038 JULIUS 5 5 [facility] T VISIT LOW/MODER SEVERITY [facility]OSP[facility] JULIUS - 5 5 [facility] T [facility] JULIUS - 5 5 [facility] T PERIODIC 50248 [facility] 5 5 PHYSICIAN E MED EST S GROUP PATIENT 18-39 YRS OFFICE 56065 [facility] HUN[facility] JR OUTPATIEN 5 5 PHYSICIAN YI T VISIT S GROUP 15 MINUTES EMERGENCY 22474 JULIUS GREY 5 5 [facility] T VISIT P MODERATE SEVERITY HOSPITAL JULIUS - 5 5 [facility] T EMERGENCY 24259 JULIUS 5 5 [facility] DEPARTMEN INC T VISIT HIGH/URGE NT SEVERITY OFFICE 82420 [facility] FRYMDILIP OUTPATIEN 5 5 PHYSICIAN EUG T VISIT S GROUP 15 MINUTES OFFICE 64068 [facility] OUTPATIEN 4 4 PHYSICIAN ELIZABETH T VISIT S GROUP 15 MINUTES OFFICE 29321 MARIE MARRERO 4 4 CORIE CORIE T VISIT 15 MINUTES OFFICE 22504 ARMANDO STONEPATIEN 4 4 YOSI YOSI T VISIT 5 MINUTES HOSPITAL JULIUS - 4 4 [facility] T EMERGENCY 75931 JULIUS 4 4 [facility] T VISIT LOW/MODER SEVERITY EMERGENCY 92078 DIANNE GREY 4 4 [facility] EMERGENCY T VISIT PHYS MODERATE SEVERITY OFFICE 69731 [facility] OUTPATIEN 4 4 T VISIT 10 MINUTES OFFICE 86560 MARIE STONEPATIMAMIE 4 4 CORIE CORIE T VISIT 15 MINUTES OFFICE 05174 ARMAND[facility]ERTS OUTPATIEN 4 4 YOSI YOSI T VISIT 5 MINUTES OFFICE 20172 [place] MARIE MARRERO 4 4 CORIE CORIE T VISIT 15 MINUTES HOSPITAL UJLIUS - 4 4 [facility] INC T OFFICE 82329 [place] MARIE MARRERO 4 4 CORIE CORIE T VISIT 15 MINUTES OFFICE 12397 ARMANDO MARRERO 4 4 YOSI YOSI T VISIT 5 MINUTES OFFICE 58345 [place] MARIE MARRERO 4 4 CORIE CORIE T VISIT 15 MINUTES OFFICE 83341 [place] MARIE MARRERO 4 4 CORIE CORIE T VISIT 15 MINUTES HOSPITAL JULIUS - 4 4 [facility] OUTPAT[facility] INC T EMERGENCY 98862 JULIUS 4 4 [facility] DEPARTMEN INC T VISIT LOW/MODER SEVERITY HOSPITAL JULIUS - 4 4 [facility] OUTPATI[facility] INC T EMERGENCY 24110 LILI PEARSON DEPT 4 4 [place] VISIT HIGH SEVERITY& THREAT FUN OFFICE 50412 MARIE MARRERO 3 3 CORIE CORIE T VISIT 15 MINUTES OFFICE 35448 ARMANDO MARRERO 3 3 YOSI YOSI T VISIT 5 MINUTES OFFICE 22967 MARIE MARRERO 3 3 CORIE CORIE T VISIT 15 MINUTES HOSPITAL JULIUS - 3 3 [facility] JULIUS - 3 3 [facility] INC T EMERGENCY 85608 LILI PEARSON 3 3 [place] DEPARTMEN T VISIT HIGH/URGE NT SEVERITY EMERGENCY 99696 JULIUS 3 3 [facility] DEPART[facility] INC T VISIT MODERATE SEVERITY [facility]OSPITAL JULIUS - 3 3 [facility] OUTPATIEN INC T EMERGENCY 30048 DAKOTA DUNCAN DEPT 3 3 III JOSE ELIAS III JOSE ELIAS VISIT HIGH SEVERITY& THREAT FUNCJ EMERGENCY 27802 JULIUS 3 3 [facility] DEPARTMEN INC T VISIT HIGH/URGE NT SEVERITY HOSPITAL JULIUS - 3 3 [facility] JULIUS - 3 3 [facility] T OFFICE 63531 MARIE MARRERO 3 3 CORIE CORIE T VISIT 15 MINUTES OFFICE 56574 ARMANDO [facility]ERT[facility] OUTPATIEN 3 3 YOSI YOSI T VISIT 5 MINUTES OFFICE 36527 MARIE MARRERO 3 3 CORIE CORIE T VISIT 15 MINUTES OFFICE 32320 ARMANDO ROBERTS OUTPATIEN 3 3 YOSI YOSI T VISIT 5 MINUTES EMERGENCY 19991 LILI PEARSON 3 3 [facility] VIS[facility] HIGH/URGE NT SEVERITY [facility]OSPITAL JULIUS - 3 3 [facility] T OFFICE 60432 MARIE MARRERO 3 3 CORIE CORIE T VISIT 15 MINUTES OFFICE 69622 ARMANDO ROBERTS OUTPATIEN 3 3 YOSI YOSI T VISIT 5 MINUTES OFFICE 97256 MARIE SALAZAR OUTPATIMAMIE 3 3 CORIE CORIE T VISIT 15 MINUTES OFFICE 82625 ARMANDO ROBERTS OUTPATIEN 2 2 YOSI YOSI T VISIT 5 MINUTES OFFICE 50294 ERIKSTWILBERTO VALENCIASTWILBERTO OUTPATIEN 2 2 KATLIN KATLIN T VISIT 10 MINUTES HOSPITAL JULIUS - 2 2 [facility] J[facility]IUS - 2 2 [facility] T OFFICE 40126 SCHULSTAD SCHULSTAD CONSULTAT 2 2 KATLIN KATLIN ION NEW/ESTAB PATIENT 40 MIN OFFICE 69534 CYNODALYS MARIE OUTRAMONEEN 2 2 CORIE CORIE T VISIT 15 MINUTES EMERGENCY 05923 JULIUS 2 2 [facility]PART[facility] T VISIT LOW/MODER SEVERITY EMERGENCY 51285 TYRELL THAKUR DEPT 2 2 EMERGENCY VISIT SERVICES HIGH SEVERITY& THREAT [facility] JULIUS - 2 2 [facility] 86284 MARIE SALAZAR OUTRAMONEEN 2 2 CORIE CORIE T VISIT 15 MINUTES OFFICE 41732 ARMANDO RAOEN 2 2 YOSI YOSI T VISIT 10 MINUTES OFFICE 80372 MARIE MARRERO 2 2 CORIE CORIE T VISIT 15 MINUTES EMERGENCY 87954 [facility] 2 2 N DEPARTMEN COMMUNITY T VISIT HOSPITA HIGH/URGE NT SEVERITY EMERGENCY 20374 RECHTIN RECHTIN DEPT 2 2 PCA PCA VISIT HIGH SEVERITY& THREAT [facility] 2 2 N OUTPATIEN COMMUNITY T HOSPITA OFFICE 42889 MARIE MARRERO 2 2 CORIE CORIE T VISIT 15 MINUTES OFFICE 38119 MARIE MARRERO 2 2 CORIE CORIE T VISIT 15 MINUTES OFFICE 44879 ARMANDO RAOEN 2 2 YOSI YOSI T VISIT 5 MINUTES OFFICE 41251 MARIE MARRERO 2 2 CORIE CORIE T VISIT 15 MINUTES OFFICE 52937 ARMANDO ROBERTS OUTPATIEN 2 2 YOSI YOSI T VISIT 5 MINUTES OFFICE 56344 MAE MARRERO 2 2 SUDHA SUDHA T NEW 30 MINUTES EMERGENCY 06058 TYRELL RUVALCABA DEPT 2 2 EMERGENCY VISIT SERVICES HIGH SEVERITY& THREAT [facility]J EMERGENCY 51857 JULIUS 2 2 [facility] DEPARTMEN INC T VISIT LOW/MODER SEVERITY HOSPITAL JULIUS - 2 2 [facility] OUTPATIEN INC T OFFICE 40246 CYNODALYS MARIE MARRERO 2 2 CORIE CORIE T VISIT 15 MINUTES OFFICE 69720 MARIE MARRERO 2 2 CORIE CORIE T VISIT 15 MINUTES OFFICE 36894 MARIE MARRERO 2 2 CORIE CORIE T VISIT 15 MINUTES OFFICE 04635 NEALEfraín NEALEfraín OUTAIDEE 2 2 JACOB JACOB T VISIT KATLIN KATLIN 15 MINUTES OFFICE 60155 MARIE MARRERO 2 2 CORIE CORIE T VISIT 15 MINUTES OFFICE 47797 MARIE MARRERO 2 2 CORIE CORIE T VISIT 15 MINUTES OFFICE 35611 [facility] COMM[facility]ITY CONSULTAT 2 2 ALLERGY ALLERGY ION & ASTHMA & ASTHMA NEW/ESTAB P P PATIENT 60 MIN OFFICE 19608 MARIE MARRERO 2 2 CORIE CORIE T VISIT 15 MINUTES OFFICE 85197 ARMANDO MARRERO 2 2 YOSI YOSI T VISIT 5 MINUTES OFFICE 74897 MARIE MARRERO 2 2 CORIE CORIE T VISIT 15 MINUTES HOSPITAL UNIVERSIT - 1 1 Y OUTPATI HOSPITAL T EMERGENCY 01409 KIANA GRIFFIN MICHELLE 1 1 MEDICAL DEPARTMEN SERV T VISIT FOUNDATIO HIGH/URGE NT SEVERITY EMERGENCY 64468 UNIVERSIT DEPT 1 1 Y VISIT HOSPITAL HIGH SEVERITY& THREAT FUNCJ OFFICE 75834 MARIE MARRERO 1 1 CORIE CORIE T VISIT 15 MINUTES EMERGENCY 92116 JULIUS 1 1 [facility] DEPARTMEN INC T VISIT HIGH/URGE NT SEVERITY EMERGENCY 47150 LILI PEARSON DEPT 1 1 RODOLFO RODOLFO VISIT HIGH SEVERITY& [facility] OUTPATI[facility] INC T OFFICE 33486 CYNODALYS MARIE MARRERO 1 1 CORIE CORIE T VISIT 15 MINUTES OFFICE 88682 MARIE MARRERO 1 1 CORIE CORIE T VISIT 15 MINUTES OFFICE 25198 CYNODALYS MARIE MARRERO 1 1 CORIE CORIE T VISIT 15 MINUTES OFFICE 79609 MARIE MARRERO 1 1 CORIE CORIE T VISIT 15 MINUTES OFFICE 77552 [facility] 1 1 HEALTH YOSI T VISIT 5 CLINIC OF MINUTES SHERRY OFFICE 47920 [facility] 1 1 HEALTH YOSI T VISIT CLINIC OF 15 SHERRY MINUTES OFFICE 17600 MARIE MARRERO 1 1 CORIE CORIE T VISIT 15 MINUTES OFFICE 07676 MARIE MARRERO 1 1 CORIE CORIE T VISIT 15 MINUTES [facility] JULIUS - 1 1 [facility] OUTPATIEN INC T OFFICE 91642 MARIE MARRERO 1 1 CORIE CORIE T VISIT 15 MINUTES OFFICE 51027 MARIE MARRERO 1 1 CORIE CORIE T VISIT 15 MINUTES EMERGENCY 53241 JULIUS 1 1 [facility] DEPARTMEN INC T VISIT MODERATE SEVERITY EMERGENCY 66112 TYRELL PEARSON 1 1 EMERGENCY RODOLFO DEPARTMEN SERVICES T VISIT HIGH/URGE NT SEVERITY [facility] JULIUS - 1 1 [facility] OUTPATIEN INC T OFFICE 95392 MARIE MARRERO 1 1 CORIE CORIE T VISIT 15 MINUTES OFFICE 83734 ARNOLD MARIE MARRERO 1 1 CORIE CORIE T VISIT 15 MINUTES OFFICE 13412 CYNODALYS MARIE MARRERO 1 1 CORIE CORIE T VISIT 15 MINUTES OFFICE 58723 [facility] 1 1 HEALTH YOSI T VISIT CLINIC OF 25 SHERRY MINUTES OFFICE 19262 CNYODALYS MARIE MARRERO 1 1 CORIE CORIE T VISIT 15 MINUTES OFFICE 29174 MARIE CYNODALYS ELIDA 1 1 CORIE CORIE T VISIT 15 MINUTES OFFICE 07318 [facility] OUTPATI[facility] 1 1 HEALTH YOSI T VISIT 5 CLINIC OF MINUTES SHERRY OFFICE 90797 CYNODALYS MARIE MARRERO 1 1 CORIE CORIE T VISIT 15 MINUTES OFFICE 95553 MARIE MARRERO 1 1 CORIE CORIE T VISIT 15 MINUTES OFFICE 40897 MARIE MARRERO 1 1 CORIE CORIE T VISIT 15 MINUTES OFFICE 03399 MARIE MARRERO 1 1 CORIE CORIE T VISIT 15 MINUTES OFFICE 35096 THE ELIDA BROWN 1 1 IMPLANT & III LAKESHIA T NEW 20 ORAL MINUTES SURGERY C OFFICE 62262 [facility] ARMANDO OUTPATIEN 1 1 HEALTH YOSI T VISIT 5 CLINIC OF MINUTES SHERRY OFFICE 64937 HUNTER HARRISON JR OUTPATIEN 0 0 YI YI T VISIT 25 MINUTES OFFICE 68204 MARIE STONEPATIEN 0 0 CORIE CORIE T VISIT 15 MINUTES OFFICE 60033 MARIE STONEPATIMAMIE 0 0 CORIE CORIE T VISIT 15 MINUTES HOSPITAL JULIUS - 0 0 [facility]PAT[facility] JULIUS - 0 0 [facility] OUTPATIEN INC T OFFICE 15865 MARIE SALAZAR OUTPATIEN 0 0 CORIE CORIE T VISIT 15 MINUTES OFFICE 41317 MARIE ADDISONODALYS OUTPATIEN 0 0 CORIE CORIE T VISIT 15 MINUTES OFFICE 23744 [facility] 0 0 HEALTH YOSI T VISIT 5 CLINIC OF MINUTES SHERRY EMERGENCY 58871 KIANA NELSON DEPT 0 0 MEDICAL RAMONE VISIT SERV HIGH FOUNDATIO SEVERITY& [facility] 98057 MARIE ADDISONODALYS OUTPATIEN 0 0 CORIE CORIE T VISIT 15 MINUTES EMERGENCY 80432 [facility] 0 0 E [facility] T VISIT LOW/MODER SEVERITY [facility] 98099 MARIE SALAZAR OUTPATIEN 0 0 CORIE CORIE T VISIT 15 MINUTES OFFICE 23588 CYNODALYS SALAZAR OUTPATIEN 0 0 CORIE CORIE T VISIT 15 MINUTES OFFICE 77241 [facility], OUTPATIEN 0 0 HEALTH ISABEL J T VISIT 5 CLINIC OF MINUTES [facility] OFFICE 96631 MARIE SALAZAR OUTPATIEN 0 0 RODERICK W RODERICK W T VISIT 15 MINUTES OFFICE 44039 MARIE SALAZAR OUTPATIEN 0 0 RODERICK W RODERICK W T VISIT 15 MINUTES OFFICE 29297 MARIE SALAZAR OUTPATIEN 0 0 RODERICK W RODERICK W T VISIT 15 MINUTES OFFICE 37113 MARIE SALAZAR OUTPATIEN 0 0 RODERICK W RODERICK W T VISIT 15 MINUTES OFFICE 66941 MARIE SALAZAR OUTPATIEN 0 0 RODERICK W RODERICK W T VISIT 15 MINUTES OFFICE 55703 MARIE SALAZAR OUTPATIEN 0 0 RODERICK W RODERICK W T VISIT 15 MINUTES OFFICE 74463 [facility]TR[facility] MAIRA BAEZEN 0 0 [place] [facility] T VISIT ORTHOPAED 15 [facility] MINUTES OFFICE 07053 MARIE SALAZAR OUTPATIEN 0 0 RODERICK VAUGHN W T VISIT 15 MINUTES OFFICE 26367 CENTRAL SASHA, CONSULTAT 0 0 [place] [facility] C ION ORTHOPAED NEW/ESTAB [facility]CS PLC PATIENT 60 MIN OFFICE 73210 MARIE SALAZAR OUTPATIEN 0 0 RODERICK VAUGHN W T VISIT 15 MINUTES HOSPITAL JULIUS - 0 0 [facility] OUTPATIEN INC T EMERGENCY 54365 JULIUS 0 0 [facility] DEPARTMEN INC T VISIT LOW/MODER SEVERITY EMERGENCY 99519 TYRELL PEARSON, 0 0 EMERGENCY [facility] SERVICES T VISIT HIGH/URGE ASSOCIATE NT S SEVERITY OFFICE 34349 MARIE SALAZAR OUTPATIEN 0 0 RODERICK VAUGHN W T VISIT 15 MINUTES HOSPITAL UNIVERSIT - 0 0 Y [facility] T OFFICE 37704 KIANA COLEMAN, CONSULTAT 0 0 MEDICAL MENDEL L ION SERV NEW/ESTAB FOUNDATIO PATIENT 40 MIN OFFICE 61657 ALLRAN ALLRAN CONSULTAT 0 0 JR RACHAEL, NIRMALA SINGH F NEW/ESTAB PATIENT 60 MIN OFFICE 15824 MARIE SALAZAR OUTPATIEN 0 0 RODERICK VAUGHN W T VISIT 15 MINUTES OFFICE 45440 MARIE SALAZAR OUTPATIEN 0 0 RODERICK VAUGHN W T VISIT 15 MINUTES OFFICE 08101 [facility] EL[facility] 9 9 [facility]EL Moore T VISIT 5 CLINIC OF MINUTES [facility] OFFICE 39608 MARIE SALAZAR OUTPATIEN 9 9 RODERICK VAUGHN W T VISIT 15 MINUTES OFFICE 86353 MARIE SALAZAR OUTPATIEN 9 9 RODERICK Gould T VISIT 15 MINUTES EMERGENCY 85219 JULIUS 9 9 [facility] DEPARTMEN INC T VISIT LOW/MODER SEVERITY HOSPITAL JULIUS - 9 9 [facility] OUTPATIEN INC T EMERGENCY 62177 TYRELL DUNCAN 9 9 EMERGENCY III, DEPARTMEN SERVICES BEBA T VISIT MODERATE ASSOCIATE SEVERITY S OFFICE 66704 CORY VALENCIASTWILBERTO OUTPATIEN 9 9 , PETERPETER Kunz T VISIT 10 MINUTES HOSPITAL JULIUS - 9 9 [facility] OUTPATIEN INC T OFFICE 77094 MARIE SALAZAR OUTPATIEN 9 9 RODERICK Gould T VISIT 15 MINUTES HOSPITAL JULIUS - 9 9 [facility] OUTPATIEN INC T OFFICE 70852 MARIE SALAZAR OUTPATIEN 9 9 RODERICK Gould T VISIT 15 MINUTES OFFICE 70112 SCHULSTWILBERTO VALENCIASTAD OUTPATIEN 9 9 , PETER GREEN T VISIT 10 MINUTES HOSPITAL JULIUS - 9 9 [facility] OUTPATIEN INC T OFFICE 24199 SCHULSTWILBERTO SCHULSTAD CONSULTAT 9 9 , PETER PETER ION NEW/ESTAB PATIENT 60 MIN OFFICE 37552 MARIE SALAZAR OUTPATIEN 9 9 RODERICK Gould T VISIT 15 MINUTES OFFICE 88116 [facility] 9 9 HEALTH ISABEL J T VISIT CLINIC OF 15 MINUTES [facility] OFFICE 22197 [facility] JULIUS OUTAIDEE 9 9 HEALTH CO HEALTH T [facility] 10 [facility] MINUTES BANK ACCT OFFICE 24980 MARIE SALAZAR OUTPATIEN 9 9 RODERICK Gould T VISIT 15 MINUTES OFFICE 28517 MARIE SALAZAR OUTPATIEN 9 9 RODERICK VAUGHN W T VISIT 15 MINUTES OFFICE 99826 MARIE SALAZARBERTHAPATIEN 9 9 RODERICK VAUGHN W T VISIT 15 MINUTES OFFICE 08617 MARIE SALAZAR OUTPATIEN 9 9 RODERICK VAUGHN W T VISIT 15 MINUTES OFFICE 31922 MARIE SALAZARBERTHAPATIMAMIE 9 9 RODERICK VAUGHN W T VISIT 15 MINUTES OFFICE 44249 MARIE SALAZARBERTHAPATIMAMIE 9 9 RODERICK VAUGHN W T VISIT 15 MINUTES OFFICE 52362 MARIE SALAZARELIDA 9 9 RODERICK VAUGHN W T NEW 30 MINUTES OFFICE 25689 [facility] MARYSE [facility] 9 9 HEALTH ISABEL J ION CLINIC OF NEW/ESTAB PATIENT CYNTHIANA 40 MIN [facility] EMERGENCY 10649 TYRELL RUIZ, DEPT 9 9 EMERGENCY ENDY P VISIT SERVICES HIGH SEVERITY& ASSOCIATE THREAT S FUNJ EMERGENCY 97261 JULIUS 9 9 [facility] DEPARTMEN INC T VISIT HIGH/URGE NT [facility] JULIUS - 9 9 [facility] OUTPATIEN INC T EMERGENCY 20311 JULIUS 9 9 [facility] DEPARTMEN INC T VISIT LIMITED/M INOR PROB EMERGENCY 27700 TYRELL RUIZ 9 9 EMERGENCY ENDY P DEPARTMEN SERVICES T VISIT MODERATE ASSOCIATE SEVERITY S [facility] JULIUS - 9 9 [facility] OUTPATIEN INC T OFFICE 03360 ISAIAH COLON OUTPATIEN 9 9 GENE Jorgensen T VISIT 15 MINUTES OFFICE 29730 FIGUEROA STONEPATIEN 9 9 Oscar CANO JR, J V T VISIT 15 MINUTES OFFICE 08399 [facility] 9 9 [facility]EL J T VISIT [facility]IN[facility]19 ISAIAH COLON OUTPATIEN 9 9 GENE A GENE A T VISIT 15 MINUTES HOSPITAL JULIUS - 9 9 [facility] T OFFICE 43127 ISAIAH COLON OUTPATIEN 9 9 GENE A GENE A T VISIT 15 MINUTES EMERGENCY 47927 JULIUS 9 9 [facility] DE[facility] INC T VISIT MODERATE SEVERITY HOSPITAL JULIUS - 9 9 [facility] T EMERGENCY 78325 ANGI PEARSON, 9 9 [facility] T VISIT ON HIGH/URGE NT SEVERITY OFFICE 67808 [facility], OUTPATIEN 8 8 HEALTH ISABEL J T VISIT CLINIC OF 25 MINUTES [facility] OFFICE 24850 ISAIAH COLON OUTPATIEN 8 8 GENE A GENE A T VISIT 15 MINUTES OFFICE 77281 ISAIAH COLON OUTPATIEN 8 8 GENE A GENE A T VISIT 15 MINUTES OFFICE 64711 [facility], OUTPATIEN 8 8 HEALTH ISABEL J T VISIT CLINIC OF 15 MINUTES [facility] EMERGENCY 13729 JULIUS 8 8 [facility] INC T VISIT MODERATE SEVERITY HOSPITAL JULIUS - 8 8 [facility] T OFFICE 02575 [facility], OUTPATIEN 8 8 HEALTH ISABEL J T VISIT CLINIC OF 15 MINUTES [facility] OFFICE 83879 [facility], OUTPATIEN 8 8 HEALTH ISABEL J T NEW 30 CLINIC OF MINUTES [facility] OFFICE 28889 ISAIAH COLON OUTPATIEN 7 7 GENE A GENE A T VISIT 15 MINUTES
--- OUTSIDE RECORDS SUMMARY | 2016-12-02 18:03 | External Medical Summary Rpt ---
Demographics Preferred Language Occitan Marital Status Unknown Gnosticism Affiliation Unknown Race Unknown Ethnic Group Unknown Author Author , VAMSHI BONDS Address Unknown Phone Immunization Unable to retrieve immunization data due to connection failure with Immunization Registry. Please try again later.
--- OUTSIDE RECORDS SUMMARY | 2016-12-02 18:03 | External Medical Summary Rpt ---
Author Author VAMSHI Oneil, [employer] Address Unknown Phone Unavailable
--- OUTSIDE RECORDS SUMMARY | 2016-12-02 18:03 | External Medical Summary Rpt ---
Demographics Preferred Language Hebrew Marital Status Unknown Buddhism Affiliation Unknown Race Unknown Ethnic Group Unknown Author Author , VAMSHI BONDS Address Unknown Phone Immunization Unable to retrieve immunization data due to connection failure with Immunization Registry. Please try again later.
--- NOTE | 2016-12-02 18:34 | RADIOLOGY REPORT PS360 ---
ANKLE-LT-3 VIEWS HISTORY: Pain and swelling following injury FELL, TWISTED ANKLE ORDERING PHYSICIAN: VIJAY ACEVEDO APRN PATIENT AGE: 21 years COMPARISON: None FINDINGS: There is nondisplaced oblique fracture involving the distal fibula at the level the ankle joint. There is mild overlying soft tissue swelling. The ankle mortise does not appear widened IMPRESSION: Nondisplaced oblique fibular fracture
[2016-12-02] MEDS ORDERED: IBUPROFEN800 MG PO (18:56)
[2016-12-02 19:04] VITALS: BP 114/65
== END 2016-12-02 19:04 | disposition home or self-care (01) ==
LOC: UTC 17:19
DX: S82.892A Other fracture of left lower leg, initial encounter for closed fracture (principal); X50.1XXA Overexertion from prolonged static or awkward postures, initial encounter; Y92.89 Other specified places as the place of occurrence of the external cause

== ENCOUNTER 2017-02-16 20:55 | Emergency (ER) | payer MEDICAID ==
[~2017-02-16] VITALS: Ht 165.1 cm; Wt 63.5 kg
[~2017-02-16 20:55] MED LIST changes: +ONDANSETRON4 M1 PO
--- NOTE | 2017-02-16 21:18 | Emergency Room Report ---
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 N Clinical Suspician of Infection? N Mental Status: 1 - Regular (Normal Baseline) Sepsis Risk:Possible Sepsis Risk Have you (or family members/close friends) recently traveled outside the [place]? N If Yes, where/when: Have you had exposure to infectious disease within the past month? N TB? Other? 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 No Angina: No OK: No Hypertension? No Hyperlipidemia? No CHF? No DVT? No PE? No COPD? No Asthma? Yes Anemia? No GERD? No Gastric ulcers? No GI Bleed? No Hernia? No Thyroid Problems? No Hypothyroidism? No CVA? No Seizures? Yes Diabetes? No Insulin Dependent: No Insulin Pump: No Home FSBS? No Renal Insuffiency? No End Stage Renal Disease? No UTI? Yes Stones? No BPH? No GB Disease: Yes Nephritic Syndrome? No Asplenia? No Hepatitis? No Sickle Cell Disease? No Arthritis? No Migraines? Yes Cataracts? No Glaucoma? No MRSA? No HIV? No TB? No Anxiety? No Depression? No Cancer? No More? 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 denies: ear discharge, epistaxis. Respiratory cough, denies shortness of breath, denies wheezing Cardiovascular denies chest pain, denies palpitations, denies syncope Gastrointestinal denies abdominal pain, denies diarrhea, denies vomiting Genitourinary denies: dysuria, frequency, hesitancy, hematuria. Musculoskeletal denies back pain, denies joint pain, denies joint swelling, denies neck pain Skin denies rash Psychiatric/Neurological denies headache, denies seizure Physical Exam Vital Signs Vital Signs Date Time Temp Pulse Resp B/P Pulse O2 O2 Flow FiO2 Ox Delivery Rate 02/16 2211 99.3 87 22 139/67 97 02/16 2058 98.4 106 20 133/77 98 - WBC >12,000 or <4,000 or 10% bands? 2 or more SIRS Criteria Met? B/P:139/67 MAP:95 Creatinine >2.0? UA output<0.5ml/kg/hr for 2 hrs? Platelet count >100,000? Lactate >2.0mmol/1? INR >1.2 or PTT > than 60 sec? Evidence of Organ Dysfunction? Provider documented clinical suspician of infection? N Sepsis Criteria Count: 2 Sepsis Risk: Possible Sepsis Risk General Appearance no apparent distress Eye Exam - bilateral eye PERRL, bilateral eye EOMI Ear, Nose, Throat normal ENT inspection Neck supple Respiratory Status No: respiratory distress. Lung Sounds bilateral: rhonchi. 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 No Results/Orders Laboratory Tests 02/16/172137: Sodium 138, Potassium 3.6, Chloride 102, Carbon Dioxide 27, BUN 10, Creatinine 0.9, Estimated Creat Clear 99, Estimated GFR (MDRD) 79, Glucose 93, Calcium 9.7, Total Bilirubin 0.8, AST 18, ALT 20, Alkaline Phosphatase 89, Total Protein 8.8 H, Albumin 4.7, Globulin 4.1 H, Albumin/Globulin Ratio 1.1, WBC 10.4, RBC 5.04, Hgb 15.2, Hct 45.4, MCV 90.2, RDW 13.1, Plt Count 225, MPV 8.4, Gran % 80.8 H, Gran # 8.4 H, Lymphocytes % 10.9, Monocytes % 4.7, Eosinophils % 3.4, Basophils % 0.3, Lymphocytes # 1.1, Monocytes # 0.5, Eosinophils # 0.4, Basophils # 0.0, PUBS MCHC 33.4, MCH 30.2 02/16/172130: Influenza Type A Ag NOT DETECTED, Influenza Type B Ag NOT DETECTED, Urine Color DK YELLOW, Urine Appearance SL CLOUDY, Urine pH 5.5, Ur Specific [place] >= 1.030, Urine Protein 2+ H, Urine Ketones 2+ H, Urine Blood 2+ H, Urine Nitrate NEGATIVE, Urine Bilirubin 1+ H, Urine Urobilinogen 0.2, Ur Leukocyte Esterase NEGATIVE, Urine RBC OCC, Urine WBC 5-10, Ur Squamous Epith Cells TNTC, Urine Bacteria 4+, Hyaline Casts OCC, Urine Mucus 4+, Urine Glucose NEGATIVE Current Medication Orders Sig/Morales Start time Last Medication Dose Route Stop Time Status Admin Sodium Chloride 10 ML PRN PRN 02/16 2130 AC IV 02/17 2118 Sodium Chloride 1,000 ML .Q1H1M 02/16 2130 DC 02/16 IV 02/16 Sodium Chloride 10 ML PRN PRN 02/16 2130 AC IV 02/17 2119 Orders Procedure Date/time Status CULTURE, URINE 02/16 2131 Active CHEST(2 VIEWS-NOT PORTABLE) 02/16 2119 Active IV SALINE LOCK 02/16 2119 Active URINALYSIS/COMPLETE 02/16 2119 Complete URINE 02/16 2119 Complete INFLUENZA A&B ANTIGENS 02/16 2119 Complete COMPLETE METABOLIC PANEL 02/16 2119 Complete CBC WITH AUTO DIFF 02/16 2119 Complete XRAY/CT/US XRAY/CT/US XRAY chest XR interpretation by reviewed by me Xray Results normal/NAD Departure Departure Time of Disposition 2228 Disposition DC Home or Self Care(routine) Clinical Impression Primary Impression: Bronchitis Condition STABLE Referrals Shayy KABA,Guille De La Cruz (Family) Patient Instructions DI for Cough -- Adult Additional Instructions use meds and see pcp for follow up Discharge Counseling Counseled pt/family regarding diagnosis, test results, medications/RX, follow up needs Prescriptions Current Visit Scripts BENZONATATE (Benzonatate) 100 MG PO TID #15 CAP Minocycline Hcl (Minocycline 100MG. Capsule) 100 MG PO BID #14 CAP Prednisone (Prednisone 20MG) 20 MG PO BID #10 TAB ED Critical Care Critical Care No at 6563
[2017-02-16 21:51] LABS: HEMOGLOBIN 15.2 g/dL (12.2-16.2); LYMPH # 1.1 K/mm3 (0.7-4.5); LYMPH % 10.9 % (10-50.0)
[2017-02-16 21:53] LABS: URINE BLOOD 2+ (NEG)
[2017-02-16 21:57] LABS: URINE BILIRUBIN - DIPSTICK 1+ (NEG)
[2017-02-16 21:58] LABS: B-HCG URINE PREGNANCY (RAPID) NEGATIVE (NEG)
[2017-02-16 22:08] LABS: URINE SQUAMOUS CELLS TNTC #/hpf (0-5)
[2017-02-16] MEDS ORDERED: PREDNISONE 20MG20 MG PO (22:31)
[2017-02-16] MEDS ORDERED: TESSALON PERLE100 MG PO (22:31)
[2017-02-16] MEDS ORDERED: MINOCYCLINE 10100 MG PO (22:31)
[2017-02-16 23:01] VITALS: BP 130/78
--- NOTE | 2017-02-17 04:25 | RADIOLOGY REPORT PS360 ---
CHEST(2 VIEWS-NOT PORTABLE) HISTORY: cough ORDERING PHYSICIAN: Danisha Lucas MD PATIENT AGE: 21 years COMPARISON: 01/07/2017 FINDINGS: The cardiomediastinal silhouette and pulmonary vascularity are within normal limits. The lungs are clear without infiltrates, suspicious nodules, or pleural effusions. No acute bony abnormalities. IMPRESSION: Negative chest, no acute finding
--- OUTSIDE RECORDS SUMMARY | 2017-02-18 18:05 | External Medical Summary Rpt | CCD ---
Author Author , VAMSHI BONDS Address Unknown Phone Care Team Providers Care Field Support Technician Name Role Phone [facility], Unavailable Unavailable [facility] Danisha Lucas MD, Unavailable Unavailable Danisha Lucas MD [facility] Unavailable Unavailable [id number] # [phone], [facility] [id number] # [phone] Damir West Unavailable Unavailable DEREK KABA, Damir West III, MD Purpose Continuity of Care Document - 07-09-2009 through 2016 Problems Code Diagnosis DOS Provider Status [id number] 05-30-2013 Bobby CONTUSION [facility] FACE/SCALP/ Hospital NCK E849.0 E849.0 05-30-2013 Bobby ACCIDENT IN [facility] E884.4 E884.4 FALL 05-30-2013 Bobby FROM BED [facility] 564.3 564.3 03-31-2013 Bobby VOMITING [facility] POST-GI Hospital SURGERY 576.8 576.8 DIS 03-11-2013 Bobby OF BILIARY [facility] TRACT [facility] 786.50 786.50 03-11-2013 Bobby CHEST PAIN [facility] 789.07 789.07 03-11-2013 Bobby ABDOMINAL [facility], [facility] GENERALIZED V14.8 V14.8 03-11-2013 Bobby HX-DRUG [facility] ALLERGY [facility] V58.69 V58.69 OTH 03-11-2013 Bobby MED,LT,CURR [facility] ENT USE Hospital F10.929 ALCOHOL USE, UNSPECIFIED WITH INTOXICATIO N, UNSPECIFIED [id number] J40 BRONCHITIS, NOT SPECIFIED ACUTE OR CHRONIC K29.70 GASTRITIS, UNSPECIFIED , WITHOUT BLEEDING S00.83XA CONTUSION OF OTHER PART OF HEAD, INITIAL ENCOUNTER S06.0X9A CONCUSSION W LOSS OF CONSCIOUSNE SS OF UNSP DURATION, INIT S16.1XXA STRAIN OF MUSCLE, FASCIA AND TENDON AT NECK LEVEL, INIT S93.601A UNSPECIFIED SPRAIN OF RIGHT FOOT, INITIAL ENCOUNTER T14.8 OTHER INJURY OF UNSPECIFIED BODY REGION Allergies, Adverse Reactions, Alerts Type Drug Allergy [...] ia de te s n re d SO 00 11 0 No DI 40 [...] Ac MG ti /M ve L AL AC 51 11 0 No ET 07 -2 AM 90 4- Lo IN 16 20 ng OP 19 13 er HE 9H N Ac W/ ti CO ve DE IN E #3 TA K ON 00 11 0 No DA 64 [...] 34 6- 6- [address] 59 20 20 AI ED 31 11 [...] 11 D RI TA 1 PH CH WA AR AR N- MA D CA CY [...] W 03 93 8 # [address] 37 09 09 11 28 28 RI 89 AR Ac IL 00 -0 -0 .0 TE 78 NO ti OS 00 6- 6- 00 55 LD ve EC 45 20 20 AI 50 11 11 D RI OT 3 PH CH C AR AR 20 MA D .6 CY W MG 03 93 TA 8 BL # ET [address] 00 08 08 1 18 6 RI 89 AR Ac OM 60 -2 -2 0. TE 66 NO ti ET 31 6- 6- 00 25 LD ve CASTORENA 58 20 20 0 AI ZI 65 11 11 D RI NE 4 PH CH -D AR AR M MA D SY CY W RU P 03 93 8 # 03 93 PE 00 08 08 1 59 1 RI 89 AR Ac RM 47 -1 -1 .0 TE 56 NO ti ET 25 8- 8- 00 01 LD ve HR 24 20 20 AI IN 26 11 11 D RI 7 PH CH 1% AR AR MA D LO CY W TI ON 03 93 8 # 03 93 TR 45 08 08 [...] EA 93 M 8 # [address] 00 08 08 1 40 10 RI 89 AR Ac OM 60 -1 -1 .0 TE 55 NO ti ET 35 8- 8- 00 99 LD ve CASTORENA 43 20 20 AI ZI 82 11 11 D RI NE 1 PH CH AR AR 25 MA D CY W MG 03 TA 93 BL 8 ET # 03 93 CE 16 05 08 [...] 34 1- 1- [address] 59 20 20 AI ED 31 11 [...] AI ZA 10 [address] 1 PH CH IN AR AR E [...] 15 5- 5- [address] 02 20 20 AI ED 20 11 11 D RI NI 1 PH CH SO AR AR LO MA D NE CY W 4 03 MG 93 8 TA # BL 03 ET 93 TR 45 05 05 1 80 20 RI 88 AR Ac IA 80 -2 -2 .0 TE 47 NO ti MC 20 5- 5- 00 19 LD ve IN 06 20 20 AI OL 43 11 11 D RI ON 6 PH CH E AR AR 0. MA D 1% CY W CR 03 EA 93 M 8 # 03 93 DO 00 05 05 [...] MG 8 # CA [address] 00 05 05 1 30 7 RI [...] LL 15 C 0 MG /M L CT 00 04 04 1 18 6 RI [...] MG 8 # TA [address] 00 03 03 1 30 7 RI 87 AR Ac OM 60 -1 -1 .0 TE 44 NO ti ET 35 0- 0- 00 59 LD ve CASTORENA 43 20 20 AI ZI 82 11 11 D RI NE 1 PH CH AR AR 25 MA D CY W MG 03 TA 93 BL 8 ET # 03 93 TA 00 03 03 10 5 RI 87 AR Ac WA 00 -1 -1 .0 TE 44 NO ti FL 40 0- 0- 00 58 LD ve U 80 20 20 AI 75 08 11 11 D RI 5 PH CH MG AR AR MA D CA CY W PS UL 03 E 93 8 # 03 93 AN 43 03 03 1 [...] R 8 DR # OP 03 93 CE 00 03 03 10 30 30 RI 87 AR Ac TI 78 -1 -1 .0 TE 44 NO ti RI 11 0- 0- 00 98 LD ve ZI 68 20 20 AI NE 40 11 11 D RI 1 PH CH HC AR AR L MA D 10 CY W MG 03 93 TA 8 BL # ET 03 93 LO 00 03 03 1 14 2 RI 87 AR Ac PE 09 -1 -1 .0 TE 44 NO ti RA 30 0- 0- 00 61 LD ve WA 31 20 20 AI DE 10 11 [...] ON 03 93 8 # 03 93 AM [...] 93 UL 8 E # 03 93 IB 53 02 02 30 [...] P ET 93 8 # 03 93 OX 00 [...] 5- 8 32 # 5 03 93 CE 16 04 02 11 [...] 8 E # 03 93 LO 00 10 10 1 8. 1 RI 85 AR Ac PE 09 -2 -2 00 TE 68 NO ti RA 30 7- 7- 0 20 LD ve WA 31 20 20 AI DE 10 10 10 D RI 2 1 PH CH AR AR MG MA D CY W CA PS 03 UL 93 E 8 # 03 93 ON 63 10 10 [...] BL 8 ET # 03 93 ME 59 07 10 3 1. 90 CL [address] 76 -0 -1 00 IN 93 AR ti OX 24 7- 5- 0 IC 47 KE ve YP 53 20 20 RO 70 10 10 PH DE GE [address] MA K ER CY J ON E LL 15 C 0 MG /M L TO 00 09 09 11 12 31 RI 84 LI Ac PI 09 -0 -1 4. TE 92 GH ti RA 30 9- 0- 00 42 TN ve MA 15 20 20 0 AI ER TE 50 10 10 D 6 PH DO 25 AR NI MA TA MG CY D TA 03 BL 93 ET 8 # 03 93 IN 00 09 09 [...] PS 8 UL # E [address] 00 09 09 5 15 5 RI 84 LI Ac OM 60 -0 -1 .0 TE 92 GH ti ET 35 9- 0- 00 37 TN ve CASTORENA 43 20 20 AI ER ZI 82 10 10 D NE 1 PH DO AR NI 25 MA TA CY D MG 03 TA 93 BL 8 ET # 03 93 LO 00 09 09 11 30 30 RI 84 AR Ac RA 78 -0 -0 .0 TE 85 NO ti TA 15 3- 3- 00 22 LD ve DI 07 20 20 AI NE 70 10 10 D RI 1 PH CH 10 AR AR MA D MG CY W TA 03 BL 93 ET 8 # [address] 00 09 09 1 30 7 RI [...] EA 93 M 8 # 03 93 ER 00 08 [...] GE 93 L 8 # 03 93 00 08 08 1 60 15 RI 84 AR Ac 59 -3 -3 .0 TE 77 NO ti 13 0- 0- 00 45 LD ve 96 20 20 AI 80 10 10 D RI 1 PH CH AR AR MA D CY W 03 93 8 # 03 93 ME 59 07 [...] 34 1- 1- [address] 59 20 20 AI ED 31 10 [...] W 03 93 8 # [address] 60 11 05 1 18 6 RI 83 AR Ac OM 43 -0 -2 0. TE 48 NO ti ET 20 5- 0- 00 29 LD ve CASTORENA 60 20 20 0 AI ZI 40 09 10 D RI NE 4 PH CH -D AR AR M MA D SY CY W RU P 03 93 8 # 03 93 AM [...] 93 8 CORRALES # SP 03 93 ME 00 04 04 1 21 6 RI 83 AR Ac TH 60 -3 -3 .0 TE 20 NO ti YL 34 0- 0- [address] 59 20 20 AI ED 31 10 [...] MG 8 # TA 03 B 93 Vital Signs 05-30-2013 22:37 Name Value Interpretat [...] Order Detail nces retati t Range on Urine test by rapid immunoassa (01-07-2017 14:01) Urine NEGATIV NEG complet pregnan 017 E ed cy test 14:01 by rapid immunoa ssa B-HCG Ur Ql (05-30-2013 21:11) B-HCG NEGATIV [...] ed IN - 21:15 DIPSTIC K URINE 24-2 NEGATIV NEG complet KETONE 013 E mg/dL ed 21:15 URINE -24-2 1.025 1.005-1 complet SPECIFI 013 UNK .030 ed C 21:15 GRAVITY URINE -24-2 NEGATIV NEG complet BLOOD 013 E ed 21:15 URINE 24-2 6.0 UNK 5.0-8.5 complet PH 013 ed 21:15 URINE -24-2 NEGATIV NEG complet PROTEIN 013 E mg/dL [...] 013 #/hpf ed S CELLS 21:15 URINE 03-31-2 3+ NONE complet AMORPH 013 ed SEDIMEN 21:15 T COMPREHENSIVE METABOLIC PANEL (03-31-2013 20:30) Glucose 24-2 80 74-106 complet 013 mg/dL ed Bld-mCn 20:30 c BUN 03-31-2 10 7-18 complet Bld-mCn 013 mg/dL ed c 20:30 Creat 03-31-2 0.9 0.6-1.0 complet SerPl-m 013 mg/dL ed Cnc 20:30 Creat 03-31-2 102 50-200 complet Cl 013 ML/MIN ed predict 20:30 ed SerPl C-G-vRa te Sodium 03-31-2 141 136-145 complet SerPl-s 013 mmoL/L ed Cnc 20:30 Potassi 03-31-2 3.7 3.5-5.1 complet um 013 mmoL/L ed SerPl-s 20:30 Cnc Chlorid 03-31-2 106 98-107 complet e 013 mmoL/L ed SerPl-s 20:30 Cnc CO2 03-31-2 27 21.0-32 complet SerPl-s 013 mmoL/L .0 ed Cnc 20:30 Calcium 24-2 8.6 8.5-10. complet 013 mg/dL 1 ed SerPl-m 20:30 Cnc Prot -24-2 6.6 6.4-8.2 complet SerPl-m 013 gm/dL ed Cnc 20:30 Albumin -24-2 3.5 3.4-5.0 complet 013 gm/dL ed SerPl-m 20:30 Cnc Globuli 24-2 3.1 1.3-3.2 complet n 013 gm/dL ed [...] YELLOW complet COLOR 013 ed 14:40 URINE --2 CLEAR CLEAR complet APPEARA 013 ed NCE 14:40 URINE --2 NEGATIV NEG complet GLUCOSE 013 E ed - 14:40 DIPSTIC K URINE --2 NEGATIV NEG complet BILIRUB 013 E ed IN - 14:40 DIPSTIC K URINE --2 NEGATIV NEG complet KETONE 013 E mg/dL ed 14:40 URINE -04-2 Less 1.005-1 complet SPECIFI 013 than or .030 ed C 14:40 equal GRAVITY to 1.005 URINE -04-2 NEGATIV NEG complet BLOOD 013 E ed 14:40 URINE -04-2 6.0 UNK 5.0-8.5 complet PH 013 ed [...] mg/dL 1 ed SerPl-m 13:45 Cnc Prot 7.7 6.4-8.2 complet SerPl-m 013 gm/dL ed Cnc 13:45 Albumin 11-04-2 4.3 3.4-5.0 complet 013 gm/dL ed SerPl-m 13:45 Cnc Globuli 03-11-2 3.4 1.3-3.2 complet n 013 gm/dL ed Ser-mCn 13:45 c Albumin 03-11-2 1.3 UNK 1.1-1.8 complet /Glob 013 ed SerPl-m 13:45 Rto Bilirub 03-11-2 0.5 0.2-1.0 complet 013 mg/dL ed SerPl-m 13:45 Cnc AST 03-11-2 22 U/L 15-37 complet SerPl-c 013 ed Cnc 13:45 ALT 03-11-2 32 U/L 30-65 complet SerPl-c 013 ed Cnc 13:45 ALP 03-11-2 102 U/L 50-136 complet SerPl-c 013 ed Cnc 13:45 LIPASE (03-11-2013 13:45) LIPASE 03-11-2 72 U/L 73-393 complet 013 ed 13:45 CBC with AUTO DIFF (03-11-2013 13:45) WBC # 04-2 6.7 4.5-13. complet Bld 013 K/mm3 0 ed Auto 13:45 RBC # 04-2 4.58 4.2-5.4 complet Bld 013 M/mm3 ed Auto 13:45 Hgb 03-11-2 12.8 12.2-16 complet Bld-mCn 013 g/dL .2 ed c 13:45 Hct Fr 2 40.1 % 37.0-47 complet Bld 013 .0 ed 13:45 MCV RBC 03-11-2 87.6 fL 82.2-97 complet 013 .8 ed 13:45 MCH RBC 03-11-2 27.9 pg 27-31.2 complet Qn 013 ed Auto 13:45 MEAN 04-2 31.9 31.8-35 complet CORPUSC 013 g/dl .4 ed ULAR 13:45 HGB CONC RDW RBC 04-2 13.9 % 11.5-17 complet Auto 013 .5 ed 13:45 Platele 03-11-2 227 142-424 complet t Bld 013 K/mm3 ed Ql 13:45 Manual Granulo 03-11-2 72.4 % 37.0-80 complet cytes 013 .0 [...] # 013 K/mm3 ed Bld 13:45 Auto Encounters Encounter Start End Date Code Location Performer Type Date Emergency DEVAN Lucas MD (ER) 4 20:58 4 22:37 [facility] Emergency DEVAN Lucas MD (ER) 3 20:21 3 22:23 [facility] Emergency DEVAN West (ER) 3 13:44 3 16:24 [facility] Damir E. Emergency DEVAN Lucas MD (ER) 3 05:07 3 05:24 [facility]
--- OUTSIDE RECORDS SUMMARY | 2017-02-18 18:05 | External Medical Summary Rpt | CCD ---
Author Author , VAMSHI BONDS Address Unknown Phone Care Team Providers Care Wares Sorter Name Role Phone [facility], Unavailable Unavailable [facility] Danisha Lucas MD, Unavailable Unavailable Danisha Lucas MD [facility] Unavailable Unavailable [id number] # [phone], [facility] [id number] # [phone] Damir West Unavailable Unavailable DEREK KABA, Damir West III, MD Purpose Continuity of Care Document - 07-09-2009 through 2016 Problems Code Diagnosis DOS Provider Status [id number] 05-30-2013 Bobby CONTUSION [facility] FACE/SCALP/ Hospital NCK E849.0 E849.0 05-30-2013 Bobby ACCIDENT IN [facility] E884.4 E884.4 FALL 05-30-2013 Bobby FROM BED [facility] 564.3 564.3 03-31-2013 Bobby VOMITING [facility] POST-GI Hospital SURGERY 576.8 576.8 DIS 03-11-2013 Bobby OF BILIARY [facility] TRACT [facility] 786.50 786.50 03-11-2013 Bobby CHEST PAIN [facility] 789.07 789.07 03-11-2013 Bobby ABDOMINAL [facility], [facility] GENERALIZED V14.8 V14.8 03-11-2013 Bobby HX-DRUG [facility] ALLERGY [facility] V58.69 V58.69 OTH 03-11-2013 Bobby MED,LT,CURR [facility] ENT USE Hospital F10.929 ALCOHOL USE, UNSPECIFIED WITH INTOXICATIO N, UNSPECIFIED [id number] BRONCHITIS, NOT SPECIFIED ACUTE OR CHRONIC [...] 34 6- 6- 00 45 LD ve ME 59 20 20 AI ED 31 11 [...] 11 D RI TA 1 PH CH AZ AR AR N- MA D CA CY [...] 03 93 8 # 03 93 ME 37 09 09 11 28 28 RI [...] 03 93 ME 00 08 08 1 18 6 RI [...] M 8 # 03 93 ME 00 08 08 1 40 10 RI [...] 34 1- 1- 00 55 LD ve ME 59 20 20 AI ED 31 11 [...] AI ZA 10 11 11 D RI ME 1 PH CH IN AR AR E [...] 15 5- 5- 00 20 LD ve ME 02 20 20 AI ED 20 11 [...] # CA 03 P 93 ME 00 05 05 1 30 7 RI [...] LL 15 C 0 MG /M L ME 00 04 04 1 18 6 RI [...] MG 8 # TA 03 B 93 ME 00 03 03 1 30 7 RI [...] 03 10 5 RI 87 AR Ac AZ 00 -1 -1 .0 TE 44 NO [...] 30 0- 0- 00 61 LD ve AZ 31 20 20 AI DE 10 11 [...] 30 7- 7- 0 20 LD ve AZ 31 20 20 AI DE 10 10 [...] PS 8 UL # E 03 93 ME 00 09 09 5 15 5 RI [...] BL 93 ET 8 # 03 93 ME 00 09 09 1 30 7 RI [...] 34 1- 1- 00 61 LD ve ME 59 20 20 AI ED 31 10 [...] 03 93 8 # 03 93 ME 60 11 05 1 18 6 RI [...] 34 0- 0- 00 94 LD ve ME 59 20 20 AI ED 31 10 [...] Lucas MD (ER) 4 20:58 4 22:37 [facility] Emergency DEVAN Lucas MD (ER) 3 20:21 3 22:23 [facility] Emergency DEVAN West (ER) 3 13:44 3 16:24 [facility]ir E[facility] Emergency DEVAN Lucas MD (ER) 3 05:07 3 05:24 [facility]
--- OUTSIDE RECORDS SUMMARY | 2017-02-18 18:14 | External Medical Summary Rpt | CCD ---
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 E UP TO [facility] 1000 CC INJECTION J2370 [facility] 6 HEALTHCAR HEALTHCAR PHENYLEPH E E RINE HCL [facility] HOSPITALS UP TO 1 ML INJECTION J2704 [facility] PROPOFOL 6 HEALTHCAR HEALTHCAR 10 MG E E HOSPITALS HOSPITALS INJECTION J3010 [facility] FENTANYL 6 HEALTHCAR HEALTHCAR CITRATE E E 0.1 MG HOSPITALS HOSPITALS LEVEL III 33722 [facility] SURG 6 Y OF JOSE ELIAS PATHOLOGY [place] [facility] GROSS&[place] [address] [facility] SURG 6 HEALTHCAR HEALTHCAR PATHOLOGY E E HOSPITALS HOSPITALS GROSS&RODOLFO ROSCOPIC EXAM URINE 69618 [facility] 6 HEALTHCAR HEALTHCAR TEST E E VISUAL [facility] HOSPITALS COLOR CMPRSN METHS ANES 50002 [place] MERCADO HEN NERVE 6 MEDICAL MUSCLE SERV TDN FOUNDATIO FASCIA&BU N RSA FOREARM WRIST NERVE 75617 [place] MARISOL REPAIR 6 MEDICAL RAMONE W/CONDUIT SERV EACH FOUNDATIO NERVE N RADEX 69317 [place] IQBAL ALL HAND 6 MEDICAL MINIMUM 3 IMAGING VIEWS ASS THERAPEUT 32527 [facility] ARMANDO IC 6 PHYSICIAN YOSI [...] OR EQUAL ANY INDEX PER LENS OPHTH 65456 SCIFRES SCIFRES MEDICAL 6 ANG ANG XM&EVAL COMPRHNSV ESTAB PT 1/> FITTING 95050 SCIFRES SCIFRES SPECTACLE 6 ANG ANG S XCPT APHAKIA MONOFOCAL URINE 00272 [facility] ARMANDO 6 PHYSICIAN YOSI TEST S [place] [address] [place] [facility] ALL CERVICAL 6 MEDICAL SPINE W/[place] [address] RE[facility] IQBAL ALL HEAD/BRAI 6 MEDICAL N W/[place] [address] RE[facility] IQ[facility] ALL MAXILLOFA 6 MEDICAL CIAL W/O IMAGING CONTRAST ASS MATERIAL SIMPLE 39271 [facility] LILI REPAIR 6 PHYSICIAN RODOLFO F/E/E/N/L S, PLLC /M 2.5CM/< RADIOLOGI 40484 JULIUS MADRID C EXAM 6 [facility] CHEST 2 INC INC VIEWS FRONTAL&L ATERAL URINE 61044 JUL[facility] MADRID 6 [facility] TEST INC INC VISUAL COLOR CMPRSN METHS URNLS DIP 93332 JULIUS MADRID 6 [facility] STICK/TAB INC INC LET REAGENT AUTO MICROSCOP Y PRESSURIZ 98557 JULIUS MADRID ED/NONPRE 6 [facility] SSURIZED INC INC INHALATIO N TREATMENT IAADI 78872 JULIUS MADRID INFLUENZA 6 [facility] B VIRUS INC INC IAADI 69609 JULIUS MADRID INFFLUENZ 6 [facility] A A VIRUS INC INC UNCLASSIF J3490 JULIUS MADRID IED DRUGS 6 [facility] INC INC URINE 16113 [facility] LILI 5 PHYSICIAN RODOLFO TEST S GROUP VISUAL COLOR CMPRSN METHS THERAPEUT 21439 JULIUS MADRID IC 5 [facility] PROPHYLAC INC INC TIC/DX INJECTION SUBQ/IM CRTCHS E0114 [facility] UNDARM 5 TECHNOLOG TECHNOLOG OTH THAN IES INC IES INC WOOD PAIR PAD TIP&HNDGR IP IM ADM 26903 JULIUS MADRID PRQ ID 5 [facility] SUBQ/IM INC INC NJXS 1 VACCINE TDAP 73143 JULIUS MADRID VACCINE 7 5 [facility] YRS/> IM INC INC RADEX 04343 [place] [facility]INE[facility] FOOT 5 MEDICAL LAILA COMPLETE IMAGING MINIMUM 3 ASS VIEWS OPHTH 17512 SCIFRES SCIFRES MEDICAL 5 ANG ANG XM&EVAL COMPRHNSV ESTAB PT 1/> LENS 0320-201 V2784 SCIFRES SCIFRES POLYCARBO 5 ANG ANG FREDRICK OR EQUAL ANY INDEX PER LENS SCRATCH V2760 SCIFRES SCIFRES RESISTANT 5 ANG ANG COATING PER LENS SPHERE V2100 SCIFRES SCIFRES SINGLE 5 ANG ANG VISION PLANO +/- 4.00 PER LENS THERAPEUT 10527 [facility] ROBERTS IC 5 PHYSICIAN YOSI PROPHYLAC S GROUP TIC/DX INJECTION SUBQ/IM IADNA 66721 JULIUS MADRID CHLAMYDIA 5 [facility] INC INC TRACHOMAT IS AMPLIFIED PROBE TQ IADNA 03621 JULIUS MADRID NEISSERIA 5 [facility] INC INC [place] [address] JULIUS MADRID INFUSION 5 [facility] THERAPY/P INC INC ROPHYLAXI S /DX 1ST TO 1 [place] [address] JULIUS MADRID INFUSION 5 [facility] THER INC INC PROPH ADDL SEQUENTIA L TO 1 HR THERAPEUT 98673 JULIUS MADRID IC 5 [facility] INJECTION INC [place] [address] JULIUS MADRID ABDOMEN & 5 [facility] PELVIS INC INC W/O CONTRAST MATERIAL COMPREHEN 40620 JULIUS MADRID SIVE 5 [facility] METABOLIC INC INC PANEL URNLS DIP 99247 JULIUS MADRID 5 [facility] STICK/TAB INC INC [place] [address] JULIUS MADRID AMYLASE 5 [place] [address] JULIUS MDARID LIPASE 5 [facility] INC INC URINE 63616 JULIUS MADRID 5 [facility] TEST INC INC VISUAL COLOR CMPRSN METHS BLOOD 41717 JULIUS MADRID COUNT 5 [facility] COMPLETE INC INC AUTO&AUTO DIFRNTL WBC THERAPEUT 05426 [facility] ARMANDO IC 4 PHYSICIAN YOSI PROPHYLAC S GROUP TIC/DX INJECTION SUBQ/IM THERAPEUT 85784 JULIUS MADRID IC 4 [facility] PROPHYLAC INC INC TIC/DX INJECTION SUBQ/IM IAADI 84117 JULIUS MADRID INFFLUENZ 4 [facility] A A VIRUS INC INC IAADI 62098 JULIUS MADRID INFLUENZA 4 [facility] B VIRUS INC INC URINE 57792 JULIUS MADRID 4 [facility] TEST INC INC VISUAL COLOR CMPRSN METHS RADEX 53992 JULIET JULIET NASAL 4 AGUS AGUS BONES COMPLETE MINIMUM 3 VIEWS RADIOLOGI 79730 JULIUS MADRID C 4 [facility] EXAMINATI INC INC ON KNEE [address] [place] [address] JULIUS MADRID CERVICAL 4 [facility] SPINE W/[place] [address] JULIUS MADRID HEAD/BRAI 4 [facility] N W/O INC INC CONTRAST MATERIAL 3D 06618 JULIUS MADRID RENDERING 4 [facility] W/INTERP INC INC & POSTPROCE SS SUPERVISI ON 3D 83929 JULIUS MADRID RENDERING 4 [facility] INC INC W/INTERP& POSTPROC DIFF WORK STATION URINE 60100 JULIUS MADRID 4 [facility] TEST INC INC VISUAL COLOR CMPRSN METHS OPHTH 39632 SCIFRES SCIFRES MEDICAL 4 ANG ANG XM&EVAL COMPRHNSV ESTAB PT 1/> DETERMINA 48737 SCIFRES SCIFRES TION 4 ANG ANG REFRACTIV E STATE HEPATIC 32420 JULIUS MADRID FUNCTION 3 [facility] PANEL INC INC COMPREHEN 99382 JULIUS JULIUS SIVE 3 [facility] METABOLIC INC INC PANEL URNLS DIP 73754 JULIUS MADRID 3 [facility] STICK/TAB INC INC LET REAGENT AUTO MICROSCOP Y BLOOD 61724 JULIUS MADRID COUNT 3 [facility] COMPLETE INC INC AUTO&[place] [address] JULIUS MADRID LIPASE 3 [place] [address] JULIUS MADRID AMYLASE 3 [facility] INC INC RADEX ABD 44589 JULIET JULIET COMPL 3 AGUS AGUS AQT ABD W/S/E/D VIEWS 1 [place] [address] JULIUS MADRID INFUSION 3 [facility] THERAPY/P INC INC ROPHYLAXI S /DX 1ST TO 1 HR THERAPEUT 23858 JULIUS MADRID IC 3 [facility] INJECTION INC INC IV PUSH EACH NEW DRUG INJECTION J2405 JULIUS MADRID 3 [facility] ONDANSETR INC INC ON HCL PER 1 MG LEVEL III 57976 TYRELL TYRELL SURG 3 [facility] PATHOLOGY GROSS&RODOLFO ROSCOPIC EXAM ANES 19538 VILLEGAS JOSE ELIAS VILLEGAS JOSE ELIAS INTRAPERI 3 TONEAL UPPER ABDOMEN W/LAPS NOS LAPAROSCO 87468 JULIUS MADRID PY SURG 3 [facility] CHOLECYST INC INC ECTOMY RADIOLOGI 07905 JULIUS MADRID C EXAM 3 [facility] CHEST 2 INC INC VIEWS FRONTAL&[place] [address] JULIUS MADRID ABDOMINAL 3 [facility] REAL INC INC TIME W/IMAGE LIMITED CREATINE 09178 JULIUS MADRID KINASE 3 [facility] TOTAL INC INC CREATINE 93677 JULIUS MADRID KINASE MB 3 [facility] [place] [address] JULIUS MADRID LIPASE 3 [facility] INC INC BLOOD 34835 JULIUS MADRID COUNT 3 [facility] COMPLETE INC INC AUTO&[place] [address] JULIUS MADRID TROPONIN 3 [facility] QUANTITAT INC INC JANE URINE 01644 JULIUS MADRID 3 [facility] TEST INC INC VISUAL COLOR CMPRSN METHS COMPREHEN 46336 JULIUS MADRID SIVE 3 [facility] METABOLIC INC INC PANEL URNLS DIP 23200 JULIUS MADRID 3 [facility] STICK/TAB INC INC LET REAGENT AUTO MICROSCOP Y ECG 65304 DAKOTA DUNCAN ROUTINE 3 III JOSE ELIAS III JOSE ELIAS ECG W/LEAST 12 LDS I&R ONLY ECG 03701 JULIUS MADRID ROUTINE 3 [facility] ECG INC INC W/LEAST 12 LDS TRCG ONLY W/O I&R THER 54763 JULIUS MADRID PROPH/DX 3 [facility] NJX IV INC INC PUSH SINGLE/1S T SBST/DRUG RADEX 07258 JULIUS MADRID FOOT 3 [facility] COMPLETE INC INC MINIMUM 3 VIEWS INJECTION J0696 MARIE SALAZAR 3 CORIE CORIE CEFTRIAXO NE SODIUM PER 250 MG THERAPEUT 23347 JULIUS MADRID IC 3 [facility] PROPHYLAC INC INC TIC/DX INJECTION SUBQ/IM INJECTION J0696 MARIE MARIE 3 CORIE CORIE CEFTRIAXO NE SODIUM PER 250 MG INJECTION J2805 JULIUS JULIUS 2 [facility] SINCALIDE INC INC 5 MICROGRAM S TECHNETIU A9537 JULIUS Dominguez TC-99M 2 [facility] MEBROFENI INC INC N DX UP [place] 15 [place] [address] JULIUS MADRID ABDOMINAL 2 [facility] REAL INC INC TIME W/IMAGE LIMITED HEPATOBIL 78564 [place] JULIET SYST 2 MEDICAL AGUS IMAG INC IMAGING GB ASS W/PHARMA INTERVENJ ESOPHAGOG 65427 JULIUS BARROSOON ASTRODUOD 2 [facility] ENOSCOPY [place] [address] JULIUS MADRID INFUSION 2 [facility] THERAPY/P INC INC ROPHYLAXI S /DX 1ST TO 1 [place] [address] JULIUS JULIUS INFUSION 2 [facility] THERAPY INC INC PROPHYLAX IS/DX EA HOUR ECHO 77947 TYRELL THAKUR TRANSTHOR 2 EMERGENCY C R-T 2D SERVICES W/WO M-MODE REC F-UP/LMTD [place] CHEST 96339 TYRELL THAKUR REAL TIME 2 EMERGENCY W/[place] [address] TYRELL THAKUR ABDOMINAL 2 EMERGENCY REAL SERVICES TIME W/IMAGE LIMITED URNLS DIP 48940 JULIUS MADRID 2 [facility] STICK/TAB INC INC LET REAGENT AUTO MICROSCOP Y URINE 43802 JULIUS MADRID 2 [facility] TEST INC INC VISUAL COLOR CMPRSN METHS INJECTION J0696 MARIE SALAZAR 2 CORIE CORIE CEFTRIAXO NE SODIUM PER 250 MG SPHERE V2100 SCIFRES SCIFRES SINGLE 2 ANG ANG VISION PLANO +/- 4.00 PER LENS VISION V2799 SCIFRES SCIFRES ITEM OR 2 ANG ANG SERVICE MISCELLAN EOUS THROMBOPL 27832 [facility] ASTIN 2 N N TIME [facility] PARTIAL HOSPITA HOSPITA PLASMA/WH OLE BLOOD PROTHROMB 69634 [facility] IN TIME 2 N N [facility] HOSPITA HOSPITA URINE 34274 [facility] 2 N N TEST [facility] VISUAL HOSPITA HOSPITA COLOR CMPRSN METHS URNLS DIP 52255 [facility] 2 N N STICK/TAB [facility] LET HOSPITA HOSPITA REAGENT AUTO MICROSCOP Y COMPREHEN 35708 [facility] SIVE 2 N N METABOLIC [facility] PANEL HOSPITA HOSPITA BLOOD 92194 [facility] COUNT 2 N N COMPLETE [facility] AUTO&AUTO HOSP[place] [address] [facility] LIPASE 2 N N [facility] HOSPITA HOSPITA BLOOD 64709 [facility] OCCULT 2 N N PEROXIDAS [facility] E ACTV HOSPITA HOSPITA QUAL FECES 1-3 SPEC COLLECTIO 25529 [facility] N VENOUS 2 N N BLOOD [facility] [place] [address] [facility] INFUSION 2 N N HYDRATION [facility] EACH HOSPITA HOSPITA ADDITIONA L HOUR THER 73037 [facility] PROPH/DX 2 N N NJX IV [facility] PUSH HOSPITA HOSPITA SINGLE/1S T SBST/DRUG OPHTH 62623 SCIFRES SCIFRES MEDICAL 2 ANG ANG XM&EVAL COMPRHNSV ESTAB PT 1/> DETERMINA 26206 SCIFRES SCIFRES TION 2 [place] [address] JULIUS MADRID STREPTOCO 2 [facility] CCUS INC INC GROUP A IAADI 85559 JULIUS MADRID INFLUENZA 2 [facility] B VIRUS INC INC IAADI 72865 JULIUS MADRID INFFLUENZ 2 [facility] A A VIRUS [place] SOFT 54472 JULIET JULIET TISSUE 2 AGUS AGUS NECK W/O CONTRAST MATERIAL 3D 76926 JULIUS MADRID RENDERING 2 [facility] INC INC W/INTERP& POSTPROC DIFF WORK STATION URINE 39796 JULIUS MADRID 2 [facility] TEST INC INC VISUAL COLOR CMPRSN METHS DEMO&/SENG 97471 [facility] L OF PT 2 ALLERGY ALLERGY UTILIZ & ASTHMA & ASTHMA AERSL P P GEN/NEB/I NHLR/IP PERCUTANE 86070 [facility] OUS TESTS 2 ALLERGY ALLERGY & ASTHMA & ASTHMA W/ALLERGE P P CHYNA EXTRACTS INTRACUTA 62419 [facility] NEOUS 2 ALLERGY ALLERGY TESTS & ASTHMA & ASTHMA W/ALLERGE P P CHYNA EXTRACTS BRNCDILAT 98214 [facility] RSPSE 2 ALLERGY ALLERGY SPMTRY & ASTHMA & ASTHMA PRE&POST- P P BRNCDILAT ADMN ECG 63919 [facility] 1 Y Y ECG [facility] W/LEAST 12 LDS TRCG ONLY W/O I&R ECG 34748 BEZOLD BEZOLD ROUTINE 1 III MEDARDO III MEDARDO ECG W/LEAST 12 LDS I&R ONLY SEDIMENTA 95180 [facility] TION RATE 1 Y Y RBC [facility] AUTOMATED C-REACTIV 21168 [facility] E PROTEIN 1 Y Y [facility] GROUND A0425 COLIN COLIN MILEAGE 1 FAYETTE FAYETTE PER URBAN URBAN STATUTE COGOVT COGOVT MILE AMB A0427 COLIN COLIN SERVICE 1 FAYETTE FAYETTE ALS URBAN URBAN EMERGENCY COGOVT COGOVT TRANSPORT LEVEL 1 COMPREHEN 90070 [facility] SIVE 1 Y Y METABOLIC [facility] [place] [address] [facility] LIPASE 1 [place] [address] [facility] TROPONIN 1 Y Y QUANTITAT [facility] JANE GONADOTRO 58097 [facility] PIN 1 Y Y CHORIONIC [facility] QUANTITAT JANE BLOOD 16367 [facility] COUNT 1 Y Y COMPLETE [facility] AUTOMATED GONADOTRO 03725 [facility] PIN 1 Y [place] [address] [facility] ABDOMINAL 1 Y Y REAL [facility] TIME W/IMAGE LIMITED COLLECTIO 34482 [facility] N VENOUS 1 Y Y BLOOD [facility] VENIPUNCT URE RADIOLOGI 17290 [facility] C EXAM 1 Y Y CHEST 2 [facility] VIEWS FRONTAL&L ATERAL 3D 14496 JULIUS MADRID RENDERING 1 [facility] INC INC W/INTERP& [place] [address] JULIUS MADRID ABDOMEN & 1 [facility] PELVIS INC INC W/O CONTRAST MATERIAL INJECTION J2405 JULIUS MADRID 1 [facility] ONDANSETR INC INC ON HCL PER 1 MG BLOOD 55576 JULIUS MADRID COUNT 1 [facility] COMPLETE INC INC AUTO&[place] [address] JULIUS MADRID LIPASE 1 [facility] INC INC COMPREHEN 23206 JULIUS MADRID SIVE 1 [facility] METABOLIC INC INC PANEL URNLS DIP 79531 JULIUS JULIUS 1 [facility] STICK/TAB INC INC LET REAGENT AUTO MICROSCOP Y URINE 68686 JULIUS MADRID 1 [facility] TEST INC INC [place] [address] JULIUS MADRID AMYLASE 1 [facility] INC INC DETERMINA 43437 [facility] TION 1 REFRACTIV E STATE OPHTH 44447 DUNDEE PRIYANK BUTLER PRIYANK MEDICAL 1 XM&EVAL COMPRHNSV ESTAB PT 1/> INJECTION J0696 MARIE SALAZAR 1 CORIE CORIE CEFTRIAXO NE SODIUM PER 250 MG INJECTION J0696 MARIE SALAZAR 1 CORIE CORIE CEFTRIAXO NE SODIUM PER 250 MG THERAPEUT 99582 [facility] IC 1 [facility] PROPHYLAC CLINIC OF TIC/DX SHERRY IN[place]CTION SUBQ/[place] [address] JULIUS MADRID TRACT UPR 1 [facility] W/SM INT INC [place] [address] [facility] UPR W/WO 1 MEDICAL AGUS GLUCOSE IMAGING W/SM ASS INTEST FOLLW-THR U THERAPEUT 23095 [facility] IC 1 [facility] PROPHYLAC CLINIC OF CLINIC OF TIC/DX [place] [address] JULIUS MADRID INFUSION 1 [facility] THERAPY/P INC INC ROPHYLAXI S /DX 1ST TO 1 HR CULTURE 07272 JULIUS MADRID BACTERIAL 1 [facility] INC INC [place]TT[place] [address] JULIUS MADRID AMYLASE 1 [facility] INC INC URNLS DIP 87281 JULIUS RUSSELLARRY 1 [facility] GEMA STICK/TAB INC LET REAGENT AUTO MICROSCOP Y COMPREHEN 50750 JULIUS MADRID SIVE 1 [facility] [place] [address] JULIUS MADRID LIPASE 1 [facility] INC URINE 05707 JULIUS MADRID 1 [facility] TEST INC INC VISUAL COLOR CMPRSN METHS BLOOD 10730 JULIUS MADRID COUNT 1 [facility] COMPLETE INC INC AUTO&AUTO DIFRNTL WBC ANTIBODY 01684 COMBINED COMBINED CHLAMYDIA 1 PHYSICIAN PHYSICIAN S LA S LA CUL BACT 51013 COMBINED COMBINED XCPT 1 PHYSICIAN PHYSICIAN URINE S LA S LA BLOOD/STO OL AEROBIC ISOL INJECTION J0696 CYNODALYS MARIE 1 CORIE CORIE CEFTRIAXO NE SODIUM PER 250 MG THERAPEUT 69455 [facility] IC 1 [facility] PROPHYLAC CLINIC OF TIC/DX SHERRY INJECTION SUBQ/IM DEEP D9220 [facility], SEDATION/ 1 IMPLANT & III LAKESHIA GENERAL ORAL ANESTHESI SURGERY C A-1ST 30 MINUTES RADEX 62130 JULIUS MADRID UPPER GI 0 [facility] W/WO INC INC GLUCAGON/ DELAY IMAGES W/[place] [address] JULIUS MADRID ABDOMINAL 0 [facility] REAL INC INC TIME W/IMAGE LIMITED FRAMES V2020 [facility] PURCHASES 0 VISION SPHERE V2100 [facility] SINGLE 0 VISION VISION PLANO +/- 4.00 PER LENS OPHTH 21814 [facility] MEDICAL 0 VISION XM&EVAL COMPRHNSV ESTAB PT 1/> FITTING 25023 [facility] SPECTACLE 0 VISION S XCPT APHAKIA MONOFOCAL THERAPEUT 84869 [facility] IC 0 [facility] PROPHYLAC CLINIC OF TIC/DX SHERRY INJECTION SUBQ/IM OBSERVATI 28477 [facility] NEVAREZQUENTIN ON/INPATI 0 MEDICAL FAR ENT SERV HOSPITAL F[facility] CARE 55 MINUTES ELECTROEN 66468 [facility] ANCELMO LA CEPHALOGR 0 MEDICAL AM W/REC SERV AWAKE&ASL [facility]OUND[facility] EEP ECG 85517 [place] MARIAM ROUTINE 0 MEDICAL AGUS ECG SERV W/LEAST FOUNDATIO 12 LDS I&R ONLY RADEX 68461 [place] PRADEEP SPINE 0 MEDICAL [place] TH[facility]ACIC SERV 2 VIEWS FOUNDATIO MRI BRAIN 39664 [place] OFE MCGREGOR BRAIN 0 MEDICAL STEM W/O SERV W/[place] [address] UNIVERSIT PATINO HEAD/BRAI 0 Y OF MUR N W/O [facility] MATERIAL RADEX 60207 [facility] SPINE 0 E E THORACIC [facility] 2 VIEWS RADEX 61638 [facility] [facility] SPINE 0 E E LUMBOSACR [facility] AL 2/3 VIEWS BLOOD 38869 [facility] COUNT 0 E E COMPLETE HOSPITAL HOSPITAL AUTO&AUTO DIFRNTL WBC FIBRIN 64972 [facility] DGRADJ 0 E E PRODUCTS HOSPITAL HOSPITAL D-DIMER QUAL/SEMI REINA GONADOTRO 20481 [facility] PIN 0 [facility] QUALITATI VE LACTATE 90720 [facility] DEHYDROGE 0 E E [facility] CREATINE 32624 [facility] KINASE 0 [facility] COMPREHEN 02664 [facility] SIVE 0 E [facility] PANEL URNLS DIP 25889 [facility] 0 E E STICK/TAB HOSPITAL HOSPITAL LET REAGENT AUTO MICROSCOP Y ECG 39604 [facility] ISAIAS ROUTINE 0 E OFE ECG HOSPITAL W/LEAST 12 LDS I&R ONLY ECG 58414 [facility] ROUTINE 0 E E ECG HOSPITAL HOSPITAL W/LEAST 12 LDS TRCG ONLY W/O I&R CRITICAL 89236 [facility] 0 EMERGENCY ILL/INJUR SERVICES ED PATIENT INIT 30-74 MIN BLS A0382 [facility] ROUTINE 0 E CO E CO DISPOSABL AMBULANCE AMBULANCE E SUPPLIES AMB A0422 [facility] OXYGEN&O2 0 E CO E CO SUPPLIES AMBULANCE AMBULANCE LIFE SUSTAININ G SITUATION AMBULANCE A0429 [facility] SERVICE 0 E CO E CO BLS AMBULANCE AMBULANCE EMERGENCY TRANSPORT GROUND A0425 [facility] MILEAGE 0 E CO E CO PER AMBULANCE AMBULANCE STATUTE MILE THERAPEUT 03392 [facility], IC 0 [facility]ALTH [facility]EL J PROPHYLAC CLINIC OF TIC/DX INJECTION [place] SUBQ/IM PLLC RADIOLOGI 55369 JULIUS MADRID C 0 [facility] EXAMINATI INC INC ON KNEE 3 VIEWS COLLECTIO 89655 [facility] N VENOUS 0 Y Y BLOOD [facility] [place] [address] [facility] AMYLASE 0 [place] [address] [facility] LIPASE 0 Y Y HOSPITAL HOSPITAL THERAPEUT 38424 [facility], IC 9 [facility] J PROPHYLAC CLINIC OF TIC/DX INJECTION [place] SUBQ/IM PLLC HEPATBL 55783 JULIUS MADRID DUX SYS 9 [facility] [place] [address] JULIUS MADRID ABDOMINAL 9 [facility] REAL INC INC TIME W/IMAGE LIMITED FITTING 57835 [place], SPECTACLE 9 VISION JESÚS Dominguez S XCPT APHAKIA MONOFOCAL OPHTH 54211 [place], MEDICAL 9 VISION JESÚS Dominguez XM&EVAL COMPRHNSV ESTAB PT 1/> SPHERE V2100 [place], SINGLE 9 VISION JESÚS Dominguez VISION PLANO +/- 4.00 PER LENS FRAMES V2020 [place], PURCHASES 9 VISION JESÚS Dominguez ESOPHAGOG 4516 JULIUS MADRID ASTRODUOD 9 [facility] ENOSCOPY [place] [address] PATHOLOGY PATHOLOGY SURG 9 & & PATHOLOGY CYTOLOGY CYTOLOGY LAB LAB GROSS&[place] [address] JULIUS MADR[facility] INFUSION 9 [facility] THERAPY INC INC PROPHYLAX IS/[place] [address] JULIUS MADRID INFUSION 9 [facility] THERAPY/P INC INC ROPHYLAXI S /DX 1ST TO 1 HR EGD 48296 CORY RAY TRANSORAL 9 , PETER , PETER BIOPSY SINGLE/MU LTIPLE URINE 26364 J[facility]IUS MADRID 9 [facility] TEST INC INC VISUAL COLOR CMPRSN METHS URINE 66028 [facility] VISUAL COLOR [place] CMPRSN PLLC METHS BLOOD 13611 JULIUS MADRID COUNT 9 [facility] COMPLETE INC INC AUTO&AUTO DIFRNTL WBC CT PELVIS 39837 JULIUS MADRID W/O 9 [facility] CONTRAST INC INC MATERIAL 3D 77147 JULIUS MADRID RENDERING 9 [facility] INC INC W/INTERP& [place] [address] JULIUS JULIUS ABDOMEN 9 [facility] W/O INC INC CONTRAST MATERIAL OBSERVATI 27459 CORY VALENCIASTAD ON CARE 9 , PETER , PETER DISCHARGE [facility] G0378 JULIUS MADRID OBSERVATI 9 [facility] ON INC INC [facility] G[facility]8 JULIUS MADRID OBSERVATI 9 [facility] ON INC INC SERVICE PER HOUR INITIAL 88502 CORY VALENCIASTAD OBSERVATI 9 , PETER , PETER ON CARE/DAY 50 [place] [address] JULIUS BARROSOON INFUSION 9 [facility] THERAPY/P INC INC ROPHYLAXI S /DX 1ST TO 1 [place] [address] JULIUS MADRID INFUSION 9 [facility] THER INC INC PROPH ADDL SEQUENTIA L TO 1 HR CULTURE 90893 JULIUS MADRID BACTERIAL 9 [facility] INC INC QUANTTATI VE COLONY COUNT URINE CULTURE 97262 JULIUS MADRID BCT 9 [facility] ISOL&PRSM INC INC PTV ID ISOLATE EA URINE SUSCEPTIB 63137 JULIUS MADRID LTY STDY 9 [facility] ANTIMICRB INC INC IAL MICRO/[place] [address] JULIUS MADRID ABDOMEN 9 [facility] W/O INC INC CONTRAST MATERIAL 3D 49380 JULIUS MADRID RENDERING 9 [facility] INC INC W/INTERP& POSTPROC DIFF WORK STATION CT PELVIS 45157 JULIUS MADRID W/O 9 [facility] CONTRAST INC INC MATERIAL BLOOD 92574 JULIUS MADRID COUNT 9 [facility] COMPLETE INC INC AUTO&AUTO DIFRNTL WBC BLOOD 70792 JULIUS MADRID COUNT 9 [facility] COMPLETE INC INC AUTO&AUTO DIFRNTL WBC URINE 48623 JULIUS MADRID 9 [facility] TEST INC INC VISUAL COLOR CMPRSN METHS URNLS DIP 52355 JULIUS MADRID 9 [facility] STICK/TAB INC INC LET REAGENT AUTO MICROSCOP Y BASIC 55059 JULIUS MADRID METABOLIC 9 [facility] PANEL INC INC CALCIUM TOTAL RADEX 00189 JULIUS MADRID SACRUM & 9 [facility] COCCYX INC INC MINIMUM 2 VIEWS RADEX HIP 05446 J[facility]IUS MADRID 9 [facility] UNILATERA INC INC L COMPLETE MINIMUM 2 VIEWS RADIOLOGI 75989 JULIUS MADRID C EXAM 9 [facility] CHEST 2 INC INC VIEWS FRONTAL&[place] [address] JULIUS MADRID STREPTOCO 9 [facility] [place] [address] JULIUS MADRID STREPTOCO 8 [facility] CCUS INC INC GROUP A Encounters Encounter Start End Date Code Location Performer Type Date OFFICE 68161 OUTPATIEN 7 7 [facility] T VISIT 5 E MINUTES [facility] OFFICE 57707 [facility] 7 7 MEDICAL T VISIT SERV 15 FOUNDATIO MINUTES N HOSPITAL [facility] - 7 7 [facility] OUTPATIEN E T HOSPITALS EMERGENCY 12718 [facility] 7 7 [place] [facility] PHYSICIAN T VISIT S HIGH/URGE NT SEVERITY HOSPITAL [facility]ULIUS - 7 7 [facility] OUTPATIEN INC T OFFICE 56855 JULIUS OUTPATIEN 7 7 [facility] T VISIT INC 10 MINUTES HOSPITAL JUL[facility]US - 7 7 [facility] OUTPATIEN INC T OFFICE 78702 JULIUS OUTPATIEN 7 7 [facility] T VISIT 5 INC MINUTES OFFICE 49272 [facility] ROBERTS OUTPATIEN 7 7 PHYSICIAN T VISIT 5 S GROUP MINUTES OFFICE 50221 [facility] STONE OUTPATIEN 7 7 PHYSICIAN T VISIT S GROUP 25 MINUTES HOSPITAL [facility] - 6 6 [facility] OUTPATIEN E T HOSPITALS OFFICE 28296 [facility] PETTEY OUTPATIEN 6 6 PHYSICIAN JAM T NEW 20 S GROUP MINUTES OFFICE 55602 [facility] LILI OUTPATIEN 6 6 PHYSICIAN RODOLFO T VISIT S GROUP 15 MINUTES OFFICE 54240 [facility] ROBERTS OUTPATIEN 6 6 PHYSICIAN YOSI T VISIT 5 S GROUP MINUTES OFFICE 59627 [facility] WALL OUTPATIEN 6 6 PHYSICIAN SUDHA T VISIT 5 S GROUP MINUTES OFFICE 41657 [facility] WALL OUTPATIEN 6 6 PHYSICIAN SUDHA T NEW 20 S GROUP MINUTES EMERGENCY 08310 LORIN PEARSON DEPT 6 6 PHYSICIAN RODOLFO VISIT S, [facility] HIGH SEVERITY& THREAT FUNCJ EMERGENCY 48929 [facility]IN ELLIS [facility] 6 6 PHYSICIAN DEPARTMEN S, [facility] T VISIT HIGH/URGE NT SEVERITY EMERGENCY 58135 JULIUS 6 6 [facility] DEPARTMEN INC T VISIT LOW/MODER SEVERITY HOSPITAL JULIUS - 6 6 [facility] OUTPATIEN INC T OFFICE 10459 [facility] ROBERTS OUTPATIEN 6 6 PHYSICIAN YOSI T VISIT 5 S GROUP MINUTES OFFICE 52233 [facility] LILI OUTPATIEN 5 5 PHYSICIAN RODOLFO T NEW 30 S GROUP MINUTES HOSPITAL JULIUS - 5 5 [facility] OUTPATIEN INC T EMERGENCY 81545 LORIN NICKERSON 5 5 [facility] T VISIT HIGH/URGE NT SEVERITY OFFICE 69798 [facility] ROBERTS OUTPATIEN 5 5 PHYSICIAN YOSI T VISIT 5 S GROUP MINUTES EMERGENCY 50359 [facility] [address] [facility] EMERGENCY T VISIT PHYS MODERATE SEVERITY EMERGENCY 92716 ИВАН 5 5 [facility] T VISIT HIGH/URGE NT SEVERITY HOSPITAL [place] - 5 5 [facility] T EMERGENCY 94078 LORIN PEARSON 5 5 PHYSICIAN [facility] S, [facility] T VISIT HIGH/URGE NT SEVERITY HOSPITAL JULIUS - 5 5 [facility] OUTPATIEN [facility] T EMERGENCY 01156 JULIUS 5 5 [facility] T VISIT LOW/MODER SEVERITY PERIODIC 03728 [facility] PREVENTIV 5 5 PHYSICIAN E MED EST S GROUP PATIENT 18-39 YRS HOSPITAL JULIUS - 5 5 [facility] T OFFICE 00152 [facility] HUNTER CANO OUTPATIEN 5 5 PHYSICIAN YI T VISIT S GROUP 15 MINUTES EMERGENCY 31472 JULIUS PEARSON 5 5 [facility] T VISIT P MODERATE SEVERITY EMERGENCY 40658 JULIUS 5 5 [facility] T VISIT HIGH/URGE NT SEVERITY HOSPITAL JULIUS - 5 5 [facility] OUTPATIEN [facility] T OFFICE 98179 [facility] RUBENS OUTPATIEN 5 5 PHYSICIAN EUG T VISIT S GROUP 15 MINUTES OFFICE 34052 [facility] 4 PHYSICIAN ELIZABETH T VISIT S GROUP 15 MINUTES OFFICE 55392 MARIE SALAZAR OUTPATIEN 4 4 CORIE CORIE T VISIT 15 MINUTES OFFICE 71521 ARMANDO ROBERTS OUTPATIEN 4 4 YOSI YOSI T VISIT 5 MINUTES EMERGENCY 35463 JULIUS 4 4 [facility] T VISIT LOW/MODER SEVERITY EMERGENCY 66841 DIANNE PEARSON 4 4 [facility] EMERGENCY T VISIT PHYS MODERATE SEVERITY HOSPITAL JULIUS - 4 4 [facility] OUTPATIEN INC T OFFICE 13746 LUKE YOST OUTPATIEN 4 4 T VISIT 10 MINUTES OFFICE 83304 [place] MARIE MARRERO 4 4 CORIE CORIE T VISIT 15 MINUTES OFFICE 07922 ARMANDO MARRERO 4 4 YOSI YOSI T VISIT 5 MINUTES HOSPITAL JULIUS - 4 4 [facility] OUTPATIEN INC T OFFICE 16831 MARIE MARIE MARRERO 4 4 CORIE CORIE T VISIT 15 MINUTES OFFICE 16233 [place] MARIE MARRERO 4 4 CORIE CORIE T VISIT 15 MINUTES OFFICE 35955 ARMANDO MARRERO 4 4 YOSI YOSI T VISIT 5 MINUTES OFFICE 94499 MARIE MARIE MARRERO 4 4 CORIE CORIE T VISIT 15 MINUTES HOSPITAL JULIUS - 4 4 [facility] OUTPATIEN INC T OFFICE 09280 MARIE MARRERO 4 4 CORIE CORIE T VISIT 15 MINUTES EMERGENCY 53594 LILI PEARSON DEPT 4 4 [place]OL[place] VISIT HIGH SEVERITY& THREAT [facility] JULIUS - 4 4 [facility] OUTPATIEN INC T EMERGENCY 96995 JULIUS 4 4 [facility] DEPARTMEN INC T VISIT LOW/MODER SEVERITY OFFICE 95631 MARIE MARRERO 3 3 CORIE CORIE T VISIT 15 MINUTES OFFICE 66417 MARIE MARRERO 3 3 CORIE CORIE T VISIT 15 MINUTES OFFICE 24201 ARMANDO MARRERO 3 3 YOSI YOSI T VISIT 5 MINUTES HOSPITAL JULIUS - 3 3 [facility] OUTPATIEN INC T EMERGENCY 91138 JULIUS 3 3 [facility] DEPARTMEN INC T VISIT MODERATE SEVERITY EMERGENCY 13898 LILI PEARSON 3 3 [place] DEPARTMEN T VISIT HIGH/URGE NT SEVERITY HOSPITAL JULIUS - 3 3 [facility] OUTPATIEN INC T HOSPITAL JULIUS - 3 3 [facility] OUTPATIEN INC T EMERGENCY 06338 JULIUS 3 3 [facility] DEPARTMEN INC T VISIT HIGH/URGE NT SEVERITY HOSPITAL JULIUS - 3 3 [facility] OUTPATIEN INC T EMERGENCY 03423 DAKOTA DUNCAN DEPT 3 3 III JOSE ELIAS III JOSE ELIAS VISIT HIGH SEVERITY& THREAT [facility] JULIUS - 3 3 [facility] OUTPATIEN INC T OFFICE 65133 MARIE MARRERO 3 3 CORIE CORIE T VISIT 15 MINUTES OFFICE 58749 ARMANDO MARRERO 3 3 YOSI YOSI T VISIT 5 MINUTES OFFICE 99498 MARIE MARRERO 3 3 CORIE CORIE T VISIT 15 MINUTES OFFICE 11389 ARMANDO MARRERO 3 3 YOSI YOSI T VISIT 5 MINUTES HOSPITAL JULIUS - 3 3 [facility] OUTPATIEN INC T EMERGENCY 00734 LILI LILI 3 3 [facility] DEPARTMEN T VISIT HIGH/URGE NT SEVERITY OFFICE 68456 MARIE MARRERO 3 3 CORIE CORIE T VISIT 15 MINUTES OFFICE 68239 ARMANDO MARRERO 3 3 YOSI YOSI T VISIT 5 MINUTES OFFICE 12276 MARIE MARRERO 3 3 CORIE CORIE T VISIT 15 MINUTES OFFICE 51671 ARMANDO STONEPATIEN 2 2 YOSI YOSI T VISIT 5 MINUTES OFFICE 26925 CORY SCHULSTWILBERTO OUTRAMONEEN 2 2 KATLIN KATLIN T VISIT 10 MINUTES HOSPITAL JULIUS - 2 2 [facility] OUTPATIEN INC T HOSPITAL JULIUS - 2 2 [facility] OUTPATIEN INC T OFFICE 61290 CORY RAY CONSULTAT 2 2 KATLIN SILVESTRE NEW/ESTAB PATIENT 40 MIN OFFICE 47653 MARIE RAOEN 2 2 CORIE CORIE T VISIT 15 MINUTES EMERGENCY 50076 TYRELL THAKUR DEPT 2 2 EMERGENCY VISIT SERVICES HIGH SEVERITY& THREAT FUN EMERGENCY 20841 JULIUS 2 2 [facility] DEPARTMEN INC T VISIT LOW/MODER SEVERITY HOSPITAL JULIUS - 2 2 [facility] OUTPATIEN INC T OFFICE 57183 MARIE MARRERO 2 2 CORIE CORIE T VISIT 15 MINUTES OFFICE 13513 ARMANDO MARRERO 2 2 YOSI YOSI T VISIT 10 MINUTES OFFICE 02171 MARIE MARRERO 2 2 CORIE CORIE T VISIT 15 MINUTES EMERGENCY 51563 [facility] 2 2 N DEPARTMEN COMMUNITY T VISIT HOSPITA HIGH/URGE NT SEVERITY EMERGENCY 36869 RECHTIN 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 VISIT HIGH SEVERITY& THREAT [facility] - 2 2 N OUTPATIEN COMMUNITY T HOSPITA OFFICE 24792 MARIE MARRERO 2 2 CORIE CORIE T VISIT 15 MINUTES OFFICE 31345 MARIE MARRERO 2 2 CORIE CORIE T VISIT 15 MINUTES OFFICE 05033 ARMANDO MARRERO 2 2 YOSI YOSI T VISIT 5 MINUTES OFFICE 10573 MARIE MARRERO 2 2 CORIE CORIE T VISIT 15 MINUTES OFFICE 23250 ARMANDO MARRERO 2 2 YOSI YOSI T VISIT 5 MINUTES OFFICE 70028 [facility] OUTPATIEN 2 2 SUDHA SUDHA T NEW 30 MINUTES EMERGENCY 64875 JULIUS 2 2 [facility] DEPARTMEN INC T VISIT LOW/MODER SEVERITY EMERGENCY 12994 TYRELL GRANTRenata [facility] DEPT 2 2 EMERGENCY VISIT SERVICES HIGH SEVERITY& THREAT [facility] JULIUS - 2 2 [facility] OUTPATIEN INC T OFFICE 55175 MARIE MARRERO 2 2 CORIE CORIE T VISIT 15 MINUTES OFFICE 33141 MARIE MARRERO 2 2 CORIE CORIE T VISIT 15 MINUTES OFFICE 75993 MARIE MARRERO 2 2 CORIE CORIE T VISIT 15 MINUTES OFFICE 74744 ELPIDIO MARRERO 2 2 JACOB JACOB T VISIT KATLIN KATLIN 15 MINUTES OFFICE 94622 MARIE MARRERO 2 2 CORIE CORIE T VISIT 15 MINUTES OFFICE 05566 [facility] CONSULTAT 2 2 ALLERGY ALLERGY ION & ASTHMA & ASTHMA NEW/ESTAB P P PATIENT 60 MIN OFFICE 24623 MARIE MARRERO 2 2 CORIE CORIE T VISIT 15 MINUTES OFFICE 85000 MARIE MARRERO 2 2 CORIE CORIE T VISIT 15 MINUTES OFFICE 53442 ARMANDO MARRERO 2 2 YOSI YOSI T VISIT 5 MINUTES OFFICE 87111 MARIE MARRERO 2 2 CORIE CORIE T VISIT 15 MINUTES EMERGENCY 58930 KIANA GRIFFIN MICHELLE 1 1 MEDICAL DEPARTMEN SERV T VISIT FOUNDATIO HIGH/URGE NT SEVERITY HOSPITAL UNIVERSIT - 1 1 Y OUTPATIEN HOSPITAL T EMERGENCY 95219 UNIVERSIT DEPT 1 1 Y VISIT HOSPITAL HIGH SEVERITY& THREAT [facility] OFFICE 51126 MARIE MARRERO 1 1 CORIE CORIE T VISIT 15 MINUTES EMERGENCY 96492 LILI PEARSON DEPT 1 1 RODOLFO RODOLFO VISIT HIGH SEVERITY& THREAT FUNCJ EMERGENCY 85473 JULIUS 1 1 [facility] DEPARTMEN INC T VISIT HIGH/URGE NT SEVERITY HOSPITAL JULIUS - 1 1 [facility] OUTPATIEN INC T OFFICE 54719 MARIE MARRERO 1 1 CORIE CORIE T VISIT 15 MINUTES OFFICE 65273 MARIE MARRERO 1 1 CORIE CORIE T VISIT 15 MINUTES OFFICE 48202 MARIE MARRERO 1 1 CORIE CORIE T VISIT 15 MINUTES OFFICE 73829 MARIE MARRERO 1 1 CORIE CORIE T VISIT 15 MINUTES OFFICE 40906 [facility] 1 1 HEALTH YOSI T VISIT 5 CLINIC OF MINUTES SHERRY OFFICE 28709 MARIE MARRERO 1 1 CORIE CORIE T VISIT 15 MINUTES OFFICE 77150 MARIE MARRERO 1 1 CORIE CORIE T VISIT 15 MINUTES OFFICE 11788 MARIE MARRERO 1 1 CORIE CORIE T VISIT 15 MINUTES HOSPITAL JULIUS - 1 1 [facility] OUTPATIEN INC T OFFICE 59347 MARIE MARRERO 1 1 CORIE CORIE T VISIT 15 MINUTES OFFICE 03027 MARIE MARRERO 1 1 CORIE CORIE T VISIT 15 MINUTES HOSPITAL JULIUS - 1 1 [facility] OUTPATIEN INC T EMERGENCY 70577 TYRELL PEARSON 1 1 EMERGENCY [facility] DEPARTMEN SERVICES T VISIT HIGH/URGE NT SEVERITY EMERGENCY 30468 JULIUS 1 1 [facility] DEPARTMEN INC T VISIT MODERATE SEVERITY OFFICE 46141 MARIE MARRERO 1 1 CORIE CORIE T VISIT 15 MINUTES OFFICE 27695 MARIE MARRERO 1 1 CORIE CORIE T VISIT 15 MINUTES OFFICE 78128 [place] MARIE MARRERO 1 1 CORIE CORIE T VISIT 15 MINUTES OFFICE 60142 [facility] OUTPATIEN 1 1 HEALTH YOSI T VISIT CLINIC OF 25 SHERRY MINUTES OFFICE 66085 MARIE MARRERO 1 1 CORIE CORIE T VISIT 15 MINUTES OFFICE 35507 MARIE MARRERO 1 1 CORIE CORIE T VISIT 15 MINUTES OFFICE 56079 [facility] STONEPATIEN 1 1 HEALTH YOSI T VISIT 5 CLINIC OF MINUTES SHERRY OFFICE 73967 MARIE MARRERO 1 1 CORIE CORIE T VISIT 15 MINUTES OFFICE 03463 MARIE MARRERO 1 1 CORIE CORIE T VISIT 15 MINUTES OFFICE 30201 MARIE MARRERO 1 1 CORIE CORIE T VISIT 15 MINUTES OFFICE 31317 MARIE MARRERO 1 1 CORIE CORIE T VISIT 15 MINUTES OFFICE 19441 THE ELIDA BROWN 1 1 IMPLANT & III LAKESHIA T NEW 20 ORAL MINUTES SURGERY C OFFICE 75263 [facility] OUTPATIEN 1 1 HEALTH YOSI T VISIT 5 CLINIC OF MINUTES SHERRY OFFICE 06566 ALLKERRY HARRISON JR OUTPATIEN 0 0 YI YI T VISIT 25 MINUTES OFFICE 86393 MARIE STONEPATIEN 0 0 CORIE CORIE T VISIT 15 MINUTES OFFICE 78709 MARIE STONEPATIEN 0 0 CORIE CORIE T VISIT 15 MINUTES HOSPITAL JULIUS - 0 0 [facility] OUTPATIEN INC T HOSPITAL JULIUS - 0 0 [facility] OUTPATIEN INC T OFFICE 65575 MARIE ADDISONODALYS OUTPATIEN 0 0 CORIE CORIE T VISIT 15 MINUTES OFFICE 79634 MARIE SALAZAR OUTPATIEN 0 0 CORIE CORIE T VISIT 15 MINUTES OFFICE 93958 [facility] OUTPATIEN 0 0 HEALTH YOSI T VISIT 5 CLINIC OF MINUTES SHERRY EMERGENCY 26629 KIANA LADDNELSON DEPT 0 0 MEDICAL RAMONE VISIT SERV HIGH FOUNDATIO SEVERITY& THREAT FUN OFFICE 02032 MARIE SALAZAR OUTPATIEN 0 0 CORIE CORIE T VISIT 15 MINUTES EMERGENCY 29817 [facility] 0 0 E [facility] T VISIT LOW/MODER SEVERITY [facility]OSPITAL [facility] - [facility] 06013 MARIE ADDISONODALYS OUTPATIEN 0 0 CORIE CORIE T VISIT 15 MINUTES OFFICE 19327 MARIE MARIE OUTPATIEN 0 0 CORIE CORIE T VISIT 15 MINUTES OFFICE 11997 [facility], OUTPATIEN 0 0 HEALTH ISABEL J T VISIT 5 CLINIC OF MINUTES [facility] OFF[facility] 25672 MARIE SALAZAR OUTPATIMAMIE 0 0 RODERICK W RODERICK W T VISIT 15 MINUTES OFFICE 24026 MARIE SALAZAR OUTPATIEN 0 0 RODERICK W RODERICK W T VISIT 15 MINUTES OFFICE 37579 MARIE SALAZAR OUTPATIEN 0 0 RODERICK W RODERICK W T VISIT 15 MINUTES OFFICE 22277 MARIE SALAZAR OUTPATIEN 0 0 RODERICK W RODERICK W T VISIT 15 MINUTES OFFICE 70915 MARIE SALAZAR OUTPATIMAMIE 0 0 RODERICK W RODERICK W T VISIT 15 MINUTES OFFICE 00350 MARIE SALAZAR OUTPATIEN 0 0 RODERICK VAUGHN W T VISIT 15 MINUTES OFFICE 78200 ELIDA CAMILO 0 0 [place] [facility] C T VISIT ORTHOPAED 15 [facility] MINUTES OFFICE 55250 MARIE SALAZAR OUTPATIEN 0 0 RODERICK VAUGHN W T VISIT 15 MINUTES OFFICE 12799 CENTRAL SASHA, CONSULTAT 0 0 [place] CONNOR C ION ORTHOPAED NEW/ESTAB ICS PLC PATIENT 60 MIN OFFICE 27604 MARIE SALAZAR OUTPATIEN 0 0 RODERICK VAUGHN W T VISIT 15 MINUTES EMERGENCY 53247 JULIUS 0 0 [facility] DEPARTMEN INC T VISIT LOW/MODER SEVERITY HOSPITAL JULIUS - 0 0 [facility] OUTPATIEN INC T EMERGENCY 29277 TYRELL PEARSON, 0 0 EMERGENCY [facility] DEPARTMEN SERVICES T VISIT HIGH/URGE ASSOCIATE NT S SEVERITY OFFICE 65906 MARIE SALAZAR OUTPATIEN 0 0 RODERICK VAUGHN W T VISIT 15 MINUTES OFFICE 24430 KIANA COLEMAN, CONSULTAT 0 0 MEDICAL MENDEL L ION SERV NEW/ESTAB FOUNDATIO PATIENT 40 MIN HOSPITAL UNIVERSIT - [address] [facility] T OFFICE 12462 ALLRAN ALLRAN CONSULTAT 0 0 JR, JR, ION FRANCISCO F FRANCISCO F NEW/ESTAB PATIENT 60 MIN OFFICE 69783 MARIE SALAZAR OUTPATIEN 0 0 RODERICK Luis Fernando RODERICK W T VISIT 15 MINUTES OFFICE 51001 MARIE SALAZAR OUTPATIEN 0 0 [place]ER[place] Luis Fernando VAUGHN W T VISIT 15 MINUTES OFFICE 51195 [facility] 9 9 [facility] Moore T VISIT 5 CLINIC OF MINUTES [facility] OFFICE 40149 MARIE SALAZAR OUTPATIEN 9 9 RODERICK Gould RODERICK Gould T VISIT 15 MINUTES OFFICE 63494 MARIE SALAZAR OUTPATIEN 9 9 RODERICK Gould T VISIT 15 MINUTES HOSPITAL JULIUS - 9 9 [facility] OUTPATIEN INC T EMERGENCY 49034 TYRELL DUNCAN 9 9 EMERGENCY III, [facility] BEBA T VISIT MODERATE ASSOCIATE SEVERITY S EMERGENCY 39149 JULIUS 9 9 [facility] T VISIT LOW/MODER SEVERITY OFFICE 12065 CORY RAY OUTPATIMAMIE 9 9 , PETER GREEN T VISIT 10 MINUTES HOSPITAL JULIUS - 9 9 [facility] OUTPATIEN INC T OFFICE 72240 MARIE SALAZAR OUTPATIEN 9 9 RODERICK Luis Fernando Gould T VISIT 15 MINUTES OFFICE 35819 MARIE SALAZAR OUTPATIEN 9 9 RODERICK Gould T VISIT 15 MINUTES HOSPITAL JULIUS - 9 9 [facility] OUTPATIEN INC T OFFICE 79681 CORY RAY OUTPATIEN 9 9 , PETER RGEEN T VISIT 10 MINUTES HOSPITAL JULIUS - 9 9 [facility] OUTPATIEN INC T OFFICE 43886 CORY VALENCIASTAD CONSULTAT 9 9 , PETER GREEN ION NEW/ESTAB PATIENT 60 MIN OFFICE 92398 MARIE SALAZAR OUTPATIEN 9 9 RODERICK Gould T VISIT 15 MINUTES OFFICE 25012 [facility] 9 9 HEALTH ISABEL J T VISIT CLINIC OF 15 MINUTES [facility] OFFICE 79605 DHS/CO JULIUS MARRERO 9 9 HEALTH CO HEALTH T [facility] MINUTES BANK ACCT OFFICE 30326 MARIE SALAZAR OUTPATIEN 9 9 RODERICK VAUGHN W T VISIT 15 MINUTES OFFICE 15467 MARIE ELIDA SAALZAR 9 9 RODERICK W RODERICK W T VISIT 15 MINUTES OFFICE 09345 MARIE ELIDA SALAZAR 9 9 RODERICK W RODERICK W T VISIT 15 MINUTES OFFICE 45203 MARIE SALAZAR OUTPATIEN 9 9 RODERICK VAUGHN W T VISIT 15 MINUTES OFFICE 68235 MARIE ELIDA SALAZAR 9 9 RODERICK VAUGHN W T VISIT 15 MINUTES OFFICE 63499 MARIE SALAZAR OUTPATIEN 9 9 RODERICK VAUGHN W T VISIT 15 MINUTES OFFICE 71052 MARIE ELIDA SALAZAR 9 9 RODERICK VAUGHN W T NEW 30 MINUTES OFFICE 22670 [facility] M[facility] 9 9 [facility] CLINIC OF NEW/ESTAB PATIENT [place] [address] [facility] EMERGENCY 46758 JULIUS 9 9 [facility] DEPARTMEN INC T VISIT HIGH/URGE NT SEVERITY EMERGENCY 65829 TYRELL RUIZ, NAMT 9 9 EMERGENCY ENDY P VISIT SERVICES HIGH SEVERITY& ASSOCIATE THREAT S [facility] JULIUS - 9 9 [facility] OUTPATIEN INC T EMERGENCY 31981 JULIUS 9 9 [facility] DEPARTMEN INC T VISIT LIMITED/M [facility] JULIUS - 9 9 [facility] INC T EMERGENCY 92996 TYRELL RUIZ 9 9 EMERGENCY ENDY P DEPARTMEN SERVICES T VISIT MODERATE ASSOCIATE SEVERITY S OFFICE 61811 ISAIAH COLON OUTPATIEN 9 9 GENE A GENE Jorgensen T VISIT 15 MINUTES OFFICE 17796 FIGUEROA STONEPATIMAMIE 9 9 JR, J V JR, J V T VISIT 15 MINUTES OFFICE 71576 [facility] ROBERTSPATIMAMIE 9 9 [facility] J T VISIT CLINIC OF 15 MINUTES [facility] OFFICE 71591 ISAIAH COLON OUTPATIEN 9 9 GENE A GENE A T VISIT 15 MINUTES HOSPITAL JULIUS - 9 9 [facility] OUTPATIEN INC T OFFICE 96617 ISAIAH COLON OUTPATIEN 9 9 GENE A GENE A T VISIT 15 MINUTES EMERGENCY 45981 JULIUS 9 9 [facility] DEPARTMEN INC T VISIT MODERATE SEVERITY HOSPITAL JULIUS - 9 9 [facility] OUTPATIEN INC T EMERGENCY 43142 ANGI PEARSON, 9 9 [facility] T VISIT ON HIGH/URGE NT SEVERITY OFFICE 76410 [facility] 8 8 [facility] J T VISIT CLINIC OF 25 MINUTES [facility] OFFICE 46184 ISAIAH COLON OUTPATIEN 8 8 GENE A GENE A T VISIT 15 MINUTES OFFICE 02535 ISAIAH COLON OUTPATIEN 8 8 GENE A GENE A T VISIT 15 MINUTES OFFICE 33578 [facility] OUT[facility] 8 8 [facility] T VISIT [facility]INIC OF 15 MINUTES [facility] JULIUS - 8 8 [facility] OUTPATIEN INC T EMERGENCY 15746 JULIUS 8 8 [facility] DEPARTMEN INC T VISIT MODERATE SEVERITY OFFICE 78981 [facility] 8 8 [facility] T VISIT CLINIC OF 15 MINUTES [facility] OFFICE 09076 [facility] OUT[facility] 8 8 [facility] T NEW 30 CLINIC OF MIN[facility] OFFICE 84344 ISAIAH COLON OUTPATIEN 7 7 GENE Jimenez VISIT 15 MINUTES
--- OUTSIDE RECORDS SUMMARY | 2017-02-18 18:14 | External Medical Summary Rpt | CCD ---
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 S /DX 1ST TO 1 HR THERAPEUT 27343 JULIUS MADRID IC 3 [facility] INJECTION INC INC IV PUSH EACH NEW DRUG INJECTION J2405 JULIUS MADRID 3 [facility] ONDANSETR INC INC ON HCL PER 1 MG LEVEL III 05787 TYRELL TYRELL SURG 3 CHUY CHUY PATHOLOGY GROSS&RODOLFO ROSCOPIC EXAM ANES 29639 VILLEGAS JOSE ELIAS VILLEGAS JOSE ELIAS INTRAPERI 3 TONEAL UPPER ABDOMEN W/LAPS NOS LAPAROSCO 73910 JULIUS MADRID PY SURG 3 [facility] CHOLECYST INC INC ECTOMY RADIOLOGI 83731 JULIUS MADRID C EXAM 3 [facility] CHEST 2 INC INC VIEWS FRONTAL&[place] [address] JULIUS MADRID ABDOMINAL 3 [facility] REAL INC INC TIME W/IMAGE LIMITED CREATINE 52037 JULIUS MADRID KINASE 3 [facility] TOTAL INC INC CREATINE 74188 JULIUS MADRID KINASE MB 3 [facility] [place] [address] JULIUS MADRID LIPASE 3 [facility] INC INC BLOOD 62957 JULIUS MADRID COUNT 3 [facility] COMPLETE INC INC AUTO&[place] [address] JULIUS MADRID TROPONIN 3 [facility] QUANTITAT INC INC JANE URINE 15227 JULIUS MADRID 3 [facility] TEST INC INC VISUAL COLOR CMPRSN METHS COMPREHEN 91914 JULIUS MADRID SIVE 3 [facility] METABOLIC INC INC PANEL URNLS DIP 90268 JULIUS MADRID 3 [facility] STICK/TAB INC INC LET REAGENT AUTO MICROSCOP Y ECG 47967 DAKOTA DUNCAN ROUTINE 3 III JOSE ELIAS III JOSE ELIAS ECG W/LEAST 12 LDS I&R ONLY ECG 83691 JULIUS MADRID ROUTINE 3 [facility] ECG INC INC W/LEAST 12 LDS TRCG ONLY W/O I&R THER 51837 JULIUS MADRID PROPH/DX 3 [facility] NJX IV INC INC PUSH SINGLE/1S T SBST/DRUG RADEX 71470 JULIUS MADRID FOOT 3 [facility] COMPLETE INC INC MINIMUM 3 VIEWS INJECTION J0696 MARIE SALAZAR 3 CORIE CORIE CEFTRIAXO NE SODIUM PER 250 MG THERAPEUT 92294 JULIUS MADRID IC 3 [facility] PROPHYLAC INC INC TIC/DX INJECTION SUBQ/IM INJECTION J0696 MARIE MARIE 3 CORIE CORIE CEFTRIAXO NE SODIUM PER 250 MG INJECTION J2805 JULIUS JULIUS 2 [facility] SINCALIDE INC INC 5 MICROGRAM S TECHNETIU A9537 JULIUS Dominguez TC-99M 2 [facility] MEBROFENI INC INC N DX UP [place] 15 [place] [address] JULIUS MADRID ABDOMINAL 2 [facility] REAL INC INC TIME W/IMAGE LIMITED HEPATOBIL 91953 [place] JULIET SYST 2 MEDICAL AGUS IMAG INC IMAGING GB ASS W/PHARMA INTERVENJ ESOPHAGOG 41239 JULIUS BARROSOON ASTRODUOD 2 [facility] ENOSCOPY [place] [address] JULIUS MADRID INFUSION 2 [facility] THERAPY/P INC INC ROPHYLAXI S /DX 1ST TO 1 [place] [address] JULIUS JULIUS INFUSION 2 [facility] THERAPY INC INC PROPHYLAX IS/DX EA HOUR ECHO 67772 TYRELL THAKUR TRANSTHOR 2 EMERGENCY C R-T 2D SERVICES W/WO M-MODE REC F-UP/LMTD [place] CHEST 27697 TYRELL THAKUR REAL TIME 2 EMERGENCY W/[place] [address] TYRELL THAKUR ABDOMINAL 2 EMERGENCY REAL SERVICES TIME W/IMAGE LIMITED URNLS DIP 39530 JULIUS MADRID 2 [facility] STICK/TAB INC INC LET REAGENT AUTO MICROSCOP Y URINE 47730 JULIUS MADRID 2 [facility] TEST INC INC VISUAL COLOR CMPRSN METHS INJECTION J0696 MARIE SALAZAR 2 CORIE CORIE CEFTRIAXO NE SODIUM PER 250 MG SPHERE V2100 SCIFRES SCIFRES SINGLE 2 ANG ANG VISION PLANO +/- 4.00 PER LENS VISION V2799 SCIFRES SCIFRES ITEM OR 2 ANG ANG SERVICE MISCELLAN EOUS THROMBOPL 16115 [facility] ASTIN 2 N N TIME [facility] PARTIAL HOSPITA HOSPITA PLASMA/WH OLE BLOOD PROTHROMB 69136 [facility] IN TIME 2 N N [facility] HOSPITA HOSPITA URINE 80829 [facility] 2 N N TEST [facility] VISUAL HOSPITA HOSPITA COLOR CMPRSN METHS URNLS DIP 17249 [facility] 2 N N STICK/TAB [facility] LET HOSPITA HOSPITA REAGENT AUTO MICROSCOP Y COMPREHEN 22750 [facility] SIVE 2 N N METABOLIC [facility] PANEL HOSPITA HOSPITA BLOOD 71155 [facility] COUNT 2 N N COMPLETE [facility] AUTO&AUTO HOSP[place] [address] [facility] LIPASE 2 N N [facility] HOSPITA HOSPITA BLOOD 73952 [facility] OCCULT 2 N N PEROXIDAS [facility] E ACTV HOSPITA HOSPITA QUAL FECES 1-3 SPEC COLLECTIO 55910 [facility] N VENOUS 2 N N BLOOD [facility] [place] [address] [facility] INFUSION 2 N N HYDRATION [facility] EACH HOSPITA HOSPITA ADDITIONA L HOUR THER 71598 [facility] PROPH/DX 2 N N NJX IV [facility] PUSH HOSPITA HOSPITA SINGLE/1S T SBST/DRUG OPHTH 55404 SCIFRES SCIFRES MEDICAL 2 ANG ANG XM&EVAL COMPRHNSV ESTAB PT 1/> DETERMINA 58355 SCIFRES SCIFRES TION 2 [place] [address] JULIUS MADRID STREPTOCO 2 [facility] CCUS INC INC GROUP A IAADI 19730 JULIUS MADRID INFLUENZA 2 [facility] B VIRUS INC INC IAADI 38471 JULIUS MADRID INFFLUENZ 2 [facility] A A [place]IR[place] SOFT 84500 JULIET JULIET TISSUE 2 AGUS AGUS NECK W/O CONTRAST MATERIAL 3D 00952 JULIUS MADRID RENDERING 2 [facility] INC INC W/INTERP& POSTPROC DIFF WORK STATION URINE 34084 JULIUS MADRID 2 [facility] TEST INC INC VISUAL COLOR CMPRSN METHS DEMO&/SENG 05196 [facility] L OF PT 2 ALLERGY ALLERGY UTILIZ & ASTHMA & ASTHMA AERSL P P GEN/NEB/I NHLR/IP PERCUTANE 60731 [facility] OUS TESTS 2 ALLERGY ALLERGY & ASTHMA & ASTHMA W/ALLERGE P P CHYNA EXTRACTS INTRACUTA 88623 [facility] NEOUS 2 ALLERGY ALLERGY TESTS & ASTHMA & ASTHMA W/ALLERGE P P CHYNA EXTRACTS BRNCDILAT 53558 [facility] RSPSE 2 ALLERGY ALLERGY SPMTRY & ASTHMA & ASTHMA PRE&POST- P P BRNCDILAT ADMN ECG 66337 [facility] ROUTINE [address] [facility] W/LEAST 12 LDS TRCG ONLY W/O I&R ECG 96827 BEZOLD BEZOLD ROUTINE 1 III MEDARDO III MEDARDO ECG W/LEAST 12 LDS I&R ONLY SEDIMENTA 14956 [facility] TION RATE [address] [facility] AUTOMATED C-REACTIV 35793 [facility] PROTEIN [address] [facility] GROUND A0425 [facility] COL[facility] MILEAGE 1 FAYETTE FAYETTE PER URBAN URBAN STATUTE COGOVT COGOVT MILE AMB A0427 [facility] SERVICE 1 FAYETTE FAYETTE ALS URBAN URBAN EMERGENCY COGOVT COGOVT TRANSPORT LEVEL 1 COMPREHEN 20075 [facility] SIVE [address] [facility] [place] [address] [facility] LIPASE 1 [place] [address] [facility] TROPONIN 1 Y Y QUANTITAT [facility] JANE GONADOTRO 98965 [facility] PIN 1 Y Y CHORIONIC [facility] QUANTITAT JANE BLOOD 67883 [facility] COUNT 1 Y Y COMPLETE [facility] AUTOMATED GONADOTRO 51327 [facility] PIN 1 Y [place] [facility] [place] [address] [facility] ABDOMINAL [address] [facility] TIME W/IMAGE LIMITED COLLECTIO 22044 [facility] N VENOUS 1 Y Y BLOOD [facility] VENIPUNCT URE RADIOLOGI 12726 [facility] C EXAM 1 Y Y CHEST 2 [facility] VIEWS FRONTAL&L ATERAL 3D 96995 JULIUS MADRID RENDERING 1 [facility] INC INC W/INTERP& [place] [address] JULIUS MADRID ABDOMEN & 1 [facility] PELVIS INC INC W/O CONTRAST MATERIAL INJECTION J2405 JULIUS MADRID 1 [facility] ONDANSETR INC INC ON HCL PER 1 MG BLOOD 01964 JULIUS MADRID COUNT 1 [facility] COMPLETE INC INC AUTO&[place] [address] JULIUS MADRID LIPASE 1 [facility] INC INC COMPREHEN 41212 JULIUS MADRID SIVE 1 [facility] METABOLIC INC INC PANEL URNLS DIP 77846 JULIUS JULIUS 1 [facility] STICK/TAB INC INC LET REAGENT AUTO MICROSCOP Y URINE 69031 JULIUS MADRID 1 [facility] TEST INC INC [place] [address] JULIUS MADRID AMYLASE 1 [facility] INC INC DETERMINA [address] [facility] TION 1 REFRACTIV E STATE OPHTH 34760 [place] PRIYANK BUTLER PRIYANK MEDICAL 1 XM&EVAL COMPRHNSV ESTAB PT 1/> INJECTION J0696 MARIE SALAZAR 1 CORIE CORIE CEFTRIAXO NE SODIUM PER 250 MG INJECTION J0696 MARIE SALAZAR 1 CORIE CORIE CEFTRIAXO NE SODIUM PER 250 MG THERAPEUT 06716 [facility] IC 1 [facility] PROPHYLAC CLINIC OF TIC/DX SHERRY INJECTION SUBQ/[place] [address] JULIUS MADRID TRACT UPR 1 [facility] W/SM INT INC [place] [address] [facility] UPR W/WO 1 MEDICAL AGUS GLUCOSE IMAGING W/SM ASS INTEST FOLLW-THR U THERAPEUT 57907 [facility] IC 1 [facility] PROPHYLAC CLINIC OF CLINIC OF TIC/DX SHERRY SHERRY INJECTION SUBQ/[place] [address] JULIUS MADRID INFUSION 1 [facility] THERAPY/P INC INC ROPHYLAXI S /DX 1ST TO 1 HR CULTURE 53803 JULIUS MADRID BACTERIAL 1 [facility] INC INC QUANTTAT[place] [address] JULIUS MADRID AMYLASE 1 [facility] INC INC URNLS DIP 21190 JULIUS RUSSELLARRY 1 [facility] GEMA STICK/TAB INC LET REAGENT AUTO MICROSCOP Y COMPREHEN 50016 JULIUS MADRID SIVE 1 [facility] [place] [address] JULIUS MADRID LIPASE 1 [facility] INC INC URINE 09828 JULIUS MADRID 1 [facility] TEST INC INC VISUAL COLOR CMPRSN METHS BLOOD 28152 JULIUS MADRID COUNT 1 [facility] COMPLETE INC INC AUTO&AUTO DIFRNTL WBC ANTIBODY 48094 COMBINED COMBINED CHLAMYDIA 1 PHYSICIAN PHYSICIAN S LA S LA CUL BACT 82777 COMBINED COMBINED XCPT 1 PHYSICIAN PHYSICIAN URINE S LA S LA BLOOD/STO OL AEROBIC ISOL INJECTION J0696 CYNODALYS MARIE 1 CORIE CORIE CEFTRIAXO NE SODIUM PER 250 MG THERAPEUT 07172 [facility] IC 1 [facility] PROPHYLAC CLINIC OF TIC/DX SHERRY INJECTION SUBQ/IM DEEP D9220 [facility], SEDATION/ 1 IMPLANT & III LAKESHIA GENERAL ORAL ANESTHESI SURGERY C A-1ST 30 MINUTES RADEX 16322 JULIUS MADRID UPPER GI 0 [facility] W/WO INC INC GLUCAGON/ DELAY IMAGES W/[place] [address] JULIUS MADRID ABDOMINAL 0 [facility] REAL INC INC TIME W/IMAGE LIMITED FRAMES V2020 [facility] PURCHASES 0 VISION SPHERE V2100 [facility] SINGLE 0 VISION VISION PLANO +/- 4.00 PER LENS OPHTH 13268 [facility] MEDICAL 0 VISION XM&EVAL COMPRHNSV ESTAB PT 1/> FITTING 18958 [facility] SPECTACLE 0 VISION S XCPT APHAKIA MONOFOCAL THERAPEUT 89000 [facility] IC 0 [facility] PROPHYLAC CLINIC OF TIC/DX SHERRY INJECTION SUBQ/IM OBSERVATI 93646 [facility] NEVAREZQUENTIN ON/INPATI 0 MEDICAL FAR ENT SERV HOSPITAL FOUNDATIO CARE 55 MINUTES ELECTROEN 83720 K[facility]NA ANCELMO LA CEPHALOGR 0 MEDICAL AM W/REC SERV AWAKE&ASL FOUNDATIO EEP ECG 24694 [place] MARIAM ROUTINE 0 MEDICAL AGUS ECG SERV W/LEAST FOUNDATIO 12 LDS I&R ONLY RADEX 66670 [place] PRADEEP SPINE 0 MEDICAL PASTORA THORACIC SERV 2 VIEWS FOUNDATIO MRI BRAIN 68366 [place] OFE MCGREGOR BRAIN 0 MEDICAL STEM W/O SERV W/[place] [address] UNIVERS[facility] PATINO HEAD/BRAI 0 Y OF MUR N W/O [facility] MATERIAL RADEX 91725 [facility] [facility] SPINE [address] [facility] 2 VIEWS RADEX 24831 [place] SPINE 0 E E LUMBOSACR [facility] AL 2/3 VIEWS BLOOD 93724 [place] COUNT 0 E E COMPLETE HOSPITAL HOSPITAL AUTO&AUTO DIFRNTL WBC FIBRIN 20940 [facility] DGRADJ 0 E E PRODUCTS HOSPITAL HOSPITAL D-DIMER QUAL/SEMI REINA GONADOTRO 25750 [facility] PIN 0 [facility] QUALITATI VE LACTATE 75210 [facility] [facility] DEHYDROGE 0 E E [facility]ASE [facility]PITAL CREATINE 23543 [facility] KINASE 0 E [facility] COMPREHEN 79063 [facility] SIVE 0 E E [facility] HOSPITAL PANEL URNLS DIP 67751 [facility] 0 E E STICK/TAB HOSPITAL HOSPITAL LET REAGENT AUTO MICROSCOP Y ECG 66165 [facility] ISAIAS ROUTINE 0 E OFE ECG HOSPITAL W/LEAST 12 LDS I&R ONLY ECG 47529 [facility] ROUTINE 0 E E ECG HOSPITAL HOSPITAL W/LEAST 12 LDS TRCG ONLY W/O I&R CRITICAL 31712 [facility] 0 EMERGENCY ILL/INJUR SERVICES ED [...] CO PER AMBULANCE AMBULANCE STATUTE MILE THERAPEUT 76706 [facility], IC 0 HEALTH ISABEL J PROPHYLAC CLINIC OF TIC/DX INJECTION [place] SUBQ/IM PLLC RADIOLOGI 81723 JULIUS MADRID C 0 [facility] EXAMINATI INC INC ON KNEE 3 VIEWS COLLECTIO 66693 [facility] N VENOUS 0 Y Y BLOOD [facility] [place] [address] [facility] AMYLASE 0 [place] [address] [facility] LIPASE 0 Y Y HOSPITAL HOSPITAL THERAPEUT 28021 [facility], IC 9 [facility] J PROPHYLAC CLINIC OF TIC/DX INJECTION [place] SUBQ/IM PLLC HEPATBL 21719 JULIUS MADRID DUX SYS 9 [facility] [place] [address] JULIUS MADRID ABDOMINAL 9 [facility] REAL INC INC TIME W/IMAGE LIMITED FITTING 35280 [facility], SPECTACLE 9 VISION JESÚS Dominguez S XCPT APHAKIA MONOFOCAL OPHTH 58034 [facility], MEDICAL 9 VISION JESÚS Dominguez XM&EVAL COMPRHNSV ESTAB PT 1/> SPHERE V2100 [place], SINGLE 9 VISION JESÚS Dominguez VISION PLANO +/- 4.00 PER LENS FRAMES V2020 [facility], PURCHASES 9 VISION JESÚS Dominguez ESOPHAGOG 4516 JULIUS MADRID ASTRODUOD 9 [facility] ENOSCOPY [place] [address] PATHOLOGY PATHOLOGY SURG 9 & & PATHOLOGY CYTOLOGY CYTOLOGY LAB LAB GROSS&[place] [address] JULIUS MADRID INFUSION 9 [facility] THERAPY INC INC PROPHYLAX IS/[place] [address] JULIUS MADRID INFUSION 9 [facility] THERAPY/P INC INC ROPHYLAXI S /DX 1ST TO 1 HR EGD 24005 [address] TRANSORAL 9 , PETER , PETER BIOPSY SINGLE/MU LTIPLE URINE 50001 JULIUS MADRID 9 [facility] TEST INC INC VISUAL COLOR CMPRSN METHS URINE 26933 [facility], 9 [facility] TEST CLINIC OF VISUAL COLOR [place] CMPRSN PLLC METHS BLOOD 77857 JULIUS MADRID COUNT 9 [facility] COMPLETE INC INC AUTO&AUTO DIFRNTL WBC CT PELVIS 13194 JULIUS MADRID W/O 9 [facility] CONTRAST INC INC MATERIAL 3D 31752 JULIUS MADRID RENDERING 9 [facility] INC INC W/INTERP& [place] [address] JULIUS JULIUS ABDOMEN 9 [facility] W/O INC INC CONTRAST MATERIAL OBSERVATI 56913 CORY VALENCIASTAD ON CARE 9 , PETER , PETER DISCHARGE [facility] G0378 JULIUS MADRID OBSERVATI 9 [facility] ON INC INC SERVICE PER [facility] G0378 JULIUS MADRID OBSERVATI 9 [facility] ON INC INC SERVICE PER HOUR INITIAL 40400 CORY VALENCIASTAD OBSERVATI 9 , PETER , PETER ON CARE/DAY 50 [place] [address] JULIUS BARROSOON INFUSION 9 [facility] THERAPY/P INC INC ROPHYLAXI S /DX 1ST TO 1 [place] [address] JULIUS MADRID INFUSION 9 [facility] THER INC INC PROPH ADDL SEQUENTIA L TO 1 HR CULTURE 42691 JULIUS MADRID BACTERIAL 9 [facility] INC INC QUANTTATI VE COLONY COUNT URINE CULTURE 47883 JULIUS MADRID BCT 9 [facility] ISOL&PRSM INC INC PTV ID ISOLATE EA URINE SUSCEPTIB 91679 [facility] LTY STDY 9 [facility] ANTIMICRB INC INC IAL MICRO/[place] [address] [facility] A[facility]OMEN 9 [facility] W/O INC INC CONTRAST MATERIAL 3D 30590 [facility] RENDERING [facility] W/INTERP& POSTPROC DIFF WORK STATION CT PELVIS 65399 [facility] W/O [facility] CONTRAST INC INC MATERIAL BLOOD 63397 [facility] COUNT 9 [facility] COMPLETE INC INC AUTO&AUTO DIFRNTL WBC BLOOD 85406 [facility] COUNT 9 [facility] COMPLETE INC INC AUTO&AUTO DIFRNTL WBC URINE 99004 [facility] TEST INC INC VISUAL COLOR CMPRSN METHS URNLS DIP 58871 [facility] STICK/TAB INC INC LET REAGENT AUTO MICROSCOP Y BASIC 40588 [facility] METABOLIC 9 [facility] PANEL INC INC CALCIUM TOTAL RADEX 34932 [facility] SACRUM & 9 [facility] COCCYX INC INC MINIMUM 2 VIEWS RADEX HIP 69158 [facility] UNILATERA INC INC L COMPLETE MINIMUM 2 VIEWS RADIOLOGI 99662 J[facility] C EXAM 9 [facility] CHEST 2 INC INC VIEWS FRONTAL&[place] [address] J[facility] STREPTOCO 9 [facility] [place] [address] [facility] STREPTOCO 8 [facility] GROUP A Encounters Encounter Start End Date Code Location Performer Type Date OFFICE 83697 [facility] 7 7 [facility] T VISIT 5 E MINUTES [facility]47 [facility] 7 7 MEDICAL T VISIT SERV 15 FOUNDATIO MINUTES N [facility] - 7 [facility] OUTPATIEN E T HOSPITALS EMERGENCY 48800 [facility] 7 7 [place] [facility] PHYSICIAN T VISIT S HIGH/URGE NT SEVERITY [facility] - [facility] 7 [facility] OUTPATIEN INC T OFFICE 58073 [facility] 7 7 [facility] T VISIT INC 10 MINUTES [facility] - 7 7 [facility] OUTPATIEN INC T OFFICE 80440 [facility] 7 7 [facility] T VISIT 5 INC MINUTES OFFICE 26489 [facility] OUTPATIEN 7 7 PHYSICIAN T VISIT 5 S GROUP MINUTES OFFICE 48412 [facility] STONE OUTPATIEN 7 7 PHYSICIAN T VISIT S GROUP 25 MINUTES [facility]OSP[facility] - 6 6 [facility] OUTPATIEN E T HOSPITALS OFFICE 91198 [facility] PETTEY OUTPATIEN 6 6 PHYSICIAN JAM T NEW 20 S GROUP MINUTES OFFICE 54077 [facility] LILI OUTPATIEN 6 6 PHYSICIAN RODOLFO T VISIT S GROUP 15 MINUTES OFFICE 53471 [facility] ROEBRTS OUTPATIEN 6 6 PHYSICIAN YOSI T VISIT 5 S GROUP MINUTES OFFICE 19086 [facility] WALL OUTPATIEN 6 6 PHYSICIAN SUDHA T VISIT 5 S GROUP MINUTES OFFICE 15917 [facility] WALL OUTPATIEN 6 6 PHYSICIAN SUDHA T NEW 20 S GROUP MINUTES EMERGENCY 76826 LORIN PEARSON DEPT 6 6 PHYSICIAN RODOLFO VISIT S, [facility] HIGH SEVERITY& THREAT FUNCJ EMERGENCY 00075 [facility] 6 6 PHYSICIAN DEPARTMEN S, [facility] T VISIT HIGH/URGE NT SEVERITY EMERGENCY 15054 [facility] 6 6 [facility] DEPARTMEN INC T VISIT LOW/MODER SEVERITY [facility]OSPITAL [facility] - 6 6 [facility] OUTPATIEN INC T OFFICE 72333 [facility] OUTPATIEN 6 6 PHYSICIAN YOSI T VISIT 5 S GROUP MINUTES OFFICE 80997 [facility] LILI OUTPATIEN 5 5 PHYSICIAN RODOLFO T NEW 30 S GROUP MINUTES HOSPITAL [facility] - 5 5 [facility] OUTPATIEN INC T EMERGENCY 28785 LORIN NICKERSON 5 [facility], [facility] T VISIT HIGH/URGE NT SEVERITY OFFICE 71640 [facility] OUTPATIEN 5 5 PHYSICIAN YOSI T VISIT 5 S GROUP MINUTES EMERGENCY 87985 [facility] [address] [facility] EMERGENCY T VISIT PHYS MODERATE SEVERITY EMERGENCY 67221 ИВАН 5 5 [facility] T VISIT HIGH/URGE NT SEVERITY [facility] [place] - 5 5 [facility] T EMERGENCY 34090 LORIN PEARSON [address] [facility] S, [facility] T VISIT HIGH/URGE NT SEVERITY HOSPITAL J[facility]IUS - 5 5 [facility] OUTPATIEN [facility] T EMERGENCY 61313 JULIUS 5 5 [facility] T VISIT LOW/MODER SEVERITY PERIODIC 37526 [facility] PREVENTIV 5 5 PHYSICIAN E MED EST S GROUP PATIENT 18-39 YRS HOSPITAL [facility] - 5 5 [facility] T OFFICE 59607 [facility] [place] OUTPATIEN 5 5 PHYSICIAN YI T VISIT S GROUP 15 MINUTES EMERGENCY 26276 J[facility]US PEARSON 5 5 [facility] [facility] T VISIT P MODERATE SEVERITY EMERGENCY 96781 JULIUS 5 5 [facility] T VISIT HIGH/URGE NT SEVERITY HOSPITAL JULIUS - 5 5 [facility] OUTPATIEN [facility] T OFFICE 27342 [facility] RUBENS OUTPATIEN 5 5 PHYSICIAN EUG T VISIT S GROUP 15 MINUTES OFFICE 78612 [facility] 4 4 PHYSICIAN ELIZABETH T VISIT S GROUP 15 MINUTES OFFICE 48549 MARIE SALAZAR OUTPATIEN 4 4 CORIE CORIE T VISIT 15 MINUTES OFFICE 25341 ARMANDO ROBERTS OUTPATIEN 4 4 YOSI YOSI T VISIT 5 MINUTES EMERGENCY 61098 JULIUS 4 4 [facility]ISIT LOW/MODER SEVERITY EMERGENCY 36169 DIANNE PEARSON [address] [facility] EMERGENCY T VISIT PHYS MODERATE SEVERITY HOSPITAL JULIUS - 4 4 [facility] OUTPATIEN INC T OFFICE 17764 LUKE YOST OUTPATIEN 4 4 T VISIT 10 MINUTES OFFICE 51083 CYNODALYS MARIE MARRERO 4 4 CORIE CORIE T VISIT 15 MINUTES OFFICE 69663 ARMANDO MARRERO 4 4 YOSI YOSI T VISIT 5 MINUTES HOSPITAL JULIUS - 4 4 [facility] OUT[facility] INC T OFFICE 37299 MARIE MARIE MARRERO 4 4 CORIE CORIE T VISIT 15 MINUTES OFFICE 49234 CYNODALYS MARIE MARRERO 4 4 CORIE CORIE T VISIT 15 MINUTES OFFICE 66070 ARMANDO MARRERO 4 4 YOSI YOSI T VISIT 5 MINUTES OFFICE 58337 MARIE MARIE MARRERO 4 4 CORIE CORIE T VISIT 15 MINUTES HOSPITAL JULIUS - 4 4 [facility] OUTPATIEN INC T OFFICE 42350 MARIE MARRERO 4 4 CORIE CORIE T VISIT 15 MINUTES EMERGENCY 58175 LILI PEARSON DEPT 4 4 [place] VISIT HIGH SEVERITY& THREAT [facility] JULIUS - 4 4 [facility] OUTPATIEN INC T EMERGENCY 38205 JULIUS 4 4 [facility] DEPARTMEN INC T VISIT LOW/MODER SEVERITY OFFICE 59036 MARIE MARRERO 3 3 CORIE CORIE T VISIT 15 MINUTES OFFICE 05024 MARIE MARRERO 3 3 CORIE CORIE T VISIT 15 MINUTES OFFICE 86453 ARMANDO MARRERO 3 3 YOSI YOSI T VISIT 5 MINUTES HOSPITAL JULIUS - 3 3 [facility] OUTPATIEN INC T EMERGENCY 08912 JULIUS 3 3 [facility] DEPARTMEN INC T VISIT MODERATE SEVERITY EMERGENCY 35688 LILI PEARSON 3 3 [place] DEPARTMEN T VISIT HIGH/URGE NT SEVERITY HOSPITAL JULIUS - 3 3 [facility] OUTPATIEN INC T HOSPITAL JULIUS - 3 3 [facility] OUTPATIEN INC T EMERGENCY 89430 JULIUS 3 3 [facility] DEPARTMEN INC T VISIT HIGH/URGE NT SEVERITY HOSPITAL JULIUS - 3 3 [facility] OUTPATIEN INC T EMERGENCY 11484 DAKOTA DUNCAN DEPT 3 3 III JOSE ELIAS III JOSE ELIAS VISIT HIGH SEVERITY& THREAT [facility] JULIUS - 3 3 [facility] OUTPATIEN INC T OFFICE 11868 MARIE MARRERO 3 3 CORIE CORIE T VISIT 15 MINUTES OFFICE 25234 ARMANDO MARRERO 3 3 YOSI YOSI T VISIT 5 MINUTES OFFICE 10096 MARIE MARRERO 3 3 CORIE CORIE T VISIT 15 MINUTES OFFICE 20846 ARMANDO MARRERO 3 3 YOSI YOSI T VISIT 5 MINUTES HOSPITAL JULIUS - 3 3 [facility] OUTPATIEN INC T EMERGENCY 94829 LILI LILI 3 3 [facility] DEPARTMEN T VISIT HIGH/URGE NT SEVERITY OFFICE 94487 MARIE MARRERO 3 3 CORIE CORIE T VISIT 15 MINUTES OFFICE 86629 ARMANDO MARRERO 3 3 YOSI YOSI T VISIT 5 MINUTES OFFICE 32856 MARIE MARRERO 3 3 CORIE CORIE T VISIT 15 MINUTES OFFICE 28767 ARMANDO STONEPATIEN 2 2 YOSI YOSI T VISIT 5 MINUTES OFFICE 15614 CORY SCHULSTWILBERTO OUTRAMONEEN 2 2 KATLIN KATLIN T VISIT 10 MINUTES HOSPITAL JULIUS - 2 2 [facility] T HOSPITAL JULIUS - 2 2 [facility] OUTPATIEN INC T OFFICE 89131 CORY RAY CONSULTAT 2 2 KATLIN SILVESTRE NEW/ESTAB PATIENT 40 MIN OFFICE 12265 MARIE RAOEN 2 2 CORIE CORIE T VISIT 15 MINUTES EMERGENCY 52701 TYRELL THAKUR DEPT 2 2 EMERGENCY VISIT SERVICES HIGH SEVERITY& THREAT FUN EMERGENCY 13945 JULIUS 2 2 [facility] DEPARTMEN INC T VISIT LOW/MODER SEVERITY HOSPITAL JULIUS - 2 2 [facility] OUTPATIEN INC T OFFICE 44039 MARIE MARRERO 2 2 CORIE CORIE T VISIT 15 MINUTES OFFICE 26060 ARMANDO MARRERO 2 2 YOSI YOSI T VISIT 10 MINUTES OFFICE 31743 MARIE MARRERO 2 2 CORIE CORIE T VISIT 15 MINUTES EMERGENCY 68250 [facility] 2 2 N DEPARTMEN COMMUNITY T VISIT HOSPITA HIGH/URGE NT SEVERITY EMERGENCY 81309 RECHTIN RECHTIN 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 HIGH SEVERITY& THREAT [facility] - 2 2 N OUTPATIEN COMMUNITY T HOSPITA OFFICE 91294 MARIE MARRERO 2 2 CORIE CORIE T VISIT 15 MINUTES OFFICE 62292 MARIE MARRERO 2 2 CORIE CORIE T VISIT 15 MINUTES OFFICE 29959 ARMANDO MARRERO 2 2 YOSI YOSI T VISIT 5 MINUTES OFFICE 08987 MARIE MARRERO 2 2 CORIE CORIE T VISIT 15 MINUTES OFFICE 13035 ARMANDO MARRERO 2 2 YOSI YOSI T VISIT 5 MINUTES OFFICE 65569 [facility] OUTPATIEN 2 2 SUDHA SUDHA T NEW 30 MINUTES EMERGENCY 95118 JULIUS 2 2 [facility] DEPARTMEN INC T VISIT LOW/MODER SEVERITY EMERGENCY 47824 TYRELL GRANTRenata [facility] DEPT 2 2 EMERGENCY VISIT SERVICES HIGH SEVERITY& THREAT [facility] JULIUS - 2 2 [facility] OUTPATIEN INC T OFFICE 50614 MARIE MARRERO 2 2 CORIE CORIE T VISIT 15 MINUTES OFFICE 68718 MARIE MARRERO 2 2 CORIE CORIE T VISIT 15 MINUTES OFFICE 62995 MARIE MARRERO 2 2 CORIE CORIE T VISIT 15 MINUTES OFFICE 83536 ELPIDIO MARRERO 2 2 JACOB JACOB T VISIT KATLIN KATLIN 15 MINUTES OFFICE 24295 MARIE MARRERO 2 2 CORIE CORIE T VISIT 15 MINUTES OFFICE 28852 [facility] CONSULTAT 2 2 ALLERGY ALLERGY ION & ASTHMA & ASTHMA NEW/ESTAB P P PATIENT 60 MIN OFFICE 05728 MARIE MARRERO 2 2 CORIE CORIE T VISIT 15 MINUTES OFFICE 00589 MARIE MARRERO 2 2 CORIE CORIE T VISIT 15 MINUTES OFFICE 92888 ARMANDO MARRERO 2 2 YOSI YOSI T VISIT 5 MINUTES OFFICE 08089 MARIE MARRERO 2 2 CORIE CORIE T VISIT 15 MINUTES EMERGENCY 07352 KIANA GRIFFIN MICHELLE 1 1 MEDICAL DEPARTMEN SERV T VISIT FOUNDATIO HIGH/URGE NT SEVERITY HOSPITAL UNIVERSIT - 1 1 Y OUTPATIEN HOSPITAL T EMERGENCY 79340 UNIVERSIT DEPT 1 1 Y VISIT HOSPITAL HIGH SEVERITY& THREAT [facility] OFFICE 11475 MARIE MARRERO 1 1 CORIE CORIE T VISIT 15 MINUTES EMERGENCY 61983 LILI PEARSON DEPT 1 1 [place] VISIT HIGH SEVERITY& THREAT [facility]J EMERGENCY 76300 JULIUS 1 1 [facility] DEPARTMEN INC T VISIT HIGH/URGE NT SEVERITY HOSPITAL JULIUS - 1 1 [facility] OUTPATIEN INC T OFFICE 86100 MARIE MARRERO 1 1 CORIE CORIE T VISIT 15 MINUTES OFFICE 52163 MARIE MARRERO 1 1 CORIE CORIE T VISIT 15 MINUTES OFFICE 79006 MARIE MARRERO 1 1 CORIE CORIE T VISIT 15 MINUTES OFFICE 02827 MARIE MARRERO 1 1 CORIE CORIE T VISIT 15 MINUTES OFFICE 08747 [facility] M[facility] 1 1 HEALTH YOSI T VISIT 5 CLINIC OF MINUTES SHERRY OFFICE 98800 MARIE MARRERO 1 1 CORIE CORIE T VISIT 15 MINUTES OFFICE 96250 MARIE MARRERO 1 1 CORIE CORIE T VISIT 15 MINUTES OFFICE 10948 MARIE MARRERO 1 1 CORIE CORIE T VISIT 15 MINUTES HOSPITAL JULIUS - 1 1 [facility] OUTPATIEN INC T OFFICE 05892 MARIE MARRERO 1 1 CORIE CORIE T VISIT 15 MINUTES OFFICE 77434 MARIE MARRERO 1 1 CORIE CORIE T VISIT 15 MINUTES HOSPITAL JULIUS - 1 1 [facility] OUTPATIEN INC T EMERGENCY 71444 TYRELL PEARSON 1 1 EMERGENCY [facility] DEPARTMEN SERVICES T VISIT HIGH/URGE NT SEVERITY EMERGENCY 04414 JULIUS 1 1 [facility] DEPARTMEN INC T VISIT MODERATE SEVERITY OFFICE 84677 MARIE MARRERO 1 1 CORIE CORIE T VISIT 15 MINUTES OFFICE 52134 MARIE MARRERO 1 1 CORIE CORIE T VISIT 15 MINUTES OFFICE 32301 CYNODALYS MARIE MARRERO 1 1 CORIE CORIE T VISIT 15 MINUTES OFFICE 56075 [facility] OUTPATIEN 1 1 HEALTH YOSI T VISIT CLINIC OF 25 SHERRY MINUTES OFFICE 08838 MARIE MARRERO 1 1 CORIE CORIE T VISIT 15 MINUTES OFFICE 44459 MARIE MARRERO 1 1 CORIE CORIE T VISIT 15 MINUTES OFFICE 86279 [facility] STONEPATIEN 1 1 HEALTH YOSI T VISIT 5 CLINIC OF MINUTES SHERRY OFFICE 04145 MARIE MARRERO 1 1 CORIE CORIE T VISIT 15 MINUTES OFFICE 80426 MARIE MARRERO 1 1 CORIE CORIE T VISIT 15 MINUTES OFFICE 86791 MARIE MARRERO 1 1 CORIE CORIE T VISIT 15 MINUTES OFFICE 94382 MARIE MARRERO 1 1 CORIE CORIE T VISIT 15 MINUTES OFFICE 37247 THE ELIDA BROWN 1 1 IMPLANT & III LAKESHIA T NEW 20 ORAL MINUTES SURGERY C OFFICE 47756 [facility] OUTPAT[facility] 1 1 HEALTH YOSI T VISIT 5 CLINIC OF MINUTES SHERRY OFFICE 30461 ALLKERRY HARRISON JR OUTPATIEN 0 0 YI YI T VISIT 25 MINUTES OFFICE 30606 MARIE STONEPATIEN 0 0 CORIE CORIE T VISIT 15 MINUTES OFFICE 01579 MARIE STONEPATIEN 0 0 CORIE CORIE T VISIT 15 MINUTES HOSPITAL JULIUS - 0 0 [facility] OUTPATIEN INC T HOSPITAL JULIUS - 0 0 [facility] OUTPATIEN INC T OFFICE 64697 MARIE ADDISONODALYS OUTPATIEN 0 0 CORIE CORIE T VISIT 15 MINUTES OFFICE 70017 MARIE SALAZAR OUTPATIEN 0 0 CORIE CORIE T VISIT 15 MINUTES OFFICE 49027 [facility] OUTPATIEN 0 0 HEALTH YOSI T VISIT 5 CLINIC OF MINUTES SHERRY EMERGENCY 58612 KIANA LADDNELSON DEPT 0 0 MEDICAL RAMONE VISIT SERV HIGH FOUNDATIO SEVERITY& THREAT FUN OFFICE 97628 MARIE SALAZAR OUTPATIEN 0 0 CORIE CORIE T VISIT 15 MINUTES EMERGENCY 51487 [facility] [facility]OX 0 0 [facility] T VISIT LOW/MODER SEVERITY [facility]OSPITAL [facility] - 0 0 [facility] 59992 MARIE ADDISONODALYS OUTPATIEN 0 0 CORIE CORIE T VISIT 15 MINUTES OFFICE 71625 MARIE MARIE OUTPATIEN 0 0 CORIE CORIE T VISIT 15 MINUTES OFFICE 57530 [facility], OUTPATIEN 0 0 [facility] IS[facility]EL J T VISIT 5 CLINIC OF MINUTES [facility] OFF[facility] 84509 MARIE SALAZAR OUTPATIMAMIE 0 0 RODER[facility] W RODERICK W T VISIT 15 MINUTES OFFICE 34491 MARIE SALAZAR OUTPATIEN 0 0 R[place]ER[place] W RODERICK W T VISIT 15 MINUTES OFFICE 09762 MARIE SALAZAR OUTPATIEN 0 0 RODERICK W RODERICK W T VISIT 15 MINUTES OFFICE 04615 MARIE SALAZAR OUTPATIEN 0 0 RODERICK W RODERICK W T VISIT 15 MINUTES OFFICE 48635 MARIE SALAZAR OUTPATIMAMIE 0 0 RODER[place] W RODERICK W T VISIT 15 MINUTES OFFICE 84695 MARIE SALAZAR OUTPATIEN 0 0 RODERICK VAUGHN W T VISIT 15 MINUTES OFFICE 11245 ELIDA CAMILO 0 0 [place] [facility] T VISIT ORTHOPAED 15 [facility] MINUTES OFFICE 92390 MARIE SALAZAR OUTPATIEN 0 0 RODERICK VAUGHN W T VISIT 15 MINUTES OFFICE 26425 CENTRAL SASHA, CONSULTAT 0 0 [place] [facility] C ION ORTHOPAED NEW/ESTAB [facility]CS PLC PATIENT 60 MIN OFFICE 91845 MARIE SALAZAR OUTPATIEN 0 0 RODERICK VAUGHN W T VISIT 15 MINUTES EMERGENCY 69943 JULIUS 0 0 [facility] DEPARTMEN INC T VISIT LOW/MODER SEVERITY HOSPITAL JULIUS - 0 0 [facility] OUTPATIEN INC T EMERGENCY 37225 TYRELL PEARSON, 0 0 EMERGENCY [facility] DEPARTMEN SERVICES T VISIT HIGH/URGE ASSOCIATE NT S SEVERITY OFFICE 26920 MARIE SALAZAR OUTPATIEN 0 0 RODERICK VAUGHN W T VISIT 15 MINUTES OFFICE 29420 KIAAN COLEMAN, CONSULTAT 0 0 MEDICAL MENDEL L ION SERV NEW/ESTAB FOUNDATIO PATIENT 40 MIN HOSPITAL UNIVERSIT - 0 0 Y [facility] T OFFICE 87146 ALLRAN ALLRAN CONSULTAT 0 0 JR, JR, ION FRANCISCO F FRANCISCO F NEW/ESTAB PATIENT 60 MIN OFFICE 14293 MARIE SALAZAR OUTPATIEN 0 0 RODERICK Luis Fernando RODERICK W T VISIT 15 MINUTES OFFICE 42565 MARIE SALAZAR OUTPATIEN 0 0 [place] Luis Fernando VAUGHN W T VISIT 15 MINUTES OFFICE 35338 [facility] ELIDA ROBERT[facility] 9 9 [facility] ISABEL Moore T VISIT 5 CLINIC OF MINUTES VIC [facility] OFFICE 24011 MARIE SALAZAR OUTPATIEN 9 9 RODERICK Gould RODERICK Gould T VISIT 15 MINUTES OFFICE 46972 MARIE SALAZAR OUTPATIEN 9 9 RODERICK Gould T VISIT 15 MINUTES HOSPITAL JULIUS - 9 9 [facility] OUTPATIEN INC T EMERGENCY 33953 TYRELL DUNCAN 9 9 EMERGENCY III, [facility] SERVICES BEBA T VISIT MODERATE ASSOCIATE SEVERITY S EMERGENCY 14739 JULIUS 9 9 [facility] T VISIT LOW/MODER SEVERITY OFFICE 93142 CORY RAY OUTPATIMAMIE 9 9 , PETER GREEN T VISIT 10 MINUTES HOSPITAL JULIUS - 9 9 [facility] OUTPATIEN INC T OFFICE 10722 MARIE SALAZAR OUTPATIEN 9 9 R[place] Luis Fernando Gould T VISIT 15 MINUTES OFFICE 83205 MARIE SALAZAR OUTPATIEN 9 9 RODERICK Gould T VISIT 15 MINUTES HOSPITAL JULIUS - 9 9 [facility] OUTPATIEN INC T OFFICE 40346 CORY RAY OUTPATIEN 9 9 , PETER GREEN T VISIT 10 MINUTES HOSPITAL JULIUS - 9 9 [facility] OUTPATIEN INC T OFFICE 37650 CORY VALENCIASTAD CONSULTAT 9 9 , PETER GREEN ION NEW/ESTAB PATIENT 60 MIN OFFICE 55146 MARIE SALAZAR OUTPATIEN 9 9 RODERICK Gould T VISIT 15 MINUTES OFFICE 09276 [facility] ELIDA [facility] 9 9 [facility]ALTH ISABEL J T VISIT CLINIC OF 15 MINUTES [place] [facility] OFFICE 86544 DHS/CO JULIUS MARRERO 9 9 HEALTH CO HEALTH T [facility] 10 [facility] ACCT OFFICE 37110 MARIE SALAZAR OUTPATIEN 9 9 RODERICK VAUGHN W T VISIT 15 MINUTES OFFICE 90266 MARIE ELIDA SALAZAR 9 9 RODERICK W RODERICK W T VISIT 15 MINUTES OFFICE 43610 MARIE ELIDA SALAZAR 9 9 RODERICK W RODERICK W T VISIT 15 MINUTES OFFICE 48991 MARIE SALAZAR OUTPATIEN 9 9 RODERICK VAUGHN W T VISIT 15 MINUTES OFFICE 90672 MARIE ELIDA SALAZAR 9 9 RODERICK VAUGHN W T VISIT 15 MINUTES OFFICE 26747 MARIE SALAZAR OUTPATIEN 9 9 RODERICK VAUGHN W T VISIT 15 MINUTES OFFICE 74203 MARIE ELIDA SALAZAR 9 9 RODERICK VAUGHN W T NEW 30 MINUTES OFFICE 91782 [facility] MARYSE ROBERT[facility] 9 9 [facility] CLINIC OF NEW/ESTAB PATIENT CYNTH[place] 40 MIN [facility] EMERGENCY 16316 JULIUS 9 9 [facility] DEPARTMEN INC T VISIT HIGH/URGE NT SEVERITY EMERGENCY 88900 TYRELL RUIZ, NAMT 9 9 EMERGENCY ENDY P VISIT SERVICES HIGH SEVERITY& ASSOCIATE THREAT S [facility] JULIUS - 9 9 [facility] OUTPATIEN INC T EMERGENCY 22475 JULIUS 9 9 [facility] DEPARTMEN INC T VISIT LIMITED/M INOR [facility] JULIUS - 9 9 [facility] OUTPATIEN INC T EMERGENCY 44436 TYRELL RUIZ 9 9 EMERGENCY ENDY P DEPARTMEN SERVICES T VISIT MODERATE ASSOCIATE SEVERITY S OFFICE 77326 ISAIAH COLON OUTPATIEN 9 9 GENE A GENE Jorgensen T VISIT 15 MINUTES OFFICE 96895 FIGUEROA STONEPATIMAMIE 9 9 JR, J V JR, J V T VISIT 15 MINUTES OFFICE 26577 [facility] BERTHA ROBERTSPATIMAMIE 9 9 HEALTH ISABEL J T VISIT CLINIC OF 15 MINUTES [place] [facility] DE[facility] OFFICE 62885 ISAIAH COLON OUTPATIEN 9 9 GENE A GENE A T VISIT 15 MINUTES HOSPITAL JULIUS - 9 9 [facility] OUTPATIEN INC T OFFICE 11057 ISAIAH COLON OUTPATIEN 9 9 GENE A GENE A T VISIT 15 MINUTES EMERGENCY 54610 JULIUS 9 9 [facility] DEPARTMEN INC T VISIT MODERATE SEVERITY HOSPITAL JULIUS - 9 9 [facility] OUTPATIEN INC T EMERGENCY 40064 ANGI PEARSON, 9 9 [facility] T VISIT ON HIGH/URGE NT SEVERITY OFFICE 50997 [facility] OUTPATIEN 8 8 HEALTH ISABEL J T VISIT CLINIC OF 25 MINUTES [place] [facility] DEPARTMENT OFFICE 36099 ISAIAH COLON OUTPATIEN 8 8 GENE A GENE A T VISIT 15 MINUTES OFFICE 14442 ISAIAH COLON OUTPATIEN 8 8 GENE A GENE A T VISIT 15 MINUTES OFFICE 46460 [facility] OUTPATIMAMIE 8 8 HEALTH ISABEL J T VISIT CLINIC OF 15 MINUTES [place] [facility] JULIUS - 8 8 [facility] OUTPATIEN INC T EMERGENCY 90808 JULIUS 8 8 [facility] DEPARTMEN INC T VISIT MODERATE SEVERITY OFFICE 19711 [facility] OUTPATIEN 8 8 [facility]ALTH IS[facility]EL J T VISIT CLINIC OF 15 MINUTES [place] [facility] DE[facility] OFFICE 28251 [facility] OUTPATIEN 8 8 HEALTH ISABEL J T NEW 30 CLINIC OF MINUTES VIC [facility] OFFICE 76639 ISAIAH COLON OUTPATIEN 7 7 GENE Jimenez VISIT 15 MINUTES
--- OUTSIDE RECORDS SUMMARY | 2017-02-18 18:17 | External Medical Summary Rpt | CCD ---
Author Author , VAMSHI SANDERSONCHELSY Address Unknown Phone [email or web address] Immunization Name Date Rout CVX Reac Dose Comm Prov Is Faci e tion ent ider Refu lity Give sed n King 09-1 10 999 Hist H149 No H149 o-IP 5-20 oric V 00 al Info rmat ion - Sour ce Unsp ecif ied MMR 09-1 3 999 Hist H149 No H149 5-20 oric 00 al Info rmat ion - Sour ce Unsp ecif ied DTaP 09-1 107 999 Hist H149 No H149 , UF 5-20 oric 00 al Info rmat ion - Sour ce Unsp ecif ied MMR 04-3 3 999 Hist H149 No H149 0-19 oric 97 al Info rmat ion - Sour ce Unsp ecif ied DTP- 04-3 22 999 Hist H149 No H149 Hib 0-19 oric 97 al Info rmat ion - Sour ce Unsp ecif ied Hep 04-3 8 999 Hist H149 No H149 B, 0-19 oric ped/ 97 al adol Info rmat ion - Sour ce Unsp ecif ied DTP- 04-2 22 999 Hist H149 No H149 Hib 9-19 oric 96 al Info rmat ion - Sour ce Unsp ecif ied King 04-2 2 999 Hist H149 No H149 o-OP 9-19 oric V 96 al Info rmat ion - Sour ce Unsp ecif ied DTP- 02-2 22 999 Hist H149 No H149 Hib 7-19 oric 96 al Info rmat ion - Sour ce Unsp ecif ied King 02-2 2 999 Hist H149 No H149 o-OP 7-19 oric V 96 al Info rmat ion - Sour ce Unsp ecif ied
--- OUTSIDE RECORDS SUMMARY | 2017-02-18 18:17 | External Medical Summary Rpt | CCD ---
Author Author , VAMSHI SANDERSONCHELSY Address Unknown Phone [email or web address] Immunization Name Date Rout CVX Reac Dose [...]
--- OUTSIDE RECORDS SUMMARY | 2017-02-18 18:18 | External Medical Summary Rpt ---
Author Author [employer], [employer] Organization [employer] Address Unknown Phone Unavailable Results Comprehensive metabolic 2000 panel in Serum or Plasma Observa Value Referen Units Interpr Notes Date tion ce etation Range Albumin/G 1.1 - 1.8 No Normal No Sep 2 lobulin informati informati 2017 2:25 [Mass on in on in PM ratio] in source source Serum or data data Plasma Albumin 3.4 - 5.0 gm/dL Normal No Sep 2 [Mass/vol informati 2017 2:25 ume] in on in PM Serum or source Plasma data Alkaline 46 - 116 U/L Normal No Sep 2 phosphata informati 2017 2:25 se on in PM [Enzymati source c data activity/ volume] in Serum or Plasma Bilirubin 0.2 - 1.0 mg/dL Normal No Sep 2 .total informati 2017 2:25 [Mass/vol on in PM ume] in source Serum or data Plasma Urea 7 - 18 mg/dL Normal No Sep 2 nitrogen informati 2017 2:25 [Mass/vol on in PM ume] in source Serum or data Plasma Calcium 8.5 - mg/dL Normal No Sep 2 [Mass/vol 10.1 informati 2017 2:25 ume] in on in PM Serum or source Plasma data Chloride 98 - 107 mmoL/L Normal No Sep 2 [Moles/vo informati 2017 2:25 lume] in on in PM Serum or source Plasma data Carbon 21.0 - mmoL/L Normal No Sep 2 dioxide, 32.0 informati 2017 2:25 total on in PM [Moles/vo source lume] in data Serum or Plasma Creatinin 0.55 - mg/dL Normal No Sep 2 e 1.02 informati 2017 2:25 [Mass/vol on in PM ume] in source Serum or data Plasma Creatinin 50 - 200 ML/MIN Normal No Sep 2 e renal informati 2017 2:25 clearance on in PM source predicted data by Cockcroft -Gault formula Estimated 59- ML/MIN No REFERENCE Sep 2 informati RANGE: 2017 2:25 glomerula on in >60 PM r source ML/MIN/1. filtratio data 73 SQUARE n rate METERSIf (GF this patient is -A merican, then multiply theresult by 1.210. Globulin 1.3 - 3.2 gm/dL High No Sep 2 [Mass/vol informati 2017 2:25 ume] in on in PM Serum source data Glucose 74 - 106 mg/dL Low No Sep 2 [Mass/vol informati 2017 2:25 ume] in on in PM Serum or source Plasma data Potassium 3.5 - 5.1 mmoL/L Normal No Sep 2 inform2016 2:25 [Moles/vo on in PM lume] in source Serum or data Plasma Sodium 136 - 145 mmoL/L Normal No Sep 2 [Moles/vo informati 2017 2:25 lume] in on in PM Serum or source Plasma data Aspartate 15 - 37 U/L Low No Sep 2 inform2016 2:25 aminotran on in PM sferase source [Enzymati data c activity/ volume] in Serum or Plasma Alanine 12 - 78 U/L Normal No Sep 2 aminotran informati 2016 2:25 sferase on in PM [Enzymati source c data activity/ volume] in Serum or Plasma Protein 6.4 - 8.2 gm/dL Normal No Sep 2 [Mass/vol informati 2017 2:25 ume] in on in PM Serum or source Plasma data CBC W Auto Differential panel in Blood Observa Value Referen Units Interpr Notes Date tion ce etation Range Basophils 0 - 0.2 K/MM3 Normal No Sep 2 inform2016 2:25 [#/volume on in PM ] in source Blood by data Automated count Basophils 0.1 - 2.0 % Normal No Sep 2 /100 informati 2016 2:25 leukocyte on in PM s in source Blood by data Automated count Eosinophi 0.0 - 0.4 K/mm3 Normal No Sep 2 ls informati 2016 2:25 [#/volume on in PM ] in source Blood by data Automated count Eosinophi 0.1 - % Normal No Sep 2 ls/100 12.0 informati 2016 2:25 leukocyte on in PM s in source Blood by data Automated count Granulocy 1.8 - 7.8 K/mm3 Normal No Sep 2 raven informati 2017 2:25 [#/volume on in PM ] in source Blood by data Automated count Granulocy 37.0 - % Normal No Sep 2 raven/100 80.0 informati 2016 2:25 leukocyte on in PM s in source Blood by data Automated count Hematocri 37.0 - % Normal No Sep 2 t [Volume 47.0 inform2016 2:25 on in PM Fraction] source of Blood data Hemoglobi 12.2 - g/dL Normal No Sep 2 n 16.2 informati 2016 2:25 [Mass/vol on in PM ume] in source Blood data Lymphocyt 0.7 - 4.5 K/mm3 Normal No Sep 2 es informati 2017 2:25 [#/volume on in PM ] in source Unspecifi data ed specimen by Automated count Lymphocyt 10 - 50.0 % Normal No Sep 2 es inform2016 2:25 [#/volume on in PM ] in source Unspecifi data ed specimen by Automated count Erythrocy 27 - 31.2 pg Normal No Sep 2 te mean informati 2016 2:25 corpuscul on in PM ar source hemoglobi data n [Entitic mass] Erythrocy 31.8 - g/dl Normal No Sep 2 te mean 35.4 informati 2016 2:25 corpuscul on in PM ar source hemoglobi data n concentra tion [Mass/vol ume] by Automated count Erythrocy 82.2 - fl Normal No Sep 2 te mean 97.8 informati 2016 2:25 corpuscul on in PM ar volume source [Entitic data volume] by Automated count Monocytes 0.1 - 1.0 K/mm3 Normal No Sep 2 inform2016 2:25 [#/volume on in PM ] in source Blood by data Automated count Monocytes 1.7 - 9.3 % Normal No Sep 2 /100 informati 2017 2:25 leukocyte on in PM s in source Blood by data Automated count Platelet 7.4 - fl Normal No Sep 2 mean 10.4 informati 2016 2:25 volume on in PM [Entitic source volume] data in Blood by Automated count Platelets 142 - 424 K/mm3 Normal No Sep 2 inform2016 2:25 [#/volume on in PM ] in source Blood data Erythrocy 4.2 - 5.4 M/mm3 Normal No Sep 2 raven informati 2016 2:25 [#/volume on in PM ] in source Amniotic data fluid Erythrocy 11.5 - % Normal No Sep 2 te 17.5 informati 2017 2:25 distribut on in PM ion width source [Entitic data volume] by Automated count Leukocyte 4.8 - K/MM3 Normal No Sep 2 s 10.8 informati 2017 2:25 [#/volume on in PM ] in source Blood data Urine test by rapid immunoassa Observa Value Referen Units Interpr Notes Date tion ce etation Range Urine NEGATIV NEG No No No Sep 2 pregnan E informa informa informa 2017 cy test tion in tion in tion in 2:01 PM by source source source rapid data data data immunoa ssa
== END 2017-02-16 23:02 | disposition home or self-care (01) ==
LOC: ER 20:55
PROVIDERS: Emergency Medicine
DX: J20.9 Acute bronchitis, unspecified (principal); Z88.2 Allergy status to sulfonamides; J45.909 Unspecified asthma, uncomplicated; R56.9 Unspecified convulsions